=== PATIENT | female | born 1950 | race Caucasian/White ===

== ENCOUNTER 2018-01-23 14:28 | Emergency (ER) | payer MEDICARE ==
[2018-01-23 14:34] VITALS: BP 143/87; PULSE 92; RESP 20; TEMP 98.9
[2018-01-23] MEDS ORDERED: ACYCLOVIR 800 MG TAB PO STA (14:55)
[2018-01-23] MEDS ORDERED: HYDROcodone/APAP 5-325MG 1 EACH TAB PO STA (14:55)
--- NOTE | 2018-01-23 14:56 | ED ---
Skin/Abscess/FB HPI - General Chief complaint: Skin/Abscess/Foreign Body Stated complaint: Rash Time Seen by Provider: 01/23/18 14:42 Source: patient Mode of arrival: ambulatory Limitations: no limitations - History of Present Illness Initial comments: Patient presents with a rash on the left side of her chest and back. It has gotten worse for couple days it is uncomfortable. She has taken no medication this. She has no fever or chills. It does not occur anywhere else. - Related Data Home Medications Medication Instructions Recorded Confirmed Aspirin EC [Ecotrin] 325 mg PO DAILY 01/23/18 01/23/18 Lisinopril [Zestril] 5 mg PO DAILY 01/23/18 01/23/18 Metoprolol Tartrate [Lopressor] 25 mg PO BID 01/23/18 01/23/18 diphenhydrAMINE HCL [Benadryl] 25 mg PO BID PRN 01/23/18 01/23/18 metFORMIN HCL 1,000 mg PO BID 01/23/18 01/23/18 Previous Rx's Medication Instructions Recorded Acyclovir [Zovirax] 800 mg PO TID #30 tab 01/23/18 Allergies Allergy/AdvReac Type Severity Reaction Status Date / Time tetracycline Allergy Rash/Hives Verified 01/23/18 14:48 Review of Systems ROS Statement: Those systems with pertinent positive or pertinent negative responses have been documented in the HPI. ROS Other: All systems not noted in ROS Statement are negative. Past Medical History Past Medical History: Coronary Artery Disease (CAD), Chest Pain / Angina History of Any Multi-Drug Resistant Organisms: None Reported Past Surgical History: Heart Catheterization, Heart Catheterization With Stent Past Psychological History: No Psychological Hx Reported Smoking Status: Former smoker Past Alcohol Use History: None Reported Past Drug Use History: None Reported General Exam Limitations: no limitations General appearance: alert, in no apparent distress Head exam: Present: atraumatic Eye exam: Present: normal appearance Neck exam: Present: normal inspection Respiratory exam: Absent: respiratory distress Extremities exam: Present: normal inspection, full ROM Neurological exam: Present: alert, oriented X3 Psychiatric exam: Present: normal affect Skin exam: Present: other (Shingles rash on the left chest and back) Course Vital Signs 01/23/18 14:32 Temperature 98.9 F Pulse Rate 92 Respiratory 20 Rate Blood Pressure 143/87 O2 Sat by Pulse 97 Oximetry Medical Decision Making - Medical Decision Making Patient presents with a rash. It appears to be shingles. She will be treated with pain medication and acyclovir. She is stable for discharge and outpatient follow-up. Disposition Clinical Impression: Shingles Disposition: HOME SELF-CARE Condition: Good Instructions: Shingles (ED) Prescriptions: Acyclovir [Zovirax] 800 mg PO TID #30 tab Is patient prescribed a controlled substance at d/c from ED?: No Referrals: None,Stated [Primary Care Provider] - 1-2 days Time of Disposition: 14:55
== END 2018-01-23 15:30 | disposition home or self-care (01) ==
LOC: EC 14:28
DX: B02.9 Zoster without complications (principal); I25.10 Atherosclerotic heart disease of native coronary artery without angina pectoris; Z95.5 Presence of coronary angioplasty implant and graft; Z87.891 Personal history of nicotine dependence; Z95.818 Presence of other cardiac implants and grafts; Z79.82 Long term (current) use of aspirin; Z79.84 Long term (current) use of oral hypoglycemic drugs; Z79.899 Other long term (current) drug therapy; Z88.1 Allergy status to other antibiotic agents
CPT/HCPCS: 99282

== ENCOUNTER 2018-09-27 17:39 | Inpatient (IN) | payer MEDICARE ==
--- NOTE | 2018-09-27 18:10 | ED ---
SOB HPI <Avni James - Last Filed: 09/27/18 20:09> - General Source: patient Mode of arrival: wheelchair Limitations: no limitations <Marie Denis - Last Filed: 09/27/18 20:46> - General Chief Complaint: Shortness of Breath Stated Complaint: HORTENSIA Time Seen by Provider: 09/27/18 17:56 - History of Present Illness Initial Comments: 68-year-old female patient presents to the emergency department today for complaints of progressive dyspnea worsening over the last week. Patient states that she becomes very short of breath with any activity. Patient states shot to rest for a period of time afterward in order to catch her breath. Patient states this also worsens when she lies flat. Patient states her heart starts racing and she feels anxious like she is not getting enough air. Patient denies any chest pain or discomfort with this. Denies any nausea, vomiting, sweats, or cough. Denies any fevers or chills. Patient does have history of myocardial infarction in 2005, she does have 3 coronary stents. Patient does admit to having vascular issues and has had surgery on her legs numerous times in the past. Patient denies any recent rash, abdominal pain, diarrhea, constipation, back pain, numbness, tingling, dizziness, weakness, hematuria, dysuria, urinary urgency, urinary frequency, headache, visual changes, or any other complaints. (Marie Denis) - Related Data Home Medications Medication Instructions Recorded Confirmed Aspirin EC [Ecotrin] 325 mg PO DAILY 01/23/18 09/27/18 Lisinopril [Zestril] 5 mg PO DAILY 01/23/18 09/27/18 Metoprolol Tartrate [Lopressor] 25 mg PO BID 01/23/18 09/27/18 metFORMIN HCL 1,000 mg PO BID 01/23/18 09/27/18 Glimepiride [Amaryl] 2 mg PO DAILY 09/27/18 09/27/18 Oxybutynin Chloride [Oxybutynin 10 mg PO DAILY 09/27/18 09/27/18 Chloride ER] Allergies Allergy/AdvReac Type Severity Reaction Status Date / Time tetracycline Allergy Rash/Hives Verified 09/27/18 19:00 Review of Systems ROS Other: All systems not noted in ROS Statement are negative. <Avni James - Last Filed: 09/27/18 20:09> ROS Other: All systems not noted in ROS Statement are negative. <Marie Denis - Last Filed: 09/27/18 20:46> ROS Statement: Those systems with pertinent positive or pertinent negative responses have been documented in the HPI. Past Medical History Past Medical History: Coronary Artery Disease (CAD), Chest Pain / Angina, Myocardial Infarction (HI) History of Any Multi-Drug Resistant Organisms: None Reported Past Surgical History: Section, Heart Catheterization, Heart Catheterization With Stent Additional Past Surgical History / Comment(s): vein work, leg stent Past Psychological History: No Psychological Hx Reported Smoking Status: Former smoker Past Alcohol Use History: None Reported Past Drug Use History: None Reported <Marie Denis - Last Filed: 09/27/18 20:46> General Exam Limitations: no limitations General appearance: alert, in no apparent distress, other (Physical well- developed, well-nourished adult female patient in no acute distress. Vital signs upon presentation are temperature 98.2 degrees rectal pulse 83, respirations 18, blood pressure 143/88, pulse ox 96% on room air.) Eye exam: Present: normal appearance, PERRL, EOMI. Absent: scleral icterus, conjunctival injection, periorbital swelling ENT exam: Present: normal exam, normal oropharynx, mucous membranes moist Respiratory exam: Present: other (Crackles at bilateral bases). Absent: normal lung sounds bilaterally, respiratory distress, wheezes, rales, rhonchi, stridor Cardiovascular Exam: Present: regular rate, normal rhythm, normal heart sounds. Absent: systolic murmur, diastolic murmur, rubs, gallop, clicks GI/Abdominal exam: Present: soft, normal bowel sounds. Absent: distended, tenderness, guarding, rebound, rigid Extremities exam: Present: full ROM, normal capillary refill, other (1+ pitting edema to the bilateral lower extremities). Absent: normal inspection, tenderness, pedal edema, joint swelling, calf tenderness Neurological exam: Present: alert, oriented X3, CN II-XII intact Psychiatric exam: Present: normal affect, normal mood Skin exam: Present: warm, dry, intact, normal color. Absent: rash <Marie Denis - Last Filed: 09/27/18 20:46> Vital Signs 09/27/18 09/27/18 09/27/18 17:46 18:30 19:00 Temperature 98.2 F Pulse Rate 83 79 74 Respiratory 18 22 18 Rate Blood Pressure 143/88 131/80 130/71 O2 Sat by Pulse 96 97 95 Oximetry 09/27/18 09/27/18 19:30 20:00 Temperature Pulse Rate 92 89 Respiratory Rate Blood Pressure 118/71 133/83 O2 Sat by Pulse 96 95 Oximetry Medical Decision Making - Lab Data Result diagrams: 09/27/18 18:07 09/27/18 18:07 <Anvi James - Last Filed: 09/27/18 20:09> - Lab Data Result diagrams: 09/27/18 18:07 09/27/18 18:07 - EKG Data -: EKG Interpreted by Me - Radiology Data Radiology results: report reviewed, image reviewed <AdeelMarie - Last Filed: 09/27/18 20:46> - Medical Decision Making Medical decision making; this is a 68-year-old female here with family. I examine the patient. The patient's been having progressive shortness of breath over several days to a week. Patient denies any chest pain but short of breath. This increases with walking, talking and laying flat. She's also noticed some lower leg edema. Past medical history significant for having had an HI 13 years ago with 3 stents placed. The patient states it does not feel like a heart attack. Her labs show a BNP of 3500 with a troponin of 0.606. The patient's going to be admitted to Dr. Barker. I discussed the case with on -call head of design Dr. Alarcon. He will follow-up in hospital. He recommends heparin be started. EKG showed normal sinus rhythm no acute ST elevation no ectopy. Dr. James (Avni James) 60-year-old female patient presented to the emergency department today for evaluation of progressive shortness of breath over the last week. Physical examination did reveal crackles at the bilateral lung bases. Chest x-ray showed bilateral pleural effusion with some pulmonary vascular congestion. Labs reviewed and did reveal elevated troponin at 0.606, elevated BNP at 3500. We will admit patient to Dr. Barker. My attending Dr. James did discuss to the on-call head of design Dr. Alarcon who recommends starting heparin. We will obtain echo in the morning. She'll be admitted for further evaluation (Marie Denis) - Lab Data Lab Results 09/27/18 09/27/18 09/27/18 Range/Units 18:07 18:07 18:07 WBC 7.6 (3.8-10.6) k/uL RBC 3.58 L (3.80-5.40) m/uL Hgb 10.2 L (11.4-16.0) gm/dL Hct 31.7 L (34.0-46.0) % MCV 88.3 (80.0-100.0) fL MCH 28.4 (25.0-35.0) pg MCHC 32.2 (31.0-37.0) g/dL RDW 14.8 (11.5-15.5) % Plt Count 311 (150-450) k/uL Neutrophils % 68 % Lymphocytes % 20 % Monocytes % 6 % Eosinophils % 2 % Basophils % 1 % Neutrophils # 5.2 (1.3-7.7) k/uL Lymphocytes # 1.5 (1.0-4.8) k/uL Monocytes # 0.4 (0-1.0) k/uL Eosinophils # 0.2 (0-0.7) k/uL Basophils # 0.1 (0-0.2) k/uL PT (9.0-12.0) sec INR (<1.2) APTT (22.0-30.0) sec Sodium 138 (137-145) mmol/L Potassium 5.0 (3.5-5.1) mmol/L Chloride 108 H (98-107) mmol/L Carbon Dioxide 21 L (22-30) mmol/L Anion Gap 9 mmol/L BUN 27 H (7-17) mg/dL Creatinine 1.32 H (0.52-1.04) mg/dL Est GFR (CKD-EPI)AfAm 48 (>60 ml/min/1.73 sqM) Est GFR (CKD-EPI)NonAf 42 (>60 ml/min/1.73 sqM) Glucose 156 H (74-99) mg/dL Calcium 9.4 (8.4-10.2) mg/dL Total Bilirubin 0.4 (0.2-1.3) mg/dL AST 17 (14-36) U/L ALT 18 (9-52) U/L Alkaline Phosphatase 89 (38-126) U/L Total Creatine Kinase 56 (30-135) U/L CK-MB (CK-2) 0.9 (0.0-2.4) ng/mL CK-MB (CK-2) Rel Index 1.6 Troponin I 0.606 H* (0.000-0.034) ng/mL NT-Pro-B Natriuret Pep pg/mL Total Protein 7.1 (6.3-8.2) g/dL Albumin 3.8 (3.5-5.0) g/dL 09/27/18 09/27/18 Range/Units 18:07 18:07 WBC (3.8-10.6) k/uL RBC (3.80-5.40) m/uL Hgb (11.4-16.0) gm/dL Hct (34.0-46.0) % MCV (80.0-100.0) fL MCH (25.0-35.0) pg MCHC (31.0-37.0) g/dL RDW (11.5-15.5) % Plt Count (150-450) k/uL Neutrophils % % Lymphocytes % % Monocytes % % Eosinophils % % Basophils % % Neutrophils # (1.3-7.7) k/uL Lymphocytes # (1.0-4.8) k/uL Monocytes # (0-1.0) k/uL Eosinophils # (0-0.7) k/uL Basophils # (0-0.2) k/uL PT 10.4 (9.0-12.0) sec INR 1.0 (<1.2) APTT 21.7 L (22.0-30.0) sec Sodium (137-145) mmol/L Potassium (3.5-5.1) mmol/L Chloride (98-107) mmol/L Carbon Dioxide (22-30) mmol/L Anion Gap mmol/L BUN (7-17) mg/dL Creatinine (0.52-1.04) mg/dL Est GFR (CKD-EPI)AfAm (>60 ml/min/1.73 sqM) Est GFR (CKD-EPI)NonAf (>60 ml/min/1.73 sqM) Glucose (74-99) mg/dL Calcium (8.4-10.2) mg/dL Total Bilirubin (0.2-1.3) mg/dL AST (14-36) U/L ALT (9-52) U/L Alkaline Phosphatase (38-126) U/L Total Creatine Kinase (30-135) U/L CK-MB (CK-2) (0.0-2.4) ng/mL CK-MB (CK-2) Rel Index Troponin I (0.000-0.034) ng/mL NT-Pro-B Natriuret Pep 3570 pg/mL Total Protein (6.3-8.2) g/dL Albumin (3.5-5.0) g/dL - EKG Data EKG Comments: EKG obtained at 1757 shows normal sinus rhythm with a ventricular rate of 86, TX interval 142, QRS duration 82, QT 364, QTC 435. No evidence of ST elevation or depression. (Marie Denis) - Radiology Data Two-view x-ray of the chest is obtained. Report was reviewed in its entirety. Impression by Dr. Perkins shows small to moderate bilateral pleural effusions. Minimal pulmonary vascular congestion (Marie Denis) Disposition <Avni James - Last Filed: 09/27/18 20:09> Decision to Admit Reason: Admit from EC Decision Date: 09/27/18 Decision Time: 20:45 <Marie Denis - Last Filed: 09/27/18 20:46> Clinical Impression: Congestive heart failure, ACS (acute coronary syndrome) Disposition: ADMITTED IP TO THIS [facility] Condition: Serious Referrals: Davey Barnard DO [Primary Care Provider] - 1-2 days
[2018-09-27 18:23] LABS: Basophils # (A) 0.1 k/uL (0-0.2); Basophils % (A) 1 %; Eosinophils # (A) 0.2 k/uL (0-0.7); Eosinophils % (A) 2 %; HCT 31.7 % (34.0-46.0); HGB 10.2 gm/dL (11.4-16.0); Lymphocytes # (A) 1.5 k/uL (1.0-4.8); Lymphocytes % (A) 20 %; MCH 28.4 pg (25.0-35.0); MCHC 32.2 g/dL (31.0-37.0); MCV 88.3 fL (80.0-100.0); Mean Platelet Volume 6.9; Monocytes # (A) 0.4 k/uL (0-1.0); Monocytes % (A) 6 %; Neutrophils # (A) 5.2 k/uL (1.3-7.7); Neutrophils % (A) 68 %; Platelet Count 311 k/uL (150-450); RBC 3.58 m/uL (3.80-5.40); RDW 14.8 % (11.5-15.5); WBC 7.6 k/uL (3.8-10.6)
--- NOTE | 2018-09-27 18:30 | XR ---
EXAMINATION TYPE: XR chest 2V DATE OF EXAM: 09/27/2018 COMPARISON: NONE HISTORY: Dyspnea with exertion TECHNIQUE: Frontal and lateral views of the chest are obtained. FINDINGS: Small to moderate-sized bilateral pleural effusions with associated bibasilar atelectasis. Increased interstitial markings are seen diffusely with cephalization of the pulmonary vessels. The heart is mildly enlarged. No pneumothorax. Osseous structures appear intact. IMPRESSION: 1. Small to moderate bilateral pleural effusions. 2. Minimal pulmonary vascular congestion.
[2018-09-27 18:33] LABS: Albumin 3.8 g/dL (3.5-5.0); Calcium 9.4 mg/dL (8.4-10.2); Total Bilirubin 0.4 mg/dL (0.2-1.3); Total Protein 7.1 g/dL (6.3-8.2)
[2018-09-27] MEDS ORDERED: FUROSEMIDE 10 MG/ML 4 ML VIAL IV STA (18:35)
[2018-09-27 18:39] LABS: Prothrombin Time 10.4 sec (9.0-12.0)
[2018-09-27 18:49] LABS: Creatine Kinase MB 0.9 ng/mL (0.0-2.4)
[2018-09-27 18:50] LABS: Partial Thromboplastin Time 21.7 sec (22.0-30.0)
[2018-09-27 18:51] LABS: Troponin I 0.606 ng/mL (0.000-0.034)
[2018-09-27] MEDS ORDERED: HEPARIN SODIUM,PORCINE 5,000 UNIT/ML 1 ML VIAL IV ONE ×2 (20:13→20:17)
[2018-09-27] MEDS ORDERED: HEPARIN SODIUM,PORCINE 5,000 UNIT/ML 1 ML VIAL IV PRN (20:17)
[2018-09-27] MEDS ORDERED: HEPARIN SOD,PORK IN 0.45% NACL 25,000 UNIT in 0.45% NACL 1 250ML.BAG IV SCH (20:30)
[2018-09-27] MEDS: FUROSEMIDE 10 MG/ML 4 ML VIAL IV SCH (20:54)
[2018-09-27] MEDS: METOPROLOL TARTRATE 25 MG TAB PO SCH (21:39)
[2018-09-27] MEDS: metFORMIN 500 MG TAB PO SCH (22:10)
[2018-09-28 06:11] LABS: Basophils # (A) 0.1 k/uL (0-0.2); Basophils % (A) 1 %; Eosinophils # (A) 0.2 k/uL (0-0.7); Eosinophils % (A) 4 %; HCT 28.1 % (34.0-46.0); Hypochromasia Slight; Lymphocytes # (A) 1.4 k/uL (1.0-4.8); Lymphocytes % (A) 27 %; MCH 28.5 pg (25.0-35.0); MCV 89.1 fL (80.0-100.0); Mean Platelet Volume 7.1; Monocytes # (A) 0.3 k/uL (0-1.0); Monocytes % (A) 6 %; Neutrophils # (A) 3.2 k/uL (1.3-7.7); Neutrophils % (A) 60 %; Platelet Count 259 k/uL (150-450); RBC 3.15 m/uL (3.80-5.40); RDW 14.7 % (11.5-15.5); WBC 5.3 k/uL (3.8-10.6)
[2018-09-28 06:16] LABS: Glucose,Whole Blood 121 mg/dL (75-99)
[2018-09-28] MEDS ORDERED: ATORVASTATIN 80 MG TAB PO STA (08:41)
[2018-09-28] MEDS ORDERED: ALPRAZolam 0.25 MG TAB PO PRN (08:41)
[2018-09-28] MEDS ORDERED: ALPRAZolam 0.5 MG TAB PO PRN (08:41)
[2018-09-28] MEDS ORDERED: NITROGLYCERIN SL TABS 0.4 MG TAB SUBLINGUAL PRN (08:41)
[2018-09-28] MEDS ORDERED: ASPIRIN 325 MG TAB PO STA (08:41)
[2018-09-28] MEDS ORDERED: SODIUM CHLORIDE 0.9% 1,000 ML in EMPTY BAG 1 BAG IV ONE (08:41)
[2018-09-28] MEDS: LISINOPRIL 5 MG TAB PO SCH (08:47)
[2018-09-28] MEDS: METOPROLOL TARTRATE 25 MG TAB PO SCH (08:47)
[2018-09-28] MEDS: FUROSEMIDE 10 MG/ML 4 ML VIAL IV SCH ×2 (08:47→20:40)
[2018-09-28] MEDS ORDERED: ASPIRIN 325 MG TAB PO SCH (09:00)
[2018-09-28] MEDS ORDERED: GLIMEPIRIDE 2 MG TAB PO SCH (09:00)
--- NOTE | 2018-09-28 09:20 | CONS ---
ABY Galan is a 68-year-old lady with history of coronary artery disease, status post prior myocardial infarction cath and angioplasty, hypertension and [id number] diabetes who presents to hospital complaining of exertional shortness of breath. She has been becoming progressively more short of breath over the last several days. EKG on admission showed sinus rhythm with nonspecific ST-T wave changes. She did not have any episodes of chest pain, but she ruled in for myocardial infarction. Her troponins were at 0.6, 0.4 and 0.4. Her BNP is also elevated. At the time of my evaluation this morning, she appears comfortable at rest. I treated her with IV heparin with some improvement in her symptoms. Her hemoglobin on admission was low at 10.2, this morning it is 9. There is no prior history of anemia. Patient does not have any active GI bleed and does not have melanotic stools. Her BUN and creatinine are slightly elevated at 27 and 1.3. Given the elevated troponin and known CAD, I advised the patient to undergo invasive angiography to rule out significant obstructive disease. If this is negative, then she will need workup for her anemia. She does not have any active GI bleed at the moment. PAST MEDICAL HISTORY: Significant for hypertension, diabetes. CURRENT MEDICATIONS: Include Lopressor 25 b.i.d., Amaryl 2 mg daily, metformin 1000 b.i.d., Zestril 5 q. daily and aspirin. ALLERGIC: To TETRACYCLINE. FAMILY HISTORY: Negative for premature coronary artery disease. SOCIAL HISTORY: Negative for current smoking, EtOH abuse or drug abuse. REVIEW OF SYSTEMS: HEENT is unremarkable. CARDIAC: As described above. RESPIRATORY: As described above. GI: Negative. GENITOURINARY: Negative. ALLERGY: Negative. SKIN: Negative. MUSCULOSKELETAL: Significant for arthritis. PSYCHOSOCIAL: Negative. ENDOCRINE: Negative. HEMATOLOGIC: Negative. DERM: Negative. CONSTITUTIONAL: Negative. ONCOLOGICAL: Negative. Rest of the system review is not relevant. PHYSICAL EXAM: Comfortable at rest. Afebrile. Vital signs are stable. There is no jugular venous distention. Carotid upstroke is normal. There is no bruit. Chest exam reveals good air entry bilaterally. Heart exam reveals first and second heart sounds. No gallop. No murmur. No rub. Abdomen is soft, nontender. Exam of extremities did not reveal edema. Peripheral pulses are felt. LABS: Showed that the hemoglobin is low at 9, platelet count is 259. Troponins are elevated. Potassium is 5, BUN is 27, creatinine is 1.3. BNP is elevated at 3570. ASSESSMENT: 1. Acute shortness of breath, probably related to acute non ST-segment elevation myocardial infarction. 2. Renal insufficiency. 3. Anemia. PLAN: I advised the patient to undergo cardiac catheterization today. I will obtain a 2D echo to evaluate her LV function and wall motion. I am going to review her outpatient records. Depending upon the angiographic data, we will decide on further course of action. I am also going to obtain a D-dimer on her. \ MMODL / IJN: [id number] /
[2018-09-28] MEDS ORDERED: MIDAZOLAM 2 MG/2 ML VIAL IVP ONE (10:01)
[2018-09-28] MEDS ORDERED: IV FLUID CONTINUATION 800 ML IV ONE (10:02)
[2018-09-28] MEDS ORDERED: fentaNYL (PF) 50 MCG/ML 2 ML AMP IVP ONE (10:02)
[2018-09-28 10:04] LABS: D-Dimer 1.13 mg/L FEU (<0.60); Partial Thromboplastin Time 42.4 sec (22.0-30.0)
[2018-09-28] MEDS ORDERED: LIDOCAINE 1% (PF) 10MG/ML VIAL SQ ONE (10:05)
[2018-09-28] MEDS ORDERED: IOPAMIDOL-370 125ML BTL INJ ONE (10:17)
--- NOTE | 2018-09-28 10:46 | CC ---
CARDIAC CATHETERIZATION REPORT INDICATION: 1. Acute non ST-segment elevation myocardial infarction. 2. Ischemic cardiomyopathy. PROCEDURE NOTE: After obtaining informed consent, left heart catheterization and coronary angiogram were performed via the right femoral artery using standard Lior catheters. The patient tolerated the procedure well without any obvious immediate complications. A femoral angiogram was performed and decision was made for manual hemostasis as she has extensive calcification of the peripheral vessels. The patient received moderate conscious sedation and total sedation time was 17 minutes. FINDINGS: 1. HEMODYNAMICS: Left ventricular end-diastolic pressure is 24 to 26 mm. There is no significant gradient across aortic valve. 2. LEFT VENTRICULOGRAM: Left ventriculogram is not performed. 3. ANGIOGRAPHIC DATA: Left Main Coronary Artery: Left main coronary artery appears calcified but is free of significant stenosis. Divides into left anterior descending coronary artery and circumflex coronary artery. LAD is subtotally occluded in its midportion with extensive disease in the proximal LAD also. It gives off a large caliber diagonal branch. The circumflex coronary artery is a nondominant vessel. The OM branch shows a 60 to 70% stenosis. Right coronary artery is a large dominant vessel and this was previously stented. Mid RCA shows a focal 80% to 90% stenosis. Distal RCA as it bifurcates into PDA and PLV also has a 70% stenosis. CONCLUSION: 1. Severe three-vessel coronary artery disease. 2. Ischemic cardiomyopathy with severe left ventricular dysfunction. PLAN: I am going to consult Dr. Zuñiga for bypass surgery. The patient will need revascularization of the distal LAD, diagonal, OM and the RCA. MMODL / IJN: [id number] /
[2018-09-28 11:14] LABS: Basophils % (A) 1 %; Eosinophils # (A) 0.2 k/uL (0-0.7); Eosinophils % (A) 4 %; HCT 32.2 % (34.0-46.0); HGB 10.4 gm/dL (11.4-16.0); Hypochromasia Slight; Lymphocytes # (A) 1.3 k/uL (1.0-4.8); Lymphocytes % (A) 25 %; MCHC 32.2 g/dL (31.0-37.0); MCV 90.1 fL (80.0-100.0); Mean Platelet Volume 6.9; Monocytes # (A) 0.4 k/uL (0-1.0); Monocytes % (A) 7 %; Neutrophils # (A) 3.2 k/uL (1.3-7.7); Neutrophils % (A) 61 %; Platelet Count 262 k/uL (150-450); RBC 3.57 m/uL (3.80-5.40); RDW 14.7 % (11.5-15.5); WBC 5.3 k/uL (3.8-10.6)
[2018-09-28] MEDS: metFORMIN 500 MG TAB PO SCH ×2 (11:20→20:34)
[2018-09-28] MEDS: OXYBUTYNIN 10 MG TAB.ER.24 PO SCH (11:20)
[2018-09-28 11:22] LABS: Albumin 3.6 g/dL (3.5-5.0); Calcium 9.3 mg/dL (8.4-10.2); Magnesium 1.7 mg/dL (1.6-2.3); Potassium 4.7 mmol/L (3.5-5.1); Total Bilirubin 0.5 mg/dL (0.2-1.3); Total Protein 6.7 g/dL (6.3-8.2)
[2018-09-28 11:39] LABS: Prothrombin Time 10.4 sec (9.0-12.0)
[2018-09-28 12:25] LABS: Glucose,Whole Blood 142 mg/dL (75-99)
--- NOTE | 2018-09-28 13:25 | P.GSCN ---
<Elsie Alas - Last Filed: 09/28/18 15:11> History of Present Illness Consult date: 09/28/18 Reason for Consult: Severe triple vessel coronary artery disease, surgical recommendations Requesting physician: Avi Alarcon History of present illness: This is a 68-year-old female patient who follows on an outpatient basis with Dr. Sadie Barnard. She has a previous medical history of myocardial infarction in 2005 with stent placement, hyperlipidemia, peripheral artery disease with stent placement to the left lower extremity in 2016, recent vein surgery to bilateral lower extremities, [id number] diabetes mellitus , shingles, obesity, previous tobacco dependence, and family history of early coronary artery disease with her mother dying before the age of 6060 years old during coronary artery bypass graft surgery. She presented to [facility] emergency room yesterday with complaints of increasing shortness of breath , especially with activity over the previous week. She is unable to lay flat, and is significantly short of breath just walking from her couch to the bathroom. Her shortness of breath is partially relieved with rest, in addition she endorses bilateral lower extremity edema, intermittent nausea, and occasional palpitations with a racing heart. She denies any chest pain or pressure, weakness, dizziness, syncope. In the emergency room she had EKG completed which demonstrated some nonspecific ST-T wave changes. Her troponins were elevated as high as 0.606 and she was ruled in for non-STEMI. In addition her BNP was 3570. Chest x-ray demonstrated bilateral pleural effusions with pulmonary vascular congestion. She was admitted for cardiology workup. Dr. Alarcon took her to the Equipment Manager this morning which demonstrated previous stent to the RCA with mid RCA stenosis 80-90% and distal RCA stenosis 70%, subtotal occlusion in the mid LAD with extensive disease in the proximal LAD, and an OM branch of the circumflex artery with 60-70% stenosis. Cardiothoracic surgery was consulted regarding surgical recommendations. Review of Systems Review of systems was completed and was negative except as noted. - Cardiovascular Reports as per HPI, Reports decreased exercise tolerance, Reports dyspnea on exertion, Reports leg edema, Reports rapid heart beat Past Medical History Past Medical History: Coronary Artery Disease (CAD), Chest Pain / Angina, Diabetes Mellitus, Hyperlipidemia, Myocardial Infarction (DC) Last Myocardial Infarction Date:: 03/20/2006 History of Any Multi-Drug Resistant Organisms: None Reported Past Surgical History: Section, Heart Catheterization, Heart Catheterization With Stent Additional Past Surgical History / Comment(s): vein work, leg stent Past Anesthesia/Blood Transfusion Reactions: No Reported Reaction Date of Last Stent Placement:: 03/20/2006 Past Psychological History: No Psychological Hx Reported Smoking Status: Former smoker Past Alcohol Use History: None Reported Past Drug Use History: None Reported - Past Family History Mother Family Medical History: Coronary Artery Disease (CAD) Medications and Allergies Home Medications Medication Instructions Recorded Confirmed Type Aspirin EC [Ecotrin] 325 mg PO DAILY 01/23/18 09/27/18 History Lisinopril [Zestril] 5 mg PO DAILY 01/23/18 09/27/18 History Metoprolol Tartrate [Lopressor] 25 mg PO BID 01/23/18 09/27/18 History metFORMIN HCL 1,000 mg PO BID 01/23/18 09/27/18 History Glimepiride [Amaryl] 2 mg PO DAILY 09/27/18 09/27/18 History Oxybutynin Chloride [Oxybutynin 10 mg PO DAILY 09/27/18 09/27/18 History Chloride ER] Allergies Allergy/AdvReac Type Severity Reaction Status Date / Time tetracycline Allergy Rash/Hives Verified 09/27/18 19:00 Surgical - Exam Vital Signs Temp Pulse Resp BP Pulse Ox 98.2 F 83 18 143/88 96 09/27/18 17:46 09/27/18 17:46 09/27/18 17:46 09/27/18 17:46 09/27/18 17:46 - General well developed, well nourished, no distress, no pain, obese - Eyes PERRL, normal ocular movement - ENT no hearing loss - Neck no masses, no bruits, trachea midline - Respiratory Lungs sounds diminished bilaterally. Respirations even, nonlabored. Currently on room air with oxygen saturation 93%. No chest wall deformities. - Cardiovascular S1, S2 present. Regular rate and rhythm, sinus rhythm on telemetry. Palpable peripheral pulses bilaterally. Trace bilateral lower extremity nonpitting edema present. No calf pain or tenderness noted. Positive varicosities to both lower extremities. - Abdomen Abdomen: soft, non tender, bowel sounds - Genitourinary Deferred - Rectum Deferred - Integumentary Skin is warm and dry with evidence of good perfusion. Right groin arterial access site soft, nontender. - Neurologic normal coordination, normal sensation - Musculoskeletal normal posture - Psychiatric oriented to time, oriented to person, oriented to place, speech is normal, memory intact Results - Labs 09/28/18 09:19 09/28/18 09:19 Abnormal Lab Results - Last 24 Hours (Table) 09/27/18 09/27/18 09/27/18 Range/Units 18:07 18:07 18:07 RBC 3.58 L (3.80-5.40) m/uL Hgb 10.2 L (11.4-16.0) gm/dL Hct 31.7 L (34.0-46.0) % APTT (22.0-30.0) sec D-Dimer (<0.60) mg/L FEU Chloride 108 H (98-107) mmol/L Carbon Dioxide 21 L (22-30) mmol/L BUN 27 H (7-17) mg/dL Creatinine 1.32 H (0.52-1.04) mg/dL Glucose 156 H (74-99) mg/dL POC Glucose (mg/dL) (75-99) mg/dL Troponin I 0.606 H* (0.000-0.034) ng/mL Cholesterol (<200) mg/dL LDL Cholesterol, Calc (0-99) mg/dL HDL Cholesterol (40-60) mg/dL 09/27/18 09/27/18 09/28/18 Range/Units 18:07 23:36 05:33 RBC 3.15 L (3.80-5.40) m/uL Hgb 9.0 L (11.4-16.0) gm/dL Hct 28.1 L (34.0-46.0) % APTT 21.7 L (22.0-30.0) sec D-Dimer (<0.60) mg/L FEU Chloride (98-107) mmol/L Carbon Dioxide (22-30) mmol/L BUN (7-17) mg/dL Creatinine (0.52-1.04) mg/dL Glucose (74-99) mg/dL POC Glucose (mg/dL) (75-99) mg/dL Troponin I 0.487 H* (0.000-0.034) ng/mL Cholesterol (<200) mg/dL LDL Cholesterol, Calc (0-99) mg/dL HDL Cholesterol (40-60) mg/dL 09/28/18 09/28/18 09/28/18 Range/Units 05:33 06:14 09:16 RBC (3.80-5.40) m/uL Hgb (11.4-16.0) gm/dL Hct (34.0-46.0) % APTT 42.4 H (22.0-30.0) sec D-Dimer 1.13 H (<0.60) mg/L FEU Chloride (98-107) mmol/L Carbon Dioxide (22-30) mmol/L BUN (7-17) mg/dL Creatinine (0.52-1.04) mg/dL Glucose (74-99) mg/dL POC Glucose (mg/dL) 121 H (75-99) mg/dL Troponin I 0.483 H* (0.000-0.034) ng/mL Cholesterol (<200) mg/dL LDL Cholesterol, Calc (0-99) mg/dL HDL Cholesterol (40-60) mg/dL 09/28/18 09/28/18 09/28/18 Range/Units 09:19 09:19 11:54 RBC 3.57 L (3.80-5.40) m/uL Hgb 10.4 L (11.4-16.0) gm/dL Hct 32.2 L (34.0-46.0) % APTT (22.0-30.0) sec D-Dimer (<0.60) mg/L FEU Chloride 109 H (98-107) mmol/L Carbon Dioxide (22-30) mmol/L BUN 27 H (7-17) mg/dL Creatinine 1.23 H (0.52-1.04) mg/dL Glucose 117 H (74-99) mg/dL POC Glucose (mg/dL) 142 H (75-99) mg/dL Troponin I (0.000-0.034) ng/mL Cholesterol 236 H (<200) mg/dL LDL Cholesterol, Calc 175 H (0-99) mg/dL HDL Cholesterol 35 L (40-60) mg/dL Diabetes panel 09/27/18 09/28/18 Range/Units 18:07 09:19 Sodium 138 139 (137-145) mmol/L Potassium 5.0 4.7 (3.5-5.1) mmol/L Chloride 108 H 109 H (98-107) mmol/L Carbon Dioxide 21 L 24 (22-30) mmol/L BUN 27 H 27 H (7-17) mg/dL Creatinine 1.32 H 1.23 H (0.52-1.04) mg/dL Glucose 156 H 117 H (74-99) mg/dL Calcium 9.4 9.3 (8.4-10.2) mg/dL AST 17 15 (14-36) U/L ALT 18 20 (9-52) U/L Alkaline Phosphatase 89 89 (38-126) U/L Total Protein 7.1 6.7 (6.3-8.2) g/dL Albumin 3.8 3.6 (3.5-5.0) g/dL Triglycerides 132 (<150) mg/dL HDL Cholesterol 35 L (40-60) mg/dL Thyroid panel 09/28/18 Range/Units 09:19 TSH 1.830 (0.465-4.680) mIU/L Calcium panel 09/27/18 09/28/18 Range/Units 18:07 09:19 Calcium 9.4 9.3 (8.4-10.2) mg/dL Albumin 3.8 3.6 (3.5-5.0) g/dL Pituitary panel 09/27/18 09/28/18 Range/Units 18:07 09:19 Sodium 138 139 (137-145) mmol/L Potassium 5.0 4.7 (3.5-5.1) mmol/L Chloride 108 H 109 H (98-107) mmol/L Carbon Dioxide 21 L 24 (22-30) mmol/L BUN 27 H 27 H (7-17) mg/dL Creatinine 1.32 H 1.23 H (0.52-1.04) mg/dL Glucose 156 H 117 H (74-99) mg/dL Calcium 9.4 9.3 (8.4-10.2) mg/dL TSH 1.830 (0.465-4.680) mIU/L Adrenal panel 09/27/18 09/28/18 Range/Units 18:07 09:19 Sodium 138 139 (137-145) mmol/L Potassium 5.0 4.7 (3.5-5.1) mmol/L Chloride 108 H 109 H (98-107) mmol/L Carbon Dioxide 21 L 24 (22-30) mmol/L BUN 27 H 27 H (7-17) mg/dL Creatinine 1.32 H 1.23 H (0.52-1.04) mg/dL Glucose 156 H 117 H (74-99) mg/dL Calcium 9.4 9.3 (8.4-10.2) mg/dL Total Bilirubin 0.4 0.5 (0.2-1.3) mg/dL AST 17 15 (14-36) U/L ALT 18 20 (9-52) U/L Alkaline Phosphatase 89 89 (38-126) U/L Total Protein 7.1 6.7 (6.3-8.2) g/dL Albumin 3.8 3.6 (3.5-5.0) g/dL - Imaging Chest x-ray: report reviewed, image reviewed EKG: image reviewed Additional studies: Heart catheterization results reviewed Assessment and Plan (1) History of myocardial infarction, greater than 8 weeks ago Current Visit: No Status: Resolved Code(s): I25.2 - OLD MYOCARDIAL INFARCTION SNOMED Code(s): 0767035 (2) Non-STEMI (non-ST elevated myocardial infarction) Current Visit: Yes Status: Acute Code(s): I21.4 - NON-ST ELEVATION (NSTEMI) MYOCARDIAL INFARCTION SNOMED Code(s): 91093112 (3) History of heart artery stent Current Visit: Yes Status: Chronic Code(s): Z95.5 - PRESENCE OF CORONARY ANGIOPLASTY IMPLANT AND GRAFT SNOMED Code(s): 392784616 (4) Peripheral artery disease Current Visit: Yes Status: Chronic Code(s): I73.9 - PERIPHERAL VASCULAR DISEASE, UNSPECIFIED SNOMED Code(s): 600116835 (5) Tobacco dependence in remission Current Visit: No Status: Resolved Code(s): F17.201 - NICOTINE DEPENDENCE, UNSPECIFIED, IN REMISSION SNOMED Code(s): 576548656 (6) Hyperlipidemia Current Visit: Yes Status: Chronic Code(s): E78.5 - HYPERLIPIDEMIA, UNSPECIFIED SNOMED Code(s): 20954415 (7) Diabetes mellitus Current Visit: Yes Status: Chronic Code(s): E11.9 - TYPE 2 DIABETES MELLITUS WITHOUT COMPLICATIONS SNOMED Code(s): 63788483 (8) Obesity (BMI 30.0-34.9) Current Visit: Yes Status: Chronic Code(s): E66.9 - OBESITY, UNSPECIFIED SNOMED Code(s): 081180234458948 Plan: The patient was seen and examined at the bedside. Her chart/diagnostics were reviewed. Heart catheterization films were reviewed. The case will be discussed with Dr. Paez in detail. The usual open-heart surgery perioperative course was discussed with the patient and her family, risks and benefits were discussed, all questions were answered. Preoperative testing was ordered. We recommend maximizing medical therapy with aspirin, statin, beta salome. Continue diuresis with Lasix. Continued medical management per primary care service. Cardiology management per Dr. Alarcon. More recommendations to follow once Dr. Paez has viewed heart catheterization films and preoperative testing has been completed. Thank you Dr. Alarcon for this consult. We look forward to working with you in the care of your patient. Time with Patient: Greater than 30 <Navarro Paez - Last Filed: 09/28/18 18:07> Surgical - Exam Vital Signs Temp Pulse Resp BP Pulse Ox 98.2 F 83 18 143/88 96 09/27/18 17:46 09/27/18 17:46 09/27/18 17:46 09/27/18 17:46 09/27/18 17:46 Results - Labs 09/28/18 09:19 09/28/18 09:19 Abnormal Lab Results - Last 24 Hours (Table) 09/27/18 09/27/18 09/27/18 Range/Units 18:07 18:07 18:07 RBC 3.58 L (3.80-5.40) m/uL Hgb 10.2 L (11.4-16.0) gm/dL Hct 31.7 L (34.0-46.0) % APTT (22.0-30.0) sec D-Dimer (<0.60) mg/L FEU Chloride 108 H (98-107) mmol/L Carbon Dioxide 21 L (22-30) mmol/L BUN 27 H (7-17) mg/dL Creatinine 1.32 H (0.52-1.04) mg/dL Glucose 156 H (74-99) mg/dL POC Glucose (mg/dL) (75-99) mg/dL Troponin I 0.606 H* (0.000-0.034) ng/mL Cholesterol (<200) mg/dL LDL Cholesterol, Calc (0-99) mg/dL HDL Cholesterol (40-60) mg/dL Urine Protein (Negative) Urine Mucus (None) /hpf 09/27/18 09/27/18 09/28/18 Range/Units 18:07 23:36 05:33 RBC 3.15 L (3.80-5.40) m/uL Hgb 9.0 L (11.4-16.0) gm/dL Hct 28.1 L (34.0-46.0) % APTT 21.7 L (22.0-30.0) sec D-Dimer (<0.60) mg/L FEU Chloride (98-107) mmol/L Carbon Dioxide (22-30) mmol/L BUN (7-17) mg/dL Creatinine (0.52-1.04) mg/dL Glucose (74-99) mg/dL POC Glucose (mg/dL) (75-99) mg/dL Troponin I 0.487 H* (0.000-0.034) ng/mL Cholesterol (<200) mg/dL LDL Cholesterol, Calc (0-99) mg/dL HDL Cholesterol (40-60) mg/dL Urine Protein (Negative) Urine Mucus (None) /hpf 09/28/18 09/28/18 09/28/18 Range/Units 05:33 06:14 09:16 RBC (3.80-5.40) m/uL Hgb (11.4-16.0) gm/dL Hct (34.0-46.0) % APTT 42.4 H (22.0-30.0) sec D-Dimer 1.13 H (<0.60) mg/L FEU Chloride (98-107) mmol/L Carbon Dioxide (22-30) mmol/L BUN (7-17) mg/dL Creatinine (0.52-1.04) mg/dL Glucose (74-99) mg/dL POC Glucose (mg/dL) 121 H (75-99) mg/dL Troponin I 0.483 H* (0.000-0.034) ng/mL Cholesterol (<200) mg/dL LDL Cholesterol, Calc (0-99) mg/dL HDL Cholesterol (40-60) mg/dL Urine Protein (Negative) Urine Mucus (None) /hpf 09/28/18 09/28/18 09/28/18 Range/Units 09:19 09:19 11:54 RBC 3.57 L (3.80-5.40) m/uL Hgb 10.4 L (11.4-16.0) gm/dL Hct 32.2 L (34.0-46.0) % APTT (22.0-30.0) sec D-Dimer (<0.60) mg/L FEU Chloride 109 H (98-107) mmol/L Carbon Dioxide (22-30) mmol/L BUN 27 H (7-17) mg/dL Creatinine 1.23 H (0.52-1.04) mg/dL Glucose 117 H (74-99) mg/dL POC Glucose (mg/dL) 142 H (75-99) mg/dL Troponin I (0.000-0.034) ng/mL Cholesterol 236 H (<200) mg/dL LDL Cholesterol, Calc 175 H (0-99) mg/dL HDL Cholesterol 35 L (40-60) mg/dL Urine Protein (Negative) Urine Mucus (None) /hpf 09/28/18 09/28/18 Range/Units 12:40 17:13 RBC (3.80-5.40) m/uL Hgb (11.4-16.0) gm/dL Hct (34.0-46.0) % APTT (22.0-30.0) sec D-Dimer (<0.60) mg/L FEU Chloride (98-107) mmol/L Carbon Dioxide (22-30) mmol/L BUN (7-17) mg/dL Creatinine (0.52-1.04) mg/dL Glucose (74-99) mg/dL POC Glucose (mg/dL) 122 H (75-99) mg/dL Troponin I (0.000-0.034) ng/mL Cholesterol (<200) mg/dL LDL Cholesterol, Calc (0-99) mg/dL HDL Cholesterol (40-60) mg/dL Urine Protein 1+ H (Negative) Urine Mucus Rare H (None) /hpf Diabetes panel 09/27/18 09/28/18 Range/Units 18:07 09:19 Sodium 138 139 (137-145) mmol/L Potassium 5.0 4.7 (3.5-5.1) mmol/L Chloride 108 H 109 H (98-107) mmol/L Carbon Dioxide 21 L 24 (22-30) mmol/L BUN 27 H 27 H (7-17) mg/dL Creatinine 1.32 H 1.23 H (0.52-1.04) mg/dL Glucose 156 H 117 H (74-99) mg/dL Calcium 9.4 9.3 (8.4-10.2) mg/dL AST 17 15 (14-36) U/L ALT 18 20 (9-52) U/L Alkaline Phosphatase 89 89 (38-126) U/L Total Protein 7.1 6.7 (6.3-8.2) g/dL Albumin 3.8 3.6 (3.5-5.0) g/dL Triglycerides 132 (<150) mg/dL HDL Cholesterol 35 L (40-60) mg/dL Thyroid panel 09/28/18 Range/Units 09: TSH 1.830 (0.465-4.680) mIU/L Calcium panel 09/27/18 09/28/18 Range/Units 18: 09: Calcium 9.4 9.3 (8.4-10.2) mg/dL Albumin 3.8 3.6 (3.5-5.0) g/dL Pituitary panel 09/27/18 09/28/18 Range/Units 18: 09: Sodium 138 139 (137-145) mmol/L Potassium 5.0 4.7 (3.5-5.1) mmol/L Chloride 108 H 109 H (98-107) mmol/L Carbon Dioxide 21 L 24 (22-30) mmol/L BUN 27 H 27 H (7-17) mg/dL Creatinine 1.32 H 1.23 H (0.52-1.04) mg/dL Glucose 156 H 117 H (74-99) mg/dL Calcium 9.4 9.3 (8.4-10.2) mg/dL TSH 1.830 (0.465-4.680) mIU/L Adrenal panel 09/27/18 09/28/18 Range/Units 18: 09: Sodium 138 139 (137-145) mmol/L Potassium 5.0 4.7 (3.5-5.1) mmol/L Chloride 108 H 109 H (98-107) mmol/L Carbon Dioxide 21 L 24 (22-30) mmol/L BUN 27 H 27 H (7-17) mg/dL Creatinine 1.32 H 1.23 H (0.52-1.04) mg/dL Glucose 156 H 117 H (74-99) mg/dL Calcium 9.4 9.3 (8.4-10.2) mg/dL Total Bilirubin 0.4 0.5 (0.2-1.3) mg/dL AST 17 15 (14-36) U/L ALT 18 20 (9-52) U/L Alkaline Phosphatase 89 89 (38-126) U/L Total Protein 7.1 6.7 (6.3-8.2) g/dL Albumin 3.8 3.6 (3.5-5.0) g/dL Assessment and Plan Plan: The patient was seen and examined. History and physical findings were verified. I agree with the above assessment and plan. The patient is a 68-year -old female with history of multiple medical problems including previous coronary stents placed in 2005. She states that for the last several months, she has been experiencing shortness of breath with activity. She denies chest pain. Upon presentation to the hospital she was ruled in for non-ST elevation myocardial infarction. Cardiac catheterization revealed multivessel coronary artery disease. Unfortunately, her targets are suboptimal. Specifically, her left anterior descending artery is nearly occluded with a poor distal target visualized. Her ejection fraction is also quite depressed on the order of 20%. Finally, she has had recent vein stripping in both her lower legs secondary to advanced varicosities. We will obtain the remainder of her workup and speak with her silk screen painter to determine whether additional PCI is an option.
[2018-09-28 13:29] LABS: Appearance,Urine Clear (Clear); Bilirubin,Urine Negative (Negative); Blood,Urine Negative (Negative); Color,Urine Colorless; Glucose,Urine (UA) Negative (Negative); Ketones,Urine Negative (Negative); Leukocyte Esterase,Urine Negative (Negative); Mucus,Urine Rare /hpf; Nitrite,Urine Negative (Negative); Protein,Urine 1+ (Negative); Squamous Epithelial Cell,Urine 1 /hpf (0-4); Urobilinogen,Urine <2.0 mg/dL (<2.0); WBC,Urine <1 /hpf (0-5)
--- NOTE | 2018-09-28 15:43 | US ---
EXAMINATION TYPE: US carotid duplex BILAT DATE OF EXAM: 09/28/2018 COMPARISON: NONE CLINICAL HISTORY: PreOp Cardiac Surgery. no h/o stroke EXAM MEASUREMENTS: RIGHT: Peak Systolic Velocity (PSV) cm/sec ----- Right CCA: 90.4 ----- Right ICA: 93.8 ----- Right ECA: 105.1 ICA/CCA ratio: 1.0 RIGHT: End Diastole cm/sec ----- Right CCA: 23.9 ----- Right ICA: 39.9 ----- Right ECA: 21.6 LEFT: Peak Systolic Velocity (PSV) cm/sec ----- Left CCA: 77.9 ----- Left ICA: 96.0 ----- Left ECA: 110.6 ICA/CCA ratio: 1.2 LEFT: End Diastole cm/sec ----- Left CCA: 18.6 ----- Left ICA: 31.1 ----- Left ECA: 10.6 VERTEBRALS (direction of flow): Right Vertebral: Antegrade Left Vertebral: Antegrade Rhythm: Arrhythmia Heterogeneous plaque seen at bilateral bulbs with no significant stenosis seen. IMPRESSION: 1. Although there is no sonographic evidence of hemodynamically significant stenosis there is moderat e heterogenous plaque within the bilateral carotid bulbs that could be further assessed with CTA neck . 2. Incidentally noted cardiac arrhythmia. Correlate with EKG. Criteria for Assigning % of Stenosis / Diameter reduction (Estimation based on the indirect measurements of the internal carotid artery velocities (ICA PSV). 1. Normal (no stenosis)=ICA PSV < 125 cm/s: ratio < 2.0: ICA EDV<40 cm/s. 2. Less than 50% stenosis=ICA PSV < 125 cm/s: ratio < 2.0: ICA EDV<40 cm/s. 3. 50 to 69% stenosis=ICA PSV of 125 to 230 cm/s: ration 2.0 ? 4.0: ICA EDV 40-100 cm/s. 4. Greater than 70% stenosis to near occlusion= ICA PSV > 230 cm/s: ratio > 4.0: ICA EDV > 100 cm/s. 5. Near occlusion= ICA PSV velocities may be low or undetectable: variable ratio and ICA EDV. 6. Total occlusion=unable to detect flow.
[2018-09-28] MEDS ORDERED: METOPROLOL TARTRATE 5 MG/5 ML VIAL IVP STA (15:52)
[2018-09-28 16:08] VITALS: BMI 32.9
[2018-09-28 17:16] LABS: Glucose,Whole Blood 122 mg/dL (75-99)
--- NOTE | 2018-09-28 19:24 | ECHOF ---
Referral Reason:Heart Failure MEASUREMENTS -------- HEIGHT: 167.6 cm WEIGHT: 92.1 kg BP: 116/68 RVIDd: 2.1 cm (< 3.3) IVSd: 1.3 cm (0.6 - 1.1) LVIDd: 5.0 cm (3.9 - 5.3) LVPWd: 1.3 cm (0.6 - 1.1) IVSs: 1.8 cm LVIDs: 4.5 cm LVPWs: 1.3 cm LAESV Index (A-L): 41.67 ml/m Ao Diam: 3.4 cm (2.0 - 3.7) AV Cusp: 1.5 cm (1.5 - 2.6) LA Diam: 4.1 cm (2.7 - 3.8) MV EXCURSION: 14.924 mm (> 18.000) MV EF SLOPE: 93 mm/s (70 - 150) EPSS: 1.5 cm MV E Talib: 1.15 m/s MV DecT: 159 ms MV A Talib: 1.09 m/s MV E/A Ratio: 1.06 RAP: 5.00 mmHg RVSP: 8.72 mmHg FINDINGS -------- Sinus rhythm. This was a technically difficult study with suboptimal views. The left ventricular size is normal. There is mild concentric left ventricular hypertrophy. There is severe global hypokinesis of LV . Overall left ventricular systolic function is severely impair ed with, an EF between 20 - 25 %. Basal inferior LV wall motion is hypokinetic. Basal inferosept al LV wall motion is hypokinetic. Apical anterior LV wall motion is hypokinetic. Apical lateral LV wall motion is hypokinetic. Apical inferior LV wall motion is hypokinetic. Apical septum LV wall motion is hypokinetic. The right ventricle is normal in size and function. LA is severely dilated >40 ml/m2 The right atrium is normal in size. Lumason used Aortic valve is trileaflet and is mildly thickened. Mild mitral regurgitation is present. Trace tricuspid regurgitation present. The right ventricular systolic pressure, as measured by Dopp ler, is 8.72mmHg. Pulmonic valve appears structurally normal. The aortic root size is normal. The pericardium is normal. CONCLUSIONS -------- 1. Sinus rhythm. 2. This was a technically difficult study with suboptimal views. 3. The left ventricular size is normal. 4. There is mild concentric left ventricular hypertrophy. 5. There is severe global hypokinesis of LV . 6. Overall left ventricular systolic function is severely impaired with, an EF between 20 - 25 %. 7. Basal inferior LV wall motion is hypokinetic. 8. Basal inferoseptal LV wall motion is hypokinetic. 9. Apical anterior LV wall motion is hypokinetic. 10. Apical lateral LV wall motion is hypokinetic. 11. Apical inferior LV wall motion is hypokinetic. 12. Apical septum LV wall motion is hypokinetic. 13. The right ventricle is normal in size and function. 14. LA is severely dilated >40 ml/m2 15. The right atrium is normal in size. 16. Lumason used 17. Aortic valve is trileaflet and is mildly thickened. 18. Mild mitral regurgitation is present. 19. Trace tricuspid regurgitation present. 20. The right ventricular systolic pressure, as measured by Doppler, is 8.72mmHg. 21. Pulmonic valve appears structurally normal. 22. The aortic root size is normal. 23. The pericardium is normal. DRAPERY SEAMSTRESS: Elsie Golden RDCS
[2018-09-28] MEDS ORDERED: MAGNESIUM HYDROXIDE 2,400 MG/10 ML CUP PO PRN (19:31)
[2018-09-28] MEDS ORDERED: NALOXONE 0.4 MG/ML 1 ML VIAL IV PRN (19:31)
[2018-09-28] MEDS ORDERED: LACTULOSE 20 GM/30 ML CUP PO PRN (19:31)
[2018-09-28] MEDS ORDERED: ONDANSETRON 4 MG/2 ML VIAL IVP PRN (19:31)
[2018-09-28] MEDS ORDERED: ACETAMINOPHEN TAB 325 MG TAB PO PRN (19:31)
[2018-09-28] MEDS ORDERED: CALCIUM CARBONATE 500 MG CHEWABLE PO PRN (19:31)
[2018-09-28] MEDS ORDERED: MELATONIN 3 MG TABLET PO PRN (19:31)
[2018-09-28 20:21] LABS: Hepatitis A Antibody IgM Non-Reactive (Non-Reactive); Hepatitis B Core IgM Non-Reactive (Non-Reactive)
[2018-09-28] MEDS: METOPROLOL TARTRATE 50 MG TAB PO SCH (20:40)
[2018-09-28 20:44] LABS: Glucose,Whole Blood 160 mg/dL (75-99)
[2018-09-28] MEDS: INSULIN ASPART 100 UNIT/ML 1 ML 10 ML VIAL SQ SCH (20:47)
[2018-09-28 20:59] LABS: Hemoglobin A1C 7.1 % (4.0-6.0)
--- NOTE | 2018-09-28 21:29 | HP ---
HISTORY AND PHYSICAL DATE OF ADMISSION: October 15, 2018. DATE OF SERVICE: September 28, 2018. PRESENTING COMPLAINT: Short of breath. HISTORY OF PRESENTING COMPLAINT: This is a pleasant 68 -year-old patient of Dr. Barnard'juliette whose chronic stable medical conditions include coronary artery disease with stent in 2005, diabetes, urine incontinence, and peripheral artery disease. The patient for 10 days has been progressively getting more and more short of breath, more so in the last 4 days, worsening edema. Slight cough. No sputum. No fever. No chills. Some orthopnea. No chest pressure. Patient presented to the ER. The patient's troponins were 0.6, 0.4. The patient was seen by Dr. Alarcon. He felt the patient may have had a non-ST elevation myocardial infarction. Took the patient down to cardiac cath. The patient was found to have triple-vessel disease and cardiothoracic surgery was consulted. Family is present at the bedside. REVIEW OF SYSTEMS: CONSTITUTIONAL: None. HEENT None. RESPIRATORY as above. Cardiovascular as above. GASTROINTESTINAL: None. GENITOURINARY: Urinary incontinence. MUSCULOSKELETAL: None. DERMATOLOGICAL, HEMATOLOGIC, LYMPHATIC: none. PSYCHIATRY: None. NEUROLOGICAL: None. PAST MEDICAL HISTORY: Coronary artery disease with stent, diabetes, hyperlipidemia, peripheral artery disease. PAST SURGICAL HISTORY: Cardiac cath with stent and also stent to the leg. SOCIAL HISTORY: He is . Smoked a pack a day for 40 years stopped in 2005. Alcohol occasionally. FAMILY HISTORY: Coronary artery disease. HOME MEDICATIONS: 1. Oxybutynin 10 mg a day. 2. Lopressor 25 mg b.i.d. 3. Amaryl 2 mg p.o. daily. 4. Metformin 1000 mg b.i.d. 5. Zestril 5 mg p.o. daily. 6. Aspirin 325 p.o. daily. ALLERGIES: TETRACYCLINE. PHYSICAL EXAMINATION: VITAL SIGNS: Temperature 98, pulse 92, respiratory 18, blood pressure 149/88, pulse ox 96% on 2 L. GENERAL APPEARANCE: Well built. BMI 32.9. Lying in bed, awake. Eyes: Pupils equal. Conjunctivae normal. HEENT: External appearance of nose and ears normal. Oral cavity normal. NECK: JVD raised. Mass not palpable. RESPIRATORY: Effort increased. LUNGS: Decreased breath sounds. CARDIOVASCULAR: 1st and 2nd sounds normal. Some edema. ABDOMEN: Soft, nontender. Liver and spleen not palpable. LYMPHATICS: No lymph nodes palpable in the neck and axilla. PSYCHIATRY: Alert and oriented x3. Mood and affect normal. NEUROLOGICAL: Pupils equal. Cranial nerves grossly intact. Power and sensation grossly intact. INVESTIGATIONS: White count 7.6, hemoglobin 10.2, potassium 5.0. BUN 27, creatinine 1.32. Troponin 0.6, 0.4, 0.4. ProBNP 3570, chest x-ray film personally reviewed by me shows cardiomegaly, pleural effusion, and venous prominence. EKG tracing personally reviewed by me shows some Q-waves in the inferior leads and some nonspecific ST-segment changes. A 2D echocardiogram EF of 20-25 percent, multiple wall motion abnormalities. ASSESSMENT: 1. Acute congestive heart failure exacerbation from systolic dysfunction, ejection fraction 20-25 percent from underlying coronary artery disease. 2. Acute non-Q-wave myocardial infarction. The patient has been progressively getting short of breath for the last 14 days. 3. Severe triple-vessel disease per cardiac catheterization. Patient will require coronary bypass. 4. Peripheral artery disease, prior intervention about 3 years ago. 5. Chronic urinary incontinence. 6. Diabetes mellitus type 2 on oral hypoglycemic. 7. Chronic kidney disease stage III probably from diabetic nephropathy and nephrosclerosis. 8. Metabolic acidosis, possibly from renal failure. PLAN: The patient is currently on aspirin, Lipitor, IV Lasix, Amaryl, Zestril, Glucophage, Lopressor, Nitrostat, Ditropan XL. The patient is seen by Dr. Alarcon from Cardiology and Cardiothoracic surgery was also consulted. We will also get an opinion from Nephrology given the renal dysfunction. We will send off a UA and do a renal ultrasound. Care was discussed with the patient. Questions were answered. Copy to Dr. Barnard. MMODL / IJN: [id number] /
[2018-09-29 05:42] LABS: Glucose,Whole Blood 120 mg/dL (75-99)
[2018-09-29] MEDS: INSULIN ASPART 100 UNIT/ML 1 ML 10 ML VIAL SQ SCH ×4 (05:46→21:42)
[2018-09-29 06:50] LABS: Basophils % (A) 1 %; Eosinophils # (A) 0.2 k/uL (0-0.7); Eosinophils % (A) 3 %; HCT 30.8 % (34.0-46.0); HGB 9.7 gm/dL (11.4-16.0); Hypochromasia Slight; Lymphocytes # (A) 1.5 k/uL (1.0-4.8); Lymphocytes % (A) 25 %; MCH 28.1 pg (25.0-35.0); MCHC 31.5 g/dL (31.0-37.0); MCV 89.1 fL (80.0-100.0); Mean Platelet Volume 6.5; Monocytes # (A) 0.4 k/uL (0-1.0); Monocytes % (A) 6 %; Neutrophils # (A) 3.6 k/uL (1.3-7.7); Neutrophils % (A) 61 %; Platelet Count 311 k/uL (150-450); RBC 3.45 m/uL (3.80-5.40); RDW 14.6 % (11.5-15.5); WBC 5.9 k/uL (3.8-10.6)
[2018-09-29] MEDS: METOPROLOL TARTRATE 50 MG TAB PO SCH ×2 (08:54→20:28)
[2018-09-29] MEDS: ATORVASTATIN 40 MG TAB PO SCH (08:54)
[2018-09-29] MEDS: LISINOPRIL 5 MG TAB PO SCH (08:54)
[2018-09-29] MEDS: OXYBUTYNIN 10 MG TAB.ER.24 PO SCH (08:55)
[2018-09-29] MEDS: ASPIRIN 325 MG TAB PO SCH (08:55)
[2018-09-29] MEDS: FUROSEMIDE 10 MG/ML 4 ML VIAL IV SCH (08:55)
[2018-09-29] MEDS: SPIRONOLACTONE 25 MG TAB PO SCH (08:58)
[2018-09-29] MEDS: metFORMIN 500 MG TAB PO SCH ×2 (09:20→20:15)
--- NOTE | 2018-09-29 09:37 | P.PN ---
<Elsie Alas - Last Filed: 09/29/18 09:32> Subjective Progress Note Date: 09/29/18 Principal diagnosis: Severe triple vessel coronary artery disease. Previous medical history of myocardial infarction in 2006 with stent placement, hyperlipidemia, peripheral artery disease with stent placement to the left lower extremity in 2016, recent vein surgery to bilateral lower extremities, uncontrolled [id number] diabetes mellitus with hemoglobin A1c 7.1%, shingles, obesity, previous tobacco dependence, family history of early coronary artery disease. The patient is currently sitting up in bed in no acute distress. Denies any chest pain or shortness of breath. No new questions at this time. Preoperative testing ongoing. Objective - Vital Signs Vital signs: Vital Signs Temp 97.7 F 09/29/18 09:11 Pulse 92 09/29/18 09:11 Resp 18 09/29/18 09:11 BP 133/80 09/29/18 09:11 Pulse Ox 95 09/29/18 09:11 Intake & Output 09/28/18 09/29/18 09/29/18 18:59 06:59 18:59 Intake Total 560.808 330 Output Total 600 Balance -39.192 330 Weight 92.5 kg 89.7 kg Intake: IV 10 Intake, IV Titration 70.808 Amount Heparin Sod,Pork in 0.45% 70.808 NaCl 25,000 unit In 0.45 % NaCl 1 250ml.bag @ 11. 024 UNITS/KG/HR 10 mls/hr IV .Q24H [facility] Rx#: [id number] Oral 480 330 Output: Urine 600 Other: Voiding Method Toilet # Voids 2 1 - Constitutional General appearance: Present: cooperative, no acute distress, obese - Respiratory Details: Lungs sounds diminished bilaterally. Respirations even, nonlabored. Currently on room air with oxygen saturation 93%. Strong cough. - Cardiovascular Details: S1, S2 present. Regular rate and rhythm, sinus rhythm on telemetry. Palpable peripheral pulses bilaterally. Trace bilateral lower extremity nonpitting edema present. No calf pain or tenderness noted. Right femoral artery heart catheterization site soft, nontender. - Gastrointestinal Gastrointestinal Comment(s): Abdomen soft, nontender, nondistended, obese. Active bowel sounds present 4 quadrants. Tolerating diet. - Genitourinary Genitourinary Comment(s): Continues to void clear, yellow urine. - Integumentary Integumentary Comment(s): Skin is warm and dry with evidence of good perfusion. - Neurologic Neurologic: Present: CNII-XII intact - Musculoskeletal Musculoskeletal: Present: gait normal, strength equal bilaterally - Psychiatric Psychiatric: Present: A&O x's 3, appropriate affect, intact judgment & insight - Allied health notes Allied health notes reviewed: nursing - Labs CBC & Chem 7: 09/29/18 05:45 09/28/18 09:19 Labs: Abnormal Lab Results - Last 24 Hours (Table) 09/28/18 09/28/18 09/28/18 Range/Units 09:16 09:19 09:19 RBC 3.57 L (3.80-5.40) m/uL Hgb 10.4 L (11.4-16.0) gm/dL Hct 32.2 L (34.0-46.0) % APTT 42.4 H (22.0-30.0) sec D-Dimer 1.13 H (<0.60) mg/L FEU Chloride 109 H (98-107) mmol/L BUN 27 H (7-17) mg/dL Creatinine 1.23 H (0.52-1.04) mg/dL Glucose 117 H (74-99) mg/dL POC Glucose (mg/dL) (75-99) mg/dL Hemoglobin A1c (4.0-6.0) % Cholesterol 236 H (<200) mg/dL LDL Cholesterol, Calc 175 H (0-99) mg/dL HDL Cholesterol 35 L (40-60) mg/dL Urine Protein (Negative) Urine Mucus (None) /hpf 09/28/18 09/28/18 09/28/18 Range/Units 09:19 11:54 12:40 RBC (3.80-5.40) m/uL Hgb (11.4-16.0) gm/dL Hct (34.0-46.0) % APTT (22.0-30.0) sec D-Dimer (<0.60) mg/L FEU Chloride (98-107) mmol/L BUN (7-17) mg/dL Creatinine (0.52-1.04) mg/dL Glucose (74-99) mg/dL POC Glucose (mg/dL) 142 H (75-99) mg/dL Hemoglobin A1c 7.1 H (4.0-6.0) % Cholesterol (<200) mg/dL LDL Cholesterol, Calc (0-99) mg/dL HDL Cholesterol (40-60) mg/dL Urine Protein 1+ H (Negative) Urine Mucus Rare H (None) /hpf 09/28/18 09/28/18 09/29/18 Range/Units 17:13 20:43 05:41 RBC (3.80-5.40) m/uL Hgb (11.4-16.0) gm/dL Hct (34.0-46.0) % APTT (22.0-30.0) sec D-Dimer (<0.60) mg/L FEU Chloride (98-107) mmol/L BUN (7-17) mg/dL Creatinine (0.52-1.04) mg/dL Glucose (74-99) mg/dL POC Glucose (mg/dL) 122 H 160 H 120 H (75-99) mg/dL Hemoglobin A1c (4.0-6.0) % Cholesterol (<200) mg/dL LDL Cholesterol, Calc (0-99) mg/dL HDL Cholesterol (40-60) mg/dL Urine Protein (Negative) Urine Mucus (None) /hpf 09/29/18 Range/Units 05:45 RBC 3.45 L (3.80-5.40) m/uL Hgb 9.7 L (11.4-16.0) gm/dL Hct 30.8 L (34.0-46.0) % APTT (22.0-30.0) sec D-Dimer (<0.60) mg/L FEU Chloride (98-107) mmol/L BUN (7-17) mg/dL Creatinine (0.52-1.04) mg/dL Glucose (74-99) mg/dL POC Glucose (mg/dL) (75-99) mg/dL Hemoglobin A1c (4.0-6.0) % Cholesterol (<200) mg/dL LDL Cholesterol, Calc (0-99) mg/dL HDL Cholesterol (40-60) mg/dL Urine Protein (Negative) Urine Mucus (None) /hpf Microbiology - Last 24 Hours (Table) 09/28/18 12:40 Urine Culture - Preliminary Urine,Voided 09/28/18 13:45 Nasal Screen MRSA/MSSA - Preliminary Nasal Swab - Imaging and Cardiology Carotid Dopplers, echocardiogram results reviewed Assessment and Plan (1) History of myocardial infarction, greater than 8 weeks ago Current Visit: No Status: Resolved Code(s): I25.2 - OLD MYOCARDIAL INFARCTION SNOMED Code(s): 1177255 (2) Non-STEMI (non-ST elevated myocardial infarction) Current Visit: Yes Status: Acute Code(s): I21.4 - NON-ST ELEVATION (NSTEMI) MYOCARDIAL INFARCTION SNOMED Code(s): 49928181 (3) History of heart artery stent Current Visit: Yes Status: Chronic Code(s): Z95.5 - PRESENCE OF CORONARY ANGIOPLASTY IMPLANT AND GRAFT SNOMED Code(s): 363779376 (4) Peripheral artery disease Current Visit: Yes Status: Chronic Code(s): I73.9 - PERIPHERAL VASCULAR DISEASE, UNSPECIFIED SNOMED Code(s): 066513958 (5) Tobacco dependence in remission Current Visit: No Status: Resolved Code(s): F17.201 - NICOTINE DEPENDENCE, UNSPECIFIED, IN REMISSION SNOMED Code(s): 170594187 (6) Hyperlipidemia Current Visit: Yes Status: Chronic Code(s): E78.5 - HYPERLIPIDEMIA, UNSPECIFIED SNOMED Code(s): 43442401 (7) Diabetes mellitus Current Visit: Yes Status: Chronic Code(s): E11.9 - TYPE 2 DIABETES MELLITUS WITHOUT COMPLICATIONS SNOMED Code(s): 95003569 (8) Obesity (BMI 30.0-34.9) Current Visit: Yes Status: Chronic Code(s): E66.9 - OBESITY, UNSPECIFIED SNOMED Code(s): 590411030261438 Plan: 1. Continue aspirin, statin, beta salome, CAMILA inhibitor, Lasix, Aldactone. 2. Encourage incentive spirometry 10 times every hour while awake. 3. Increase activity, ambulate in hallway. 4. STS risk score calculated, patient is at increased risk for mortality. 5. Patient's distal targets are suboptimal, saphenous veins are usable for conduit, awaiting radial artery studies to determine availability of arterial conduit for bypasses, echocardiogram demonstrates significant LV dysfunction with ejection fraction 20% and global hypokinesis of the left ventricle. This patient would be high risk and may benefit more from PCI if able. Will discuss with Dr. Alarcon. 6. Continue medical management per Dr. Metzger, cardiology management per Dr. Alarcon. 7. Nephrology ordered per primary care, appreciate recommendations 8. More recommendations to follow. Time with Patient: Greater than 30 <Navarro Paez - Last Filed: 09/29/18 10:59> Objective - Vital Signs Vital signs: Vital Signs Temp 97.7 F 09/29/18 09:11 Pulse 92 09/29/18 09:11 Resp 18 09/29/18 09:11 BP 133/80 09/29/18 09:11 Pulse Ox 95 09/29/18 09:11 Intake & Output 09/28/18 09/29/18 09/29/18 18:59 06:59 18:59 Intake Total 560.808 330 240 Output Total 600 250 Balance -39.192 330 -10 Weight 92.5 kg 89.7 kg Intake: IV 10 Intake, IV Titration 70.808 Amount Heparin Sod,Pork in 0.45% 70.808 NaCl 25,000 unit In 0.45 % NaCl 1 250ml.bag @ 11. 024 UNITS/KG/HR 10 mls/hr IV .Q24H [facility] Rx#: [id number] Oral 480 330 240 Output: Urine 600 250 Other: Voiding Method Toilet # Voids 2 1 1 - Labs CBC & Chem 7: 09/29/18 05:45 09/28/18 09:19 Labs: Abnormal Lab Results - Last 24 Hours (Table) 09/28/18 09/28/18 09/28/18 Range/Units 09:19 09:19 09:19 RBC 3.57 L (3.80-5.40) m/uL Hgb 10.4 L (11.4-16.0) gm/dL Hct 32.2 L (34.0-46.0) % Chloride 109 H (98-107) mmol/L BUN 27 H (7-17) mg/dL Creatinine 1.23 H (0.52-1.04) mg/dL Glucose 117 H (74-99) mg/dL POC Glucose (mg/dL) (75-99) mg/dL Hemoglobin A1c 7.1 H (4.0-6.0) % Cholesterol 236 H (<200) mg/dL LDL Cholesterol, Calc 175 H (0-99) mg/dL HDL Cholesterol 35 L (40-60) mg/dL Urine Protein (Negative) Urine Mucus (None) /hpf 09/28/18 09/28/18 09/28/18 Range/Units 11:54 12:40 17:13 RBC (3.80-5.40) m/uL Hgb (11.4-16.0) gm/dL Hct (34.0-46.0) % Chloride (98-107) mmol/L BUN (7-17) mg/dL Creatinine (0.52-1.04) mg/dL Glucose (74-99) mg/dL POC Glucose (mg/dL) 142 H 122 H (75-99) mg/dL Hemoglobin A1c (4.0-6.0) % Cholesterol (<200) mg/dL LDL Cholesterol, Calc (0-99) mg/dL HDL Cholesterol (40-60) mg/dL Urine Protein 1+ H (Negative) Urine Mucus Rare H (None) /hpf 09/28/18 09/29/18 09/29/18 Range/Units 20:43 05:41 05:45 RBC 3.45 L (3.80-5.40) m/uL Hgb 9.7 L (11.4-16.0) gm/dL Hct 30.8 L (34.0-46.0) % Chloride (98-107) mmol/L BUN (7-17) mg/dL Creatinine (0.52-1.04) mg/dL Glucose (74-99) mg/dL POC Glucose (mg/dL) 160 H 120 H (75-99) mg/dL Hemoglobin A1c (4.0-6.0) % Cholesterol (<200) mg/dL LDL Cholesterol, Calc (0-99) mg/dL HDL Cholesterol (40-60) mg/dL Urine Protein (Negative) Urine Mucus (None) /hpf 09/29/18 Range/Units 10:00 RBC (3.80-5.40) m/uL Hgb (11.4-16.0) gm/dL Hct (34.0-46.0) % Chloride (98-107) mmol/L BUN (7-17) mg/dL Creatinine (0.52-1.04) mg/dL Glucose (74-99) mg/dL POC Glucose (mg/dL) (75-99) mg/dL Hemoglobin A1c (4.0-6.0) % Cholesterol (<200) mg/dL LDL Cholesterol, Calc (0-99) mg/dL HDL Cholesterol (40-60) mg/dL Urine Protein 1+ H (Negative) Urine Mucus (None) /hpf Microbiology - Last 24 Hours (Table) 09/28/18 12:40 Urine Culture - Preliminary Urine,Voided 09/28/18 13:45 Nasal Screen MRSA/MSSA - Preliminary Nasal Swab Assessment and Plan Plan: The patient's echocardiogram confirms an ejection fraction of about 20% with global hypokinesis. Her cardiac catheterization was again reviewed and reveals multivessel coronary artery disease including a subtotal LAD occlusion with a suboptimal distal target. I feel that the patient would be better served with PCI if possible. I will again speak with Dr. Alarcon regarding my recommendations. I did speak with the patient and her family members at length again today. All of their questions were answered.
--- NOTE | 2018-09-29 09:49 | US ---
EXAMINATION TYPE: US renals and bladder DATE OF EXAM: 09/29/2018 COMPARISON: NONE CLINICAL HISTORY: assess for CKD; diabetic EXAM MEASUREMENTS: Right Kidney: 10.1 x 5.7 x 5.7 cm Left Kidney: 11.0 x 5.0 x 5.4 cm Post Void Residual Volume: not assessed on inpatient Right Kidney: No hydronephrosis or masses seen Left Kidney: simple cyst is seen in upper lateral cortex = 1.3 x 1.6 x 1.1cm Bladder: wnl Bilateral Jets seen: yes There is no evidence for hydronephrosis at this point in time. No nephrolithiasis is seen. Cystic fo cus within the upper pole left kidney shows increased through transmission, is anechoic and has imper ceptible wall. Cortical medullary differentiation is maintained. The urinary bladder is anechoic. Bi lateral ureteral jets are seen. Incidental findings of shadowing stones is noted in gallbladder. IMPRESSION: Cholelithiasis. Simple cyst left kidney.
[2018-09-29 10:28] LABS: Appearance,Urine Clear (Clear); Bilirubin,Urine Negative (Negative); Blood,Urine Negative (Negative); Color,Urine Light Yellow; Glucose,Urine (UA) Negative (Negative); Hyaline Casts,Urine 1 /lpf (0-2); Ketones,Urine Negative (Negative); Leukocyte Esterase,Urine Negative (Negative); Nitrite,Urine Negative (Negative); Protein,Urine 1+ (Negative); RBC,Urine <1 /hpf (0-5); Specific Gravity,Urine 1.007 (1.001-1.035); Squamous Epithelial Cell,Urine 1 /hpf (0-4); Urobilinogen,Urine <2.0 mg/dL (<2.0); WBC,Urine 1 /hpf (0-5)
[2018-09-29 12:12] LABS: Glucose,Whole Blood 193 mg/dL (75-99)
--- NOTE | 2018-09-29 12:54 | P.NPCON ---
History of Present Illness - Reason for Consult acute renal failure - History of Present Illness Reason for consultation: Acute kidney injury History of present illness: Patient is a 68-year-old female seen in renal consultation for acute kidney injury. Unclear as to what her baseline renal function is. Patient denies any prior history of kidney disease. Creatinine was 1.32 admission and is 1.23 as of yesterday. Patient states she was diagnosed with diabetes in 2005. She is not on insulin at this time. Denies vomiting or diarrhea. Denies regular use of NSAIDs. Admits to good urine output. No hematuria or dysuria. Patient presented to the hospital with dyspnea. She denies any chest pain. She does admit to swelling in her feet. Ejection fraction is noted to be 20-25%. She did undergo cardiac catheterization on 09/28/2018 which revealed triple-vessel disease. She is now being followed by cardiothoracic surgery for potential CABG this admission. She is maintained on Lasix 40 mg IV twice daily. Swelling is improving. Hemodynamically stable. Denies family history of renal disease. Vital signs are stable. General: The patient appeared well nourished and normally developed. HEENT: Head exam is unremarkable. Neck is without jugular venous distension. LUNGS: Lungs are clear to auscultation and percussion. Breath sounds decreased. HEART: Rate and Rhythm are regular. First and second heart sounds normal. No murmurs, rubs or gallops. ABDOMEN: Abdominal exam reveals normal bowel sounds. Non-tender and non- distended. No evidence of peritonitis. EXTREMITITES: Trace edema. Past Medical History Past Medical History: Coronary Artery Disease (CAD), Chest Pain / Angina, Diabetes Mellitus, Hyperlipidemia, Myocardial Infarction (SC) Last Myocardial Infarction Date:: 03/20/2006 History of Any Multi-Drug Resistant Organisms: None Reported Past Surgical History: Section, Heart Catheterization, Heart Catheterization With Stent Additional Past Surgical History / Comment(s): vein work, leg stent Past Anesthesia/Blood Transfusion Reactions: No Reported Reaction Date of Last Stent Placement:: 03/20/2006 Past Psychological History: No Psychological Hx Reported Smoking Status: Former smoker Past Alcohol Use History: None Reported Past Drug Use History: None Reported - Past Family History Mother Family Medical History: Coronary Artery Disease (CAD) Medications and Allergies Home Medications Medication Instructions Recorded Confirmed Type Aspirin EC [Ecotrin] 325 mg PO DAILY 01/23/18 09/27/18 History Lisinopril [Zestril] 5 mg PO DAILY 01/23/18 09/27/18 History Metoprolol Tartrate [Lopressor] 25 mg PO BID 01/23/18 09/27/18 History metFORMIN HCL 1,000 mg PO BID 01/23/18 09/27/18 History Glimepiride [Amaryl] 2 mg PO DAILY 09/27/18 09/27/18 History Oxybutynin Chloride [Oxybutynin 10 mg PO DAILY 09/27/18 09/27/18 History Chloride ER] Allergies Allergy/AdvReac Type Severity Reaction Status Date / Time tetracycline Allergy Rash/Hives Verified 09/27/18 19:00 Physical Exam Vitals: Vital Signs Temp Pulse Pulse Resp BP Pulse Ox 09/29/18 12:14 95 09/29/18 11:56 97.3 F L 76 18 112/57 96 09/29/18 09:11 97.7 F 92 18 133/80 95 09/29/18 04:00 98 F 86 18 111/60 96 09/29/18 00:00 98.2 F 83 16 119/73 93 L 09/28/18 20:00 98.5 F 91 20 108/67 93 L 09/28/18 17:00 72 17 124/75 96 09/28/18 16:00 98 F 130 H 17 136/80 96 Intake and Output 09/28/18 09/29/18 09/29/18 22:59 06:59 14:59 Intake Total 320 250 240 Output Total 250 Balance 320 250 -10 Intake: Oral 320 250 240 Output: Urine 250 Other: Voiding Method Toilet Toilet # Voids 1 1 1 Weight 92.5 kg 89.7 kg Results - Lab Results Most recent lab results Calcium 9.3 mg/dL (8.4-10.2) 09/28/18 09:19 Magnesium 1.7 mg/dL (1.6-2.3) 09/28/18 09:19 09/29/18 05:45 09/28/18 09:19 Assessment and Plan Plan: Assessment: 1. Acute kidney injury mostly prerenal secondary to cardiorenal syndrome. Creatinine 1.23 as of yesterday. Unclear as to what her baseline renal function is. 2. Proteinuria. This is likely secondary to underlying diabetic kidney disease. 3. Systolic CHF with ejection fraction of 20-25%. 4. Volume overload. Improving. 5. Anemia. Rule out iron deficiency. 6. Diabetes mellitus. 7. Coronary artery disease. Status post cardiac catheterization on September 28 which revealed triple-vessel disease. Plan: Maintain Lasix 40 mg IV twice daily. Can likely transition to oral tomorrow. Check iron studies. Avoid nephrotoxins. Avoid metformin if GFR less than 30. Continue to monitor renal function and urine output closely. She is at risk for developing contrast-induced nephropathy which typically peaks at 48-72 hours post dye exposure. Repeat electrolytes in the morning. Thank you for the consultation. I will continue to follow the patient with you during her hospital stay. Time with Patient: Greater than 30
[2018-09-29 14:44] LABS: Calcium 9.4 mg/dL (8.4-10.2); Potassium 4.5 mmol/L (3.5-5.1)
--- NOTE | 2018-09-29 16:06 | CONS ---
ABY Galan is a 68-year-old lady who was admitted to hospital with ejg-DR-tiwftss-elevation [place] and underwent cardiac catheterization that revealed severe triple-vessel coronary artery disease. She has ischemic cardiomyopathy with severe LV dysfunction. Patient had been evaluated by a cardiothoracic surgeon who felt that she is not an optimal candidate for bypass surgery. Dr. Cornejo, the on-call sales representative printing supplies, reviewed her angiographic data, felt that the patient would probably benefit more from bypass surgery than catheter-based revascularization. I am going to have a second cardiothoracic surgeon give us an opinion. Dr. Zuñiga is here tomorrow and will review the angiographic data and give an opinion. This morning patient is doing well. Denies chest pain or difficulty in breathing. Groin is free of bleeding, bruit, hematoma. Current medications include Lasix 40 mg q.12, Zestril 5 mg daily, Glucophage, Lopressor, Aldactone, aspirin and Lipitor. On exam, comfortable at rest. Vital signs are stable. There is no jugular venous distention. Chest exam reveals good air entry bilaterally. Heart exam reveals first and second heart sounds. No gallop. No murmur. Abdomen is soft, nontender. Examination of extremities did not reveal any edema. Peripheral pulses are felt. Labs show that the hemoglobin is 9.7. ASSESSMENT: 1. Acute myocardial infarction. 2. Severe three-vessel coronary artery disease. 3. Ischemic cardiomyopathy with severe left ventricular dysfunction. PLAN: Patient is on optimal medical therapy. I am going to switch her to p.o. Lasix. We will get another opinion from Cardiothoracic Surgery tomorrow and decide on which way to proceed. MMODL / IJN: [id number] /
[2018-09-29 16:22] LABS: Glucose,Whole Blood 203 mg/dL (75-99)
[2018-09-29] MEDS: FUROSEMIDE 40 MG TAB PO SCH (16:23)
--- NOTE | 2018-09-29 18:00 | PN ---
PROGRESS NOTE DATE OF SERVICE: 09/29/2018 PRESENTING COMPLAINT: Short of breath. INTERVAL HISTORY: This patient known coronary artery disease, presents with acute congestive heart failure exacerbation, acute IA. Cardiac cath showed severe triple-vessel disease. Cardiology and cardiothoracic surgery trying to decide what will be the best route, coronary bypass versus stenting. Breathing is better. Did tolerate some diet. Sitting up. Family at the bedside. REVIEW OF SYSTEMS: Done for constitutional, cardiovascular, GI, pulmonary and relevant findings as above. CURRENT MEDICATIONS: Reviewed that include aspirin, Lipitor, p.o. Lasix and Zestril, Glucophage, Lopressor and Aldactone. PHYSICAL EXAMINATION: VITAL SIGNS: Temperature 98, pulse 85, respiratory 18, blood pressure 147/77, pulse ox 96% on room air. GENERAL APPEARANCE: Sitting at the edge of bed, looking better. EYES: Pupils equal. Conjunctivae normal. NECK: JVD not raised. Mass not palpable. RESPIRATORY: Effort normal. LUNGS: Fair entry. CARDIOVASCULAR: 1st and 2nd sounds normal. Decreased edema. ABDOMEN: Soft, nontender. Liver and spleen not palpable. PSYCHIATRY: Alert and oriented x3. Mood and affect normal. INVESTIGATIONS: BUN 31, creatinine 1.37. ASSESSMENT: 1. Acute congestive heart failure exacerbation from systolic dysfunction, ejection fraction 20-25% underlying coronary artery disease, now stabilized. 2. Acute non-Q-wave myocardial infarction. 3. Severe triple-vessel disease per cardiac catheterization. 4. Peripheral artery disease. 5. Chronic urine incontinence. 6. Diabetes mellitus type 2 on oral hypoglycemics. 7. Chronic kidney disease stage 3 probably from combination of diabetic nephropathy and nephrosclerosis. 8. Metabolic acidosis from renal failure. PLAN: Care was discussed with the patient. Cardiology and cardiothoracic are going to determine and see what is a better option, stent versus coronary bypass. We will let them make a final determination, will go from there. Otherwise, from the CHF standpoint, patient is clinically doing better. MMODL / IJN: [id number] /
[2018-09-29 19:06] LABS: Iron Saturation 10.09 (12.00-45.00)
[2018-09-29 21:18] LABS: Glucose,Whole Blood 218 mg/dL (75-99)
[2018-09-30 05:45] LABS: Glucose,Whole Blood 146 mg/dL (75-99)
[2018-09-30] MEDS: INSULIN ASPART 100 UNIT/ML 1 ML 10 ML VIAL SQ SCH ×4 (05:59→22:05)
[2018-09-30 07:09] LABS: Basophils # (A) 0.1 k/uL (0-0.2); Basophils % (A) 1 %; Eosinophils # (A) 0.2 k/uL (0-0.7); Eosinophils % (A) 3 %; HCT 29.5 % (34.0-46.0); HGB 9.3 gm/dL (11.4-16.0); Hypochromasia Slight; Lymphocytes # (A) 1.4 k/uL (1.0-4.8); Lymphocytes % (A) 23 %; MCH 28.1 pg (25.0-35.0); MCHC 31.7 g/dL (31.0-37.0); MCV 88.7 fL (80.0-100.0); Mean Platelet Volume 6.5; Monocytes # (A) 0.3 k/uL (0-1.0); Monocytes % (A) 6 %; Neutrophils # (A) 3.8 k/uL (1.3-7.7); Neutrophils % (A) 64 %; Platelet Count 285 k/uL (150-450); RBC 3.33 m/uL (3.80-5.40); RDW 14.9 % (11.5-15.5)
[2018-09-30 07:27] LABS: Calcium 9.2 mg/dL (8.4-10.2); Potassium 4.5 mmol/L (3.5-5.1)
--- NOTE | 2018-09-30 08:10 | P.PN ---
Subjective Progress Note Date: 09/30/18 Principal diagnosis: Severe triple vessel coronary artery disease, ischemic cardiomyopathy with EF 20 -25% and global hypokinesia of the left ventricle. Previous medical history of myocardial infarction in 2006 with stent placement, hyperlipidemia, peripheral artery disease with stent placement to the left lower extremity in 2016, recent vein surgery to bilateral lower extremities, uncontrolled qad-rjbhrmb-vopizijgj diabetes mellitus with hemoglobin A1c 7.1%, shingles, obesity, previous tobacco dependence, moderate COPD with preoperative FEV1 51% of predicted, family history of early coronary artery disease. The patient is currently sitting up in bed in no acute distress. Denies any chest pain or shortness of breath. Has ambulated around the hallway without any difficulty. No new questions at this time. Objective - Vital Signs Vital signs: Vital Signs Temp 98.1 F 09/30/18 04:00 Pulse 91 09/30/18 04:00 Resp 18 09/30/18 04:00 BP 125/57 09/30/18 04:00 Pulse Ox 94 L 09/30/18 04:00 Intake & Output 09/29/18 09/30/18 09/30/18 18:59 06:59 18:59 Intake Total 720 650 Output Total 600 1700 Balance 120 -1050 Weight 88.5 kg Intake: Oral 720 Blood Product 650 Output: Urine 600 1700 Other: Voiding Method Toilet Toilet # Voids 1 3 - Constitutional General appearance: Present: cooperative, no acute distress, obese - Respiratory Details: Lungs sounds diminished bilaterally. Respirations even, nonlabored. Currently on room air with oxygen saturation 94%. Strong cough. Able to achieve 1000 mL on her incentive spirometry. - Cardiovascular Details: S1, S2 present. Regular rate and rhythm, sinus rhythm on telemetry. Palpable peripheral pulses bilaterally. Trace bilateral lower extremity nonpitting edema present. No calf pain or tenderness noted. Right femoral artery heart catheterization site soft, nontender. - Gastrointestinal Gastrointestinal Comment(s): Abdomen soft, nontender, nondistended, obese. Active bowel sounds present 4 quadrants. Tolerating diet. - Genitourinary Genitourinary Comment(s): Continues to void clear, yellow urine. - Integumentary Integumentary Comment(s): Skin is warm and dry with evidence of good perfusion. - Neurologic Neurologic: Present: CNII-XII intact - Musculoskeletal Musculoskeletal: Present: gait normal, strength equal bilaterally - Psychiatric Psychiatric: Present: A&O x's 3, appropriate affect, intact judgment & insight - Allied health notes Allied health notes reviewed: nursing - Labs CBC & Chem 7: 09/30/18 06:00 09/30/18 06:00 Labs: Abnormal Lab Results - Last 24 Hours (Table) 09/29/18 09/29/18 09/29/18 Range/Units 10:00 11:44 13:13 RBC (3.80-5.40) m/uL Hgb (11.4-16.0) gm/dL Hct (34.0-46.0) % BUN 31 H (7-17) mg/dL Creatinine 1.37 H (0.52-1.04) mg/dL Glucose 177 H (74-99) mg/dL POC Glucose (mg/dL) 193 H (75-99) mg/dL Iron (50-170) ug/dL Iron Saturation (12.00-45.00) Urine Protein 1+ H (Negative) 09/29/18 09/29/18 09/29/18 Range/Units 13:13 16:17 21:17 RBC (3.80-5.40) m/uL Hgb (11.4-16.0) gm/dL Hct (34.0-46.0) % BUN (7-17) mg/dL Creatinine (0.52-1.04) mg/dL Glucose (74-99) mg/dL POC Glucose (mg/dL) 203 H 218 H (75-99) mg/dL Iron 34 L (50-170) ug/dL Iron Saturation 10.09 L (12.00-45.00) Urine Protein (Negative) 09/30/18 09/30/18 09/30/18 Range/Units 05:43 06:00 06:00 RBC 3.33 L (3.80-5.40) m/uL Hgb 9.3 L (11.4-16.0) gm/dL Hct 29.5 L (34.0-46.0) % BUN 34 H (7-17) mg/dL Creatinine 1.54 H (0.52-1.04) mg/dL Glucose 136 H (74-99) mg/dL POC Glucose (mg/dL) 146 H (75-99) mg/dL Iron (50-170) ug/dL Iron Saturation (12.00-45.00) Urine Protein (Negative) Microbiology - Last 24 Hours (Table) 09/28/18 13:45 Nasal Screen MRSA/MSSA - Final Nasal Swab Staphylococcus aureus,Not MRSA 09/28/18 12:40 Urine Culture - Final Urine,Voided Assessment and Plan (1) History of myocardial infarction, greater than 8 weeks ago Current Visit: No Status: Resolved Code(s): I25.2 - OLD MYOCARDIAL INFARCTION SNOMED Code(s): 3442652 (2) Non-STEMI (non-ST elevated myocardial infarction) Current Visit: Yes Status: Acute Code(s): I21.4 - NON-ST ELEVATION (NSTEMI) MYOCARDIAL INFARCTION SNOMED Code(s): 55096767 (3) History of heart artery stent Current Visit: Yes Status: Chronic Code(s): Z95.5 - PRESENCE OF CORONARY ANGIOPLASTY IMPLANT AND GRAFT SNOMED Code(s): 350634800 (4) Peripheral artery disease Current Visit: Yes Status: Chronic Code(s): I73.9 - PERIPHERAL VASCULAR DISEASE, UNSPECIFIED SNOMED Code(s): 608278423 (5) Tobacco dependence in remission Current Visit: No Status: Resolved Code(s): F17.201 - NICOTINE DEPENDENCE, UNSPECIFIED, IN REMISSION SNOMED Code(s): 992268859 (6) Hyperlipidemia Current Visit: Yes Status: Chronic Code(s): E78.5 - HYPERLIPIDEMIA, UNSPECIFIED SNOMED Code(s): 87292257 (7) Diabetes mellitus Current Visit: Yes Status: Chronic Code(s): E11.9 - TYPE 2 DIABETES MELLITUS WITHOUT COMPLICATIONS SNOMED Code(s): 33711882 (8) Obesity (BMI 30.0-34.9) Current Visit: Yes Status: Chronic Code(s): E66.9 - OBESITY, UNSPECIFIED SNOMED Code(s): 742064212714032 (9) Iron deficiency anemia Current Visit: Yes Status: Chronic Code(s): D50.9 - IRON DEFICIENCY ANEMIA, UNSPECIFIED SNOMED Code(s): 37472704 (10) COPD (chronic obstructive pulmonary disease) Current Visit: Yes Status: Chronic Code(s): J44.9 - CHRONIC OBSTRUCTIVE PULMONARY DISEASE, UNSPECIFIED SNOMED Code(s): 85930041 (11) Systolic heart failure Current Visit: Yes Status: Acute Code(s): I50.20 - UNSPECIFIED SYSTOLIC ( CONGESTIVE) HEART FAILURE SNOMED Code(s): 260949211 Plan: 1. Continue aspirin, statin, beta salome, CAMILA inhibitor, Lasix, Aldactone. 2. Encourage incentive spirometry 10 times every hour while awake. 3. Increase activity, ambulate in hallway. 4. STS risk score calculated and discussed with the patient. 5. Patient's distal targets are suboptimal, saphenous veins are usable for conduit, radial artery studies completed with possibility of good conduit, echocardiogram demonstrates significant LV dysfunction with ejection fraction 20 % and global hypokinesis of the left ventricle. This patient would be high risk. Dr. Cornejo reviewed her heart catheterization and feels she would benefit more from bypass then PCI. Will have Dr. Zuñiga review her case today. 6. Continue medical management per Dr. Barker, cardiology management per Dr. Alarcon. 7. Nephrology ordered per primary care, appreciate recommendations. Avoid nephrotoxins. 8. More recommendations to follow. Time with Patient: Greater than 30
[2018-09-30] MEDS: LISINOPRIL 5 MG TAB PO SCH (08:46)
[2018-09-30] MEDS: ATORVASTATIN 40 MG TAB PO SCH (08:46)
[2018-09-30] MEDS: metFORMIN 500 MG TAB PO SCH ×2 (08:46→20:04)
[2018-09-30] MEDS: SPIRONOLACTONE 25 MG TAB PO SCH (08:46)
[2018-09-30] MEDS: ASPIRIN 325 MG TAB PO SCH (08:46)
[2018-09-30] MEDS: FUROSEMIDE 40 MG TAB PO SCH (08:47)
[2018-09-30] MEDS: METOPROLOL TARTRATE 50 MG TAB PO SCH ×2 (08:47→20:03)
[2018-09-30] MEDS: OXYBUTYNIN 10 MG TAB.ER.24 PO SCH (08:55)
--- NOTE | 2018-09-30 09:22 | P.VSCSTY ---
Greater Saphenous Vein Mapping This is bilateral lower extremity greater saphenous vein mapping. Date of service 09/27/2018 Vein quality and ultrasound appearance note that both lesser saphenous veins are too small to characterize or use. There is thrombosis throughout the left greater saphenous and patchy thrombus throughout the right greater saphenous area Vein size groin right [ ] groin left [ ] High thigh right [ ] high thigh left [ ] Mid thigh right 3 x 4 mid thigh left [ ] Above-knee right 2.9 x 4.1 above- knee left [ ] Below knee right 3.3 x 4.4 below-knee left [] Mid calf right [] mid calf left [] Ankle right [] ankle left [] Impression there does not appear to be lesser or greater saphenous vein usable in all other side. The area just above and below the knee on the right is patent but probably postphlebitic.
--- NOTE | 2018-09-30 09:25 | P.ARTDOP ---
Arterial Doppler Bilateral radial artery studies: Date of study: 09/29/2018. Reason for study: Preop CABG. On Doppler assessment we find no significant right to left or segmental pressure gradients. On digital plethysmography with radial artery compression, there is a 44 mmHg change on the right, but no significant change in pressure on the left. Imaging shows the right radial to vary between 2 x 1.9 mm and 3.5 x 3.3 mm in diameter. The left ranges in size between 2.6 x 2 0.5 mmHg distally and 5.9 x 4.9 mm proximally. There is some intimal thickening seen in the right radial distally and the left radial proximally. Impression: The left radial artery appears to be usable. The right radial is not based on inadequate collateralization.
--- NOTE | 2018-09-30 10:25 | P.PN ---
Subjective Progress Note Date: 09/30/18 This is a 68-year-old female who was admitted to the hospital with a non-ST elevation myocardial infarction, she underwent a cardiac catheterization which revealed severe triple-vessel coronary artery disease. Patient has ischemic myopathy with severe LV dysfunction, she had been evaluated by cardiothoracic surgery and felt not to be an ideal candidate for bypass surgery. Dr. Cornejo the on-call candy catcher also reviewed angiographic data felt that the patient would benefit more from bypass surgery then catheter- based revascularization. Dr. Zuñiga is scheduled to be at the hospital today, he will review the data and give his input and opinion. Overall the patient feels well, she is ambulated in the harmon today, no shortness of breath, no chest discomfort. Blood pressure 124/56 this morning, heart rate in the 80s to 90s, 94% on room air. White blood cell count 6.0, hemoglobin 9.3, platelet count 285. Sodium 142, potassium 4.5, BUN 34, and creatinine 1.5. Objective - Vital Signs Vital signs: Vital Signs Temp 98.1 F 09/30/18 04:00 Pulse 91 09/30/18 04:00 Resp 18 09/30/18 04:00 BP 125/57 09/30/18 04:00 Pulse Ox 94 L 09/30/18 04:00 Intake & Output 09/29/18 09/30/18 09/30/18 18:59 06:59 18:59 Intake Total 720 650 240 Output Total 600 1700 Balance 120 -1050 240 Weight 88.5 kg Intake: Oral 720 240 Blood Product 650 Output: Urine 600 1700 Other: Voiding Method Toilet Toilet # Voids 1 3 200 - Exam PHYSICAL EXAMINATION: GENERAL: 68-year-old female in no acute distress at the time of my examination HEENT: Head is atraumatic, normocephalic. Pupils equal, round. Sclera anicteric. Conjunctiva are clear. Mucous membranes of the mouth are moist. Neck is supple. There is no elevated jugular venous pressure. No carotid bruit is heard. HEART EXAMINATION: Heart S1, S2 normal. No murmur or gallop heard. CHEST EXAMINATION: Lungs are clear to auscultation and precussion. No chest wall tenderness is noted on palpation or with deep breathing. ABDOMEN: Soft, nontender. Bowel sounds are heard. No organomegaly noted. EXTREMITIES: 2+ peripheral pulses with no evidence of peripheral edema and no calf tenderness noted. NEUROLOGIC patient is awake, alert and oriented 3. . - Labs CBC & Chem 7: 09/30/18 06:00 09/30/18 06:00 Labs: Abnormal Lab Results - Last 24 Hours (Table) 09/29/18 09/29/18 09/29/18 Range/Units 10:00 11:44 13:13 RBC (3.80-5.40) m/uL Hgb (11.4-16.0) gm/dL Hct (34.0-46.0) % BUN 31 H (7-17) mg/dL Creatinine 1.37 H (0.52-1.04) mg/dL Glucose 177 H (74-99) mg/dL POC Glucose (mg/dL) 193 H (75-99) mg/dL Iron (50-170) ug/dL Iron Saturation (12.00-45.00) Urine Protein 1+ H (Negative) 09/29/18 09/29/18 09/29/18 Range/Units 13:13 16:17 21:17 RBC (3.80-5.40) m/uL Hgb (11.4-16.0) gm/dL Hct (34.0-46.0) % BUN (7-17) mg/dL Creatinine (0.52-1.04) mg/dL Glucose (74-99) mg/dL POC Glucose (mg/dL) 203 H 218 H (75-99) mg/dL Iron 34 L (50-170) ug/dL Iron Saturation 10.09 L (12.00-45.00) Urine Protein (Negative) 09/30/18 09/30/18 09/30/18 Range/Units 05:43 06:00 06:00 RBC 3.33 L (3.80-5.40) m/uL Hgb 9.3 L (11.4-16.0) gm/dL Hct 29.5 L (34.0-46.0) % BUN 34 H (7-17) mg/dL Creatinine 1.54 H (0.52-1.04) mg/dL Glucose 136 H (74-99) mg/dL POC Glucose (mg/dL) 146 H (75-99) mg/dL Iron (50-170) ug/dL Iron Saturation (12.00-45.00) Urine Protein (Negative) Microbiology - Last 24 Hours (Table) 09/28/18 13:45 Nasal Screen MRSA/MSSA - Final Nasal Swab Staphylococcus aureus,Not MRSA 09/28/18 12:40 Urine Culture - Final Urine,Voided Assessment and Plan Plan: Assessment and plan #1 non-ST elevation myocardial infarction, status post cardiac catheterization which revealed severe triple-vessel coronary artery disease #2 ischemic cardiomyopathy with severe left ventricular dysfunction #3 hyperlipidemia #4 diabetes Plan Patient had been evaluated by cardiothoracic surgeon who felt her not to be a candidate for bypass surgery, Dr. Cornejo the on-call candy catcher review the angiographic data and felt that the patient would probably benefit more from bypass surgery then catheter-based revascularization. Dr. Zuñiga is rounding today, he will review the angiographic data give this recommendation and opinion. Further recommendations then will be made. DNP note has been reviewed, I agree with a documented findings and plan of care. Patient was seen and examined.
[2018-09-30 11:38] LABS: Glucose,Whole Blood 205 mg/dL (75-99)
--- NOTE | 2018-09-30 11:55 | P.PN ---
Subjective Patient is seen in follow-up for acute kidney injury. Creatinine was 1.3 on admission and is 1.54 today. Currently resting in bed. Edema has improved. IV Lasix has been discontinued. Admits to good urine output. No active chest pain or shortness of breath. Vital signs are stable. General: The patient appeared well nourished and normally developed. HEENT: Head exam is unremarkable. Neck is without jugular venous distension. LUNGS: Lungs are clear to auscultation and percussion. Breath sounds decreased. HEART: Rate and Rhythm are regular. First and second heart sounds normal. No murmurs, rubs or gallops. ABDOMEN: Abdominal exam reveals normal bowel sounds. Non-tender and non- distended. No evidence of peritonitis. EXTREMITITES: No clubbing, cyanosis, or edema. Objective - Vital Signs Vital signs: Vital Signs Temp 98.5 F 09/30/18 08:00 Pulse 98 09/30/18 08:00 Resp 18 09/30/18 04:00 BP 134/65 09/30/18 08:00 Pulse Ox 91 L 09/30/18 08:00 Intake & Output 09/29/18 09/30/18 09/30/18 18:59 06:59 18:59 Intake Total 720 650 240 Output Total 600 1700 Balance 120 -1050 240 Weight 88.5 kg Intake: Oral 720 240 Blood Product 650 Output: Urine 600 1700 Other: Voiding Method Toilet Toilet # Voids 1 3 200 - Labs CBC & Chem 7: 09/30/18 06:00 09/30/18 06:00 Labs: Abnormal Lab Results - Last 24 Hours (Table) 09/29/18 09/29/18 09/29/18 Range/Units 11:44 13:13 13:13 RBC (3.80-5.40) m/uL Hgb (11.4-16.0) gm/dL Hct (34.0-46.0) % BUN 31 H (7-17) mg/dL Creatinine 1.37 H (0.52-1.04) mg/dL Glucose 177 H (74-99) mg/dL POC Glucose (mg/dL) 193 H (75-99) mg/dL Iron 34 L (50-170) ug/dL Iron Saturation 10.09 L (12.00-45.00) 09/29/18 09/29/18 09/30/18 Range/Units 16:17 21:17 05:43 RBC (3.80-5.40) m/uL Hgb (11.4-16.0) gm/dL Hct (34.0-46.0) % BUN (7-17) mg/dL Creatinine (0.52-1.04) mg/dL Glucose (74-99) mg/dL POC Glucose (mg/dL) 203 H 218 H 146 H (75-99) mg/dL Iron (50-170) ug/dL Iron Saturation (12.00-45.00) 09/30/18 09/30/18 09/30/18 Range/Units 06:00 06:00 11:30 RBC 3.33 L (3.80-5.40) m/uL Hgb 9.3 L (11.4-16.0) gm/dL Hct 29.5 L (34.0-46.0) % BUN 34 H (7-17) mg/dL Creatinine 1.54 H (0.52-1.04) mg/dL Glucose 136 H (74-99) mg/dL POC Glucose (mg/dL) 205 H (75-99) mg/dL Iron (50-170) ug/dL Iron Saturation (12.00-45.00) Microbiology - Last 24 Hours (Table) 09/28/18 13:45 Nasal Screen MRSA/MSSA - Final Nasal Swab Staphylococcus aureus,Not MRSA 09/28/18 12:40 Urine Culture - Final Urine,Voided Assessment and Plan Plan: Assessment: 1. Acute kidney injury mostly prerenal secondary to cardiorenal syndrome. Creatinine was 1.3 on admission and is 1.54 today which is due to diuresis and contrast-induced nephropathy. Unclear as to what her baseline renal function is. 2. Proteinuria. This is likely secondary to underlying diabetic kidney disease. 3. Systolic CHF with ejection fraction of 20-25%. 4. Volume overload. Improved. 5. Anemia. Iron deficiency noted. 6. Diabetes mellitus. 7. Coronary artery disease. Status post cardiac catheterization on September 28 which revealed triple-vessel disease. She is being evaluated by cardiothoracic surgery. Plan: Hold Lasix for now. Ferrlecit 125 mg IV daily for 3 days. First dose today. Avoid nephrotoxins. Avoid metformin if GFR less than 30. Continue to monitor renal function and urine output closely. Repeat electrolytes in the morning.
[2018-09-30 17:05] LABS: Glucose,Whole Blood 174 mg/dL (75-99)
[2018-09-30] MEDS: SODIUM FERRIC GLUCONAT-SUCROSE 125 MG in SODIUM CHLORIDE 0.9% 100 ML IVPB SCH (18:41)
[2018-09-30 21:06] LABS: Glucose,Whole Blood 208 mg/dL (75-99)
--- NOTE | 2018-10-01 01:15 | PN ---
PROGRESS NOTE DATE OF SERVICE: 09/30/2018. PRESENTING COMPLAINT: Tired. INTERVAL HISTORY: This patient with known coronary artery presented with acute congestive heart failure exacerbation and acute DC. Cardiac cath revealing severe triple-vessel disease. Breathing is much improved. at the bedside. I saw the patient this morning. At this point, Cardiology and Cardiothoracic have not made a final determination whether to proceed with a stent or with coronary bypass. Breathing is better. Tolerating a diet. REVIEW OF SYSTEMS: Done for constitutional, cardiovascular, GI, pulmonary; relevant findings as above. CURRENT MEDICATIONS: Reviewed. PHYSICAL EXAMINATION: Temperature 98.5, pulse 98, respirations 16, blood pressure 130/65, pulse 91 percent on room air. GENERAL APPEARANCE: Sitting up at the edge of bed, breathing better. EYES: Pupils equal. Conjunctivae normal. NECK: JVD not raised. Mass not palpable. Respiratory effort normal. LUNGS: Improved air entry. CARDIOVASCULAR: 1st and 2nd sounds. Minimal edema. ABDOMEN: Soft, nontender. Liver and spleen not palpable. PSYCHIATRY: Alert and oriented x3. Mood and affect normal. INVESTIGATIONS: White count 16, hemoglobin 9.3, potassium 4.5, BUN 34, creatinine 1.54. ASSESSMENT: 1. Acute congestive heart failure exacerbation from systolic dysfunction, ejection fraction of 20% to 25% with underlying coronary artery disease. 2. Pending decision about coronary bypass versus stenting. 3. Acute non-Q-wave myocardial infarction. 4. Severe triple-vessel disease per cardiac catheterization. 5. Peripheral artery disease. 6. Chronic urine incontinence. 7. Diabetes mellitus type 2 on oral hypoglycemic. 8. Chronic kidney disease stage III, probably from combination of diabetic nephropathy and nephrosclerosis. 9. Metabolic acidosis from renal failure. 10.Acute renal failure, could be contrast induced nephropathy with creatinine creeping up. PLAN: Continue current medication and treatment plan. The patient is being followed by Nephrology. Keep a very close eye on the renal function. Care was discussed with the patient and . MMODL / IJN: [id number] /
[2018-10-01 05:16] VITALS: RESP 16
[2018-10-01 05:37] LABS: Glucose,Whole Blood 122 mg/dL (75-99)
[2018-10-01] MEDS: INSULIN ASPART 100 UNIT/ML 1 ML 10 ML VIAL SQ SCH ×2 (05:40→11:47)
[2018-10-01 06:56] LABS: Basophils # (A) 0.1 k/uL (0-0.2); Basophils % (A) 1 %; Eosinophils # (A) 0.2 k/uL (0-0.7); Eosinophils % (A) 4 %; HCT 29.3 % (34.0-46.0); HGB 9.2 gm/dL (11.4-16.0); Hypochromasia Slight; Lymphocytes # (A) 1.6 k/uL (1.0-4.8); Lymphocytes % (A) 29 %; MCH 28.4 pg (25.0-35.0); MCHC 31.4 g/dL (31.0-37.0); MCV 90.4 fL (80.0-100.0); Mean Platelet Volume 6.5; Monocytes # (A) 0.3 k/uL (0-1.0); Monocytes % (A) 5 %; Neutrophils # (A) 3.1 k/uL (1.3-7.7); Neutrophils % (A) 57 %; Platelet Count 276 k/uL (150-450); RBC 3.24 m/uL (3.80-5.40); WBC 5.5 k/uL (3.8-10.6)
[2018-10-01 07:04] LABS: Magnesium 1.9 mg/dL (1.6-2.3); Potassium 4.4 mmol/L (3.5-5.1)
[2018-10-01] MEDS ORDERED: GLIMEPIRIDE 2 MG TAB PO SCH (07:30)
[2018-10-01] MEDS: ATORVASTATIN 40 MG TAB PO SCH (08:49)
[2018-10-01] MEDS: METOPROLOL TARTRATE 50 MG TAB PO SCH (08:49)
[2018-10-01] MEDS: metFORMIN 500 MG TAB PO SCH (08:49)
[2018-10-01] MEDS: SPIRONOLACTONE 25 MG TAB PO SCH (08:49)
[2018-10-01] MEDS: ASPIRIN 325 MG TAB PO SCH (08:50)
[2018-10-01] MEDS: LISINOPRIL 5 MG TAB PO SCH (08:50)
--- NOTE | 2018-10-01 08:51 | P.PN ---
Subjective Progress Note Date: 10/01/18 Principal diagnosis: Severe triple vessel coronary artery disease, ischemic cardiomyopathy with EF 20 -25% and global hypokinesia of the left ventricle. Previous medical history of myocardial infarction in 2006 with stent placement, hyperlipidemia, peripheral artery disease with stent placement to the left lower extremity in 2016, recent vein surgery to bilateral lower extremities, uncontrolled uos-pctyopl-vafmsisdv diabetes mellitus with hemoglobin A1c 7.1%, shingles, obesity, previous tobacco dependence, moderate COPD with preoperative FEV1 51% of predicted, family history of early coronary artery disease. Iron deficiency anemia. Preoperative nasal swab positive for MSSA. Acute kidney injury. The patient is currently sitting up in bed in no acute distress. Denies any chest pain or shortness of breath. Has ambulated around the hallway without any difficulty. Heart rate is elevated in the 130s this morning, still sinus. Patient is very anxious about her upcoming surgery. Time spent at the bedside answering multiple questions from the patient and her . Objective - Vital Signs Vital signs: Vital Signs Temp 97.6 F 09/30/18 19:56 Pulse 94 10/01/18 05:15 Resp 16 10/01/18 05:15 BP 112/55 10/01/18 05:15 Pulse Ox 92 L 10/01/18 05:15 Intake & Output 09/30/18 10/01/18 10/01/18 18:59 06:59 18:59 Intake Total 720 Output Total 200 700 Balance 520 -700 Weight 89.8 kg Intake: Oral 720 Output: Urine 200 700 Other: Voiding Method Toilet # Voids 2 1 - Constitutional General appearance: Present: cooperative, no acute distress, obese - Respiratory Details: Lungs sounds diminished bilaterally. Respirations even, nonlabored. Currently on room air with oxygen saturation 92%. Strong cough. Able to achieve 1250 mL on her incentive spirometry. - Cardiovascular Details: S1, S2 present. Tachycardic but regular rate and rhythm, sinus tach on telemetry with heart rate in the 130s to 140s. Palpable peripheral pulses bilaterally. Trace bilateral lower extremity nonpitting edema present. No calf pain or tenderness noted. - Gastrointestinal Gastrointestinal Comment(s): Abdomen soft, nontender, nondistended, obese. Active bowel sounds present 4 quadrants. Tolerating diet. - Genitourinary Genitourinary Comment(s): Continues to void clear, yellow urine. - Integumentary Integumentary Comment(s): Skin is warm and dry with evidence of good perfusion. - Neurologic Neurologic: Present: CNII-XII intact - Musculoskeletal Musculoskeletal: Present: gait normal, strength equal bilaterally - Psychiatric Psychiatric: Present: A&O x's 3, appropriate affect, intact judgment & insight - Allied health notes Allied health notes reviewed: nursing - Labs CBC & Chem 7: 10/01/18 06:03 10/01/18 06:03 Labs: Abnormal Lab Results - Last 24 Hours (Table) 09/30/18 09/30/18 09/30/18 Range/Units 11:30 16:57 21:05 RBC (3.80-5.40) m/uL Hgb (11.4-16.0) gm/dL Hct (34.0-46.0) % BUN (7-17) mg/dL Creatinine (0.52-1.04) mg/dL Glucose (74-99) mg/dL POC Glucose (mg/dL) 205 H 174 H 208 H (75-99) mg/dL 10/01/18 10/01/18 10/01/18 Range/Units 05:35 06:03 06:03 RBC 3.24 L (3.80-5.40) m/uL Hgb 9.2 L (11.4-16.0) gm/dL Hct 29.3 L (34.0-46.0) % BUN 37 H (7-17) mg/dL Creatinine 1.53 H (0.52-1.04) mg/dL Glucose 107 H (74-99) mg/dL POC Glucose (mg/dL) 122 H (75-99) mg/dL Assessment and Plan (1) History of myocardial infarction, greater than 8 weeks ago Current Visit: No Status: Resolved Code(s): I25.2 - OLD MYOCARDIAL INFARCTION SNOMED Code(s): 7693169 (2) Non-STEMI (non-ST elevated myocardial infarction) Current Visit: Yes Status: Acute Code(s): I21.4 - NON-ST ELEVATION (NSTEMI) MYOCARDIAL INFARCTION SNOMED Code(s): 52667291 (3) History of heart artery stent Current Visit: Yes Status: Chronic Code(s): Z95.5 - PRESENCE OF CORONARY ANGIOPLASTY IMPLANT AND GRAFT SNOMED Code(s): 090122315 (4) Peripheral artery disease Current Visit: Yes Status: Chronic Code(s): I73.9 - PERIPHERAL VASCULAR DISEASE, UNSPECIFIED SNOMED Code(s): 798060276 (5) Tobacco dependence in remission Current Visit: No Status: Resolved Code(s): F17.201 - NICOTINE DEPENDENCE, UNSPECIFIED, IN REMISSION SNOMED Code(s): 238609284 (6) Hyperlipidemia Current Visit: Yes Status: Chronic Code(s): E78.5 - HYPERLIPIDEMIA, UNSPECIFIED SNOMED Code(s): 09170284 (7) Diabetes mellitus Current Visit: Yes Status: Chronic Code(s): E11.9 - TYPE 2 DIABETES MELLITUS WITHOUT COMPLICATIONS SNOMED Code(s): 90803393 (8) Obesity (BMI 30.0-34.9) Current Visit: Yes Status: Chronic Code(s): E66.9 - OBESITY, UNSPECIFIED SNOMED Code(s): 023872384991088 (9) Iron deficiency anemia Current Visit: Yes Status: Chronic Code(s): D50.9 - IRON DEFICIENCY ANEMIA, UNSPECIFIED SNOMED Code(s): 27966827 (10) COPD (chronic obstructive pulmonary disease) Current Visit: Yes Status: Chronic Code(s): J44.9 - CHRONIC OBSTRUCTIVE PULMONARY DISEASE, UNSPECIFIED SNOMED Code(s): 13380252 (11) Systolic heart failure Current Visit: Yes Status: Acute Code(s): I50.20 - UNSPECIFIED SYSTOLIC ( CONGESTIVE) HEART FAILURE SNOMED Code(s): 897048311 Plan: 1. Continue aspirin, statin, beta salome, CAMILA inhibitor, Aldactone. 2. Encourage incentive spirometry 10 times every hour while awake. 3. Increase activity, ambulate in hallway. 4. STS risk score calculated and discussed with the patient. 5. Plan is for off-pump coronary artery bypass surgery on , 2018. This was discussed with the patient and her , and they're agreeable. 6. Continue preoperative teaching. 7. Nasal swab positive for MSSA, will initiate mupirocin. 8. Patient/ with multiple questions regarding diet. Dietitian consult placed. 9. Continue medical management per Dr. Barker, cardiology management per Dr. Alarcon. 10. Nephrology ordered per primary care, appreciate recommendations. Avoid nephrotoxins. IV iron added for 3 days. 11. Patient may be discharged home from our standpoint when okay with other consultants to return next for surgery. Time with Patient: Greater than 30
[2018-10-01] MEDS: OXYBUTYNIN 10 MG TAB.ER.24 PO SCH (08:56)
[2018-10-01] MEDS: SODIUM FERRIC GLUCONAT-SUCROSE 125 MG in SODIUM CHLORIDE 0.9% 100 ML IVPB SCH (08:56)
[2018-10-01] MEDS ORDERED: MUPIROCIN 2% OINT 22 GM TUBE TOPICAL SCH (09:00)
--- NOTE | 2018-10-01 10:28 | P.PN ---
Subjective Patient is seen in follow-up for acute kidney injury. Creatinine was 1.3 on admission and is stable at 1.53 today. Currently resting in bed. Edema has improved. IV Lasix has been discontinued. Admits to good urine output. No active chest pain or shortness of breath. Scheduled for CABG on . Vital signs are stable. General: The patient appeared well nourished and normally developed. HEENT: Head exam is unremarkable. Neck is without jugular venous distension. LUNGS: Lungs are clear to auscultation and percussion. Breath sounds decreased. HEART: Rate and Rhythm are regular. First and second heart sounds normal. No murmurs, rubs or gallops. ABDOMEN: Abdominal exam reveals normal bowel sounds. Non-tender and non- distended. No evidence of peritonitis. EXTREMITITES: No clubbing, cyanosis, or edema. Objective - Vital Signs Vital signs: Vital Signs Temp 97.6 F 09/30/18 19:56 Pulse 94 10/01/18 05:15 Resp 16 10/01/18 05:15 BP 112/55 10/01/18 05:15 Pulse Ox 92 L 10/01/18 05:15 Intake & Output 09/30/18 10/01/18 10/01/18 18:59 06:59 18:59 Intake Total 720 240 Output Total 200 700 Balance 520 -700 240 Weight 89.8 kg Intake: Oral 720 240 Output: Urine 200 700 Other: Voiding Method Toilet # Voids 2 1 - Labs CBC & Chem 7: 10/01/18 06:03 10/01/18 06:03 Labs: Abnormal Lab Results - Last 24 Hours (Table) 09/30/18 09/30/18 09/30/18 Range/Units 11:30 16:57 21:05 RBC (3.80-5.40) m/uL Hgb (11.4-16.0) gm/dL Hct (34.0-46.0) % BUN (7-17) mg/dL Creatinine (0.52-1.04) mg/dL Glucose (74-99) mg/dL POC Glucose (mg/dL) 205 H 174 H 208 H (75-99) mg/dL 10/01/18 10/01/18 10/01/18 Range/Units 05:35 06:03 06:03 RBC 3.24 L (3.80-5.40) m/uL Hgb 9.2 L (11.4-16.0) gm/dL Hct 29.3 L (34.0-46.0) % BUN 37 H (7-17) mg/dL Creatinine 1.53 H (0.52-1.04) mg/dL Glucose 107 H (74-99) mg/dL POC Glucose (mg/dL) 122 H (75-99) mg/dL Assessment and Plan Plan: Assessment: 1. Acute kidney injury secondary to ATN secondary to contrast-induced nephropathy and diuresis. Renal function stable. Unclear as to what her baseline renal function is. 2. Proteinuria. This is likely secondary to underlying diabetic kidney disease. 3. Systolic CHF with ejection fraction of 20-25%. 4. Volume overload. Improved. 5. Anemia. Iron deficiency noted. 6. Diabetes mellitus. 7. Coronary artery disease. Status post cardiac catheterization on September 28 which revealed triple-vessel disease. Scheduled for CABG on . Plan: Hold Lasix for now. Ferrlecit 125 mg IV daily for 3 days. Second dose today. Avoid nephrotoxins. Avoid metformin if GFR less than 30. Repeat electrolytes in the morning.
[2018-10-01 11:02] VITALS: TEMP 96.9
[2018-10-01 11:42] LABS: Glucose,Whole Blood 82 mg/dL (75-99)
--- NOTE | 2018-10-01 14:56 | P.PN ---
Subjective Progress Note Date: 10/01/18 This is a 68-year-old female who was admitted to the hospital with a non-ST elevation myocardial infarction, she underwent a cardiac catheterization which revealed severe triple-vessel coronary artery disease. Patient has ischemic myopathy with severe LV dysfunction, she had been evaluated by cardiothoracic surgery and felt not to be an ideal candidate for bypass surgery. Dr. Cornejo the on-call marbleizing machine tender also reviewed angiographic data felt that the patient would benefit more from bypass surgery then catheter- based revascularization. Dr. Zuñiga is scheduled to be at the hospital today, he will review the data and give his input and opinion. Overall the patient feels well, she is ambulated in the harmon today, no shortness of breath, no chest discomfort. Blood pressure 124/56 this morning, heart rate in the 80s to 90s, 94% on room air. White blood cell count 6.0, hemoglobin 9.3, platelet count 285. Sodium 142, potassium 4.5, BUN 34, and creatinine 1.5. 10/01/2018 Patient was seen and examined this morning, feels well, up ambulating in the hallway without any difficulty. Earlier today it was noted that the patient's heart rate was up in the 120 range, sinus tachycardia. Dosing adjustments were made to her beta salome, this afternoon her heart rate is in the 70s. Patient stated was reviewed by Dr. Zuñiga, his recommendation is for the patient to come back next for coronary artery bypass grafting surgery. Blood pressure today 128/90 with a heart rate of 80. BUN today is 37 creatinine 1.5, hemoglobin 9.2. Objective - Vital Signs Vital signs: Vital Signs Temp 96.9 F L 10/01/18 08:00 Pulse 138 H 10/01/18 08:00 Resp 16 10/01/18 05:15 BP 128/90 10/01/18 08:00 Pulse Ox 96 10/01/18 08:00 Intake & Output 09/30/18 10/01/18 10/01/18 18:59 06:59 18:59 Intake Total 720 240 Output Total 200 700 Balance 520 -700 240 Weight 89.8 kg Intake: Oral 720 240 Output: Urine 200 700 Other: Voiding Method Toilet # Voids 2 1 2 - Exam PHYSICAL EXAMINATION: GENERAL: 68-year-old female in no acute distress at the time of my examination HEENT: Head is atraumatic, normocephalic. Pupils equal, round. Sclera anicteric. Conjunctiva are clear. Mucous membranes of the mouth are moist. Neck is supple. There is no elevated jugular venous pressure. No carotid bruit is heard. HEART EXAMINATION: Heart S1, S2 normal. No murmur or gallop heard. CHEST EXAMINATION: Lungs are clear to auscultation and precussion. No chest wall tenderness is noted on palpation or with deep breathing. ABDOMEN: Soft, nontender. Bowel sounds are heard. No organomegaly noted. EXTREMITIES: 2+ peripheral pulses with no evidence of peripheral edema and no calf tenderness noted. NEUROLOGIC patient is awake, alert and oriented 3. . - Labs CBC & Chem 7: 10/01/18 06:03 10/01/18 06:03 Labs: Abnormal Lab Results - Last 24 Hours (Table) 09/30/18 09/30/18 10/01/18 Range/Units 16:57 21:05 05:35 RBC (3.80-5.40) m/uL Hgb (11.4-16.0) gm/dL Hct (34.0-46.0) % BUN (7-17) mg/dL Creatinine (0.52-1.04) mg/dL Glucose (74-99) mg/dL POC Glucose (mg/dL) 174 H 208 H 122 H (75-99) mg/dL Crossmatch 10/01/18 10/01/18 10/01/18 Range/Units 06:03 06:03 08:25 RBC 3.24 L (3.80-5.40) m/uL Hgb 9.2 L (11.4-16.0) gm/dL Hct 29.3 L (34.0-46.0) % BUN 37 H (7-17) mg/dL Creatinine 1.53 H (0.52-1.04) mg/dL Glucose 107 H (74-99) mg/dL POC Glucose (mg/dL) (75-99) mg/dL Crossmatch See Detail Assessment and Plan Plan: Assessment and plan #1 non-ST elevation myocardial infarction, status post cardiac catheterization which revealed severe triple-vessel coronary artery disease #2 ischemic cardiomyopathy with severe left ventricular dysfunction #3 hyperlipidemia #4 diabetes Plan Patient may be able to be discharged home today from cardiology standpoint. She will return next for coronary artery bypass grafting surgery with Dr. Zuñiga. Her dose of beta salome today was increased from 50 mg twice a day to 50 mg 3 times a day. We will continue the rest of her medications including an aspirin, Lipitor 40, lisinopril 5 mg daily, and Aldactone 12-1/2 mg daily along with sublingual nitroglycerin. DNP note has been reviewed, I agree with a documented findings and plan of care. Patient was seen and examined. DNP note has been reviewed, I agree with a documented findings and plan of care. Patient was seen and examined.
[2018-10-01] MEDS ORDERED: METOPROLOL TARTRATE 50 MG TAB PO SCH (16:00)
[2018-10-01 16:25] LABS: Glucose,Whole Blood 189 mg/dL (75-99)
[2018-10-01 17:20] VITALS: BP 117/55; PULSE 81
--- NOTE | 2018-10-05 01:47 | DS ---
DISCHARGE SUMMARY DATE OF ADMISSION: 09/27/2018 DATE OF DISCHARGE: 10/01/2018. FINAL DIAGNOSES: 1. Acute congestive heart failure exacerbation from systolic dysfunction, EF 20 to 25% from underlying coronary artery disease. 2. Acute non-Q-wave myocardial infarction, POA. 3. Severe triple-vessel coronary artery disease per cardiac catheterization. 4. Peripheral artery disease. 5. Chronic urine incontinence. 6. Diabetes mellitus Type 2 on oral hypoglycemic. 7. Chronic kidney stage 3 probably from combination diabetic nephropathy and nephrosclerosis. 8. Metabolic acidosis from renal failure. 9. Acute renal failure could be contrast induced nephropathy. HOSPITAL COURSE: This patient with acute CHF exacerbation and acute non-Q-wave NM. Cardiac catheterization did reveal triple-vessel disease. Finally, it was determined by Dr. Zuñiga and the family that the patient will be going for a coronary bypass next week. The patient did have a renal ultrasound that showed asymptomatic cholelithiasis. 2D echocardiogram showed EF of 20-25 percent with multiple wall motion abnormalities. The patient doing better by the time of discharge. PHYSICAL EXAMINATION: Temperature 96.9, pulse 81, respirations 16, blood pressure 117/55, pulse ox 93 percent on room air. Lungs fair entry. CARDIOVASCULAR: First and second sounds normal. LABS: Hemoglobin 9.2, creatinine is 1.53. CONSULTATIONS: Dr. Porfirio Alarcon from Cardiology, Dr. Paez/Dr. Zuñiga from Cardiothoracic surgery, Dr. Brown from Nephrology. DISCHARGE MEDICATIONS: 1. Aspirin 325 mg a day. 2. Lisinopril 5 mg a day. 3. Metformin 1000 mg b.i.d. 4. Amaryl 2 mg p.o. daily. 5. Oxybutynin 10 mg p.o. daily. 6. Lipitor 40 mg p.o. daily. 7. Lopressor 50 mg p.o. b.i.d. 8. Nitrostat 0.4 sublingual q.5 p.r.n. 9. Aldactone 12.5 p.o. daily. FOLLOWUP: Follow up with Dr. Cornejo in 1 week, Dr. Barnard in 1 week, Dr. Brown in 1 week, Dr. Dariusz Alarcon in one week. The patient is scheduled for surgery next . MMODL / IJN: [id number] /
== END 2018-10-01 17:00 | disposition home or self-care (01) | DRG 280 ==
LOC: EC 17:39 → 3SCARD 21:15
PROVIDERS: ADMIT Hospitalist; ATTEND Hospitalist
PROC: 4A023N7 Measurement of Cardiac Sampling and Pressure, Left Heart, Percutaneous Approach (ICD-10-PCS; principal; 2018-09-27)
PROC: B2111ZZ Fluoroscopy of Multiple Coronary Arteries using Low Osmolar Contrast (ICD-10-PCS; 2018-09-27)
DX: I21.4 Non-ST elevation (NSTEMI) myocardial infarction (principal); I50.23 Acute on chronic systolic (congestive) heart failure; I13.0 Hypertensive heart and chronic kidney disease with heart failure and stage 1 through stage 4 chronic kidney disease, or unspecified chronic kidney disease; E87.2 Acidosis; I82.813 Embolism and thrombosis of superficial veins of lower extremities, bilateral; E11.51 Type 2 diabetes mellitus with diabetic peripheral angiopathy without gangrene; I25.10 Atherosclerotic heart disease of native coronary artery without angina pectoris; E11.22 Type 2 diabetes mellitus with diabetic chronic kidney disease; I25.5 Ischemic cardiomyopathy; R32 Unspecified urinary incontinence; E66.9 Obesity, unspecified; Z68.32 Body mass index [BMI] 32.0-32.9, adult; N18.3 Chronic kidney disease, stage 3 (moderate); Z82.49 Family history of ischemic heart disease and other diseases of the circulatory system; F17.201 Nicotine dependence, unspecified, in remission; K80.20 Calculus of gallbladder without cholecystitis without obstruction; N14.1 Nephropathy induced by other drugs, medicaments and biological substances; T50.8X5A Adverse effect of diagnostic agents, initial encounter; Y92.234 Operating room of hospital as the place of occurrence of the external cause; Z79.84 Long term (current) use of oral hypoglycemic drugs; Z79.82 Long term (current) use of aspirin; Z79.899 Other long term (current) drug therapy; Z95.5 Presence of coronary angioplasty implant and graft; Z88.1 Allergy status to other antibiotic agents
CPT/HCPCS: 36415; 71046; 76770; 80048; 80053; 80061; 80074; 81001; 82550; 82553; 82728; 83036; 83540; 83550; 83735; 83880; 84443; 84484; 85025; 85379; 85610; 85730; 86850; 86900; 86901; 86920; 87070; 87086; 93005; 93306; 93458; 93880; 93923; 93930; 93970; 94150; 94760; 96365; 96375; 99285

== ENCOUNTER 2018-10-08 05:48 | Inpatient (IN) | payer MEDICARE ==
[~2018-10-08 05:48] MED LIST: ALBUMIN HUMAN 25% 50 ML IV ONE; ASPIRIN 325 MG TAB PO ONE; ATORVASTATIN 10 MG TAB PO ONE; CALCIUM CHLORIDE 100 MG/ML 10 ML SYRINGE IV ONE; CARDIOPLEGIC SOLN (K+ 16 MEQ/L 1,000 ML with SODIUM BICARB (1 MEQ/ML) 20 ML, LIDOCAINE ... PERFUSION ONE; CHLORHEXIDINE GLUCONATE 15 ML CUP MUCOUS MEM ONE; CLEVIDIPINE BUTYRATE 25 MG in EMPTY BAG 1 BAG IV ONE; DILTIAZEM 50 MG in SODIUM CHLORIDE 0.9% 40 ML IV ONE; HEPARIN SODIUM 1,000 UN/ML (10ML VL) IV ONE; HEPARIN SODIUM,PORCINE 5,000 UNIT in SODIUM CHLORIDE 0.9% 500 ML 500 ML IV ONE; INSULIN REGULAR 100 UNIT in SODIUM CHLORIDE 0.9% 100 ML IV ONE; LACTATED RINGERS 1,000 ML IV ONE; MAGNESIUM SULFATE MG 500 MG/ML IV ONE; MANNITOL 25% 12.5 GM/50 ML VIAL IV ONE; METOPROLOL TARTRATE 12.5 MG TAB PO ONE; NITROGLYCERIN-D5W PMX 25 MG/250 ML BTL IV ONE; NITROGLYCERIN-D5W PMX 50 MG in DEXTROSE/WATER 1 250ML.BAG IV ONE; NOREPINEPHRINE 4 MG in SODIUM CHLORIDE 0.9% 250 ML IV ONE; PAPAVERINE 360 MG in SODIUM CHLORIDE 0.9% 90 ML IV ONE; PHENYLEPHRINE 40 MG in SODIUM CHLORIDE 0.9% 250 ML IV ONE; PHENYLEPHRINE-0.9% NACL SYG 1 MG/10 ML SYRINGE IV ONE; PROPOFOL 1,000 MG/100 ML VIAL IV ONE; PROTAMINE SULFATE 10 MG/ML 25 ML VIAL IV ONE; PROTAMINE SULFATE 250 MG in EMPTY BAG 1 BAG IV ONE; SODIUM BICARB 8.4% 50 ML SYR (1 MEQ/ML) IV ONE; SODIUM CHLORIDE 0.9% 1,000 ML IV ONE; TRANEXAMIC ACID 2,000 MG in SODIUM CHLORIDE 0.9% 180 ML IV ONE; ceFAZolin 1,000 MG in SODIUM CHLORIDE 0.9% IRRIGATIO 1,000 ML IRRIGATION ONE; ceFAZolin 2,000 MG in SODIUM CHLORIDE 0.9% 30 ML IVPB ONE
[2018-10-08 06:42] LABS: Glucose,Whole Blood 141 mg/dL (75-99)
[2018-10-08] MEDS ORDERED: MIDAZOLAM 2 MG/2 ML VIAL ONE (07:08)
[2018-10-08] MEDS ORDERED: ePHEDrine SULFATE/0.9% NACL/PF 50 MG/5 ML SYRINGE IV ONE (07:08)
[2018-10-08] MEDS ORDERED: MILRINONE-D5W PMX 20 MG/100 ML BAG IV ONE (07:08)
[2018-10-08] MEDS ORDERED: MAGNESIUM SULFATE 4 MEQ/ML 10ML VIAL ONE (07:08)
[2018-10-08] MEDS ORDERED: fentaNYL (PF) 50 MCG/ML 50 ML VIAL ONE (07:08)
[2018-10-08] MEDS ORDERED: ALBUMIN HUMAN 5% 500 ML VIAL IVPB ONE (07:08)
[2018-10-08] MEDS ORDERED: ETOMIDATE 2 MG/ML 10 ML VIAL ONE (07:08)
[2018-10-08] MEDS ORDERED: PHENYLEPHRINE-0.9% NACL SYG 1 MG/10 ML SYRINGE ONE (07:08)
[2018-10-08] MEDS ORDERED: HEPARIN SODIUM,PORCINE 10,000 UNIT/ML 1 ML VIAL ONE (07:08)
[2018-10-08] MEDS ORDERED: PROTAMINE SULFATE 10 MG/ML 5 ML VIAL IV ONE (07:08)
[2018-10-08] MEDS ORDERED: VECURONIUM 10 MG VIAL IV ONE (07:08)
[2018-10-08] MEDS ORDERED: ELECTROLYTE-R (PH 7.4) 1,000 ML IV.SOLN IV ONE (07:08)
[2018-10-08] MEDS ORDERED: CALCIUM CHLORIDE 100 MG/ML 10 ML SYRINGE ONE (07:08)
[2018-10-08] MEDS ORDERED: fentaNYL (PF) 50 MCG/ML 2 ML AMP ONE (07:08)
[2018-10-08] MEDS ORDERED: SODIUM CHLORIDE 0.9% IRRIG 1,000 ML BTL IRRIGATION ONE (07:08)
[2018-10-08] MEDS ORDERED: WATER FOR INJECTION, STERILE 10 ML VIAL IV ONE (07:08)
[2018-10-08] MEDS ORDERED: FUROSEMIDE 10 MG/ML 2 ML VIAL ONE (07:08)
[2018-10-08] MEDS ORDERED: PAPAVERINE 360 MG in SODIUM CHLORIDE 0.9% 90 ML IV ONE (09:39)
[2018-10-08] MEDS ORDERED: SODIUM CHLORIDE 0.9% 500 ML 500 ML with HEPARIN SODIUM,PORCINE 5,000 UNIT IV ONE ×2 (09:39)
[2018-10-08 12:14] LABS: ABG HCO3 22 mmol/L (21-25); ABG Oxygen Saturation 99.7 % (94-97); ABG PCO2 37 mmHg (35-45); ABG PH 7.38 (7.35-7.45); ABG PO2 160 mmHg (83-108); ABG Potassium Whole Blood 4.1 mmol/L (3.4-4.5); ABG Sodium Whole Blood 140 mmol/L (135-146); ABG TCO2 23 mmol/L (19-24)
[2018-10-08 12:15] LABS: ABG Base Excess -1.4 mmol/L; ABG HCO3 23 mmol/L (21-25); ABG PCO2 34 mmHg (35-45); ABG PH 7.43 (7.35-7.45); ABG Sodium Whole Blood 140 mmol/L (135-146); ABG TCO2 24 mmol/L (19-24)
[2018-10-08 12:43] LABS: ABG Base Excess -1.4 mmol/L; ABG HCO3 24 mmol/L (21-25); ABG Oxygen Saturation 99.6 % (94-97); ABG PCO2 40 mmHg (35-45); ABG PH 7.38 (7.35-7.45); ABG PO2 173 mmHg (83-108); ABG Sodium Whole Blood 141 mmol/L (135-146); ABG TCO2 25 mmol/L (19-24)
[2018-10-08 13:01] LABS: ABG PO2 >420 mmHg (83-108)
[2018-10-08 13:09] LABS: ABG Base Excess -2.1 mmol/L; ABG HCO3 23 mmol/L (21-25); ABG PCO2 39 mmHg (35-45); ABG PH 7.38 (7.35-7.45); ABG PO2 226 mmHg (83-108); ABG Potassium Whole Blood 3.6 mmol/L (3.4-4.5); ABG Sodium Whole Blood 142 mmol/L (135-146); ABG TCO2 24 mmol/L (19-24)
[2018-10-08 13:45] LABS: ABG Base Excess -2.3 mmol/L; ABG HCO3 24 mmol/L (21-25); ABG Oxygen Saturation 92.3 % (94-97); ABG PCO2 45 mmHg (35-45); ABG PH 7.33 (7.35-7.45); ABG PO2 66 mmHg (83-108); ABG Potassium Whole Blood 3.9 mmol/L (3.4-4.5); ABG Sodium Whole Blood 142 mmol/L (135-146); ABG TCO2 25 mmol/L (19-24)
[2018-10-08 14:14] LABS: ABG Base Excess -1.8 mmol/L; ABG HCO3 23 mmol/L (21-25); ABG PCO2 41 mmHg (35-45); ABG PH 7.37 (7.35-7.45); ABG PO2 231 mmHg (83-108); ABG Potassium Whole Blood 3.7 mmol/L (3.4-4.5); ABG Sodium Whole Blood 142 mmol/L (135-146); ABG TCO2 25 mmol/L (19-24)
[2018-10-08] MEDS ORDERED: ceFAZolin 1,000 MG in SODIUM CHLORIDE 0.9% 1,000 ML IRRIGATION ONE (14:41)
[2018-10-08] MEDS ORDERED: IPRATROPIUM-ALBUTEROL 3 ML NEB INHALATION PRN (14:43)
[2018-10-08] MEDS ORDERED: PROPOFOL 1,000 MG in EMPTY BAG 1 BAG IV SCH (14:43)
[2018-10-08] MEDS ORDERED: CLEVIDIPINE BUTYRATE 25 MG in EMPTY BAG 1 BAG IV SCH (14:43)
[2018-10-08] MEDS ORDERED: CALCIUM CHLORIDE 1,000 MG in SODIUM CHLORIDE 0.9% 100 ML IV PRN (14:43)
[2018-10-08] MEDS ORDERED: METOCLOPRAMIDE 5 MG/ML 2 ML VIAL IVP PRN (14:43)
[2018-10-08] MEDS ORDERED: BENZOCAINE/MENTHOL LOZENG 1 EACH LOZENGE MUCOUS MEM PRN (14:43)
[2018-10-08] MEDS ORDERED: DOPamine DRIP 800 MG in DEXTROSE/WATER 1 500ML.BAG IV SCH (14:43)
[2018-10-08] MEDS ORDERED: NOREPINEPHRINE 4 MG in SODIUM CHLORIDE 0.9% 250 ML IV SCH (14:43)
[2018-10-08] MEDS ORDERED: Phosphorus Replacement Protoco 1 EACH MISC MISCELLANE PRN (14:43)
[2018-10-08] MEDS ORDERED: NITROGLYCERIN-D5W PMX 50 MG in DEXTROSE/WATER 1 250ML.BAG IV SCH (14:43)
[2018-10-08] MEDS ORDERED: Magnesium Replacement Protocol 1 EACH MISC MISCELLANE PRN (14:43)
[2018-10-08] MEDS ORDERED: Potassium Replacement Protocol 1 EACH MISC MISCELLANE PRN (14:43)
[2018-10-08] MEDS ORDERED: ALBUMIN HUMAN 5% 250 ML in EMPTY BAG 1 BAG IVPB PRN (14:43)
[2018-10-08] MEDS: LACTATED RINGERS 1,000 ML IV SCH (15:30)
[2018-10-08] MEDS: DILTIAZEM 125 MG in SODIUM CHLORIDE 0.9% 100 ML IV SCH (15:48)
--- NOTE | 2018-10-08 15:56 | XR ---
EXAMINATION TYPE: XR chest 1V portable DATE OF EXAM: 10/08/2018 COMPARISON: 09/27/2018 HISTORY: Post cardiac surgery TECHNIQUE: Single frontal view of the chest is obtained. FINDINGS: ET tube 5 cm above mateusz. NG tube seen overlying the left upper quadrant likely within th e stomach. [place]-Tom catheter seen with the tip overlying proximal pulmonary outflow tract. Bilateral chest tubes and mediastinal drain noted. No sizable pneumothorax. Subcutaneous emphysema noted. Ther e is bilateral infiltrate and interstitial pattern. Small bilateral effusions noted. Heart size stabl e. Postsurgical changes noted. IMPRESSION: 1. Postoperative change with bilateral infiltrate, small effusion. Subcutaneous emphysema noted. Amilcar elate for mild central venous congestion.
[2018-10-08 16:01] LABS: Glucose,Whole Blood 156 mg/dL (75-99)
[2018-10-08 16:03] LABS: ABG Base Excess -5.6 mmol/L; ABG HCO3 21 mmol/L (21-25); ABG PCO2 40 mmHg (35-45); ABG PH 7.32 (7.35-7.45); ABG PO2 300 mmHg (83-108); ABG TCO2 22 mmol/L (19-24)
[2018-10-08] MEDS ORDERED: BENZOCAINE SPRAY 1 CAN MUCOUS MEM PRN (16:11)
[2018-10-08] MEDS: INSULIN REGULAR 100 UNIT in SODIUM CHLORIDE 0.9% 100 ML IV SCH (16:13)
--- NOTE | 2018-10-08 16:17 | P.OP ---
Date of Procedure: 10/08/18 Preoperative Diagnosis: Coronary artery disease, chronic systolic and diastolic heart failure Postoperative Diagnosis: Same Procedure(s) Performed: Off-pump CABG 3 with left internal mammary artery graft to LAD, right radial artery graft to obtuse marginal and left radial artery graft to posterior descending, bilateral endovascular radial artery harvest Anesthesia: PRECIOUS Surgeon: Rogelio Zuñiga Marine Firer #1: Juan José Araujo Marine Firer #2: Tao Cody Estimated Blood Loss (ml): 900 IV fluids (ml): 1,500 Urine output (ml): 200 Pathology: none sent Condition: stable Disposition: ICU Indications for Procedure: 68-year-old female presented with flash pulmonary edema. She was found to have decreased left ventricular ejection fraction. She had LVH and evidence of diastolic dysfunction. Cardiac catheterization demonstrated severe three- vessel coronary artery disease. She was treated for heart failure and discharged home with instructions to follow up the following week for bypass surgery. She had history of bilateral vein stripping recently. Radial artery mapping was performed and both radial arteries were appropriate conduits. Operative Findings: The pericardium was markedly thickened and inflamed. The epicardium was also thickened and inflamed. The heart was densely encased in fat and there were no visible vessels on the epicardial surface of the heart. There was a 500 mL right pleural effusion present. The heart was markedly enlarged. Radial arteries were good caliber conduits but had moderate diffuse calcification present. Left internal mammary artery was an excellent conduit. Coronary targets were diffusely diseased and calcific. Dissecting them out was quite difficult due to all of them being buried deep in the epicardial fat. Ultimately, good grafts were obtained. Description of Procedure: The patient was brought to the operating room, placed supine on the operating table, anesthetized and intubated. [place]-Tom catheter is placed through the right internal jugular approach. The anterior torso lower extremities and bilateral upper extremities were sterilely prepped and draped. A right femoral arterial line was placed. The right radial artery was harvested first using endovascular vein harvest technique. Was a good conduit. Upon excising the artery the wrist was closed and the arm tucked at the side. We then proceeded with left radial artery harvest and simultaneous sternotomy. Left hemisternum was retracted upwards and the left internal mammary artery harvested on a vascularized pedicle left intact on its origin from the subclavian and divided distally. It was an excellent conduit. The left pleural space was drained with 32-[place] chest tube. This point the endovascular harvest of the left radial artery it also been completed. At arm was sterilely dressed and tucked at the side. Standard sternal retractor was placed. The right pleural space was opened. 500 mL of clear serous fluid was drained from the right pleural space. It are to 2-[place] chest tube was placed in the right oral space. Pericardiotomy was performed. The pericardium was markedly thickened. The heart was quite ugly being densely encased in a large amount of fat with quite a bit of epicardial scarring and thickening present as well. Heart was exposed with pericardial sutures. The patient was systemically heparinized and ACTs were maintained greater than 250 during grafting. Suction stabilization was used for exploration and grafting of the coronary arteries. The LAD was first dissected out. Once it was identified it was dissected out over about a three- inch distance. It was a heavily diseased and diffusely diseased calcific vessel. Eventually we opened it at a soft spot and were able to pass a 1.5 mm probe distally toward the apex. Blood flow was controlled 1.5 mm flow through. The CONNELLY to the LAD anastomosis was performed with running 8-0 Prolene suture. On completion anastomosis flow through was removed effectively probing the proximal distal portion of the anastomosis. Suture was tied with good result and hemostasis. The MIRACLE pedicle was tacked surrounding epicardium with 6 -0 silk. Next the inferior wall was exposed. The first vessel that we could find was the posterior lateral branch. This was identified cousin was palpable due to presence of the stent within it. We dissected out beyond the stent but it was not graftable here due to heavy calcification. We eventually found the PDA. There was more anterior on the wall of the ventricle. It was a better vessel with much better quality wall. It was opened and blood flow control the 14.5 mm flow through. Radial artery was anastomosed in end-to-side fashion with running 7-0 Prolene suture. The left radial artery was used for the PDA. Completion the anastomosis the flow through was removed effectively probing the proximal distal portion anastomosis. Suture was tied with good result and hemostasis. Good backbleeding was noted in the radial artery controlled with a bulldog clamp. Entire length of the radial artery was necessary in order to reach the ascending aorta. A partial occlusion clamp was placed in the ascending aorta after appropriate control of blood pressure by anesthesia. 24 mm punch holes were created in the ascending aorta. The more inferior one we placed the left radial artery leading to the PDA. Anastomosis was constructed with running 6-0 Prolene suture. The more superior one we grafted on the right radial artery. It was anastomosed also with 6-0 Prolene suture. Completion anastomosis there were de-aired by backbleeding from the PDA and the partial occlusion clamp was removed. right radial artery. The right renal artery was performed beneath the CONNELLY graft and the lateral wall of the heart was exposed.was very difficult to identify the obtuse marginal branch but we eventually did. Was buried deep in the fat and was diss and it was very disease. It was dissected out more distally until it disappeared into the myocardium. Here it became soft. It was opened and blood flow control with a 1.5 mm flow through. Radial artery was anastomosed in end-to-side fashion with running 7-0 Prolene suture. On completion anastomosis flow through was removed 50 probe the proximal distal portion anastomosis. Suture was tied with good result and hemostasis. Inflow was open. Heart was lowered in anatomic position. Heparin was reversed with protamine. Good hemostasis was obtained throughout. Chest was irrigated with antibiotic solution. The mediastinum was drained with 236-[place] chest tubes and the sternum closed with 8 sternal wires. Fascia was closed with 0 Ethibond subcutaneous and subcuticular layers layers of Vicryl suture. Dressed with dressings were applied the patient was transferred to ICU in stable condition.ected out
[2018-10-08] MEDS: ACETAMINOPHEN IV (For NPO) 1,000 MG in EMPTY BAG 1 BAG IVPB SCH (16:23)
[2018-10-08] MEDS: ceFAZolin IN SWFI 2 GM/20 ML SYRINGE IVP SCH (16:24)
[2018-10-08 16:35] LABS: Glucose,Whole Blood 166 mg/dL (75-99)
[2018-10-08] MEDS: fentaNYL (PF) 50 MCG/ML 2 ML AMP IVP PRN ×2 (16:45→20:50)
[2018-10-08] MEDS: IPRATROPIUM-ALBUTEROL 3 ML NEB INHALATION SCH ×3 (16:58→20:14)
[2018-10-08 17:06] LABS: Basophils % (A) 0 %; Eosinophils # (A) 0.1 k/uL (0-0.7); Eosinophils % (A) 1 %; HCT 23.5 % (34.0-46.0); Hypochromasia Slight; Lymphocytes # (A) 2.6 k/uL (1.0-4.8); Lymphocytes % (A) 20 %; MCH 29.3 pg (25.0-35.0); MCHC 32.7 g/dL (31.0-37.0); MCV 89.6 fL (80.0-100.0); Mean Platelet Volume 6.8; Monocytes # (A) 0.7 k/uL (0-1.0); Monocytes % (A) 6 %; Neutrophils # (A) 8.9 k/uL (1.3-7.7); Neutrophils % (A) 70 %; Platelet Count 242 k/uL (150-450); RBC 2.63 m/uL (3.80-5.40); RDW 14.9 % (11.5-15.5); WBC 12.6 k/uL (3.8-10.6)
[2018-10-08 17:08] LABS: HGB 7.7 gm/dL (11.4-16.0)
--- NOTE | 2018-10-08 17:17 | P.CNPUL ---
History of Present Illness Consult date: 10/08/18 Requesting physician: Rogelio Zuñiga Reason for consult: other Chief complaint: Coronary artery disease, status post bypass grafting History of present illness: This is a 68-year-old white female patient of Dr. Barnard, with past medical history of myocardial infarction in 2006 with stent placement, hyperlipidemia, peripheral artery disease with stent placement to the left lower extremity in 2016, recent vein surgery to bilateral lower extremities, diabetes mellitus type 2, obesity, previous tobacco dependence, and family history of early coronary artery disease. Patient came into the emergency department on 2018 with complaints of increasing shortness of breath, exacerbated with exertion, palpitations, lower extremity edema, nausea. Patient did not have any chest pain or pressure. EKG showed nonspecific ST/T-wave changes, her troponins were elevated and peaked at 0.606, ruled out then for acute non- ST elevated [place]. ProBNP was elevated at 3570. Chest x-ray showed pulmonary vascular congestion and bilateral pleural effusion. Patient had a heart catheterization by Dr. Perez which showed stent to the RCA stenosis of 80-90%, distal RCA stenosis 70%, subtotal occlusion of the mid LAD with extensive disease in the proximal LAD and an OM branch of the circumflex artery with 60-70 % stenosis. Echocardiogram showed mild concentric left ventricular hypertrophy , severe global hypokinesis of the left ventricle, severely impaired left ventricle systolic function with an EF between 20-25%. Basal inferior LV wall and inferoseptal LV wall hypokinesis. Apical anterior, inferior, septal and lateral apical LV wall hypokinesis. Aortic valve was trileaflet and mildly thickened, mild MR, and trace TR. Patient was also found to have acute kidney injury and underwent evaluation by nephrology who felt that her kidney injury was related to cardiorenal syndrome. She was evaluated by cardiothoracic surgery and today on 10/08/2018 she underwent off-pump three-vessel coronary artery bypass grafting with CONNELLY to LAD, right radial artery graft to up to his marginal, and left radial artery graft to posterior descending. Patient is seen in the postoperative period in the intensive care unit, she is intubated, on mechanical ventilator. Current vent settings are assist-control mode with a with a rate of 12, tidal vital 600, FiO2 100%, and PEEP of 10. Postop blood gases were reviewed by Dr. Snow, and showed pO2 of 300, pCO2 40, and pH of 7.32, this was done on FiO2 100%, and FiO2 was dropped down to 50%. Postop chest x-ray was reviewed by Dr. Snow and showed postoperative changes with bilateral infiltrates, small effusion, cutaneous emphysema and mild central venous congestion. She is in sinus rhythm, with a rate of 67 BPM, maintenance IV fluids his lactated Ringer's at a rate of 50 ML per hour, dopamine for bradycardia at 3 mics per kilo per minute, diltiazem at 5 mg per hour, nitro drip at 5 units per kilo per minute, insulin drip is at 2 units per hour, Levaquin fed at 2 mics per minutes. Mediastianal incision is clean dry and intact, covered with a surgical dressing, 2 mediastinal chest tubes and a right left pleural chest tubes with small amount of sanguinous output in the Pleur- evac, to wall suction. No epicardial wires. 1 FRIDA drains in the right and left wrists with small amount of sanguinous drainage, both wrists are Cole wrapped, SCDs on lower extremities. Ziegler catheter is in place, patient is nonoliguric, 1 unit of blood was transfused, postop blood work is pending. Review of Systems All systems: negative Constitutional: Denies chills, Denies fever Eyes: denies blurred vision, denies pain Ears, nose, mouth and throat: Denies headache, Denies sore throat Cardiovascular: Reports decreased exercise tolerance, Reports dyspnea on exertion, Reports edema, Reports leg edema, Reports orthopnea, Reports palpitations, Denies chest pain, Denies shortness of breath Respiratory: Denies cough Gastrointestinal: Denies abdominal pain, Denies diarrhea, Denies nausea, Denies vomiting Genitourinary: Denies dysuria, Denies hematuria Musculoskeletal: Denies myalgias Integumentary: Denies pruritus, Denies rash Neurological: Denies numbness, Denies weakness Psychiatric: Denies anxiety, Denies depression Endocrine: Denies fatigue, Denies weight change Past Medical History Past Medical History: Coronary Artery Disease (CAD), Chest Pain / Angina, Diabetes Mellitus, Hyperlipidemia, Myocardial Infarction (FL) Additional Past Medical History / Comment(s): varicose veins,[place] x2 Last Myocardial Infarction Date:: 03/20/2006,2019 History of Any Multi-Drug Resistant Organisms: None Reported Past Surgical History: Section, Heart Catheterization, Heart Catheterization With Stent Additional Past Surgical History / Comment(s): vein work-last procedure Aug 2018 , stent above knee left leg,heart stents x3 Past Anesthesia/Blood Transfusion Reactions: No Reported Reaction Additional Past Anesthesia/Blood Transfusion Reaction / Comment(s): no hx blood transfusion Date of Last Stent Placement:: 03/20/2006 Past Psychological History: No Psychological Hx Reported Smoking Status: Former smoker Past Alcohol Use History: None Reported Additional Past Alcohol Use History / Comment(s): quit smoking 2005,smoked approx 40 yrs 1ppd Past Drug Use History: None Reported - Past Family History Mother Family Medical History: Coronary Artery Disease (CAD) Additional Family Medical History / Comment(s): mother during CABG Father Family Medical History: Cancer Additional Family Medical History / Comment(s): colon CA Brother(s) Family Medical History: Cancer Additional Family Medical History / Comment(s): colon CA Sister(s) Family Medical History: Cancer Additional Family Medical History / Comment(s): breast CA Medications and Allergies Home Medications Medication Instructions Recorded Confirmed Type Aspirin EC [Ecotrin] 325 mg PO DAILY 01/23/18 10/08/18 History Lisinopril [Zestril] 5 mg PO DAILY 01/23/18 10/08/18 History metFORMIN HCL 1,000 mg PO BID 01/23/18 10/08/18 History Glimepiride [Amaryl] 2 mg PO DAILY 09/27/18 10/08/18 History Oxybutynin Chloride [Oxybutynin 10 mg PO DAILY 09/27/18 10/08/18 History Chloride ER] Atorvastatin [Lipitor] 40 mg PO DAILY #30 tab 10/01/18 10/08/18 Rx Metoprolol Tartrate [Lopressor] 50 mg PO BID #60 tab 10/01/18 10/08/18 Rx Nitroglycerin Sl Tabs [Nitrostat] 0.4 mg SUBLINGUAL Q5M PRN #25 tab 10/01/18 Rx Spironolactone [Aldactone] 12.5 mg PO DAILY #30 tab 10/01/18 10/08/18 Rx Allergies Allergy/AdvReac Type Severity Reaction Status Date / Time tetracycline Allergy Rash/Hives Verified 10/08/18 14:02 Physical Exam Vitals: Vital Signs Temp Pulse Pulse Resp BP BP Pulse Ox 10/08/18 06:30 98.5 F 88 94 16 130/80 131/70 94 L 10/08/18 06:23 98.5 F 94 16 131/70 94 L Intake and Output 10/08/18 10/08/18 10/08/18 06:59 14:59 22:59 Intake Total 313 Output Total 950 Balance -637 Intake: IV 3 Blood Product 310 Rc Cpda-1 Unit 310 [id number] Output: Urine 150 Estimated Blood Loss 800 Other: Weight 90.9 kg GENERAL EXAM: Sedated, intubated on mechanical ventilator, 68-year-old obese white female, comfortable in no apparent distress. HEAD: Normocephalic/atraumatic. EYES: Normal reaction of pupils, equal size. Conjunctiva pink, sclera white. NOSE: Clear with pink turbinates. THROAT: No erythema or exudates. NECK: No masses, no JVD, no thyroid enlargement, no adenopathy. CHEST: No chest wall deformity. Symmetrical expansion. Midsternal incision is clean dry and intact, covered with a surgical dressing, 2 mediastinal chest tubes and right the left pleural chest tubes to wall suction, with small amount of sanguinous output in the Pleur-evacs, no air leak. LUNGS: Equal air entry with no crackles, wheeze, rhonchi or dullness. CVS: Regular rate and rhythm, normal S1 and S2, no gallops, no murmurs, no rubs ABDOMEN: Soft, nontender. No hepatosplenomegaly, normal bowel sounds, no guarding or rigidity. EXTREMITIES: No clubbing, no edema, no cyanosis, 2+ pulses and upper and lower extremities. One FRIDA drain in the right wrist, and one FRIDA drain in the left wrist, bilateral radial artery graft harvest sites are covered with Cole wraps MUSCULOSKELETAL: Muscle strength and tone normal. SPINE: No scoliosis or deformity SKIN: No rashes CENTRAL NERVOUS SYSTEM: Sedated No focal deficits, tone is normal in all 4 extremities. Results - Laboratory Findings ABG ABG pH 7.32 (7.35-7.45) L 10/08/18 15:56 ABG pCO2 40 mmHg (35-45) 10/08/18 15:56 ABG pO2 300 mmHg (83-108) H 10/08/18 15:56 ABG O2 Saturation 100.0 % (94-97) H 10/08/18 15:56 Abnormal lab findings: Abnormal Labs 10/01/18 10/08/18 10/08/18 08:25 06:36 08:57 ABG pH ABG pCO2 34 L ABG pO2 >420 H ABG Total CO2 ABG O2 Saturation 100.0 H ABG Hematocrit 24 L ABG Ionized Calcium ABG Glucose 145 H Hemoglobin 7.7 L POC Glucose (mg/dL) 141 H Arterial Blood Glucose 145 H Crossmatch See Detail 10/08/18 10/08/18 10/08/18 08:57 12:42 13:09 ABG pH ABG pCO2 ABG pO2 160 H 173 H 226 H ABG Total CO2 25 H ABG O2 Saturation 99.7 H 99.6 H 100.0 H ABG Hematocrit 23 L 23 L 21 L ABG Ionized Calcium 4.4 L 4.3 L ABG Glucose 143 H 166 H 141 H Hemoglobin 7.5 L 7.4 L 6.7 L* POC Glucose (mg/dL) Arterial Blood Glucose 143 H 166 H 141 H Crossmatch 10/08/18 10/08/18 10/08/18 13:45 14:13 15:30 ABG pH 7.33 L ABG pCO2 ABG pO2 66 L 231 H ABG Total CO2 25 H 25 H ABG O2 Saturation 92.3 L 100.0 H ABG Hematocrit 25 L 24 L ABG Ionized Calcium 4.3 L 4.2 L ABG Glucose 153 H 157 H Hemoglobin 8.0 L 7.7 L POC Glucose (mg/dL) 156 H Arterial Blood Glucose 153 H 157 H Crossmatch 10/08/18 10/08/18 15:56 16:08 ABG pH 7.32 L ABG pCO2 ABG pO2 300 H ABG Total CO2 ABG O2 Saturation 100.0 H ABG Hematocrit ABG Ionized Calcium ABG Glucose Hemoglobin POC Glucose (mg/dL) 166 H Arterial Blood Glucose Crossmatch - Diagnostic Findings Chest x-ray: report reviewed, image reviewed Assessment and Plan Plan: Assessment: #1. Coronary artery disease, status post off-pump three-vessel coronary artery bypass grafting, with CONNELLY to LAD, right radial artery graft to the obtuse marginal, and left radial artery graft to posterior descending, postop day 0 #2. Routine postoperative ventilator management #3. Recent acute non-ST elevated myocardial infarction #4. Diabetes mellitus type 2 #5. Ischemic cardiomyopathy, with an EF of 20-25% #6. Hypertention #7. Previous history of nicotine dependence, in remission #8. Morbid obesity Plan: We will proceed with spontaneous breathing trials and extubation once the patient has awake and alert and following commands. Chest x-ray has been reviewed with Dr. Snow, blood gas has been reviewed with Dr. Snow, necessary ventilator adjustments have been made. Incentive spirometry to the bedside, deep breathing and coughing after extubation, daily chest x-rays and labs, GI prophylaxis per surgery. Hemoynamically patient is stable. I performed a history & physical examination of the patient and discussed their management with my nurse practitioner, Romy Reyes. I reviewed the nurse practitioner's note and agree with the documented findings and plan of care. Lung sounds are positive for clear breath sounds, diminished at the bases. The findings and the impression was discussed with the patient. I attest to the documentation by the nurse practitioner. Time with Patient: Greater than 30
[2018-10-08 17:19] LABS: INR 1.2 (<1.2); Partial Thromboplastin Time 24.5 sec (22.0-30.0); Prothrombin Time 12.1 sec (9.0-12.0)
[2018-10-08 17:32] LABS: Albumin 2.3 g/dL (3.5-5.0); Calcium 7.5 mg/dL (8.4-10.2); Magnesium 1.9 mg/dL (1.6-2.3); Potassium 3.9 mmol/L (3.5-5.1); Total Bilirubin 0.9 mg/dL (0.2-1.3); Total Protein 4.7 g/dL (6.3-8.2)
[2018-10-08 17:53] LABS: Ionized Calcium 4.4 mg/dL (4.5-5.3)
[2018-10-08] MEDS: POTASSIUM CHLORIDE 10 MEQ in WATER FOR INJECTION 1 100ML.BAG IVPB SCH ×2 (18:12→21:45)
[2018-10-08 18:20] LABS: Glucose,Whole Blood 179 mg/dL (75-99)
[2018-10-08] MEDS: MAGNESIUM SULFATE-D5W PMX 1 GM in DEXTROSE/WATER 1 100ML.BAG IVPB SCH ×2 (18:29→21:44)
[2018-10-08 18:36] LABS: Glucose,Whole Blood 179 mg/dL (75-99)
[2018-10-08 19:02] LABS: ABG Base Excess -6.2 mmol/L; ABG HCO3 20 mmol/L (21-25); ABG Oxygen Saturation 94.4 % (94-97); ABG PCO2 39 mmHg (35-45); ABG PH 7.32 (7.35-7.45); ABG PO2 71 mmHg (83-108); ABG TCO2 21 mmol/L (19-24)
[2018-10-08 19:08] LABS: Basophils % (A) 0 %; Eosinophils % (A) 0 %; HCT 25.1 % (34.0-46.0); HGB 8.2 gm/dL (11.4-16.0); Hypochromasia Slight; Lymphocytes # (A) 0.9 k/uL (1.0-4.8); Lymphocytes % (A) 8 %; MCH 29.1 pg (25.0-35.0); MCHC 32.9 g/dL (31.0-37.0); MCV 88.5 fL (80.0-100.0); Mean Platelet Volume 7.3; Monocytes # (A) 0.7 k/uL (0-1.0); Monocytes % (A) 6 %; Neutrophils # (A) 9.8 k/uL (1.3-7.7); Neutrophils % (A) 83 %; Platelet Count 259 k/uL (150-450); RBC 2.83 m/uL (3.80-5.40); RDW 15.4 % (11.5-15.5); WBC 11.7 k/uL (3.8-10.6)
[2018-10-08 19:12] LABS: Glucose,Whole Blood 162 mg/dL (75-99)
[2018-10-08 21:10] LABS: Glucose,Whole Blood 147 mg/dL (75-99)
[2018-10-08 21:14] LABS: Basophils % (A) 0 %; Eosinophils % (A) 0 %; HCT 25.4 % (34.0-46.0); HGB 8.1 gm/dL (11.4-16.0); Hypochromasia Slight; Lymphocytes # (A) 0.6 k/uL (1.0-4.8); Lymphocytes % (A) 5 %; MCH 28.2 pg (25.0-35.0); MCV 88.2 fL (80.0-100.0); Mean Platelet Volume 7.5; Monocytes # (A) 0.8 k/uL (0-1.0); Monocytes % (A) 7 %; Neutrophils # (A) 9.4 k/uL (1.3-7.7); Neutrophils % (A) 85 %; Platelet Count 231 k/uL (150-450); RBC 2.88 m/uL (3.80-5.40); RDW 15.1 % (11.5-15.5); WBC 11.1 k/uL (3.8-10.6)
[2018-10-08] MEDS ORDERED: MUPIROCIN 2% OINT 22 GM TUBE NASAL ONE (21:15)
[2018-10-08 21:23] LABS: INR 1.1 (<1.2); Partial Thromboplastin Time 22.9 sec (22.0-30.0); Prothrombin Time 11.3 sec (9.0-12.0)
[2018-10-08 21:24] LABS: Albumin 2.7 g/dL (3.5-5.0); Magnesium 2.2 mg/dL (1.6-2.3); Phosphorus 4.1 mg/dL (2.5-4.5); Potassium 4.1 mmol/L (3.5-5.1); Total Bilirubin 0.4 mg/dL (0.2-1.3); Total Protein 5.2 g/dL (6.3-8.2)
[2018-10-08 21:38] LABS: Ionized Calcium 4.7 mg/dL (4.5-5.3)
[2018-10-08 22:17] LABS: Glucose,Whole Blood 123 mg/dL (75-99)
[2018-10-08] MEDS: MUPIROCIN 2% OINT 22 GM TUBE NASAL SCH (22:54)
[2018-10-09] MEDS: ceFAZolin IN SWFI 2 GM/20 ML SYRINGE IVP SCH ×2 (00:03→08:11)
[2018-10-09] MEDS: ACETAMINOPHEN IV (For NPO) 1,000 MG in EMPTY BAG 1 BAG IVPB SCH ×4 (00:04→17:47)
[2018-10-09] MEDS: HEPARIN SODIUM,PORCINE 5,000 UNIT/ML 1 ML VIAL SQ SCH ×3 (00:04→16:19)
[2018-10-09 00:13] LABS: Glucose,Whole Blood 75 mg/dL (75-99)
[2018-10-09] MEDS: DILTIAZEM 125 MG in SODIUM CHLORIDE 0.9% 100 ML IV SCH (00:25)
[2018-10-09 01:32] LABS: Glucose,Whole Blood 115 mg/dL (75-99)
[2018-10-09 02:18] LABS: Glucose,Whole Blood 116 mg/dL (75-99)
[2018-10-09 03:14] LABS: Glucose,Whole Blood 89 mg/dL (75-99)
[2018-10-09 05:27] LABS: Glucose,Whole Blood 148 mg/dL (75-99)
[2018-10-09 06:15] LABS: Basophils % (A) 0 %; Eosinophils % (A) 0 %; HCT 25.2 % (34.0-46.0); Hypochromasia Slight; Lymphocytes # (A) 0.6 k/uL (1.0-4.8); Lymphocytes % (A) 7 %; MCH 28.5 pg (25.0-35.0); MCHC 31.9 g/dL (31.0-37.0); MCV 89.4 fL (80.0-100.0); Mean Platelet Volume 6.8; Monocytes # (A) 0.6 k/uL (0-1.0); Monocytes % (A) 7 %; Neutrophils # (A) 7.5 k/uL (1.3-7.7); Neutrophils % (A) 84 %; Platelet Count 210 k/uL (150-450); RBC 2.82 m/uL (3.80-5.40); RDW 14.9 % (11.5-15.5); WBC 8.9 k/uL (3.8-10.6)
[2018-10-09] MEDS: ONDANSETRON 4 MG/2 ML VIAL IVP PRN ×2 (06:15→13:38)
[2018-10-09 06:24] LABS: INR 1.1 (<1.2); Partial Thromboplastin Time 24.5 sec (22.0-30.0); Prothrombin Time 11.1 sec (9.0-12.0)
[2018-10-09 06:31] LABS: Albumin 2.5 g/dL (3.5-5.0); Calcium 7.9 mg/dL (8.4-10.2); Magnesium 2.1 mg/dL (1.6-2.3); Potassium 5.1 mmol/L (3.5-5.1); Total Bilirubin 0.4 mg/dL (0.2-1.3); Total Protein 5.1 g/dL (6.3-8.2)
[2018-10-09 07:04] LABS: Ionized Calcium 4.6 mg/dL (4.5-5.3)
[2018-10-09] MEDS: IPRATROPIUM-ALBUTEROL 3 ML NEB INHALATION SCH ×4 (07:11→20:19)
[2018-10-09 07:17] LABS: Glucose,Whole Blood 151 mg/dL (75-99)
--- NOTE | 2018-10-09 07:29 | P.CRDCN ---
History of Present Illness Consult date: 10/09/18 Chief complaint: Status post open heart surgery with bypass History of present illness: This is a pleasant 68-year-old female patient with past medical history the patient does have coronary artery disease with prior coronary artery stenting, diabetes type 2, hypertension, and dyslipidemia.who we consulted to see for cardiac follow-up after coronary artery bypass grafting. Earlier this month, September 2018, the patient presented to the hospital with shortness of breath. She was ruled in for acute non-ST deviation myocardial infarction with abnormal EKG as well as abnormal cardiac enzymes. At that point she underwent heart catheterization by Dr. Perez and that revealed severe triple-vessel coronary artery disease. Because of that the patient was referred to undergo coronary artery bypass grafting. The patient underwent yesterday coronary artery bypass grafting 3 where she received CONNELLY to LAD, JT to OM, and radial artery to right coronary artery. This is postoperative patient day #1. The patient was extubated last night. She is doing overall good giving her previous status of severe underlying coronary artery disease as well as cardiomyopathy. She has been maintaining normal sinus mechanism. Hemodynamically she is still requiring small doses of vasopressors. Beside that she is on nitroglycerin drip as well as Cardizem drip for the radial bypasses. The Cardizem drip is going to come off later on today as well as a nitro drip. The patient will be started on calcium channel salome by mouth either with Norvasc or with Cardizem by mouth. Beside that she continues to be on dual antiplatelet therapy with aspirin and Plavix as well as she is on statin and also she is on metoprolol by mouth. The last echocardiogram from September 2018 revealed impaired LV function with EF between 20-25% with basal inferior hypokinesia and inferoseptal hypokinesia. Past Medical History Past Medical History: Coronary Artery Disease (CAD), Chest Pain / Angina, Diabetes Mellitus, Hyperlipidemia, Myocardial Infarction (VT) Additional Past Medical History / Comment(s): varicose veins,VT x2 Last Myocardial Infarction Date:: 03/20/2006,2019 History of Any Multi-Drug Resistant Organisms: None Reported Past Surgical History: Section, Heart Catheterization, Heart Catheterization With Stent Additional Past Surgical History / Comment(s): vein work-last procedure Aug 2018 , stent above knee left leg,heart stents x3 Past Anesthesia/Blood Transfusion Reactions: No Reported Reaction Additional Past Anesthesia/Blood Transfusion Reaction / Comment(s): no hx blood transfusion Date of Last Stent Placement:: 03/20/2006 Past Psychological History: No Psychological Hx Reported Smoking Status: Former smoker Past Alcohol Use History: None Reported Additional Past Alcohol Use History / Comment(s): quit smoking 2005,smoked approx 40 yrs 1ppd Past Drug Use History: None Reported - Past Family History Mother Family Medical History: Coronary Artery Disease (CAD) Additional Family Medical History / Comment(s): mother during CABG Father Family Medical History: Cancer Additional Family Medical History / Comment(s): colon CA Brother(s) Family Medical History: Cancer Additional Family Medical History / Comment(s): colon CA Sister(s) Family Medical History: Cancer Additional Family Medical History / Comment(s): breast CA Medications and Allergies Home Medications Medication Instructions Recorded Confirmed Type Aspirin EC [Ecotrin] 325 mg PO DAILY 01/23/18 10/08/18 History Lisinopril [Zestril] 5 mg PO DAILY 01/23/18 10/08/18 History metFORMIN HCL 1,000 mg PO BID 01/23/18 10/08/18 History Glimepiride [Amaryl] 2 mg PO DAILY 09/27/18 10/08/18 History Oxybutynin Chloride [Oxybutynin 10 mg PO DAILY 09/27/18 10/08/18 History Chloride ER] Atorvastatin [Lipitor] 40 mg PO DAILY #30 tab 10/01/18 10/08/18 Rx Metoprolol Tartrate [Lopressor] 50 mg PO BID #60 tab 10/01/18 10/08/18 Rx Nitroglycerin Sl Tabs [Nitrostat] 0.4 mg SUBLINGUAL Q5M PRN #25 tab 10/01/18 Rx Spironolactone [Aldactone] 12.5 mg PO DAILY #30 tab 10/01/18 10/08/18 Rx Allergies Allergy/AdvReac Type Severity Reaction Status Date / Time tetracycline Allergy Rash/Hives Verified 10/08/18 14:02 Physical Exam Vitals: Vital Signs Temp Pulse Resp BP Pulse Ox 10/09/18 07:13 84 94 L 10/09/18 07:00 80 14 96 10/09/18 06:30 96.8 F L 83 21 95 10/09/18 06:00 81 20 93 L 10/09/18 05:30 82 15 96/45 93 L 10/09/18 05:00 97.0 F L 81 24 92 L 10/09/18 04:30 80 25 H 92 L 10/09/18 04:00 84 24 93 L 10/09/18 03:30 81 19 93 L 10/09/18 03:00 97.0 F L 80 14 93 L 10/09/18 02:30 80 16 91 L 10/09/18 02:00 96.8 F L 80 16 91 L 10/09/18 01:30 78 15 91 L 10/09/18 01:00 81 18 91 L 10/09/18 00:30 81 16 88/42 91 L 10/09/18 00:00 97.0 F L 80 26 H 94 L 10/08/18 23:30 79 18 97 10/08/18 23:00 97.2 F L 82 18 95 10/08/18 22:30 97.3 F L 82 22 95 10/08/18 22:00 80 23 96 10/08/18 21:30 82 16 80/34 97 10/08/18 21:00 97.3 F L 81 26 H 96 10/08/18 20:30 82 34 H 95 10/08/18 20:28 78 10/08/18 20:14 88 10/08/18 20:00 81 22 97 10/08/18 19:30 83 26 H 95 10/08/18 19:22 92 L 10/08/18 19:00 85 30 H 91 L 10/08/18 18:30 72 12 87/43 95 10/08/18 18:00 79 13 96 10/08/18 17:30 68 12 96 10/08/18 17:13 74 10/08/18 17:00 73 14 96 10/08/18 16:58 76 10/08/18 16:50 69 12 95 10/08/18 16:40 70 14 96 10/08/18 16:30 67 14 97 10/08/18 16:20 64 14 97 10/08/18 16:10 68 17 98 10/08/18 16:00 67 12 99 10/08/18 15:50 68 16 100 10/08/18 15:40 63 19 100 10/08/18 15:33 96 10/08/18 15:30 70 23 100 10/08/18 15:20 68 21 99 Intake and Output 10/08/18 10/09/18 10/09/18 22:59 06:59 14:59 Intake Total 900.933 706.461 28.852 Output Total 809 723 Balance 91.933 -16.539 28.852 Intake: IV 373.8 627.2 .9NS Pressure Bag 54 21 0.9NS Cardiac Output 120 40 ACETAMINOPHEN IV (For NPO 100 ) 1,000 mg In Empty Bag 1 bag @ 400 mls/hr IVPB Q6HR [facility] Rx#:[id number] DOPamine DRIP 800 mg In 30.3 70.7 Dextrose/Water 1 500ml. bag @ 3 MCG/KG/MIN 10.22 mls/hr IV .Q24H [facility] Rx#: [id number] Diltiazem 125 mg In 15 5 Sodium Chloride 0.9% 100 ml @ 5 MG/HR 5 mls/hr IV .Q24H [facility] Rx#:[id number] Diltiazem 50 mg In Sodium 30 Chloride 0.9% 40 ml @ Per Protocol IV ONCE ONE Rx#:[id number] Lactated Ringers 1,000 ml 150 350 @ 50 mls/hr IV .Q20H [facility] Rx#:[id number] Nitroglycerin-D5w Pmx 50 4.5 10.5 mg In Dextrose/Water 1 250ml.bag @ Per Protocol IV ONCE ONE Rx#:[id number] Intake, IV Titration 527.133 49.261 28.852 Amount DOPamine DRIP 800 mg In 40.4 Dextrose/Water 1 500ml. bag @ 3 MCG/KG/MIN 10.22 mls/hr IV .Q24H [facility] Rx#: [id number] Diltiazem 125 mg In 20 43.083 Sodium Chloride 0.9% 100 ml @ 5 MG/HR 5 mls/hr IV .Q24H [facility] Rx#:[id number] Insulin Regular 100 unit 25.934 6.178 5.252 In Sodium Chloride 0.9% 100 ml @ Per Protocol IV .Q0M [facility] Rx#:[id number] Lactated Ringers 1,000 ml 200 @ 50 mls/hr IV .Q20H [facility] Rx#:[id number] Magnesium Sulfate-D5w Pmx 100 1 gm In Dextrose/Water 1 100ml.bag @ 100 mls/hr IVPB Q1H [facility] Rx#: [id number] Nitroglycerin-D5w Pmx 50 6.0 23.6 mg In Dextrose/Water 1 250ml.bag @ 5 MCG/MIN 1.5 mls/hr IV .Q24H [facility] Rx#: [id number] Norepinephrine 4 mg In 34.799 Sodium Chloride 0.9% 250 ml @ Titrate IV .Q0M [facility] Rx#:[id number] Potassium Chloride 10 meq 100 In Water For Injection 1 100ml.bag @ 100 mls/hr IVPB Q1H [facility] Rx#: [id number] Oral 30 Output: Chest Tube Drainage 549 386 Left Pleural Chest Tube 280 180 Mediastinal Chext Tube X 195 100 2 Right Pleural Chest Tube 74 106 Drainage 0 Left Arm 0 Right Arm 0 Urine 260 337 Other: Voiding Method Indwelling Catheter Indwelling Catheter Weight 97 kg ABP, PAP, CO, CI - Last 8 Hours Arterial Blood Pressure 120/54 Arterial Blood Pressure 131/62 Arterial Blood Pressure 125/57 Arterial Blood Pressure 126/57 Arterial Blood Pressure 124/56 Arterial Blood Pressure 122/56 Arterial Blood Pressure 121/57 Arterial Blood Pressure 119/54 Arterial Blood Pressure 118/55 Arterial Blood Pressure 116/52 Arterial Blood Pressure 115/52 Arterial Blood Pressure 110/53 Arterial Blood Pressure 109/52 Arterial Blood Pressure 114/53 Arterial Blood Pressure 112/58 Arterial Blood Pressure 107/50 Pulmonary Artery Pressure 45/21 Pulmonary Artery Pressure 54/29 Pulmonary Artery Pressure 49/24 Pulmonary Artery Pressure 54/25 Pulmonary Artery Pressure 51/22 Pulmonary Artery Pressure 51/23 Pulmonary Artery Pressure 51/25 Pulmonary Artery Pressure 51/23 Pulmonary Artery Pressure 51/25 Pulmonary Artery Pressure 50/23 Pulmonary Artery Pressure 52/25 Pulmonary Artery Pressure 48/22 Pulmonary Artery Pressure 49/23 Pulmonary Artery Pressure 51/25 Pulmonary Artery Pressure 48/26 Pulmonary Artery Pressure 49/22 Cardiac Output 10.1 Cardiac Output 10.1 Cardiac Output 10.1 Cardiac Output 10.1 Cardiac Output 7.3 Cardiac Output 7.3 Cardiac Output 7.3 Cardiac Output 7.3 Cardiac Output 7.3 Cardiac Output 7.3 Cardiac Output 7.3 Cardiac Output 7.3 Cardiac Output 7.3 Cardiac Output 7.3 Cardiac Output 8.2 Cardiac Output 8.2 Cardiac Index 3.7 - Constitutional General appearance: no acute distress - Respiratory Respiratory: bilateral: diminished - Cardiovascular Rhythm: regular Heart sounds: normal: S1, S2 Results 10/09/18 05:15 10/09/18 05:15 Cardiac Enzymes 10/08/18 10/08/18 10/09/18 Range/Units 15:30 20:58 05:15 AST 13 L 14 17 (14-36) U/L Coagulation 10/08/18 10/08/18 10/09/18 Range/Units 15:30 20:58 05:15 PT 12.1 H 11.3 11.1 (9.0-12.0) sec APTT 24.5 22.9 24.5 (22.0-30.0) sec CBC 10/08/18 10/08/18 10/08/18 Range/Units 15:30 17:29 20:58 WBC 12.6 H 11.7 H 11.1 H (3.8-10.6) k/uL RBC 2.63 L 2.83 L 2.88 L (3.80-5.40) m/uL Hgb 7.7 L D 8.2 L 8.1 L (11.4-16.0) gm/dL Hct 23.5 L 25.1 L 25.4 L (34.0-46.0) % Plt Count 242 259 231 (150-450) k/uL 10/09/18 Range/Units 05:15 WBC 8.9 (3.8-10.6) k/uL RBC 2.82 L (3.80-5.40) m/uL Hgb 8.0 L (11.4-16.0) gm/dL Hct 25.2 L (34.0-46.0) % Plt Count 210 (150-450) k/uL Comprehensive Metabolic Panel 10/08/18 10/08/18 10/09/18 Range/Units 15:30 20:58 05:15 Sodium 142 140 139 (137-145) mmol/L Potassium 3.9 4.1 5.1 (3.5-5.1) mmol/L Chloride 115 H 112 H 111 H (98-107) mmol/L Carbon Dioxide 21 L 23 20 L (22-30) mmol/L BUN 28 H 30 H 31 H (7-17) mg/dL Creatinine 1.25 H 1.33 H 1.25 H (0.52-1.04) mg/dL Glucose 150 H 144 H 156 H (74-99) mg/dL Calcium 7.5 L 8.0 L 7.9 L (8.4-10.2) mg/dL AST 13 L 14 17 (14-36) U/L ALT 27 21 20 (9-52) U/L Alkaline Phosphatase 63 69 73 (38-126) U/L Total Protein 4.7 L 5.2 L 5.1 L (6.3-8.2) g/dL Albumin 2.3 L 2.7 L 2.5 L (3.5-5.0) g/dL Current Medications Generic Name Dose Route Start Last Admin Trade Name Freq PRN Reason Stop Dose Admin Hydrocodone Bitart/Acetaminophen 2 each 10/09/18 14:37 [place] 5-325 PO Q4HR PRN Severe Pain Hydrocodone Bitart/Acetaminophen 1 each 10/09/18 14:37 [place] 5-325 PO Q4HR PRN Moderate Pain Albuterol/Ipratropium 3 ml 10/08/18 14:43 [place]one[place] 0.5 Mg-3 Mg/3 Ml Soln INHALATION RT-Q2H PRN Shortness Of Breath Or Wheezing Albuterol/Ipratropium 3 ml 10/08/18 20:00 10/09/18 07:11 Duoneb 0.5 Mg-3 Mg/3 Ml Soln INHALATION 3 ml RT-QID [facility] Administration Aspirin 325 mg 10/09/18 09:00 Aspirin PO DAILY [facility] Atorvastatin Calcium 40 mg 10/09/18 09:00 Lipitor PO DAILY [facility] Benzocaine 1 spray 10/08/18 16:11 Hurricaine [place] MUCOUS MEM QID PRN Mouth Irritation Benzocaine/Menthol 1 each 10/08/18 14:43 Cepacol Lozenge MUCOUS MEM Q2H PRN Sore Throat Bisacodyl 10 mg 10/09/18 14:37 Dulcolax RECTAL DAILY PRN Constipation Cefazolin Sodium 2 gm 10/08/18 16:00 10/09/18 00:03 Kefzol IVP 10/09/18 08:01 2 gm Q8HR [facility] Administration Clopidogrel Bisulfate 75 mg 10/09/18 09:00 Plavix PO DAILY [facility] Fentanyl Citrate 25 mcg 10/08/18 16:10 10/08/18 20:50 Sublimaze IVP 25 mcg Q2HR PRN Administration Pain Heparin Sodium (Porcine) 5,000 unit 10/09/18 00:00 10/09/18 00:04 Heparin SQ 5,000 unit Q8HR [facility] Administration Acetaminophen 1,000 mg/ IV 100 mls @ 400 mls/hr 10/08/18 18:00 10/09/18 05:39 Solution IVPB 10/09/18 18:01 400 mls/hr Q6HR [facility] Administration Albumin Human 250 ml/ IV 250 mls @ 250 mls/hr 10/08/18 14:43 Solution IVPB 10/10/18 14:44 Q1HR PRN For Volume Calcium Chloride 1,000 mg/ 110 mls @ 100 mls/hr 10/08/18 14:43 Sodium Chloride IV 11/07/18 14:44 ONCE PRN Ionized Calcium less than 4.4 Diltiazem HCl 125 mg/ Sodium 125 mls @ 5 mls/hr 10/08/18 14:43 10/09/18 00:25 Chloride IV 5 mg/hr .Q24H [facility] 5 mls/hr Administration 5 MG/HR Clevidipine 25 mg/ IV Solution 50 mls @ 2 mls/hr 10/08/18 14:43 10/08/18 15: 48 IV Not Given .Q24H [facility] Protocol 1 MG/HR Dopamine HCl/Dextrose 800 mg/ 500 mls @ 10.22 mls/hr 10/08/18 14:43 10/08/18 15:30 IV Solution IV 3 mcg/kg/min .Q24H [facility] 10.22 mls/hr Administration 3 MCG/KG/MIN Insulin Human Regular 100 unit 101 mls @ 0 mls/hr 10/08/18 14:43 10/09/18 07: 07 / Sodium Chloride IV 4 units/hr .Q0M [facility] 4.04 mls/hr Titration Protocol Per Protocol Lactated Ringer's 1,000 mls @ 50 mls/hr 10/08/18 14:43 10/08/18 15:30 Lactated Ringers IV 50 mls/hr .Q20H [facility] Administration Nitroglycerin/Dextrose 50 mg/ 250 mls @ 1.5 mls/hr 10/08/18 14:43 10/09/18 07 :14 IV Solution IV 0 mcg/min .Q24H [facility] 0 mls/hr Infusion 5 MCG/MIN Norepinephrine Bitartrate 4 mg 254 mls @ 0 mls/hr 10/08/18 14:43 10/08/18 22: 18 / Sodium Chloride IV 0 mcg/min .Q0M [facility] 0 mls/hr Titration Protocol Titrate Propofol 1,000 mg/ IV Solution 100 mls @ 0 mls/hr 10/08/18 14:43 IV .Q0M [facility] Protocol Titrate Magnesium Hydroxide 2,400 mg 10/09/18 14:37 Milk Of Magnesia PO BID PRN Constipation Metoclopramide HCl 10 mg 10/08/18 14:43 Reglan IVP Q4H PRN Nausea And Vomiting Metoprolol Tartrate 12.5 mg 10/09/18 09:00 Lopressor PO BID [facility] Miscellaneous Information 1 each 10/08/18 14:43 Magnesium Per Protocol MISCELLANE DAILY PRN Per Protocol Protocol Miscellaneous Information 1 each 10/08/18 14:43 Phosphorus Per Protocol MISCELLANE DAILY PRN Per Protocol Protocol Miscellaneous Information 1 each 10/08/18 14:43 Potassium Per Protocol MISCELLANE DAILY PRN Per Protocol Protocol Mupirocin 1 applic 10/08/18 21:00 10/08/18 22:54 Bactroban Oint NASAL 10/11/18 21:01 1 applic BID [facility] Administration Ondansetron HCl 4 mg 10/08/18 14:43 10/09/18 06:15 Zofran IVP 4 mg Q6HR PRN Administration Nausea And Vomiting Oxycodone HCl 10 mg 10/08/18 14:43 10/09/18 05:39 Oxyir PO 10/09/18 14:44 10 mg Q4H PRN Administration Severe Pain Oxycodone HCl 5 mg 10/08/18 14:43 10/08/18 17:41 Oxyir PO 10/09/18 14:44 5 mg Q4H PRN Administration Moderate Pain Pantoprazole Sodium 40 mg 10/09/18 09:00 Protonix IVP DAILY [facility] Senna/Docusate Sodium 2 each 10/09/18 21:00 Senokot-S PO HS [facility] Sodium Chloride 10 ml 10/08/18 21:00 10/08/18 21:53 Saline Flush IV 10 ml BID [facility] Administration Intake and Output 10/08/18 10/09/18 10/09/18 22:59 06:59 14:59 Intake Total 900.933 706.461 28.852 Output Total 809 723 Balance 91.933 -16.539 28.852 Intake: IV 373.8 627.2 .9NS Pressure Bag 54 21 0.9NS Cardiac Output 120 40 ACETAMINOPHEN IV (For NPO 100 ) 1,000 mg In Empty Bag 1 bag @ 400 mls/hr IVPB Q6HR [facility] Rx#:[id number] DOPamine DRIP 800 mg In 30.3 70.7 Dextrose/Water 1 500ml. bag @ 3 MCG/KG/MIN 10.22 mls/hr IV .Q24H [facility] Rx#: [id number] Diltiazem 125 mg In 15 5 Sodium Chloride 0.9% 100 ml @ 5 MG/HR 5 mls/hr IV .Q24H [facility] Rx#:[id number] Diltiazem 50 mg In Sodium 30 Chloride 0.9% 40 ml @ Per Protocol IV ONCE ONE Rx#:[id number] Lactated Ringers 1,000 ml 150 350 @ 50 mls/hr IV .Q20H [facility] Rx#:[id number] Nitroglycerin-D5w Pmx 50 4.5 10.5 mg In Dextrose/Water 1 250ml.bag @ Per Protocol IV ONCE ONE Rx#:[id number] Intake, IV Titration 527.133 49.261 28.852 Amount DOPamine DRIP 800 mg In 40.4 Dextrose/Water 1 500ml. bag @ 3 MCG/KG/MIN 10.22 mls/hr IV .Q24H [facility] Rx#: [id number] Diltiazem 125 mg In 20 43.083 Sodium Chloride 0.9% 100 ml @ 5 MG/HR 5 mls/hr IV .Q24H [facility] Rx#:[id number] Insulin Regular 100 unit 25.934 6.178 5.252 In Sodium Chloride 0.9% 100 ml @ Per Protocol IV .Q0M [facility] Rx#:[id number] Lactated Ringers 1,000 ml 200 @ 50 mls/hr IV .Q20H [facility] Rx#:[id number] Magnesium Sulfate-D5w Pmx 100 1 gm In Dextrose/Water 1 100ml.bag @ 100 mls/hr IVPB Q1H [facility] Rx#: [id number] Nitroglycerin-D5w Pmx 50 6.0 23.6 mg In Dextrose/Water 1 250ml.bag @ 5 MCG/MIN 1.5 mls/hr IV .Q24H [facility] Rx#: [id number] Norepinephrine 4 mg In 34.799 Sodium Chloride 0.9% 250 ml @ Titrate IV .Q0M [facility] Rx#:[id number] Potassium Chloride 10 meq 100 In Water For Injection 1 100ml.bag @ 100 mls/hr IVPB Q1H [facility] Rx#: [id number] Oral 30 Output: Chest Tube Drainage 549 386 Left Pleural Chest Tube 280 180 Mediastinal Chext Tube X 195 100 2 Right Pleural Chest Tube 74 106 Drainage 0 Left Arm 0 Right Arm 0 Urine 260 337 Other: Voiding Method Indwelling Catheter Indwelling Catheter Weight 97 kg Patient Weight 10/10/18 06:59 Weight 97 kg 10/09/18 05:15 10/09/18 05:15 Assessment and Plan Assessment: Assessment #1 severe underlying coronary artery disease as described above #2 status post coronary artery bypass grafting 3 as described above #3 diabetes type 2 #4 hypertension #5 dyslipidemia Plan #1 continue the current medical regimen including dual antiplatelet therapy along with statin and metoprolol #2 try to get the patient off the nitro drip as well as of the Cardizem drip #3 later on to be started on calcium channel salome by mouth #4 continue monitor the hemoglobin as well as kidney function #5 continue monitor the chest x-ray and follow-up on the chest x-ray from today #6 follow-up with the patient. Thank you for allowing us participate in her care and we will continue following up with the patient
--- NOTE | 2018-10-09 08:03 | XR ---
EXAMINATION TYPE: XR chest 1V portable DATE OF EXAM: 10/09/2018 COMPARISON: Prior chest x-ray 10/08/2018 HISTORY: Postop cardiac surgery TECHNIQUE: Single frontal view of the chest is obtained. FINDINGS: Patient is post median sternotomy and rotated. Bilateral chest tubes, median sternal drain , right jugular central venous sheath and coaxial [place] catheter are in place and are stable. End otracheal tube and NG tube have been removed. Heart size is stable. Patchy bibasilar density is prese nt, central vascularity and interstitium are increased. No evident pneumothorax. IMPRESSION: Correlate for pulmonary edema, volume overload. Interval extubation. Postop changes.
[2018-10-09] MEDS: CLOPIDOGREL 75 MG TAB PO SCH (08:11)
[2018-10-09] MEDS: ATORVASTATIN 40 MG TAB PO SCH (08:11)
[2018-10-09] MEDS: METOPROLOL TARTRATE 12.5 MG TAB PO SCH ×2 (08:11→21:44)
[2018-10-09] MEDS: ASPIRIN 325 MG TAB PO SCH (08:11)
[2018-10-09] MEDS: MUPIROCIN 2% OINT 22 GM TUBE NASAL SCH ×2 (08:12→21:50)
[2018-10-09] MEDS: DILTIAZEM ORAL 30 MG TAB PO SCH ×3 (08:15→17:47)
[2018-10-09 08:34] LABS: Glucose,Whole Blood 152 mg/dL (75-99)
[2018-10-09] MEDS ORDERED: PANTOPRAZOLE 40 MG/10 ML VIAL IVP SCH (09:00)
--- NOTE | 2018-10-09 09:31 | P.PN ---
Subjective Progress Note Date: 10/09/18 Principal diagnosis: Coronary artery disease, chronic systolic and diastolic heart failure with preoperative ejection fraction 20-25%. Previous medical history of non-STEMI earlier this month as well as in 2006 with stent placement at that time, hyperlipidemia, peripheral artery disease with stent placement to the left lower extremity in 2016, chronic kidney disease with baseline creatinine 1.3-1.5 , recent vein surgery to bilateral lower extremity is, [id number] diabetes mellitus with preoperative hemoglobin A1c 7.1%, shingles, obesity, moderate COPD with preoperative FEV1 51% of predicted, previous tobacco dependence, and family history of early coronary artery disease with mother dying before the age of 6060 years old during coronary artery bypass graft surgery. Preoperative nasal swab positive for MSSA. Preoperative normocytic, normochromic anemia. POD #1 off-pump coronary artery bypass graft surgery 3 with the left internal mammary artery artery graft to the left anterior descending artery, right radial artery graft to the obtuse marginal and the left radial arterial graft to the posterior descending artery, bilateral endovascular radial artery harvest. Intraoperative transesophageal echocardiogram by anesthesia. Postoperative acute blood loss anemia, expected outcome. Patient's currently sitting up in bed in no acute distress. States pain is controlled on current medication regimen. Was successfully extubated last night at 19:22. Was maintained on IV Cardizem, IV nitro, IV dopamine overnight , levo turned off around midnight. Remains hemodynamically stable. No new complaints. Objective - Vital Signs Vital signs: Vital Signs Temp 97.4 F L 10/09/18 08:00 Pulse 81 10/09/18 08:00 Resp 12 10/09/18 08:00 BP 96/45 10/09/18 05:30 Pulse Ox 97 10/09/18 08:00 Intake & Output 10/08/18 10/09/18 10/09/18 18:59 06:59 18:59 Intake Total 117.817 9420.651 98.452 Output Total 1340 1292 250 Balance -488.657 -53.349 -151.548 Weight 97 kg Intake: IV 119 1054.6 69.6 .9NS Pressure Bag 36 42 3 0.9NS Cardiac Output 80 80 ACETAMINOPHEN IV (For NPO 200 ) 1,000 mg In Empty Bag 1 bag @ 400 mls/hr IVPB Q6HR [facility] Rx#:[id number] DOPamine DRIP 800 mg In 111.1 10.1 Dextrose/Water 1 500ml. bag @ 3 MCG/KG/MIN 10.22 mls/hr IV .Q24H [facility] Rx#: [id number] Diltiazem 125 mg In 20 Sodium Chloride 0.9% 100 ml @ 5 MG/HR 5 mls/hr IV .Q24H [facility] Rx#:[id number] Diltiazem 50 mg In Sodium 35 5 Chloride 0.9% 40 ml @ Per Protocol IV ONCE ONE Rx#:[id number] Lactated Ringers 1,000 ml 550 50 @ 20 mls/hr IV .Q24H [facility] Rx#:[id number] Nitroglycerin-D5w Pmx 50 16.5 1.5 mg In Dextrose/Water 1 250ml.bag @ Per Protocol IV ONCE ONE Rx#:[id number] Intake, IV Titration 422.343 154.051 28.852 Amount DOPamine DRIP 800 mg In 30.3 10.1 Dextrose/Water 1 500ml. bag @ 3 MCG/KG/MIN 10.22 mls/hr IV .Q24H [facility] Rx#: [id number] Diltiazem 125 mg In 15 48.083 Sodium Chloride 0.9% 100 ml @ 5 MG/HR 5 mls/hr IV .Q24H [facility] Rx#:[id number] Insulin Regular 100 unit 6.604 25.508 5.252 In Sodium Chloride 0.9% 100 ml @ Per Protocol IV .Q0M [facility] Rx#:[id number] Lactated Ringers 1,000 ml 150 50 @ 20 mls/hr IV .Q24H [facility] Rx#:[id number] Magnesium Sulfate-D5w Pmx 100 1 gm In Dextrose/Water 1 100ml.bag @ 100 mls/hr IVPB Q1H [facility] Rx#: [id number] Nitroglycerin-D5w Pmx 50 4.5 1.5 23.6 mg In Dextrose/Water 1 250ml.bag @ 5 MCG/MIN 1.5 mls/hr IV .Q24H [facility] Rx#: [id number] Norepinephrine 4 mg In 15.939 18.86 Sodium Chloride 0.9% 250 ml @ Titrate IV .Q0M [facility] Rx#:[id number] Potassium Chloride 10 meq 100 In Water For Injection 1 100ml.bag @ 100 mls/hr IVPB Q1H [facility] Rx#: [id number] Oral 30 Blood Product 310 Rc Cpda-1 Unit 310 [id number] Output: Chest Tube Drainage 285 710 200 Left Pleural Chest Tube 150 330 90 Mediastinal Chext Tube X 105 190 50 2 Right Pleural Chest Tube 30 190 60 Drainage 40 Left Arm 20 Right Arm 20 Urine 255 542 50 Estimated Blood Loss 800 Other: Voiding Method Indwelling Catheter Indwelling Catheter ABP, PAP, CO, CI - Last Documented Arterial Blood Pressure 107/50 Pulmonary Artery Pressure 39/20 Cardiac Output 6.0 Cardiac Index 2.9 - Constitutional General appearance: Present: cooperative, no acute distress, obese - Respiratory Details: Lungs sounds diminished bilaterally. Respirations even, nonlabored. Currently on 7 L high flow nasal cannula with oxygen saturation 95%. Able to achieve 500 mL on her incentive spirometry. Weak cough. Mediastinal chest tube to continuous wall suction, 100 mL serosanguineous drainage overnight, 450 mL since surgery. Right pleural chest tube to continuous wall suction, 160 mL serosanguineous drainage overnight, 300 mL since surgery. Left pleural chest tube to continuous wall suction, 180 mL serosanguineous drainage overnight, 550 mL since surgery. No air leaks present. - Cardiovascular Details: S1, S2 present, positive rub. Regular rate and rhythm, sinus rhythm on telemetry. Sternum stable. Palpable peripheral pulses bilaterally. Trace bilateral lower extremity edema present. No calf pain or tenderness noted. Right internal jugular [place], right femoral arterial line present. Last CO/CI 10.1/5.0 on 3 mics of dopamine and 5 mg of Cardizem. Heart hugger, antiembolism stockings, SCDs present. - Gastrointestinal Gastrointestinal Comment(s): Abdomen soft, nontender, nondistended. Hypoactive bowel sounds present 4 quadrants. Tolerating sips of clear liquid although positive nausea. Positive flatus. - Genitourinary Genitourinary Comment(s): Ziegler present draining clear, yellow urine. Output overnight 30-90 mL per hour , 337 mL in the last 8 hours. - Integumentary Integumentary Comment(s): Skin is warm and dry with evidence of good perfusion. Anterior chest incision well approximated and covered with dry intact dressing. Bilateral radial artery harvest sites well approximate, FRIDA drains present with minimal drainage. Patient has feeling in all of her fingers and is able to move her hands without difficulty. - Neurologic Neurologic: Present: CNII-XII intact - Musculoskeletal Musculoskeletal: Present: strength equal bilaterally - Psychiatric Psychiatric: Present: A&O x's 3, appropriate affect, intact judgment & insight - Allied health notes Allied health notes reviewed: nursing - Labs CBC & Chem 7: 10/09/18 05:15 10/09/18 05:15 Labs: Abnormal Lab Results - Last 24 Hours (Table) 10/01/18 10/08/18 10/08/18 Range/Units 08:25 08:57 08:57 WBC (3.8-10.6) k/uL RBC (3.80-5.40) m/uL Hgb (11.4-16.0) gm/dL Hct (34.0-46.0) % Neutrophils # (1.3-7.7) k/uL Lymphocytes # (1.0-4.8) k/uL PT (9.0-12.0) sec INR (<1.2) ABG pH (7.35-7.45) ABG pCO2 34 L (35-45) mmHg ABG pO2 >420 H 160 H (83-108) mmHg ABG HCO3 (21-25) mmol/L ABG Total CO2 (19-24) mmol/L ABG O2 Saturation 100.0 H 99.7 H (94-97) % ABG Hematocrit 24 L 23 L (34.0-46.0) % ABG Ionized Calcium (4.5-5.3) mg/dL ABG Glucose 145 H 143 H (75-99) mg/dL Hemoglobin 7.7 L 7.5 L (11.4-16.0) gm/dL Chloride (98-107) mmol/L Carbon Dioxide (22-30) mmol/L BUN (7-17) mg/dL Creatinine (0.52-1.04) mg/dL Glucose (74-99) mg/dL POC Glucose (mg/dL) (75-99) mg/dL Calcium (8.4-10.2) mg/dL Ionized Calcium Allan (4.5-5.3) mg/dL AST (14-36) U/L Total Protein (6.3-8.2) g/dL Albumin (3.5-5.0) g/dL Arterial Blood Glucose 145 H 143 H (75-99) mg/dL Crossmatch See Detail 10/08/18 10/08/18 10/08/18 Range/Units 12:42 13:09 13:45 WBC (3.8-10.6) k/uL RBC (3.80-5.40) m/uL Hgb (11.4-16.0) gm/dL Hct (34.0-46.0) % Neutrophils # (1.3-7.7) k/uL Lymphocytes # (1.0-4.8) k/uL PT (9.0-12.0) sec INR (<1.2) ABG pH 7.33 L (7.35-7.45) ABG pCO2 (35-45) mmHg ABG pO2 173 H 226 H 66 L (83-108) mmHg ABG HCO3 (21-25) mmol/L ABG Total CO2 25 H 25 H (19-24) mmol/L ABG O2 Saturation 99.6 H 100.0 H 92.3 L (94-97) % ABG Hematocrit 23 L 21 L 25 L (34.0-46.0) % ABG Ionized Calcium 4.4 L 4.3 L 4.3 L (4.5-5.3) mg/dL ABG Glucose 166 H 141 H 153 H (75-99) mg/dL Hemoglobin 7.4 L 6.7 L* 8.0 L (11.4-16.0) gm/dL Chloride (98-107) mmol/L Carbon Dioxide (22-30) mmol/L BUN (7-17) mg/dL Creatinine (0.52-1.04) mg/dL Glucose (74-99) mg/dL POC Glucose (mg/dL) (75-99) mg/dL Calcium (8.4-10.2) mg/dL Ionized Calcium Allan (4.5-5.3) mg/dL AST (14-36) U/L Total Protein (6.3-8.2) g/dL Albumin (3.5-5.0) g/dL Arterial Blood Glucose 166 H 141 H 153 H (75-99) mg/dL Crossmatch 10/08/18 10/08/18 10/08/18 Range/Units 14:13 15:30 15:30 WBC 12.6 H (3.8-10.6) k/uL RBC 2.63 L (3.80-5.40) m/uL Hgb 7.7 L D (11.4-16.0) gm/dL Hct 23.5 L (34.0-46.0) % Neutrophils # 8.9 H (1.3-7.7) k/uL Lymphocytes # (1.0-4.8) k/uL PT (9.0-12.0) sec INR (<1.2) ABG pH (7.35-7.45) ABG pCO2 (35-45) mmHg ABG pO2 231 H (83-108) mmHg ABG HCO3 (21-25) mmol/L ABG Total CO2 25 H (19-24) mmol/L ABG O2 Saturation 100.0 H (94-97) % ABG Hematocrit 24 L (34.0-46.0) % ABG Ionized Calcium 4.2 L (4.5-5.3) mg/dL ABG Glucose 157 H (75-99) mg/dL Hemoglobin 7.7 L (11.4-16.0) gm/dL Chloride (98-107) mmol/L Carbon Dioxide (22-30) mmol/L BUN (7-17) mg/dL Creatinine (0.52-1.04) mg/dL Glucose (74-99) mg/dL POC Glucose (mg/dL) 156 H (75-99) mg/dL Calcium (8.4-10.2) mg/dL Ionized Calcium Allan (4.5-5.3) mg/dL AST (14-36) U/L Total Protein (6.3-8.2) g/dL Albumin (3.5-5.0) g/dL Arterial Blood Glucose 157 H (75-99) mg/dL Crossmatch 10/08/18 10/08/18 10/08/18 Range/Units 15:30 15:30 15:56 WBC (3.8-10.6) k/uL RBC (3.80-5.40) m/uL Hgb (11.4-16.0) gm/dL Hct (34.0-46.0) % Neutrophils # (1.3-7.7) k/uL Lymphocytes # (1.0-4.8) k/uL PT 12.1 H (9.0-12.0) sec INR 1.2 H (<1.2) ABG pH 7.32 L (7.35-7.45) ABG pCO2 (35-45) mmHg ABG pO2 300 H (83-108) mmHg ABG HCO3 (21-25) mmol/L ABG Total CO2 (19-24) mmol/L ABG O2 Saturation 100.0 H (94-97) % ABG Hematocrit (34.0-46.0) % ABG Ionized Calcium (4.5-5.3) mg/dL ABG Glucose (75-99) mg/dL Hemoglobin (11.4-16.0) gm/dL Chloride 115 H (98-107) mmol/L Carbon Dioxide 21 L (22-30) mmol/L BUN 28 H (7-17) mg/dL Creatinine 1.25 H (0.52-1.04) mg/dL Glucose 150 H (74-99) mg/dL POC Glucose (mg/dL) (75-99) mg/dL Calcium 7.5 L (8.4-10.2) mg/dL Ionized Calcium Allan 4.4 L (4.5-5.3) mg/dL AST 13 L (14-36) U/L Total Protein 4.7 L (6.3-8.2) g/dL Albumin 2.3 L (3.5-5.0) g/dL Arterial Blood Glucose (75-99) mg/dL Crossmatch 10/08/18 10/08/18 10/08/18 Range/Units 16:08 17:29 17:35 WBC 11.7 H (3.8-10.6) k/uL RBC 2.83 L (3.80-5.40) m/uL Hgb 8.2 L (11.4-16.0) gm/dL Hct 25.1 L (34.0-46.0) % Neutrophils # 9.8 H (1.3-7.7) k/uL Lymphocytes # 0.9 L (1.0-4.8) k/uL PT (9.0-12.0) sec INR (<1.2) ABG pH (7.35-7.45) ABG pCO2 (35-45) mmHg ABG pO2 (83-108) mmHg ABG HCO3 (21-25) mmol/L ABG Total CO2 (19-24) mmol/L ABG O2 Saturation (94-97) % ABG Hematocrit (34.0-46.0) % ABG Ionized Calcium (4.5-5.3) mg/dL ABG Glucose (75-99) mg/dL Hemoglobin (11.4-16.0) gm/dL Chloride (98-107) mmol/L Carbon Dioxide (22-30) mmol/L BUN (7-17) mg/dL Creatinine (0.52-1.04) mg/dL Glucose (74-99) mg/dL POC Glucose (mg/dL) 166 H 179 H (75-99) mg/dL Calcium (8.4-10.2) mg/dL Ionized Calcium Allan (4.5-5.3) mg/dL AST (14-36) U/L Total Protein (6.3-8.2) g/dL Albumin (3.5-5.0) g/dL Arterial Blood Glucose (75-99) mg/dL Crossmatch 10/08/18 10/08/18 10/08/18 Range/Units 18:24 18:52 18:57 WBC (3.8-10.6) k/uL RBC (3.80-5.40) m/uL Hgb (11.4-16.0) gm/dL Hct (34.0-46.0) % Neutrophils # (1.3-7.7) k/uL Lymphocytes # (1.0-4.8) k/uL PT (9.0-12.0) sec INR (<1.2) ABG pH 7.32 L (7.35-7.45) ABG pCO2 (35-45) mmHg ABG pO2 71 L (83-108) mmHg ABG HCO3 20 L (21-25) mmol/L ABG Total CO2 (19-24) mmol/L ABG O2 Saturation (94-97) % ABG Hematocrit (34.0-46.0) % ABG Ionized Calcium (4.5-5.3) mg/dL ABG Glucose (75-99) mg/dL Hemoglobin (11.4-16.0) gm/dL Chloride (98-107) mmol/L Carbon Dioxide (22-30) mmol/L BUN (7-17) mg/dL Creatinine (0.52-1.04) mg/dL Glucose (74-99) mg/dL POC Glucose (mg/dL) 179 H 162 H (75-99) mg/dL Calcium (8.4-10.2) mg/dL Ionized Calcium Allan (4.5-5.3) mg/dL AST (14-36) U/L Total Protein (6.3-8.2) g/dL Albumin (3.5-5.0) g/dL Arterial Blood Glucose (75-99) mg/dL Crossmatch 10/08/18 10/08/18 10/08/18 Range/Units 20:56 20:58 20:58 WBC 11.1 H (3.8-10.6) k/uL RBC 2.88 L (3.80-5.40) m/uL Hgb 8.1 L (11.4-16.0) gm/dL Hct 25.4 L (34.0-46.0) % Neutrophils # 9.4 H (1.3-7.7) k/uL Lymphocytes # 0.6 L (1.0-4.8) k/uL PT (9.0-12.0) sec INR (<1.2) ABG pH (7.35-7.45) ABG pCO2 (35-45) mmHg ABG pO2 (83-108) mmHg ABG HCO3 (21-25) mmol/L ABG Total CO2 (19-24) mmol/L ABG O2 Saturation (94-97) % ABG Hematocrit (34.0-46.0) % ABG Ionized Calcium (4.5-5.3) mg/dL ABG Glucose (75-99) mg/dL Hemoglobin (11.4-16.0) gm/dL Chloride 112 H (98-107) mmol/L Carbon Dioxide (22-30) mmol/L BUN 30 H (7-17) mg/dL Creatinine 1.33 H (0.52-1.04) mg/dL Glucose 144 H (74-99) mg/dL POC Glucose (mg/dL) 147 H (75-99) mg/dL Calcium 8.0 L (8.4-10.2) mg/dL Ionized Calcium Allan (4.5-5.3) mg/dL AST (14-36) U/L Total Protein 5.2 L (6.3-8.2) g/dL Albumin 2.7 L (3.5-5.0) g/dL Arterial Blood Glucose (75-99) mg/dL Crossmatch 10/08/18 10/09/18 10/09/18 Range/Units 22:06 01:20 02:06 WBC (3.8-10.6) k/uL RBC (3.80-5.40) m/uL Hgb (11.4-16.0) gm/dL Hct (34.0-46.0) % Neutrophils # (1.3-7.7) k/uL Lymphocytes # (1.0-4.8) k/uL PT (9.0-12.0) sec INR (<1.2) ABG pH (7.35-7.45) ABG pCO2 (35-45) mmHg ABG pO2 (83-108) mmHg ABG HCO3 (21-25) mmol/L ABG Total CO2 (19-24) mmol/L ABG O2 Saturation (94-97) % ABG Hematocrit (34.0-46.0) % ABG Ionized Calcium (4.5-5.3) mg/dL ABG Glucose (75-99) mg/dL Hemoglobin (11.4-16.0) gm/dL Chloride (98-107) mmol/L Carbon Dioxide (22-30) mmol/L BUN (7-17) mg/dL Creatinine (0.52-1.04) mg/dL Glucose (74-99) mg/dL POC Glucose (mg/dL) 123 H 115 H 116 H (75-99) mg/dL Calcium (8.4-10.2) mg/dL Ionized Calcium Allan (4.5-5.3) mg/dL AST (14-36) U/L Total Protein (6.3-8.2) g/dL Albumin (3.5-5.0) g/dL Arterial Blood Glucose (75-99) mg/dL Crossmatch 10/09/18 10/09/18 10/09/18 Range/Units 05:15 05:15 05:15 WBC (3.8-10.6) k/uL RBC 2.82 L (3.80-5.40) m/uL Hgb 8.0 L (11.4-16.0) gm/dL Hct 25.2 L (34.0-46.0) % Neutrophils # (1.3-7.7) k/uL Lymphocytes # 0.6 L (1.0-4.8) k/uL PT (9.0-12.0) sec INR (<1.2) ABG pH (7.35-7.45) ABG pCO2 (35-45) mmHg ABG pO2 (83-108) mmHg ABG HCO3 (21-25) mmol/L ABG Total CO2 (19-24) mmol/L ABG O2 Saturation (94-97) % ABG Hematocrit (34.0-46.0) % ABG Ionized Calcium (4.5-5.3) mg/dL ABG Glucose (75-99) mg/dL Hemoglobin (11.4-16.0) gm/dL Chloride 111 H (98-107) mmol/L Carbon Dioxide 20 L (22-30) mmol/L BUN 31 H (7-17) mg/dL Creatinine 1.25 H (0.52-1.04) mg/dL Glucose 156 H (74-99) mg/dL POC Glucose (mg/dL) 148 H (75-99) mg/dL Calcium 7.9 L (8.4-10.2) mg/dL Ionized Calcium Allan (4.5-5.3) mg/dL AST (14-36) U/L Total Protein 5.1 L (6.3-8.2) g/dL Albumin 2.5 L (3.5-5.0) g/dL Arterial Blood Glucose (75-99) mg/dL Crossmatch 10/09/18 10/09/18 Range/Units 07:06 08:23 WBC (3.8-10.6) k/uL RBC (3.80-5.40) m/uL Hgb (11.4-16.0) gm/dL Hct (34.0-46.0) % Neutrophils # (1.3-7.7) k/uL Lymphocytes # (1.0-4.8) k/uL PT (9.0-12.0) sec INR (<1.2) ABG pH (7.35-7.45) ABG pCO2 (35-45) mmHg ABG pO2 (83-108) mmHg ABG HCO3 (21-25) mmol/L ABG Total CO2 (19-24) mmol/L ABG O2 Saturation (94-97) % ABG Hematocrit (34.0-46.0) % ABG Ionized Calcium (4.5-5.3) mg/dL ABG Glucose (75-99) mg/dL Hemoglobin (11.4-16.0) gm/dL Chloride (98-107) mmol/L Carbon Dioxide (22-30) mmol/L BUN (7-17) mg/dL Creatinine (0.52-1.04) mg/dL Glucose (74-99) mg/dL POC Glucose (mg/dL) 151 H 152 H (75-99) mg/dL Calcium (8.4-10.2) mg/dL Ionized Calcium Allan (4.5-5.3) mg/dL AST (14-36) U/L Total Protein (6.3-8.2) g/dL Albumin (3.5-5.0) g/dL Arterial Blood Glucose (75-99) mg/dL Crossmatch - Imaging and Cardiology Chest x-ray: report reviewed, image reviewed Assessment and Plan (1) Coronary artery disease Current Visit: Yes Status: Chronic Code(s): I25.10 - ATHSCL HEART DISEASE OF [place] CORONARY ARTERY W/O ANG PCTRS SNOMED Code(s): 28527167 (2) Ischemic cardiomyopathy Current Visit: Yes Status: Chronic Code(s): I25.5 - ISCHEMIC CARDIOMYOPATHY SNOMED Code(s): 737643829 (3) Status post three vessel coronary artery bypass Current Visit: Yes Status: Acute Code(s): Z95.1 - PRESENCE OF AORTOCORONARY BYPASS GRAFT SNOMED Code(s): 702173689 (4) Systolic heart failure Current Visit: Yes Status: Chronic Code(s): I50.20 - UNSPECIFIED SYSTOLIC ( CONGESTIVE) HEART FAILURE SNOMED Code(s): 147223541 (5) COPD (chronic obstructive pulmonary disease) Current Visit: Yes Status: Chronic Code(s): J44.9 - CHRONIC OBSTRUCTIVE PULMONARY DISEASE, UNSPECIFIED SNOMED Code(s): 79320672 (6) Diabetes mellitus Current Visit: Yes Status: Chronic Code(s): E11.9 - TYPE 2 DIABETES MELLITUS WITHOUT COMPLICATIONS SNOMED Code(s): 99035145 (7) History of heart artery stent Current Visit: Yes Status: Chronic Code(s): Z95.5 - PRESENCE OF CORONARY ANGIOPLASTY IMPLANT AND GRAFT SNOMED Code(s): 785027612 (8) Hyperlipidemia Current Visit: Yes Status: Chronic Code(s): E78.5 - HYPERLIPIDEMIA, UNSPECIFIED SNOMED Code(s): 88666517 (9) Iron deficiency anemia Current Visit: Yes Status: Chronic Code(s): D50.9 - IRON DEFICIENCY ANEMIA, UNSPECIFIED SNOMED Code(s): 66042729 (10) Obesity (BMI 30.0-34.9) Current Visit: Yes Status: Chronic Code(s): E66.9 - OBESITY, UNSPECIFIED SNOMED Code(s): 573812034363700 (11) Peripheral artery disease Current Visit: Yes Status: Chronic Code(s): I73.9 - PERIPHERAL VASCULAR DISEASE, UNSPECIFIED SNOMED Code(s): 395395277 (12) History of myocardial infarction, greater than 8 weeks ago Current Visit: No Status: Resolved Code(s): I25.2 - OLD MYOCARDIAL INFARCTION SNOMED Code(s): 3633618 (13) Tobacco dependence in remission Current Visit: No Status: Resolved Code(s): F17.201 - NICOTINE DEPENDENCE, UNSPECIFIED, IN REMISSION SNOMED Code(s): 157483678 Plan: 1. Continue aspirin, statin, Plavix, beta salome therapy. Will increase beta salome therapy as tolerated. 2. Discontinue dopamine, IV nitro. 3. Start oral Cardizem for radial artery spasm. Will discontinue IV Cardizem after second dose oral administered. 4. Wean O2 as tolerated. Encourage incentive spirometry is 10 times every hour while awake. 5. Discontinue [place]. Connected cord is to continue CVP monitoring. Discontinue femoral arterial line. 6. Once femoral arterial line discontinued, increase activity as tolerated. PT /OT/cardiac rehab following. 7. Discontinue mediastinal chest tube. Continue right and left pleural chest tubes to continuous wall suction for another 24 hours. 8. No diuresis today. Likely will restart Aldactone tomorrow. 9. Pain control with current medication regimen. No Toradol secondary to chronic renal insufficiency. 10. Bronchodilators per pulmonology. 11. Insulin management per primary care service. 12. GI prophylaxis with Protonix, DVT prophylaxis with subcu heparin, SCDs. 13. Will monitor daily labs and x-rays. Electro it replacement per protocol. 14. Dietitian to see patient for education regarding weight loss, reduced fat, reduced sugar diet. 15. More recommendations to follow. Time with Patient: Greater than 30
[2018-10-09] MEDS ORDERED: FUROSEMIDE 10 MG/ML 2 ML VIAL IV ONE (10:24)
[2018-10-09 10:36] LABS: Glucose,Whole Blood 143 mg/dL (75-99)
[2018-10-09] MEDS ORDERED: DILTIAZEM 50 MG in SODIUM CHLORIDE 0.9% 40 ML IV SCH (11:30)
[2018-10-09 11:35] LABS: Glucose,Whole Blood 130 mg/dL (75-99)
[2018-10-09] MEDS: LACTATED RINGERS 1,000 ML IV SCH (12:33)
[2018-10-09 12:46] LABS: Glucose,Whole Blood 122 mg/dL (75-99)
--- NOTE | 2018-10-09 13:06 | P.PN ---
Subjective Progress Note Date: 10/09/18 Principal diagnosis: Status post CABG, postoperative day #1 Patient was seen today on 10/09/2018, she is postoperative day #1, off pump coronary artery bypass graft surgery 3, CONNELLY to LAD, right radial artery graft to the obtuse marginal and left radial arterial graft to the posterior descending artery, bilateral endovascular radial artery harvesting. Patient was extubated uneventfully yesterday shortly after she was seen in the intensive care unit. She tolerated the extubation well, and she is now on few liters nasal cannula. Patient is relatively asymptomatic, she was maintained on Cardizem IV nitro IV dopamine overnight, she is hemodynamically stable, and denies any specific complaints today. Chest x-ray is suggestive of mild postoperative interstitial edema. And bibasilar atelectasis, expected postoperatively all labs were reviewed, hemoglobin is 8.0 today. Renal profile is about baseline, creatinine is 1.25. It was 1.33 yesterday. Objective - Vital Signs Vital signs: Vital Signs Temp 97.4 F L 10/09/18 08:00 Pulse 74 10/09/18 10:54 Resp 12 10/09/18 08:00 BP 96/45 10/09/18 05:30 Pulse Ox 97 10/09/18 08:00 Intake & Output 10/08/18 10/09/18 10/09/18 18:59 06:59 18:59 Intake Total 736.761 3138.651 177.960 Output Total 1340 1292 335 Balance -488.657 -53.349 -157.040 Weight 97 kg Intake: IV 119 1054.6 127.6 .9NS Pressure Bag 36 42 6 0.9NS Cardiac Output 80 80 ACETAMINOPHEN IV (For NPO 200 ) 1,000 mg In Empty Bag 1 bag @ 400 mls/hr IVPB Q6HR [facility] Rx#:[id number] DOPamine DRIP 800 mg In 111.1 10.1 Dextrose/Water 1 500ml. bag @ 3 MCG/KG/MIN 10.22 mls/hr IV .Q24H [facility] Rx#: [id number] Diltiazem 125 mg In 20 Sodium Chloride 0.9% 100 ml @ 5 MG/HR 5 mls/hr IV .Q24H [facility] Rx#:[id number] Diltiazem 50 mg In Sodium 35 10 Chloride 0.9% 40 ml @ Per Protocol IV ONCE ONE Rx#:[id number] Lactated Ringers 1,000 ml 550 100 @ 20 mls/hr IV .Q24H [facility] Rx#:[id number] Nitroglycerin-D5w Pmx 50 16.5 1.5 mg In Dextrose/Water 1 250ml.bag @ Per Protocol IV ONCE ONE Rx#:[id number] Intake, IV Titration 422.343 154.051 50.360 Amount DOPamine DRIP 800 mg In 30.3 10.1 Dextrose/Water 1 500ml. bag @ 3 MCG/KG/MIN 10.22 mls/hr IV .Q24H [facility] Rx#: [id number] Diltiazem 125 mg In 15 48.083 Sodium Chloride 0.9% 100 ml @ 5 MG/HR 5 mls/hr IV .Q24H [facility] Rx#:[id number] Insulin Regular 100 unit 6.604 25.508 26.760 In Sodium Chloride 0.9% 100 ml @ Per Protocol IV .Q0M [facility] Rx#:[id number] Lactated Ringers 1,000 ml 150 50 @ 20 mls/hr IV .Q24H [facility] Rx#:[id number] Magnesium Sulfate-D5w Pmx 100 1 gm In Dextrose/Water 1 100ml.bag @ 100 mls/hr IVPB Q1H [facility] Rx#: [id number] Nitroglycerin-D5w Pmx 50 4.5 1.5 23.6 mg In Dextrose/Water 1 250ml.bag @ 5 MCG/MIN 1.5 mls/hr IV .Q24H [facility] Rx#: [id number] Norepinephrine 4 mg In 15.939 18.86 Sodium Chloride 0.9% 250 ml @ Titrate IV .Q0M [facility] Rx#:[id number] Potassium Chloride 10 meq 100 In Water For Injection 1 100ml.bag @ 100 mls/hr IVPB Q1H [facility] Rx#: [id number] Oral 30 Blood Product 310 Rc Cpda-1 Unit 310 [id number] Output: Chest Tube Drainage 285 710 260 Left Pleural Chest Tube 150 330 120 Mediastinal Chext Tube X 105 190 60 2 Right Pleural Chest Tube 30 190 80 Drainage 40 Left Arm 20 Right Arm 20 Urine 255 542 75 Estimated Blood Loss 800 Other: Voiding Method Indwelling Catheter Indwelling Catheter Indwelling Catheter ABP, PAP, CO, CI - Last Documented Arterial Blood Pressure 107/50 Pulmonary Artery Pressure 39/20 Cardiac Output 6.0 Cardiac Index 2.9 - Exam Physical Exam: Revealed a 68-year-old female, pleasant, in no distress. On 7 L high flow nasal cannula with O2 saturation of 95%. Head: Atraumatic normocephalic. Lymphatics: No lymphadenopathy. HEENT:[Neck is supple.] [No neck masses.] [No thyromegaly.] [No JVD.] Chest: [Minimal fine crackles at the bases. Patient is achieving 500 mL via incentive spirometry. Mediastinal chest tubes and right-sided pleural chest tubes were noted. Not much of the significant drainage. Cardiac Exam: [Normal S1 and S2, no S3 gallop, no murmur.] Abdomen: [Soft, nontender, no megaly, no rebound, no guarding, normal bowel sounds.] Extremities: [No clubbing, trace of bipedal edema, no cyanosis.] Neurological Exam: [No focal neurologic deficit. Normal mood, affect and mental status examination.] - Labs CBC & Chem 7: 10/09/18 05:15 10/09/18 05:15 Labs: Abnormal Lab Results - Last 24 Hours (Table) 10/01/18 10/08/18 10/08/18 Range/Units 08:25 08:57 08:57 WBC (3.8-10.6) k/uL RBC (3.80-5.40) m/uL Hgb (11.4-16.0) gm/dL Hct (34.0-46.0) % Neutrophils # (1.3-7.7) k/uL Lymphocytes # (1.0-4.8) k/uL PT (9.0-12.0) sec INR (<1.2) ABG pH (7.35-7.45) ABG pCO2 34 L (35-45) mmHg ABG pO2 >420 H 160 H (83-108) mmHg ABG HCO3 (21-25) mmol/L ABG Total CO2 (19-24) mmol/L ABG O2 Saturation 100.0 H 99.7 H (94-97) % ABG Hematocrit 24 L 23 L (34.0-46.0) % ABG Ionized Calcium (4.5-5.3) mg/dL ABG Glucose 145 H 143 H (75-99) mg/dL Hemoglobin 7.7 L 7.5 L (11.4-16.0) gm/dL Chloride (98-107) mmol/L Carbon Dioxide (22-30) mmol/L BUN (7-17) mg/dL Creatinine (0.52-1.04) mg/dL Glucose (74-99) mg/dL POC Glucose (mg/dL) (75-99) mg/dL Calcium (8.4-10.2) mg/dL Ionized Calcium Allan (4.5-5.3) mg/dL AST (14-36) U/L Total Protein (6.3-8.2) g/dL Albumin (3.5-5.0) g/dL Arterial Blood Glucose 145 H 143 H (75-99) mg/dL Crossmatch See Detail 10/08/18 10/08/18 10/08/18 Range/Units 12:42 13:09 13:45 WBC (3.8-10.6) k/uL RBC (3.80-5.40) m/uL Hgb (11.4-16.0) gm/dL Hct (34.0-46.0) % Neutrophils # (1.3-7.7) k/uL Lymphocytes # (1.0-4.8) k/uL PT (9.0-12.0) sec INR (<1.2) ABG pH 7.33 L (7.35-7.45) ABG pCO2 (35-45) mmHg ABG pO2 173 H 226 H 66 L (83-108) mmHg ABG HCO3 (21-25) mmol/L ABG Total CO2 25 H 25 H (19-24) mmol/L ABG O2 Saturation 99.6 H 100.0 H 92.3 L (94-97) % ABG Hematocrit 23 L 21 L 25 L (34.0-46.0) % ABG Ionized Calcium 4.4 L 4.3 L 4.3 L (4.5-5.3) mg/dL ABG Glucose 166 H 141 H 153 H (75-99) mg/dL Hemoglobin 7.4 L 6.7 L* 8.0 L (11.4-16.0) gm/dL Chloride (98-107) mmol/L Carbon Dioxide (22-30) mmol/L BUN (7-17) mg/dL Creatinine (0.52-1.04) mg/dL Glucose (74-99) mg/dL POC Glucose (mg/dL) (75-99) mg/dL Calcium (8.4-10.2) mg/dL Ionized Calcium Allan (4.5-5.3) mg/dL AST (14-36) U/L Total Protein (6.3-8.2) g/dL Albumin (3.5-5.0) g/dL Arterial Blood Glucose 166 H 141 H 153 H (75-99) mg/dL Crossmatch 10/08/18 10/08/18 10/08/18 Range/Units 14:13 15:30 15:30 WBC 12.6 H (3.8-10.6) k/uL RBC 2.63 L (3.80-5.40) m/uL Hgb 7.7 L D (11.4-16.0) gm/dL Hct 23.5 L (34.0-46.0) % Neutrophils # 8.9 H (1.3-7.7) k/uL Lymphocytes # (1.0-4.8) k/uL PT (9.0-12.0) sec INR (<1.2) ABG pH (7.35-7.45) ABG pCO2 (35-45) mmHg ABG pO2 231 H (83-108) mmHg ABG HCO3 (21-25) mmol/L ABG Total CO2 25 H (19-24) mmol/L ABG O2 Saturation 100.0 H (94-97) % ABG Hematocrit 24 L (34.0-46.0) % ABG Ionized Calcium 4.2 L (4.5-5.3) mg/dL ABG Glucose 157 H (75-99) mg/dL Hemoglobin 7.7 L (11.4-16.0) gm/dL Chloride (98-107) mmol/L Carbon Dioxide (22-30) mmol/L BUN (7-17) mg/dL Creatinine (0.52-1.04) mg/dL Glucose (74-99) mg/dL POC Glucose (mg/dL) 156 H (75-99) mg/dL Calcium (8.4-10.2) mg/dL Ionized Calcium Allan (4.5-5.3) mg/dL AST (14-36) U/L Total Protein (6.3-8.2) g/dL Albumin (3.5-5.0) g/dL Arterial Blood Glucose 157 H (75-99) mg/dL Crossmatch 10/08/18 10/08/18 10/08/18 Range/Units 15:30 15:30 15:56 WBC (3.8-10.6) k/uL RBC (3.80-5.40) m/uL Hgb (11.4-16.0) gm/dL Hct (34.0-46.0) % Neutrophils # (1.3-7.7) k/uL Lymphocytes # (1.0-4.8) k/uL PT 12.1 H (9.0-12.0) sec INR 1.2 H (<1.2) ABG pH 7.32 L (7.35-7.45) ABG pCO2 (35-45) mmHg ABG pO2 300 H (83-108) mmHg ABG HCO3 (21-25) mmol/L ABG Total CO2 (19-24) mmol/L ABG O2 Saturation 100.0 H (94-97) % ABG Hematocrit (34.0-46.0) % ABG Ionized Calcium (4.5-5.3) mg/dL ABG Glucose (75-99) mg/dL Hemoglobin (11.4-16.0) gm/dL Chloride 115 H (98-107) mmol/L Carbon Dioxide 21 L (22-30) mmol/L BUN 28 H (7-17) mg/dL Creatinine 1.25 H (0.52-1.04) mg/dL Glucose 150 H (74-99) mg/dL POC Glucose (mg/dL) (75-99) mg/dL Calcium 7.5 L (8.4-10.2) mg/dL Ionized Calcium Allan 4.4 L (4.5-5.3) mg/dL AST 13 L (14-36) U/L Total Protein 4.7 L (6.3-8.2) g/dL Albumin 2.3 L (3.5-5.0) g/dL Arterial Blood Glucose (75-99) mg/dL Crossmatch 10/08/18 10/08/18 10/08/18 Range/Units 16:08 17:29 17:35 WBC 11.7 H (3.8-10.6) k/uL RBC 2.83 L (3.80-5.40) m/uL Hgb 8.2 L (11.4-16.0) gm/dL Hct 25.1 L (34.0-46.0) % Neutrophils # 9.8 H (1.3-7.7) k/uL Lymphocytes # 0.9 L (1.0-4.8) k/uL PT (9.0-12.0) sec INR (<1.2) ABG pH (7.35-7.45) ABG pCO2 (35-45) mmHg ABG pO2 (83-108) mmHg ABG HCO3 (21-25) mmol/L ABG Total CO2 (19-24) mmol/L ABG O2 Saturation (94-97) % ABG Hematocrit (34.0-46.0) % ABG Ionized Calcium (4.5-5.3) mg/dL ABG Glucose (75-99) mg/dL Hemoglobin (11.4-16.0) gm/dL Chloride (98-107) mmol/L Carbon Dioxide (22-30) mmol/L BUN (7-17) mg/dL Creatinine (0.52-1.04) mg/dL Glucose (74-99) mg/dL POC Glucose (mg/dL) 166 H 179 H (75-99) mg/dL Calcium (8.4-10.2) mg/dL Ionized Calcium Allan (4.5-5.3) mg/dL AST (14-36) U/L Total Protein (6.3-8.2) g/dL Albumin (3.5-5.0) g/dL Arterial Blood Glucose (75-99) mg/dL Crossmatch 10/08/18 10/08/18 10/08/18 Range/Units 18:24 18:52 18:57 WBC (3.8-10.6) k/uL RBC (3.80-5.40) m/uL Hgb (11.4-16.0) gm/dL Hct (34.0-46.0) % Neutrophils # (1.3-7.7) k/uL Lymphocytes # (1.0-4.8) k/uL PT (9.0-12.0) sec INR (<1.2) ABG pH 7.32 L (7.35-7.45) ABG pCO2 (35-45) mmHg ABG pO2 71 L (83-108) mmHg ABG HCO3 20 L (21-25) mmol/L ABG Total CO2 (19-24) mmol/L ABG O2 Saturation (94-97) % ABG Hematocrit (34.0-46.0) % ABG Ionized Calcium (4.5-5.3) mg/dL ABG Glucose (75-99) mg/dL Hemoglobin (11.4-16.0) gm/dL Chloride (98-107) mmol/L Carbon Dioxide (22-30) mmol/L BUN (7-17) mg/dL Creatinine (0.52-1.04) mg/dL Glucose (74-99) mg/dL POC Glucose (mg/dL) 179 H 162 H (75-99) mg/dL Calcium (8.4-10.2) mg/dL Ionized Calcium Allan (4.5-5.3) mg/dL AST (14-36) U/L Total Protein (6.3-8.2) g/dL Albumin (3.5-5.0) g/dL Arterial Blood Glucose (75-99) mg/dL Crossmatch 10/08/18 10/08/18 10/08/18 Range/Units 20:56 20:58 20:58 WBC 11.1 H (3.8-10.6) k/uL RBC 2.88 L (3.80-5.40) m/uL Hgb 8.1 L (11.4-16.0) gm/dL Hct 25.4 L (34.0-46.0) % Neutrophils # 9.4 H (1.3-7.7) k/uL Lymphocytes # 0.6 L (1.0-4.8) k/uL PT (9.0-12.0) sec INR (<1.2) ABG pH (7.35-7.45) ABG pCO2 (35-45) mmHg ABG pO2 (83-108) mmHg ABG HCO3 (21-25) mmol/L ABG Total CO2 (19-24) mmol/L ABG O2 Saturation (94-97) % ABG Hematocrit (34.0-46.0) % ABG Ionized Calcium (4.5-5.3) mg/dL ABG Glucose (75-99) mg/dL Hemoglobin (11.4-16.0) gm/dL Chloride 112 H (98-107) mmol/L Carbon Dioxide (22-30) mmol/L BUN 30 H (7-17) mg/dL Creatinine 1.33 H (0.52-1.04) mg/dL Glucose 144 H (74-99) mg/dL POC Glucose (mg/dL) 147 H (75-99) mg/dL Calcium 8.0 L (8.4-10.2) mg/dL Ionized Calcium Allan (4.5-5.3) mg/dL AST (14-36) U/L Total Protein 5.2 L (6.3-8.2) g/dL Albumin 2.7 L (3.5-5.0) g/dL Arterial Blood Glucose (75-99) mg/dL Crossmatch 10/08/18 10/09/18 10/09/18 Range/Units 22:06 01:20 02:06 WBC (3.8-10.6) k/uL RBC (3.80-5.40) m/uL Hgb (11.4-16.0) gm/dL Hct (34.0-46.0) % Neutrophils # (1.3-7.7) k/uL Lymphocytes # (1.0-4.8) k/uL PT (9.0-12.0) sec INR (<1.2) ABG pH (7.35-7.45) ABG pCO2 (35-45) mmHg ABG pO2 (83-108) mmHg ABG HCO3 (21-25) mmol/L ABG Total CO2 (19-24) mmol/L ABG O2 Saturation (94-97) % ABG Hematocrit (34.0-46.0) % ABG Ionized Calcium (4.5-5.3) mg/dL ABG Glucose (75-99) mg/dL Hemoglobin (11.4-16.0) gm/dL Chloride (98-107) mmol/L Carbon Dioxide (22-30) mmol/L BUN (7-17) mg/dL Creatinine (0.52-1.04) mg/dL Glucose (74-99) mg/dL POC Glucose (mg/dL) 123 H 115 H 116 H (75-99) mg/dL Calcium (8.4-10.2) mg/dL Ionized Calcium Allan (4.5-5.3) mg/dL AST (14-36) U/L Total Protein (6.3-8.2) g/dL Albumin (3.5-5.0) g/dL Arterial Blood Glucose (75-99) mg/dL Crossmatch 10/09/18 10/09/18 10/09/18 Range/Units 05:15 05:15 05:15 WBC (3.8-10.6) k/uL RBC 2.82 L (3.80-5.40) m/uL Hgb 8.0 L (11.4-16.0) gm/dL Hct 25.2 L (34.0-46.0) % Neutrophils # (1.3-7.7) k/uL Lymphocytes # 0.6 L (1.0-4.8) k/uL PT (9.0-12.0) sec INR (<1.2) ABG pH (7.35-7.45) ABG pCO2 (35-45) mmHg ABG pO2 (83-108) mmHg ABG HCO3 (21-25) mmol/L ABG Total CO2 (19-24) mmol/L ABG O2 Saturation (94-97) % ABG Hematocrit (34.0-46.0) % ABG Ionized Calcium (4.5-5.3) mg/dL ABG Glucose (75-99) mg/dL Hemoglobin (11.4-16.0) gm/dL Chloride 111 H (98-107) mmol/L Carbon Dioxide 20 L (22-30) mmol/L BUN 31 H (7-17) mg/dL Creatinine 1.25 H (0.52-1.04) mg/dL Glucose 156 H (74-99) mg/dL POC Glucose (mg/dL) 148 H (75-99) mg/dL Calcium 7.9 L (8.4-10.2) mg/dL Ionized Calcium Allan (4.5-5.3) mg/dL AST (14-36) U/L Total Protein 5.1 L (6.3-8.2) g/dL Albumin 2.5 L (3.5-5.0) g/dL Arterial Blood Glucose (75-99) mg/dL Crossmatch 10/09/18 10/09/18 10/09/18 Range/Units 07:06 08:23 10:24 WBC (3.8-10.6) k/uL RBC (3.80-5.40) m/uL Hgb (11.4-16.0) gm/dL Hct (34.0-46.0) % Neutrophils # (1.3-7.7) k/uL Lymphocytes # (1.0-4.8) k/uL PT (9.0-12.0) sec INR (<1.2) ABG pH (7.35-7.45) ABG pCO2 (35-45) mmHg ABG pO2 (83-108) mmHg ABG HCO3 (21-25) mmol/L ABG Total CO2 (19-24) mmol/L ABG O2 Saturation (94-97) % ABG Hematocrit (34.0-46.0) % ABG Ionized Calcium (4.5-5.3) mg/dL ABG Glucose (75-99) mg/dL Hemoglobin (11.4-16.0) gm/dL Chloride (98-107) mmol/L Carbon Dioxide (22-30) mmol/L BUN (7-17) mg/dL Creatinine (0.52-1.04) mg/dL Glucose (74-99) mg/dL POC Glucose (mg/dL) 151 H 152 H 143 H (75-99) mg/dL Calcium (8.4-10.2) mg/dL Ionized Calcium Allan (4.5-5.3) mg/dL AST (14-36) U/L Total Protein (6.3-8.2) g/dL Albumin (3.5-5.0) g/dL Arterial Blood Glucose (75-99) mg/dL Crossmatch 10/09/18 10/09/18 Range/Units 11:24 12:34 WBC (3.8-10.6) k/uL RBC (3.80-5.40) m/uL Hgb (11.4-16.0) gm/dL Hct (34.0-46.0) % Neutrophils # (1.3-7.7) k/uL Lymphocytes # (1.0-4.8) k/uL PT (9.0-12.0) sec INR (<1.2) ABG pH (7.35-7.45) ABG pCO2 (35-45) mmHg ABG pO2 (83-108) mmHg ABG HCO3 (21-25) mmol/L ABG Total CO2 (19-24) mmol/L ABG O2 Saturation (94-97) % ABG Hematocrit (34.0-46.0) % ABG Ionized Calcium (4.5-5.3) mg/dL ABG Glucose (75-99) mg/dL Hemoglobin (11.4-16.0) gm/dL Chloride (98-107) mmol/L Carbon Dioxide (22-30) mmol/L BUN (7-17) mg/dL Creatinine (0.52-1.04) mg/dL Glucose (74-99) mg/dL POC Glucose (mg/dL) 130 H 122 H (75-99) mg/dL Calcium (8.4-10.2) mg/dL Ionized Calcium Allan (4.5-5.3) mg/dL AST (14-36) U/L Total Protein (6.3-8.2) g/dL Albumin (3.5-5.0) g/dL Arterial Blood Glucose (75-99) mg/dL Crossmatch Assessment and Plan Assessment: Impression: 1 coronary artery disease, status post CABG, postoperative day #1. 2 status post three-vessel coronary artery bypass surgery. 3 ischemic cardiomyopathy and LV dysfunction 4 history of chronic systolic heart failure. 5 history of COPD 6 multiple comorbidities: history of diabetes, hyperlipidemia, iron deficiency anemia, peripheral vessel occlusive disease involving lower extremities, history of previous PA, and history of tobacco dependence presently in remission. Recommendation: Continue all cardiac meds including beta blockers Plavix statin and aspirin. Patient was placed on oral Cardizem and IV Cardizem was discontinued. Continue to titrate O2 as tolerated. [place] will be discontinued, continue to encourage incentive spirometry, mediastinal chest tube will be discontinued today, continue bronchodilators, early ambulation, continue glucose management with insulin as per protocol, monitor x-rays on a daily basis , will continue to follow. Patient will likely remain in the ICU today, and will follow closely. Still requiring relatively high FiO2, but it will be titrated down as tolerated. Time with Patient: Less than 30
[2018-10-09 13:48] LABS: Glucose,Whole Blood 118 mg/dL (75-99)
[2018-10-09] MEDS ORDERED: BISACODYL 10 MG SUPP RECTAL PRN (14:37)
[2018-10-09 16:01] VITALS: BMI 34.4
[2018-10-09 16:20] LABS: Glucose,Whole Blood 134 mg/dL (75-99)
[2018-10-09 17:38] LABS: Glucose,Whole Blood 141 mg/dL (75-99)
[2018-10-09 19:16] LABS: Glucose,Whole Blood 154 mg/dL (75-99)
[2018-10-09 20:10] LABS: Glucose,Whole Blood 167 mg/dL (75-99)
--- NOTE | 2018-10-09 20:28 | CONS ---
CONSULTATION DATE OF CONSULTATION: 10/09/2018 REASON FOR CONSULTATION: Medical management requested by Dr. Zuñiga. CONSULTATION: This is a pleasant 68-year-old patient of Dr. Barnard who has undergone a triple-vessel bypass. Patient was successfully extubated. Earlier today patient was on IV Cardizem and IV dopamine. Both the Cardizem and dopamine have been discontinued. Patient is also on IV insulin, nasal cannula at 3 L. Chest tubes in place. Sitting up. Patient was discharged from the hospital on 10/04/2018; at that time had presented with congestive heart failure exacerbation with an EF of 20% to 25%, and also had a non-Q- wave [place]. Patient's chronic stable medical conditions include peripheral artery disease, urinary incontinence, diabetes mellitus, type 2, chronic kidney disease, stage III. REVIEW OF SYSTEMS: CONSTITUTIONAL: Tired. HEENT None. RESPIRATORY: As above. CARDIOVASCULAR: As above. GASTROINTESTINAL: None. GENITOURINARY: Urinary incontinence. MUSCULOSKELETAL: None. DERMATOLOGICAL: None. HEMATOLOGIC: None. LYMPHATICS: None. PSYCHIATRY: None. NEUROLOGICAL: None. PAST MEDICAL HISTORY: 1. Coronary artery disease with stent. 2. Diabetes. 3. Hyperlipidemia. 4. Peripheral artery disease. 5. Congestive heart failure, EF 20% to 25%. 6. Peripheral artery disease. PAST SURGICAL HISTORY: 1. Cardiac cath with stent. 2. Stent to the lower extremity. SOCIAL HISTORY: . Smoked a pack a day for 40 years; stopped in 2005. Alcohol occasionally. FAMILY HISTORY: Coronary artery disease. HOME MEDICATIONS: 1. Metformin 1000 mg b.i.d. 2. Aldactone 12.5 p.o. daily. 3. Oxybutynin ER 10 mg p.o. daily. 4. Nitrostat 0.4 sublingually q.5 p.r.n. 5. Lopressor 50 mg b.i.d. 6. Zestril 5 mg p.o. daily. 7. Amaryl 2 mg p.o. daily. 8. Lipitor 40 mg p.o. daily. 9. Aspirin 325 p.o. daily. ALLERGIES: TETRACYCLINE. PHYSICAL EXAMINATION: VITAL SIGNS: Temperature 97.5, pulse 72, respiration 20, blood pressure 88/54, pulse ox 98% on 5 L. GENERAL APPEARANCE: Well built; BMI 34.5. Sitting up, tired-appearing. EYES: Pupils equal. Conjunctivae pale. HEENT: External appearance of nose and ears normal. Oral cavity normal. Nasal cannula in place. NECK: JVD unable to assess. Mass not palpable. RESPIRATORY: Effort increased. LUNGS: Diminished breath sounds. CARDIOVASCULAR: First and second sounds normal. No edema. ABDOMEN: Soft, non-tender. Liver and spleen not palpable. LYMPHATIC: No lymph node palpable in neck or axillae. PSYCHIATRY: Alert and oriented x3. Mood and affect tired-appearing. NEUROLOGICAL: Pupils equal. No facial asymmetry. Moving all 4 limbs. INVESTIGATIONS: White count 8.9, hemoglobin 8.0. Preoperatively it was 9.2. Potassium 5.1 BUN 31, creatinine 1.25. Preoperatively it was 1.53. Accu-Cheks are noted. Albumin 2.5. Chest x-ray shows some pulmonary edema. ASSESSMENT: 1. Status post triple-vessel coronary artery bypass. 2. Chronic congestive heart failure from systolic dysfunction; ejection fraction 20% to 25%; from underlying coronary artery disease. 3. Acute non-Q-wave myocardial infarction about 10 days ago. 4. Peripheral arterial disease. 5. Chronic urinary incontinence. 6. Diabetes mellitus, type 2, on oral hypoglycemic, currently on insulin drip. 7. Chronic kidney disease, stage III, from diabetic nephropathy and nephrosclerosis. 8. Acute postoperative blood loss anemia, expected from surgery. 9. Metabolic acidosis from renal failure. 10.Hypoalbuminemia as an acute phase reactant. PLAN: Patient did get IV albumin and is also on DuoNeb, Lipitor, Plavix, p.o. Cardizem, IV insulin drip, Protonix. Care was discussed with the patient. Will follow along. Keep a close eye on patient's renal function. Thank you, Dr. Zuñiga. MMODL / IJN: [id number] /
[2018-10-09 21:15] LABS: Glucose,Whole Blood 149 mg/dL (75-99)
[2018-10-09] MEDS: SENNOSIDES-DOCUSATE SODIUM 1 EACH TAB PO SCH (21:49)
[2018-10-09 22:06] LABS: Glucose,Whole Blood 145 mg/dL (75-99)
[2018-10-09 23:16] LABS: Glucose,Whole Blood 133 mg/dL (75-99)
[2018-10-10 00:14] LABS: Glucose,Whole Blood 119 mg/dL (75-99)
[2018-10-10] MEDS: DILTIAZEM ORAL 30 MG TAB PO SCH ×3 (00:27→11:56)
[2018-10-10] MEDS: HEPARIN SODIUM,PORCINE 5,000 UNIT/ML 1 ML VIAL SQ SCH ×2 (00:27→08:21)
[2018-10-10] MEDS: INSULIN REGULAR 100 UNIT in SODIUM CHLORIDE 0.9% 100 ML IV SCH (00:45)
[2018-10-10 01:25] LABS: Glucose,Whole Blood 113 mg/dL (75-99)
[2018-10-10 02:07] LABS: Glucose,Whole Blood 110 mg/dL (75-99)
[2018-10-10 03:08] LABS: Glucose,Whole Blood 109 mg/dL (75-99)
[2018-10-10 04:08] LABS: Glucose,Whole Blood 123 mg/dL (75-99)
[2018-10-10] MEDS: HYDROcodone/APAP 5-325MG 1 EACH TAB PO PRN ×3 (04:56→22:05)
[2018-10-10 04:59] LABS: Glucose,Whole Blood 125 mg/dL (75-99)
[2018-10-10 05:05] LABS: Basophils % (A) 0 %; Eosinophils # (A) 0.1 k/uL (0-0.7); Eosinophils % (A) 1 %; HGB 7.6 gm/dL (11.4-16.0); Hypochromasia Moderate; Lymphocytes # (A) 0.8 k/uL (1.0-4.8); Lymphocytes % (A) 7 %; MCH 28.8 pg (25.0-35.0); MCHC 31.7 g/dL (31.0-37.0); MCV 90.9 fL (80.0-100.0); Mean Platelet Volume 7.1; Monocytes # (A) 0.7 k/uL (0-1.0); Monocytes % (A) 7 %; Neutrophils # (A) 9.3 k/uL (1.3-7.7); Neutrophils % (A) 83 %; Platelet Count 215 k/uL (150-450); RBC 2.64 m/uL (3.80-5.40); RDW 15.1 % (11.5-15.5); WBC 11.2 k/uL (3.8-10.6)
[2018-10-10 06:09] LABS: Ionized Calcium 4.8 mg/dL (4.5-5.3)
[2018-10-10 06:21] LABS: Glucose,Whole Blood 116 mg/dL (75-99)
[2018-10-10] MEDS: ONDANSETRON 4 MG/2 ML VIAL IVP PRN (06:32)
--- NOTE | 2018-10-10 06:33 | XR ---
EXAMINATION TYPE: XR chest 1V portable DATE OF EXAM: 10/10/2018 HISTORY: Post Operative Cardiac Surgery. REFERENCE: Previous study dated 10/09/2018. FINDINGS: There has been a midline sternotomy. The patient [place] catheter is been removed. A righ t internal jugular sheath remains in place. Bilateral pleural drains are in place. The heart is enlarged. There is mild vascular congestion. There is left basilar airspace disease and to a lesser extent right basilar airspace disease. There are small, bilateral effusions, greater on t he left than the right. IMPRESSION: CONTINUING POSTOPERATIVE CHANGE.
[2018-10-10 06:39] LABS: Albumin 2.4 g/dL (3.5-5.0); Calcium 8.1 mg/dL (8.4-10.2); Magnesium 2.3 mg/dL (1.6-2.3); Phosphorus 4.8 mg/dL (2.5-4.5); Potassium 4.4 mmol/L (3.5-5.1); Total Bilirubin 0.5 mg/dL (0.2-1.3)
[2018-10-10 07:04] LABS: Glucose,Whole Blood 106 mg/dL (75-99)
--- NOTE | 2018-10-10 07:18 | P.PN ---
Subjective Progress Note Date: 10/10/18 This is a pleasant 68-year-old female patient with past medical history the patient does have coronary artery disease with prior coronary artery stenting, diabetes type 2, hypertension, and dyslipidemia.who we consulted to see for cardiac follow-up after coronary artery bypass grafting. Earlier this month, September 2018, the patient presented to the hospital with shortness of breath. She was ruled in for acute non-ST deviation myocardial infarction with abnormal EKG as well as abnormal cardiac enzymes. At that point she underwent heart catheterization by Dr. Perez and that revealed severe triple-vessel coronary artery disease. Because of that the patient was referred to undergo coronary artery bypass grafting. The patient underwent yesterday coronary artery bypass grafting 3 where she received CONNELLY to LAD, JT to OM, and radial artery to right coronary artery. This is postoperative patient day #1. The patient was extubated last night. She is doing overall good giving her previous status of severe underlying coronary artery disease as well as cardiomyopathy. She has been maintaining normal sinus mechanism. Hemodynamically she is still requiring small doses of vasopressors. Beside that she is on nitroglycerin drip as well as Cardizem drip for the radial bypasses. The Cardizem drip is going to come off later on today as well as a nitro drip. The patient will be started on calcium channel salome by mouth either with Norvasc or with Cardizem by mouth. Beside that she continues to be on dual antiplatelet therapy with aspirin and Plavix as well as she is on statin and also she is on metoprolol by mouth. The last echocardiogram from September 2018 revealed impaired LV function with EF between 20-25% with basal inferior hypokinesia and inferoseptal hypokinesia. On follow-up with the patient today, she is doing better. She is not on any vasopressors at this point. She continues to be on dual antiplatelet therapy along with a statin as well as Cardizem by mouth. The hemoglobin this morning is 7.6 and the creatinine is 1.38. Overall the patient is doing better, she was sitting in her bed and doesn't look in any pain or any distress. Objective - Vital Signs Vital signs: Vital Signs Temp 97.4 F L 10/10/18 04:00 Pulse 93 10/10/18 05:00 Resp 21 10/10/18 05:00 BP 112/63 10/10/18 05:00 Pulse Ox 94 L 10/10/18 05:00 Intake & Output 10/09/18 10/10/18 10/10/18 18:59 06:59 18:59 Intake Total 1648.817 328.042 2.525 Output Total 1030 545 Balance 618.817 -216.958 2.525 Weight 97 kg Intake: IV 587.6 286 .9NS Pressure Bag 36 36 0.9NS Cardiac Output 30 ACETAMINOPHEN IV (For NPO 100 ) 1,000 mg In Empty Bag 1 bag @ 400 mls/hr IVPB Q6HR [facility] Rx#:[id number] DOPamine DRIP 800 mg In 10.1 Dextrose/Water 1 500ml. bag @ 3 MCG/KG/MIN 10.22 mls/hr IV .Q24H [facility] Rx#: [id number] Diltiazem 50 mg In Sodium 30 Chloride 0.9% 40 ml @ Per Protocol IV ONCE ONE Rx#:[id number] Lactated Ringers 1,000 ml 380 250 @ 20 mls/hr IV .Q24H [facility] Rx#:[id number] Nitroglycerin-D5w Pmx 50 1.5 mg In Dextrose/Water 1 250ml.bag @ Per Protocol IV ONCE ONE Rx#:[id number] Intake, IV Titration 61.217 42.042 2.525 Amount Insulin Regular 100 unit 37.617 42.042 2.525 In Sodium Chloride 0.9% 100 ml @ Per Protocol IV .Q0M [facility] Rx#:[id number] Nitroglycerin-D5w Pmx 50 23.6 mg In Dextrose/Water 1 250ml.bag @ 5 MCG/MIN 1.5 mls/hr IV .Q24H [facility] Rx#: [id number] Oral 1000 Output: Chest Tube Drainage 600 10 Left Pleural Chest Tube 280 10 Mediastinal Chext Tube X 60 2 Right Pleural Chest Tube 260 0 Urine 430 535 Other: Voiding Method Indwelling Catheter Indwelling Catheter ABP, PAP, CO, CI - Last Documented Arterial Blood Pressure 102/52 Pulmonary Artery Pressure 39/22 Cardiac Output 5.9 Cardiac Index 2.9 - Constitutional General appearance: Present: no acute distress - Respiratory Respiratory: bilateral: CTA - Cardiovascular Rhythm: regular Heart sounds: normal: S1, S2 - Labs CBC & Chem 7: 10/10/18 04:49 01/26/19 04:49 Labs: Abnormal Lab Results - Last 24 Hours (Table) 10/09/18 10/09/18 10/09/18 Range/Units 07:06 08:23 10:24 WBC (3.8-10.6) k/uL RBC (3.80-5.40) m/uL Hgb (11.4-16.0) gm/dL Hct (34.0-46.0) % Neutrophils # (1.3-7.7) k/uL Lymphocytes # (1.0-4.8) k/uL Chloride (98-107) mmol/L Carbon Dioxide (22-30) mmol/L BUN (7-17) mg/dL Creatinine (0.52-1.04) mg/dL Glucose (74-99) mg/dL POC Glucose (mg/dL) 151 H 152 H 143 H (75-99) mg/dL Calcium (8.4-10.2) mg/dL Phosphorus (2.5-4.5) mg/dL Total Protein (6.3-8.2) g/dL Albumin (3.5-5.0) g/dL 10/09/18 10/09/18 10/09/18 Range/Units 11:24 12:34 13:37 WBC (3.8-10.6) k/uL RBC (3.80-5.40) m/uL Hgb (11.4-16.0) gm/dL Hct (34.0-46.0) % Neutrophils # (1.3-7.7) k/uL Lymphocytes # (1.0-4.8) k/uL Chloride (98-107) mmol/L Carbon Dioxide (22-30) mmol/L BUN (7-17) mg/dL Creatinine (0.52-1.04) mg/dL Glucose (74-99) mg/dL POC Glucose (mg/dL) 130 H 122 H 118 H (75-99) mg/dL Calcium (8.4-10.2) mg/dL Phosphorus (2.5-4.5) mg/dL Total Protein (6.3-8.2) g/dL Albumin (3.5-5.0) g/dL 10/09/18 10/09/18 10/09/18 Range/Units 16:09 17:27 19:04 WBC (3.8-10.6) k/uL RBC (3.80-5.40) m/uL Hgb (11.4-16.0) gm/dL Hct (34.0-46.0) % Neutrophils # (1.3-7.7) k/uL Lymphocytes # (1.0-4.8) k/uL Chloride (98-107) mmol/L Carbon Dioxide (22-30) mmol/L BUN (7-17) mg/dL Creatinine (0.52-1.04) mg/dL Glucose (74-99) mg/dL POC Glucose (mg/dL) 134 H 141 H 154 H (75-99) mg/dL Calcium (8.4-10.2) mg/dL Phosphorus (2.5-4.5) mg/dL Total Protein (6.3-8.2) g/dL Albumin (3.5-5.0) g/dL 10/09/18 10/09/18 10/09/18 Range/Units 19:58 21:04 21:55 WBC (3.8-10.6) k/uL RBC (3.80-5.40) m/uL Hgb (11.4-16.0) gm/dL Hct (34.0-46.0) % Neutrophils # (1.3-7.7) k/uL Lymphocytes # (1.0-4.8) k/uL Chloride (98-107) mmol/L Carbon Dioxide (22-30) mmol/L BUN (7-17) mg/dL Creatinine (0.52-1.04) mg/dL Glucose (74-99) mg/dL POC Glucose (mg/dL) 167 H 149 H 145 H (75-99) mg/dL Calcium (8.4-10.2) mg/dL Phosphorus (2.5-4.5) mg/dL Total Protein (6.3-8.2) g/dL Albumin (3.5-5.0) g/dL 10/09/18 10/10/18 10/10/18 Range/Units 23:04 00:02 01:13 WBC (3.8-10.6) k/uL RBC (3.80-5.40) m/uL Hgb (11.4-16.0) gm/dL Hct (34.0-46.0) % Neutrophils # (1.3-7.7) k/uL Lymphocytes # (1.0-4.8) k/uL Chloride (98-107) mmol/L Carbon Dioxide (22-30) mmol/L BUN (7-17) mg/dL Creatinine (0.52-1.04) mg/dL Glucose (74-99) mg/dL POC Glucose (mg/dL) 133 H 119 H 113 H (75-99) mg/dL Calcium (8.4-10.2) mg/dL Phosphorus (2.5-4.5) mg/dL Total Protein (6.3-8.2) g/dL Albumin (3.5-5.0) g/dL 10/10/18 10/10/18 10/10/18 Range/Units 01:56 02:56 03:56 WBC (3.8-10.6) k/uL RBC (3.80-5.40) m/uL Hgb (11.4-16.0) gm/dL Hct (34.0-46.0) % Neutrophils # (1.3-7.7) k/uL Lymphocytes # (1.0-4.8) k/uL Chloride (98-107) mmol/L Carbon Dioxide (22-30) mmol/L BUN (7-17) mg/dL Creatinine (0.52-1.04) mg/dL Glucose (74-99) mg/dL POC Glucose (mg/dL) 110 H 109 H 123 H (75-99) mg/dL Calcium (8.4-10.2) mg/dL Phosphorus (2.5-4.5) mg/dL Total Protein (6.3-8.2) g/dL Albumin (3.5-5.0) g/dL 10/10/18 10/10/18 10/10/18 Range/Units 04:47 04:49 04:49 WBC 11.2 H (3.8-10.6) k/uL RBC 2.64 L (3.80-5.40) m/uL Hgb 7.6 L (11.4-16.0) gm/dL Hct 24.0 L (34.0-46.0) % Neutrophils # 9.3 H (1.3-7.7) k/uL Lymphocytes # 0.8 L (1.0-4.8) k/uL Chloride 110 H (98-107) mmol/L Carbon Dioxide 20 L (22-30) mmol/L BUN 34 H (7-17) mg/dL Creatinine 1.38 H (0.52-1.04) mg/dL Glucose 122 H (74-99) mg/dL POC Glucose (mg/dL) 125 H (75-99) mg/dL Calcium 8.1 L (8.4-10.2) mg/dL Phosphorus 4.8 H (2.5-4.5) mg/dL Total Protein 5.0 L (6.3-8.2) g/dL Albumin 2.4 L (3.5-5.0) g/dL 10/10/18 10/10/18 Range/Units 06:10 06:53 WBC (3.8-10.6) k/uL RBC (3.80-5.40) m/uL Hgb (11.4-16.0) gm/dL Hct (34.0-46.0) % Neutrophils # (1.3-7.7) k/uL Lymphocytes # (1.0-4.8) k/uL Chloride (98-107) mmol/L Carbon Dioxide (22-30) mmol/L BUN (7-17) mg/dL Creatinine (0.52-1.04) mg/dL Glucose (74-99) mg/dL POC Glucose (mg/dL) 116 H 106 H (75-99) mg/dL Calcium (8.4-10.2) mg/dL Phosphorus (2.5-4.5) mg/dL Total Protein (6.3-8.2) g/dL Albumin (3.5-5.0) g/dL Assessment and Plan Assessment: Assessment #1 severe underlying coronary artery disease as described above #2 status post coronary artery bypass grafting 3 as described above #3 diabetes type 2 #4 hypertension #5 dyslipidemia Plan #1 continue the current medical regimen including dual antiplatelet therapy along with statin and metoprolol #2 continue monitor the hemoglobin as well as BUN and electrolytes #3 continue daily chest x-ray #4 follow-up with the patient. Thank you for allowing us participate in her care and we will continue following up with the patient
[2018-10-10] MEDS: ASPIRIN 325 MG TAB PO SCH (08:22)
[2018-10-10] MEDS: ATORVASTATIN 40 MG TAB PO SCH (08:22)
[2018-10-10] MEDS: PANTOPRAZOLE 40 MG TABLET PO SCH (08:22)
[2018-10-10] MEDS: MUPIROCIN 2% OINT 22 GM TUBE NASAL SCH ×2 (08:22→22:42)
[2018-10-10] MEDS: CLOPIDOGREL 75 MG TAB PO SCH (08:22)
[2018-10-10] MEDS: METOPROLOL TARTRATE 25 MG TAB PO SCH ×2 (08:24→22:06)
[2018-10-10 08:36] LABS: Glucose,Whole Blood 197 mg/dL (75-99)
[2018-10-10 10:54] LABS: Glucose,Whole Blood 167 mg/dL (75-99)
--- NOTE | 2018-10-10 11:54 | P.PN ---
Subjective Progress Note Date: 10/10/18 Principal diagnosis: Status post CABG, postoperative day #2 Patient was seen today on 10/09/2018, she is postoperative day #1, off pump coronary artery bypass graft surgery 3, CONNELLY to LAD, right radial artery graft to the obtuse marginal and left radial arterial graft to the posterior descending artery, bilateral endovascular radial artery harvesting. Patient was extubated uneventfully yesterday shortly after she was seen in the intensive care unit. She tolerated the extubation well, and she is now on few liters nasal cannula. Patient is relatively asymptomatic, she was maintained on Cardizem IV nitro IV dopamine overnight, she is hemodynamically stable, and denies any specific complaints today. Chest x-ray is suggestive of mild postoperative interstitial edema. And bibasilar atelectasis, expected postoperatively all labs were reviewed, hemoglobin is 8.0 today. Renal profile is about baseline, creatinine is 1.25. It was 1.33 yesterday. Patient was reevaluated today on 10/10/2018, postoperative day #2. Patient is doing relatively well, she denies any shortness of breath cough or wheezing. Remains on few liters nasal cannula. She is hemodynamically stable. Not requiring any pressors. Hemoglobin is 7.6 today, and her creatinine is about her baseline 1.38. Patient is doing fairly well with incentive spirometry, roughly about 700 mL. Objective - Vital Signs Vital signs: Vital Signs Temp 98.0 F 10/10/18 08:00 Pulse 84 10/10/18 08:00 Resp 15 10/10/18 08:00 BP 99/64 10/10/18 08:00 Pulse Ox 96 10/10/18 09:09 Intake & Output 10/09/18 10/10/18 10/10/18 18:59 06:59 18:59 Intake Total 1648.817 328.042 583.458 Output Total 1030 545 755 Balance 618.817 -216.958 -171.542 Weight 97 kg Intake: IV 587.6 286 69 .9NS Pressure Bag 36 36 9 0.9NS Cardiac Output 30 ACETAMINOPHEN IV (For NPO 100 ) 1,000 mg In Empty Bag 1 bag @ 400 mls/hr IVPB Q6HR [facility] Rx#:[id number] DOPamine DRIP 800 mg In 10.1 Dextrose/Water 1 500ml. bag @ 3 MCG/KG/MIN 10.22 mls/hr IV .Q24H [facility] Rx#: [id number] Diltiazem 50 mg In Sodium 30 Chloride 0.9% 40 ml @ Per Protocol IV ONCE ONE Rx#:[id number] Lactated Ringers 1,000 ml 380 250 60 @ 20 mls/hr IV .Q24H [facility] Rx#:[id number] Nitroglycerin-D5w Pmx 50 1.5 mg In Dextrose/Water 1 250ml.bag @ Per Protocol IV ONCE ONE Rx#:[id number] Intake, IV Titration 61.217 42.042 14.458 Amount Insulin Regular 100 unit 37.617 42.042 14.458 In Sodium Chloride 0.9% 100 ml @ Per Protocol IV .Q0M [facility] Rx#:[id number] Nitroglycerin-D5w Pmx 50 23.6 mg In Dextrose/Water 1 250ml.bag @ 5 MCG/MIN 1.5 mls/hr IV .Q24H [facility] Rx#: [id number] Oral 1000 500 Output: Chest Tube Drainage 600 10 680 Left Pleural Chest Tube 280 10 300 Mediastinal Chext Tube X 60 2 Right Pleural Chest Tube 260 0 380 Urine 430 535 75 Other: Voiding Method Indwelling Catheter Indwelling Catheter Indwelling Catheter ABP, PAP, CO, CI - Last Documented Arterial Blood Pressure 102/52 Pulmonary Artery Pressure 39/22 Cardiac Output 5.9 Cardiac Index 2.9 - Exam Physical Exam: Revealed a 68-year-old female, pleasant, in no distress. On 3 L nasal cannula. Head: Atraumatic normocephalic. Lymphatics: No lymphadenopathy. HEENT:[Neck is supple.] [No neck masses.] [No thyromegaly.] [No JVD.] Chest: [Minimal fine crackles at the bases. No rhonchi no wheezes, chest tubes were noted. Cardiac Exam: [Normal S1 and S2, no S3 gallop, no murmur.] Abdomen: [Soft, nontender, no megaly, no rebound, no guarding, normal bowel sounds.] Extremities: [No clubbing, trace of bipedal edema, no cyanosis.] Neurological Exam: [No focal neurologic deficit. Normal mood, affect and mental status examination.] - Labs CBC & Chem 7: 10/10/18 04:49 10/10/18 04:49 Labs: Abnormal Lab Results - Last 24 Hours (Table) 10/09/18 10/09/18 10/09/18 Range/Units 10:24 11:24 12:34 WBC (3.8-10.6) k/uL RBC (3.80-5.40) m/uL Hgb (11.4-16.0) gm/dL Hct (34.0-46.0) % Neutrophils # (1.3-7.7) k/uL Lymphocytes # (1.0-4.8) k/uL Chloride (98-107) mmol/L Carbon Dioxide (22-30) mmol/L BUN (7-17) mg/dL Creatinine (0.52-1.04) mg/dL Glucose (74-99) mg/dL POC Glucose (mg/dL) 143 H 130 H 122 H (75-99) mg/dL Calcium (8.4-10.2) mg/dL Phosphorus (2.5-4.5) mg/dL Total Protein (6.3-8.2) g/dL Albumin (3.5-5.0) g/dL 10/09/18 10/09/18 10/09/18 Range/Units 13:37 16:09 17:27 WBC (3.8-10.6) k/uL RBC (3.80-5.40) m/uL Hgb (11.4-16.0) gm/dL Hct (34.0-46.0) % Neutrophils # (1.3-7.7) k/uL Lymphocytes # (1.0-4.8) k/uL Chloride (98-107) mmol/L Carbon Dioxide (22-30) mmol/L BUN (7-17) mg/dL Creatinine (0.52-1.04) mg/dL Glucose (74-99) mg/dL POC Glucose (mg/dL) 118 H 134 H 141 H (75-99) mg/dL Calcium (8.4-10.2) mg/dL Phosphorus (2.5-4.5) mg/dL Total Protein (6.3-8.2) g/dL Albumin (3.5-5.0) g/dL 10/09/18 10/09/18 10/09/18 Range/Units 19:04 19:58 21:04 WBC (3.8-10.6) k/uL RBC (3.80-5.40) m/uL Hgb (11.4-16.0) gm/dL Hct (34.0-46.0) % Neutrophils # (1.3-7.7) k/uL Lymphocytes # (1.0-4.8) k/uL Chloride (98-107) mmol/L Carbon Dioxide (22-30) mmol/L BUN (7-17) mg/dL Creatinine (0.52-1.04) mg/dL Glucose (74-99) mg/dL POC Glucose (mg/dL) 154 H 167 H 149 H (75-99) mg/dL Calcium (8.4-10.2) mg/dL Phosphorus (2.5-4.5) mg/dL Total Protein (6.3-8.2) g/dL Albumin (3.5-5.0) g/dL 10/09/18 10/09/18 10/10/18 Range/Units 21:55 23:04 00:02 WBC (3.8-10.6) k/uL RBC (3.80-5.40) m/uL Hgb (11.4-16.0) gm/dL Hct (34.0-46.0) % Neutrophils # (1.3-7.7) k/uL Lymphocytes # (1.0-4.8) k/uL Chloride (98-107) mmol/L Carbon Dioxide (22-30) mmol/L BUN (7-17) mg/dL Creatinine (0.52-1.04) mg/dL Glucose (74-99) mg/dL POC Glucose (mg/dL) 145 H 133 H 119 H (75-99) mg/dL Calcium (8.4-10.2) mg/dL Phosphorus (2.5-4.5) mg/dL Total Protein (6.3-8.2) g/dL Albumin (3.5-5.0) g/dL 10/10/18 10/10/18 10/10/18 Range/Units 01:13 01:56 02:56 WBC (3.8-10.6) k/uL RBC (3.80-5.40) m/uL Hgb (11.4-16.0) gm/dL Hct (34.0-46.0) % Neutrophils # (1.3-7.7) k/uL Lymphocytes # (1.0-4.8) k/uL Chloride (98-107) mmol/L Carbon Dioxide (22-30) mmol/L BUN (7-17) mg/dL Creatinine (0.52-1.04) mg/dL Glucose (74-99) mg/dL POC Glucose (mg/dL) 113 H 110 H 109 H (75-99) mg/dL Calcium (8.4-10.2) mg/dL Phosphorus (2.5-4.5) mg/dL Total Protein (6.3-8.2) g/dL Albumin (3.5-5.0) g/dL 10/10/18 10/10/18 10/10/18 Range/Units 03:56 04:47 04:49 WBC (3.8-10.6) k/uL RBC (3.80-5.40) m/uL Hgb (11.4-16.0) gm/dL Hct (34.0-46.0) % Neutrophils # (1.3-7.7) k/uL Lymphocytes # (1.0-4.8) k/uL Chloride 110 H (98-107) mmol/L Carbon Dioxide 20 L (22-30) mmol/L BUN 34 H (7-17) mg/dL Creatinine 1.38 H (0.52-1.04) mg/dL Glucose 122 H (74-99) mg/dL POC Glucose (mg/dL) 123 H 125 H (75-99) mg/dL Calcium 8.1 L (8.4-10.2) mg/dL Phosphorus 4.8 H (2.5-4.5) mg/dL Total Protein 5.0 L (6.3-8.2) g/dL Albumin 2.4 L (3.5-5.0) g/dL 10/10/18 10/10/18 10/10/18 Range/Units 04:49 06:10 06:53 WBC 11.2 H (3.8-10.6) k/uL RBC 2.64 L (3.80-5.40) m/uL Hgb 7.6 L (11.4-16.0) gm/dL Hct 24.0 L (34.0-46.0) % Neutrophils # 9.3 H (1.3-7.7) k/uL Lymphocytes # 0.8 L (1.0-4.8) k/uL Chloride (98-107) mmol/L Carbon Dioxide (22-30) mmol/L BUN (7-17) mg/dL Creatinine (0.52-1.04) mg/dL Glucose (74-99) mg/dL POC Glucose (mg/dL) 116 H 106 H (75-99) mg/dL Calcium (8.4-10.2) mg/dL Phosphorus (2.5-4.5) mg/dL Total Protein (6.3-8.2) g/dL Albumin (3.5-5.0) g/dL 10/10/18 Range/Units 08:20 WBC (3.8-10.6) k/uL RBC (3.80-5.40) m/uL Hgb (11.4-16.0) gm/dL Hct (34.0-46.0) % Neutrophils # (1.3-7.7) k/uL Lymphocytes # (1.0-4.8) k/uL Chloride (98-107) mmol/L Carbon Dioxide (22-30) mmol/L BUN (7-17) mg/dL Creatinine (0.52-1.04) mg/dL Glucose (74-99) mg/dL POC Glucose (mg/dL) 197 H (75-99) mg/dL Calcium (8.4-10.2) mg/dL Phosphorus (2.5-4.5) mg/dL Total Protein (6.3-8.2) g/dL Albumin (3.5-5.0) g/dL Assessment and Plan Assessment: Impression: 1 coronary artery disease, status post CABG, postoperative day #2 2 status post three-vessel coronary artery bypass surgery. 3 ischemic cardiomyopathy and LV dysfunction 4 history of chronic systolic heart failure. 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 Recommendation: Continue all cardiac meds including beta blockers Plavix statin and aspirin. Continue Cardizem orally Continue to titrate O2 as tolerated. continue to encourage incentive spirometry, mediastinal chest tube will be discontinued today, continue bronchodilators, ambulate today, continue glucose management with insulin as per protocol, monitor x-rays on a daily basis, patient will remain in the ICU today, some of the chest tubes will come out today, and we'll continue to follow. Time with Patient: Less than 30
--- NOTE | 2018-10-10 11:54 | P.PN ---
Subjective Progress Note Date: 10/10/18 Principal diagnosis: Coronary artery disease, chronic systolic and diastolic heart failure with preoperative ejection fraction 20-25%. Previous medical history of non-STEMI earlier this month as well as in 2006 with stent placement at that time, hyperlipidemia, peripheral artery disease with stent placement to the left lower extremity in 2016, chronic kidney disease with baseline creatinine 1.3-1.5 , recent vein surgery to bilateral lower extremity is, [id number] diabetes mellitus with preoperative hemoglobin A1c 7.1%, shingles, obesity, moderate COPD with preoperative FEV1 51% of predicted, previous tobacco dependence, and family history of early coronary artery disease with mother dying before the age of 6060 years old during coronary artery bypass graft surgery. Preoperative nasal swab positive for MSSA. Preoperative normocytic, normochromic anemia. POD #2 off-pump coronary artery bypass graft surgery 3 with the left internal mammary artery artery graft to the left anterior descending artery, right radial artery graft to the obtuse marginal and the left radial arterial graft to the posterior descending artery, bilateral endovascular radial artery harvest. Intraoperative transesophageal echocardiogram by anesthesia. Postoperative acute blood loss anemia, an expected outcome. Patient is currently sitting up to the bedside chair in the intensive care unit. She is in no acute distress. Currently denies any complaints of pain or shortness of breath at this time. She remains on 2 L nasal cannula with oxygen saturations 97%. Cardizem 30 mg every 6 hours by mouth was started yesterday for her bilateral radial artery harvest. She remains hemodynamically stable. She reports she ambulated in her room yesterday but did not ambulate in the intensive care yesterday. Objective - Vital Signs Vital signs: Vital Signs Temp 98.0 F 10/10/18 08:00 Pulse 84 10/10/18 08:00 Resp 15 10/10/18 08:00 BP 99/64 10/10/18 08:00 Pulse Ox 96 10/10/18 09:09 Intake & Output 10/09/18 10/10/18 10/10/18 18:59 06:59 18:59 Intake Total 1648.817 328.042 583.458 Output Total 1030 545 755 Balance 618.817 -216.958 -171.542 Weight 97 kg Intake: IV 587.6 286 69 .9NS Pressure Bag 36 36 9 0.9NS Cardiac Output 30 ACETAMINOPHEN IV (For NPO 100 ) 1,000 mg In Empty Bag 1 bag @ 400 mls/hr IVPB Q6HR [facility] Rx#:[id number] DOPamine DRIP 800 mg In 10.1 Dextrose/Water 1 500ml. bag @ 3 MCG/KG/MIN 10.22 mls/hr IV .Q24H [facility] Rx#: [id number] Diltiazem 50 mg In Sodium 30 Chloride 0.9% 40 ml @ Per Protocol IV ONCE ONE Rx#:[id number] Lactated Ringers 1,000 ml 380 250 60 @ 20 mls/hr IV .Q24H [facility] Rx#:[id number] Nitroglycerin-D5w Pmx 50 1.5 mg In Dextrose/Water 1 250ml.bag @ Per Protocol IV ONCE ONE Rx#:[id number] Intake, IV Titration 61.217 42.042 14.458 Amount Insulin Regular 100 unit 37.617 42.042 14.458 In Sodium Chloride 0.9% 100 ml @ Per Protocol IV .Q0M [facility] Rx#:[id number] Nitroglycerin-D5w Pmx 50 23.6 mg In Dextrose/Water 1 250ml.bag @ 5 MCG/MIN 1.5 mls/hr IV .Q24H [facility] Rx#: [id number] Oral 1000 500 Output: Chest Tube Drainage 600 10 680 Left Pleural Chest Tube 280 10 300 Mediastinal Chext Tube X 60 2 Right Pleural Chest Tube 260 0 380 Urine 430 535 75 Other: Voiding Method Indwelling Catheter Indwelling Catheter Indwelling Catheter ABP, PAP, CO, CI - Last Documented Arterial Blood Pressure 102/52 Pulmonary Artery Pressure 39/22 Cardiac Output 5.9 Cardiac Index 2.9 - Constitutional General appearance: Present: cooperative, no acute distress, obese - Respiratory Details: Few scattered crackles throughout, diminished bilateral bases. Respirations are symmetrical and nonlabored. Oxygen saturation are 97% on 2 L nasal cannula. She is achieving 750 mL on her incentive spirometry. Left and right pleural chest tubes remained to low continuous wall suction -20 cm H2O. No air leak is present. Draining thin serosanguineous drainage. Right pleural chest tube drained 400 mL output in the last 24 hours, 190 mL output in the last 8 hours. Left pleural chest tube drained 340 mL output last 24 hours, 150 mL output in the last 8 hours. - Cardiovascular Details: Regular rhythm and rate. S1 and S2 present, negative for S3, gallop or murmur. Sternum is stable. Bedside telemetry showing normal sinus rhythm heart rate 90. +1 edema present to her bilateral lower extremities. Right IJ Cordis in place with continuous CVP monitoring, current CVP pressure 7 mmHg. Heart hugger is in place and she is demonstrating appropriate use. Knee-high BINDU hose and sequential compression devices in place to her bilateral lower extremities. - Gastrointestinal Gastrointestinal Comment(s): Abdomen is soft, nontender and nondistended. Active bowel sounds to all 4 abdominal quadrants. Tolerating oral intake. Passing flatus. - Genitourinary Genitourinary Comment(s): Ziegler catheter for accurate I&O. Draining clear yellow urine. 305 mL output in the last 8 hours. - Integumentary Integumentary Comment(s): Skin is warm and dry. No clubbing or cyanosis is present. Midline sternal incision is clean, dry and approximated. No drainage or redness present. Bilateral radial artery harvest sites clean, dry and approximated. No drainage or redness present. Bilateral hands are warm to touch. - Neurologic Neurologic: Present: CNII-XII intact - Musculoskeletal Musculoskeletal: Present: gait normal, generalized weakness, strength equal bilaterally - Psychiatric Psychiatric: Present: A&O x's 3, appropriate affect, intact judgment & insight - Allied health notes Allied health notes reviewed: nursing - Labs CBC & Chem 7: 10/10/18 04:49 10/10/18 04:49 Labs: Abnormal Lab Results - Last 24 Hours (Table) 10/09/18 10/09/18 10/09/18 Range/Units 10:24 11:24 12:34 WBC (3.8-10.6) k/uL RBC (3.80-5.40) m/uL Hgb (11.4-16.0) gm/dL Hct (34.0-46.0) % Neutrophils # (1.3-7.7) k/uL Lymphocytes # (1.0-4.8) k/uL Chloride (98-107) mmol/L Carbon Dioxide (22-30) mmol/L BUN (7-17) mg/dL Creatinine (0.52-1.04) mg/dL Glucose (74-99) mg/dL POC Glucose (mg/dL) 143 H 130 H 122 H (75-99) mg/dL Calcium (8.4-10.2) mg/dL Phosphorus (2.5-4.5) mg/dL Total Protein (6.3-8.2) g/dL Albumin (3.5-5.0) g/dL 10/09/18 10/09/18 10/09/18 Range/Units 13:37 16:09 17:27 WBC (3.8-10.6) k/uL RBC (3.80-5.40) m/uL Hgb (11.4-16.0) gm/dL Hct (34.0-46.0) % Neutrophils # (1.3-7.7) k/uL Lymphocytes # (1.0-4.8) k/uL Chloride (98-107) mmol/L Carbon Dioxide (22-30) mmol/L BUN (7-17) mg/dL Creatinine (0.52-1.04) mg/dL Glucose (74-99) mg/dL POC Glucose (mg/dL) 118 H 134 H 141 H (75-99) mg/dL Calcium (8.4-10.2) mg/dL Phosphorus (2.5-4.5) mg/dL Total Protein (6.3-8.2) g/dL Albumin (3.5-5.0) g/dL 10/09/18 10/09/18 10/09/18 Range/Units 19:04 19:58 21:04 WBC (3.8-10.6) k/uL RBC (3.80-5.40) m/uL Hgb (11.4-16.0) gm/dL Hct (34.0-46.0) % Neutrophils # (1.3-7.7) k/uL Lymphocytes # (1.0-4.8) k/uL Chloride (98-107) mmol/L Carbon Dioxide (22-30) mmol/L BUN (7-17) mg/dL Creatinine (0.52-1.04) mg/dL Glucose (74-99) mg/dL POC Glucose (mg/dL) 154 H 167 H 149 H (75-99) mg/dL Calcium (8.4-10.2) mg/dL Phosphorus (2.5-4.5) mg/dL Total Protein (6.3-8.2) g/dL Albumin (3.5-5.0) g/dL 10/09/18 10/09/18 10/10/18 Range/Units 21:55 23:04 00:02 WBC (3.8-10.6) k/uL RBC (3.80-5.40) m/uL Hgb (11.4-16.0) gm/dL Hct (34.0-46.0) % Neutrophils # (1.3-7.7) k/uL Lymphocytes # (1.0-4.8) k/uL Chloride (98-107) mmol/L Carbon Dioxide (22-30) mmol/L BUN (7-17) mg/dL Creatinine (0.52-1.04) mg/dL Glucose (74-99) mg/dL POC Glucose (mg/dL) 145 H 133 H 119 H (75-99) mg/dL Calcium (8.4-10.2) mg/dL Phosphorus (2.5-4.5) mg/dL Total Protein (6.3-8.2) g/dL Albumin (3.5-5.0) g/dL 10/10/18 10/10/18 10/10/18 Range/Units 01:13 01:56 02:56 WBC (3.8-10.6) k/uL RBC (3.80-5.40) m/uL Hgb (11.4-16.0) gm/dL Hct (34.0-46.0) % Neutrophils # (1.3-7.7) k/uL Lymphocytes # (1.0-4.8) k/uL Chloride (98-107) mmol/L Carbon Dioxide (22-30) mmol/L BUN (7-17) mg/dL Creatinine (0.52-1.04) mg/dL Glucose (74-99) mg/dL POC Glucose (mg/dL) 113 H 110 H 109 H (75-99) mg/dL Calcium (8.4-10.2) mg/dL Phosphorus (2.5-4.5) mg/dL Total Protein (6.3-8.2) g/dL Albumin (3.5-5.0) g/dL 10/10/18 10/10/18 10/10/18 Range/Units 03:56 04:47 04:49 WBC (3.8-10.6) k/uL RBC (3.80-5.40) m/uL Hgb (11.4-16.0) gm/dL Hct (34.0-46.0) % Neutrophils # (1.3-7.7) k/uL Lymphocytes # (1.0-4.8) k/uL Chloride 110 H (98-107) mmol/L Carbon Dioxide 20 L (22-30) mmol/L BUN 34 H (7-17) mg/dL Creatinine 1.38 H (0.52-1.04) mg/dL Glucose 122 H (74-99) mg/dL POC Glucose (mg/dL) 123 H 125 H (75-99) mg/dL Calcium 8.1 L (8.4-10.2) mg/dL Phosphorus 4.8 H (2.5-4.5) mg/dL Total Protein 5.0 L (6.3-8.2) g/dL Albumin 2.4 L (3.5-5.0) g/dL 10/10/18 10/10/18 10/10/18 Range/Units 04:49 06:10 06:53 WBC 11.2 H (3.8-10.6) k/uL RBC 2.64 L (3.80-5.40) m/uL Hgb 7.6 L (11.4-16.0) gm/dL Hct 24.0 L (34.0-46.0) % Neutrophils # 9.3 H (1.3-7.7) k/uL Lymphocytes # 0.8 L (1.0-4.8) k/uL Chloride (98-107) mmol/L Carbon Dioxide (22-30) mmol/L BUN (7-17) mg/dL Creatinine (0.52-1.04) mg/dL Glucose (74-99) mg/dL POC Glucose (mg/dL) 116 H 106 H (75-99) mg/dL Calcium (8.4-10.2) mg/dL Phosphorus (2.5-4.5) mg/dL Total Protein (6.3-8.2) g/dL Albumin (3.5-5.0) g/dL 10/10/18 Range/Units 08:20 WBC (3.8-10.6) k/uL RBC (3.80-5.40) m/uL Hgb (11.4-16.0) gm/dL Hct (34.0-46.0) % Neutrophils # (1.3-7.7) k/uL Lymphocytes # (1.0-4.8) k/uL Chloride (98-107) mmol/L Carbon Dioxide (22-30) mmol/L BUN (7-17) mg/dL Creatinine (0.52-1.04) mg/dL Glucose (74-99) mg/dL POC Glucose (mg/dL) 197 H (75-99) mg/dL Calcium (8.4-10.2) mg/dL Phosphorus (2.5-4.5) mg/dL Total Protein (6.3-8.2) g/dL Albumin (3.5-5.0) g/dL - Imaging and Cardiology Chest x-ray: report reviewed, image reviewed Assessment and Plan Assessment: 1. Coronary artery disease 2. Ischemic cardiomyopathy 3. Status post three-vessel coronary artery bypass 4. Systolic heart failure 5. Chronic obstructive pulmonary disease 6. Diabetes mellitus 7. History of heart artery stents 8. Hyperlipidemia 9. Iron deficiency anemia 10. Obesity (BMI 30.034.9) 11. Peripheral arterial disease 12. History of myocardial infarction, greater than 8 weeks ago 13. Tobacco dependence in remission Plan: 1. Continue aspirin, statin, Plavix, beta salome therapy. Will increase metoprolol tartrate 25 mg by mouth twice a day. 2. We will keep her right and left pleural chest tubes in place today to low continuous wall suction -20 cm H2O. 3. Continue oral Cardizem for radial artery spasm. Do not discontinue. 4. Wean O2 as tolerated. Encourage incentive spirometry is 10 times every hour while awake. 5. Discontinue right IJ Cordis. 6. Increase activity as tolerated. PT/OT/cardiac rehab following. 7. No diuresis today. 8. Bronchodilator management per pulmonology. 9. Pain control with current medication regimen. No Toradol secondary to chronic renal insufficiency. 10. GI prophylaxis with Protonix, DVT prophylaxis with subcu heparin, SCDs. 11. Insulin management per primary care service. 12. Will monitor daily labs and x-rays. Electrolyte replacement per protocol. 13. Dietitian to see patient for education regarding weight loss, reduced fat, reduced sugar diet. 14. More recommendations to follow based on patient's clinical course. Time with Patient: Greater than 30
[2018-10-10] MEDS: LACTATED RINGERS 1,000 ML IV SCH (12:09)
[2018-10-10 12:25] LABS: Glucose,Whole Blood 130 mg/dL (75-99)
[2018-10-10 18:46] LABS: Glucose,Whole Blood 254 mg/dL (75-99)
--- NOTE | 2018-10-10 19:56 | PN ---
PROGRESS NOTE DATE OF SERVICE: October 10, 2018. PRESENTING COMPLAINT: CABG. INTERVAL HISTORY: Patient is status post coronary artery bypass, sitting up on a chair. is present. Nasal cannula. Breathing is a bit better. Did tolerate some food. Chest tubes in place. The patient is in sinus rhythm. No pain. Breathing is a bit shallow. REVIEW OF SYSTEMS: Done for constitutional, cardiovascular, GI, pulmonary; relevant findings as above. CURRENT MEDICATIONS: Reviewed. PHYSICAL EXAMINATION: VITAL SIGNS: Temperature 98, pulse 84, respirations 15, blood pressure 99/64, pulse ox 96% on 2 L. GENERAL APPEARANCE: Propped up in a chair. Awake. EYES: Pupils equal. Conjunctivae pale. NECK: JVD unable to assess. Mass not palpable. RESPIRATORY: Effort increased. Lungs, decreased breath sounds. CARDIOVASCULAR: 1st and 2nd sounds normal. No edema. ABDOMEN: Soft, nontender. Liver and spleen not palpable. PSYCHIATRY: Alert and oriented x3. Mood and affect slightly tired-appearing. INVESTIGATIONS: White count 11.2, hemoglobin 7.6, platelets 115, potassium 4.4, BUN 34, creatinine 1.38, albumin 2.4. ASSESSMENT: 1. Status post triple vessel coronary bypass. 2. Chronic congestive heart failure from systolic dysfunction, ejection fraction 20-35 percent from underlying coronary artery disease. 3. Acute non-Q-wave myocardial infarction recently. 4. Peripheral artery disease. 5. Chronic urinary incontinence. 6. Diabetes mellitus type 2 on oral hypoglycemics, currently on sliding scale. 7. Chronic kidney stage 3 from diabetic nephropathy and nephrosclerosis. 8. Acute postoperative blood loss anemia expected from surgery. 9. Metabolic acidosis from renal failure. 10.Hypoalbuminemia as an acute phase reactant. PLAN: Continue current medication and treatment plan. Care was discussed with the patient. Activity as tolerated. MMODL / IJN: [id number] /
[2018-10-10 21:21] LABS: Glucose,Whole Blood 255 mg/dL (75-99)
[2018-10-10] MEDS: IPRATROPIUM-ALBUTEROL 3 ML NEB INHALATION SCH ×2 (21:35→21:36)
[2018-10-10] MEDS: SENNOSIDES-DOCUSATE SODIUM 1 EACH TAB PO SCH (22:06)
[2018-10-10] MEDS: INSULIN ASPART 100 UNIT/ML 1 ML 10 ML VIAL SQ SCH (22:07)
[2018-10-11] MEDS: DILTIAZEM ORAL 30 MG TAB PO SCH ×5 (00:38→17:25)
[2018-10-11] MEDS: HEPARIN SODIUM,PORCINE 5,000 UNIT/ML 1 ML VIAL SQ SCH ×4 (00:39→16:57)
[2018-10-11] MEDS: HYDROcodone/APAP 5-325MG 1 EACH TAB PO PRN ×4 (04:33→22:30)
[2018-10-11 06:02] LABS: HCT 25.1 % (34.0-46.0); HGB 7.8 gm/dL (11.4-16.0); Hypochromasia Marked; MCH 28.6 pg (25.0-35.0); MCV 92.1 fL (80.0-100.0); Mean Platelet Volume 6.7; Platelet Count 290 k/uL (150-450); RBC 2.73 m/uL (3.80-5.40); RDW 15.1 % (11.5-15.5); WBC 12.7 k/uL (3.8-10.6)
--- NOTE | 2018-10-11 06:18 | XR ---
EXAMINATION TYPE: XR chest 1V DATE OF EXAM: 10/11/2018 HISTORY: chest tubes. REFERENCE: Previous study dated 10/10/2018. FINDINGS: There has been a midline sternotomy. The heart is enlarged. The patient's right internal ju gular sheath is been removed. No definite pneumothorax is seen. There continue be bilateral pleural d rains in place. There is bibasilar airspace disease, worse on the left than the right. There are bila teral effusions, worse on the left than the right. IMPRESSION: CONTINUING POSTOPERATIVE CHANGE.
[2018-10-11 06:23] LABS: Albumin 2.7 g/dL (3.5-5.0); Calcium 8.6 mg/dL (8.4-10.2); Magnesium 2.6 mg/dL (1.6-2.3); Phosphorus 5.4 mg/dL (2.5-4.5); Potassium 4.9 mmol/L (3.5-5.1); Total Bilirubin 0.6 mg/dL (0.2-1.3); Total Protein 5.5 g/dL (6.3-8.2)
[2018-10-11] MEDS: INSULIN ASPART 100 UNIT/ML 1 ML 10 ML VIAL SQ SCH ×4 (07:10→22:28)
[2018-10-11 07:13] LABS: Glucose,Whole Blood 194 mg/dL (75-99)
--- NOTE | 2018-10-11 07:29 | P.PN ---
Subjective Progress Note Date: 10/11/18 Principal diagnosis: Status post open heart with CABG This is a pleasant 68-year-old female patient with past medical history the patient does have coronary artery disease with prior coronary artery stenting, diabetes type 2, hypertension, and dyslipidemia.who we consulted to see for cardiac follow-up after coronary artery bypass grafting. Earlier this month, September 2018, the patient presented to the hospital with shortness of breath. She was ruled in for acute non-ST deviation myocardial infarction with abnormal EKG as well as abnormal cardiac enzymes. At that point she underwent heart catheterization by Dr. Perez and that revealed severe triple-vessel coronary artery disease. Because of that the patient was referred to undergo coronary artery bypass grafting. The patient underwent yesterday coronary artery bypass grafting 3 where she received CONNELLY to LAD, JT to OM, and radial artery to right coronary artery. This is postoperative patient day #1. The patient was extubated last night. She is doing overall good giving her previous status of severe underlying coronary artery disease as well as cardiomyopathy. She has been maintaining normal sinus mechanism. Hemodynamically she is still requiring small doses of vasopressors. Beside that she is on nitroglycerin drip as well as Cardizem drip for the radial bypasses. The Cardizem drip is going to come off later on today as well as a nitro drip. The patient will be started on calcium channel salome by mouth either with Norvasc or with Cardizem by mouth. Beside that she continues to be on dual antiplatelet therapy with aspirin and Plavix as well as she is on statin and also she is on metoprolol by mouth. The last echocardiogram from September 2018 revealed impaired LV function with EF between 20-25% with basal inferior hypokinesia and inferoseptal hypokinesia. On follow-up with the patient today, she is doing better. She is not on any vasopressors at this point. She continues to be on dual antiplatelet therapy along with a statin as well as Cardizem by mouth. The hemoglobin this morning is 7.8 and the creatinine is 1.97. Overall the patient is doing better, she was sitting in her bed and doesn't look in any pain or any distress. Objective - Vital Signs Vital signs: Vital Signs Temp 99.0 F 10/11/18 04:00 Pulse 89 10/11/18 06:00 Resp 10 L 10/11/18 06:00 BP 83/64 10/11/18 06:00 Pulse Ox 96 10/11/18 06:00 Intake & Output 10/10/18 10/11/18 10/11/18 18:59 06:59 18:59 Intake Total 652.458 240 Output Total 910 640 Balance -257.542 -400 Intake: IV 138 .9NS Pressure Bag 18 Lactated Ringers 1,000 ml 120 @ 20 mls/hr IV .Q24H [facility] Rx#:[id number] Intake, IV Titration 14.458 Amount Insulin Regular 100 unit 14.458 In Sodium Chloride 0.9% 100 ml @ Per Protocol IV .Q0M [facility] Rx#:[id number] Oral 500 240 Output: Chest Tube Drainage 770 240 Left Pleural Chest Tube 330 100 Right Pleural Chest Tube 440 140 Urine 140 400 Other: Voiding Method Indwelling Catheter Bedside Commode # Voids 1 ABP, PAP, CO, CI - Last Documented Arterial Blood Pressure 102/52 Pulmonary Artery Pressure 39/22 Cardiac Output 5.9 Cardiac Index 2.9 - Constitutional General appearance: Present: no acute distress - Respiratory Respiratory: bilateral: diminished - Cardiovascular Rhythm: regular - Labs CBC & Chem 7: 10/11/18 05:09 10/11/18 05:09 Labs: Abnormal Lab Results - Last 24 Hours (Table) 10/10/18 10/10/18 10/10/18 Range/Units 08:20 10:29 12:13 WBC (3.8-10.6) k/uL RBC (3.80-5.40) m/uL Hgb (11.4-16.0) gm/dL Hct (34.0-46.0) % Chloride (98-107) mmol/L Carbon Dioxide (22-30) mmol/L BUN (7-17) mg/dL Creatinine (0.52-1.04) mg/dL Glucose (74-99) mg/dL POC Glucose (mg/dL) 197 H 167 H 130 H (75-99) mg/dL Phosphorus (2.5-4.5) mg/dL Magnesium (1.6-2.3) mg/dL AST (14-36) U/L Total Protein (6.3-8.2) g/dL Albumin (3.5-5.0) g/dL 10/10/18 10/10/18 10/11/18 Range/Units 16:49 21:10 05:09 WBC (3.8-10.6) k/uL RBC (3.80-5.40) m/uL Hgb (11.4-16.0) gm/dL Hct (34.0-46.0) % Chloride 109 H (98-107) mmol/L Carbon Dioxide 19 L (22-30) mmol/L BUN 45 H (7-17) mg/dL Creatinine 1.97 H (0.52-1.04) mg/dL Glucose 190 H (74-99) mg/dL POC Glucose (mg/dL) 254 H 255 H (75-99) mg/dL Phosphorus 5.4 H (2.5-4.5) mg/dL Magnesium 2.6 H (1.6-2.3) mg/dL AST 13 L (14-36) U/L Total Protein 5.5 L (6.3-8.2) g/dL Albumin 2.7 L (3.5-5.0) g/dL 10/11/18 10/11/18 Range/Units 05:09 07:01 WBC 12.7 H (3.8-10.6) k/uL RBC 2.73 L (3.80-5.40) m/uL Hgb 7.8 L (11.4-16.0) gm/dL Hct 25.1 L (34.0-46.0) % Chloride (98-107) mmol/L Carbon Dioxide (22-30) mmol/L BUN (7-17) mg/dL Creatinine (0.52-1.04) mg/dL Glucose (74-99) mg/dL POC Glucose (mg/dL) 194 H (75-99) mg/dL Phosphorus (2.5-4.5) mg/dL Magnesium (1.6-2.3) mg/dL AST (14-36) U/L Total Protein (6.3-8.2) g/dL Albumin (3.5-5.0) g/dL Assessment and Plan Assessment: Assessment #1 severe underlying coronary artery disease as described above #2 status post coronary artery bypass grafting 3 as described above #3 diabetes type 2 #4 hypertension #5 dyslipidemia Plan #1 continue the current medical regimen including dual antiplatelet therapy along with statin and metoprolol #2 continue monitor the hemoglobin as well as BUN and electrolytes #3 continue daily chest x-ray #4 follow-up with the patient. Thank you for allowing us participate in her care and we will continue following up with the patient
[2018-10-11] MEDS: IPRATROPIUM-ALBUTEROL 3 ML NEB INHALATION SCH ×4 (08:17→19:14)
[2018-10-11] MEDS: PANTOPRAZOLE 40 MG TABLET PO SCH (08:53)
[2018-10-11] MEDS: ASPIRIN 325 MG TAB PO SCH (08:53)
[2018-10-11] MEDS: METOPROLOL TARTRATE 25 MG TAB PO SCH (08:53)
[2018-10-11] MEDS: CLOPIDOGREL 75 MG TAB PO SCH (08:53)
[2018-10-11] MEDS: MUPIROCIN 2% OINT 22 GM TUBE NASAL SCH ×2 (08:53→22:28)
[2018-10-11] MEDS: ATORVASTATIN 40 MG TAB PO SCH (08:53)
[2018-10-11] MEDS: MAGNESIUM HYDROXIDE 2,400 MG/10 ML CUP PO PRN (08:54)
[2018-10-11] MEDS ORDERED: ALBUMIN HUMAN 5% 500 ML in EMPTY BAG 1 BAG IVPB ONE (09:30)
--- NOTE | 2018-10-11 09:59 | P.PN ---
Subjective Progress Note Date: 10/11/18 Principal diagnosis: Status post CABG, postoperative day #3 Patient was seen today on 10/09/2018, she is postoperative day #1, off pump coronary artery bypass graft surgery 3, CONNELLY to LAD, right radial artery graft to the obtuse marginal and left radial arterial graft to the posterior descending artery, bilateral endovascular radial artery harvesting. Patient was extubated uneventfully yesterday shortly after she was seen in the intensive care unit. She tolerated the extubation well, and she is now on few liters nasal cannula. Patient is relatively asymptomatic, she was maintained on Cardizem IV nitro IV dopamine overnight, she is hemodynamically stable, and denies any specific complaints today. Chest x-ray is suggestive of mild postoperative interstitial edema. And bibasilar atelectasis, expected postoperatively all labs were reviewed, hemoglobin is 8.0 today. Renal profile is about baseline, creatinine is 1.25. It was 1.33 yesterday. Patient was reevaluated today on 10/10/2018, postoperative day #2. Patient is doing relatively well, she denies any shortness of breath cough or wheezing. Remains on few liters nasal cannula. She is hemodynamically stable. Not requiring any pressors. Hemoglobin is 7.6 today, and her creatinine is about her baseline 1.38. Patient is doing fairly well with incentive spirometry, roughly about 700 mL. Patient was reevaluated today on 10/11/2018, she is postoperative day #3. Patient is doing fairly well, relatively asymptomatic, she has some discomfort from the chest tubes in place. And these will likely be discontinued today. Patient is not requiring any pressors, she continues on the dual antiplatelet therapy with statin and Cardizem by mouth. Her labs were reviewed, creatinine is slightly higher today, her baseline is about 1.30, and today is 1.97. May likely benefit from more fluids. Chest x-ray showed mostly heart is enlarged, bibasilar atelectasis is noted mostly on the left. And small pleural effusions noted. Objective - Vital Signs Vital signs: Vital Signs Temp 97.2 F L 10/11/18 08:00 Pulse 90 10/11/18 09:00 Resp 45 H 10/11/18 09:00 BP 104/62 10/11/18 09:00 Pulse Ox 91 L 10/11/18 09:00 Intake & Output 10/10/18 10/11/18 10/11/18 18:59 06:59 18:59 Intake Total 652.458 240 750 Output Total 910 640 100 Balance -257.542 -400 650 Intake: IV 138 .9NS Pressure Bag 18 Lactated Ringers 1,000 ml 120 @ 20 mls/hr IV .Q24H [facility] Rx#:[id number] Intake, IV Titration 14.458 Amount Insulin Regular 100 unit 14.458 In Sodium Chloride 0.9% 100 ml @ Per Protocol IV .Q0M [facility] Rx#:[id number] Oral 500 240 750 Output: Chest Tube Drainage 770 240 100 Left Pleural Chest Tube 330 100 30 Right Pleural Chest Tube 440 140 70 Urine 140 400 0 Other: Voiding Method Indwelling Catheter Bedside Commode Bedside Commode # Voids 1 0 ABP, PAP, CO, CI - Last Documented Arterial Blood Pressure 102/52 Pulmonary Artery Pressure 39/22 Cardiac Output 5.9 Cardiac Index 2.9 - Exam Physical Exam: Revealed a 68-year-old female, pleasant, in no distress. On 3 L nasal cannula. Head: Atraumatic normocephalic. Lymphatics: No lymphadenopathy. HEENT:[Neck is supple.] [No neck masses.] [No thyromegaly.] [No JVD.] Chest: [Minimal fine crackles at the bases. No rhonchi no wheezes, chest tubes were noted. Cardiac Exam: [Normal S1 and S2, no S3 gallop, no murmur.] Abdomen: [Soft, nontender, no megaly, no rebound, no guarding, normal bowel sounds.] Extremities: [No clubbing, trace of bipedal edema, no cyanosis.] Neurological Exam: [No focal neurologic deficit. Normal mood, affect and mental status examination.] - Labs CBC & Chem 7: 10/11/18 05:09 10/11/18 05:09 Labs: Abnormal Lab Results - Last 24 Hours (Table) 10/10/18 10/10/18 10/10/18 Range/Units 10:29 12:13 16:49 WBC (3.8-10.6) k/uL RBC (3.80-5.40) m/uL Hgb (11.4-16.0) gm/dL Hct (34.0-46.0) % Chloride (98-107) mmol/L Carbon Dioxide (22-30) mmol/L BUN (7-17) mg/dL Creatinine (0.52-1.04) mg/dL Glucose (74-99) mg/dL POC Glucose (mg/dL) 167 H 130 H 254 H (75-99) mg/dL Phosphorus (2.5-4.5) mg/dL Magnesium (1.6-2.3) mg/dL AST (14-36) U/L Total Protein (6.3-8.2) g/dL Albumin (3.5-5.0) g/dL 10/10/18 10/11/18 10/11/18 Range/Units 21:10 05:09 05:09 WBC 12.7 H (3.8-10.6) k/uL RBC 2.73 L (3.80-5.40) m/uL Hgb 7.8 L (11.4-16.0) gm/dL Hct 25.1 L (34.0-46.0) % Chloride 109 H (98-107) mmol/L Carbon Dioxide 19 L (22-30) mmol/L BUN 45 H (7-17) mg/dL Creatinine 1.97 H (0.52-1.04) mg/dL Glucose 190 H (74-99) mg/dL POC Glucose (mg/dL) 255 H (75-99) mg/dL Phosphorus 5.4 H (2.5-4.5) mg/dL Magnesium 2.6 H (1.6-2.3) mg/dL AST 13 L (14-36) U/L Total Protein 5.5 L (6.3-8.2) g/dL Albumin 2.7 L (3.5-5.0) g/dL 10/11/18 Range/Units 07:01 WBC (3.8-10.6) k/uL RBC (3.80-5.40) m/uL Hgb (11.4-16.0) gm/dL Hct (34.0-46.0) % Chloride (98-107) mmol/L Carbon Dioxide (22-30) mmol/L BUN (7-17) mg/dL Creatinine (0.52-1.04) mg/dL Glucose (74-99) mg/dL POC Glucose (mg/dL) 194 H (75-99) mg/dL Phosphorus (2.5-4.5) mg/dL Magnesium (1.6-2.3) mg/dL AST (14-36) U/L Total Protein (6.3-8.2) g/dL Albumin (3.5-5.0) g/dL Assessment and Plan Assessment: Impression: 1 coronary artery disease, status post CABG, postoperative day #3 2 status post three-vessel coronary artery bypass surgery. 3 ischemic cardiomyopathy and LV dysfunction 4 history of chronic systolic heart failure. 5 history of COPD 6 postoperative atelectasis and small pleural effusions noted, expected findings after surgery. 6 multiple comorbidities: history of diabetes, hyperlipidemia, iron deficiency anemia, peripheral vessel occlusive disease involving lower extremities, history of previous AK, and history of tobacco dependence presently in remission. Recommendation: Continue all cardiac meds including beta blockers Plavix statin and aspirin. Continue Cardizem orally Continue to titrate O2 as tolerated. continue to encourage incentive spirometry, continue bronchodilators, ambulate today, continue glucose management with insulin as per protocol, monitor x-rays on a daily basis, patient will remain in the ICU today, continue to monitor renal profile, and if gets any worse, consider nephrology evaluation. Patient will still require further stay in the ICU, and we will continue to follow. Time with Patient: Less than 30
[2018-10-11 11:56] LABS: Glucose,Whole Blood 229 mg/dL (75-99)
[2018-10-11] MEDS: LACTATED RINGERS 1,000 ML IV SCH (12:15)
--- NOTE | 2018-10-11 12:24 | P.PN ---
Subjective Progress Note Date: 10/11/18 Principal diagnosis: Coronary artery disease, chronic systolic and diastolic heart failure with preoperative ejection fraction 20-25%, ischemic cardiomyopathy and LV dysfunction, history of non-STEMI earlier this month as well as in 2006 with stent placement at that time, hyperlipidemia, peripheral artery disease with stent placement to the left lower extremity in 2016, chronic kidney disease with baseline creatinine 1.3-1.5, recent vein surgery to bilateral lower extremity is, [id number] diabetes mellitus with preoperative hemoglobin A1c 7.1%, shingles, obesity, moderate COPD with preoperative FEV1 51 % of predicted, previous tobacco dependence, and family history of early coronary artery disease with mother dying before the age of 6060 years old during coronary artery bypass graft surgery. Preoperative nasal swab positive for MSSA. Preoperative normocytic, normochromic anemia. POD #3 off-pump coronary artery bypass graft surgery 3 with the left internal mammary artery artery graft to the left anterior descending artery, right radial artery graft to the obtuse marginal and the left radial arterial graft to the posterior descending artery, bilateral endovascular radial artery harvest. Intraoperative transesophageal echocardiogram by anesthesia. Postoperative acute blood loss anemia, an expected outcome. Patient is currently sitting up to the bedside chair in the intensive care unit. She is in no acute distress. She is complaining of pain to her chest tube insertion sites 3 out of 10 on the pain scale, she denies any complaints of shortness of breath.. She remains on 1 L nasal cannula with oxygen saturations 93%. She remains on Cardizem 30 mg every 6 hours by mouth for her bilateral radial artery harvest. She remains hemodynamically stable. She reports she ambulated in her room yesterday 2 but did not ambulate in the intensive care hallway. Objective - Vital Signs Vital signs: Vital Signs Temp 97.2 F L 10/11/18 08:00 Pulse 86 10/11/18 11:49 Resp 9 L 10/11/18 11:00 BP 119/65 10/11/18 11:00 Pulse Ox 94 L 10/11/18 11:00 Intake & Output 10/10/18 10/11/18 10/11/18 18:59 06:59 18:59 Intake Total 652.458 240 750 Output Total 910 640 300 Balance -257.542 -400 450 Intake: IV 138 .9NS Pressure Bag 18 Lactated Ringers 1,000 ml 120 @ 20 mls/hr IV .Q24H [facility] Rx#:[id number] Intake, IV Titration 14.458 Amount Insulin Regular 100 unit 14.458 In Sodium Chloride 0.9% 100 ml @ Per Protocol IV .Q0M [facility] Rx#:[id number] Oral 500 240 750 Output: Chest Tube Drainage 770 240 100 Left Pleural Chest Tube 330 100 30 Right Pleural Chest Tube 440 140 70 Urine 140 400 200 Other: Voiding Method Indwelling Catheter Bedside Commode Bedside Commode # Voids 1 0 ABP, PAP, CO, CI - Last Documented Arterial Blood Pressure 102/52 Pulmonary Artery Pressure 39/22 Cardiac Output 5.9 Cardiac Index 2.9 - Constitutional General appearance: Present: cooperative, no acute distress, obese - Respiratory Details: Few scattered crackles throughout, diminished bilateral bases. Respirations are symmetrical and nonlabored. Oxygen saturation are 93% on 1 L nasal cannula. She is achieving 500-750 mL on her incentive spirometry. Right and left pleural chest tubes remain in place to low continuous wall suction -20 cm H2O. Draining thin serosanguineous drainage. No air leak is present. Right pleural chest tube drained 280 mL output in the last 24 hours, left pleural chest tube drained 160 mL output in the last 24 hours. - Cardiovascular Details: Regular rhythm and rate. S1 and S2 present, negative for S3, gallop or murmur. Sternum is stable. Bedside telemetry showing normal sinus rhythm heart rate 89. Heart hugger is in place and she is demonstrating appropriate use. Knee- high BINDU hose and sequential compression devices in place to bilateral lower extremities. +1 edema to her bilateral lower extremities. - Gastrointestinal Gastrointestinal Comment(s): Abdomen soft, nontender and nondistended. Active bowel sounds to all 4 abdominal quadrants. Regarding rigidity. No organomegaly. Tolerating oral intake. - Genitourinary Genitourinary Comment(s): Voiding clear yellow urine. - Integumentary Integumentary Comment(s): Skin is warm and dry. No clubbing or cyanosis is present. Midline sternal incision is clean, dry and approximated. No drainage or redness present. Bilateral radial artery harvest sites clean, dry and approximated. No drainage or redness present. Soft, nontender ecchymotic areas to her bilateral forearms. - Neurologic Neurologic: Present: CNII-XII intact - Musculoskeletal Musculoskeletal: Present: gait normal, generalized weakness, strength equal bilaterally - Psychiatric Psychiatric: Present: A&O x's 3, appropriate affect, intact judgment & insight - Allied health notes Allied health notes reviewed: nursing - Labs CBC & Chem 7: 10/11/18 05:09 10/11/18 05:09 Labs: Abnormal Lab Results - Last 24 Hours (Table) 10/10/18 10/10/18 10/10/18 Range/Units 12:13 16:49 21:10 WBC (3.8-10.6) k/uL RBC (3.80-5.40) m/uL Hgb (11.4-16.0) gm/dL Hct (34.0-46.0) % Chloride (98-107) mmol/L Carbon Dioxide (22-30) mmol/L BUN (7-17) mg/dL Creatinine (0.52-1.04) mg/dL Glucose (74-99) mg/dL POC Glucose (mg/dL) 130 H 254 H 255 H (75-99) mg/dL Phosphorus (2.5-4.5) mg/dL Magnesium (1.6-2.3) mg/dL AST (14-36) U/L Total Protein (6.3-8.2) g/dL Albumin (3.5-5.0) g/dL 10/11/18 10/11/18 10/11/18 Range/Units 05:09 05:09 07:01 WBC 12.7 H (3.8-10.6) k/uL RBC 2.73 L (3.80-5.40) m/uL Hgb 7.8 L (11.4-16.0) gm/dL Hct 25.1 L (34.0-46.0) % Chloride 109 H (98-107) mmol/L Carbon Dioxide 19 L (22-30) mmol/L BUN 45 H (7-17) mg/dL Creatinine 1.97 H (0.52-1.04) mg/dL Glucose 190 H (74-99) mg/dL POC Glucose (mg/dL) 194 H (75-99) mg/dL Phosphorus 5.4 H (2.5-4.5) mg/dL Magnesium 2.6 H (1.6-2.3) mg/dL AST 13 L (14-36) U/L Total Protein 5.5 L (6.3-8.2) g/dL Albumin 2.7 L (3.5-5.0) g/dL 10/11/18 Range/Units 11:44 WBC (3.8-10.6) k/uL RBC (3.80-5.40) m/uL Hgb (11.4-16.0) gm/dL Hct (34.0-46.0) % Chloride (98-107) mmol/L Carbon Dioxide (22-30) mmol/L BUN (7-17) mg/dL Creatinine (0.52-1.04) mg/dL Glucose (74-99) mg/dL POC Glucose (mg/dL) 229 H (75-99) mg/dL Phosphorus (2.5-4.5) mg/dL Magnesium (1.6-2.3) mg/dL AST (14-36) U/L Total Protein (6.3-8.2) g/dL Albumin (3.5-5.0) g/dL - Imaging and Cardiology Chest x-ray: report reviewed, image reviewed Assessment and Plan (1) Status post three vessel coronary artery bypass Current Visit: Yes Status: Acute Code(s): Z95.1 - PRESENCE OF AORTOCORONARY BYPASS GRAFT SNOMED Code(s): 948796087 (2) COPD (chronic obstructive pulmonary disease) Current Visit: Yes Status: Chronic Code(s): J44.9 - CHRONIC OBSTRUCTIVE PULMONARY DISEASE, UNSPECIFIED SNOMED Code(s): 96921527 (3) Coronary artery disease Current Visit: Yes Status: Chronic Code(s): I25.10 - ATHSCL HEART DISEASE OF [place] CORONARY ARTERY W/O ANG PCTRS SNOMED Code(s): 04651216 (4) Diabetes mellitus Current Visit: Yes Status: Chronic Code(s): E11.9 - TYPE 2 DIABETES MELLITUS WITHOUT COMPLICATIONS SNOMED Code(s): 93428692 (5) History of heart artery stent Current Visit: Yes Status: Chronic Code(s): Z95.5 - PRESENCE OF CORONARY ANGIOPLASTY IMPLANT AND GRAFT SNOMED Code(s): 972282886 (6) Hyperlipidemia Current Visit: Yes Status: Chronic Code(s): E78.5 - HYPERLIPIDEMIA, UNSPECIFIED SNOMED Code(s): 43996863 (7) Iron deficiency anemia Current Visit: Yes Status: Chronic Code(s): D50.9 - IRON DEFICIENCY ANEMIA, UNSPECIFIED SNOMED Code(s): 26353926 (8) Ischemic cardiomyopathy Current Visit: Yes Status: Chronic Code(s): I25.5 - ISCHEMIC CARDIOMYOPATHY SNOMED Code(s): 659356790 (9) Obesity (BMI 30.0-34.9) Current Visit: Yes Status: Chronic Code(s): E66.9 - OBESITY, UNSPECIFIED SNOMED Code(s): 393286319138638 (10) Peripheral artery disease Current Visit: Yes Status: Chronic Code(s): I73.9 - PERIPHERAL VASCULAR DISEASE, UNSPECIFIED SNOMED Code(s): 927604157 (11) Systolic heart failure Current Visit: Yes Status: Chronic Code(s): I50.20 - UNSPECIFIED SYSTOLIC ( CONGESTIVE) HEART FAILURE SNOMED Code(s): 830433923 (12) Congestive heart failure Current Visit: No Status: Acute Code(s): I50.9 - HEART FAILURE, UNSPECIFIED SNOMED Code(s): 29955844 (13) History of myocardial infarction, greater than 8 weeks ago Current Visit: No Status: Resolved Code(s): I25.2 - OLD MYOCARDIAL INFARCTION SNOMED Code(s): 7276839 (14) Tobacco dependence in remission Current Visit: No Status: Resolved Code(s): F17.201 - NICOTINE DEPENDENCE, UNSPECIFIED, IN REMISSION SNOMED Code(s): 858230292 Plan: 1. Continue aspirin, statin, Plavix, beta salome therapy. Will decrease metoprolol tartrate 12.5 mg by mouth twice a day. 2. We will discontinue her right and left pleural chest tubes. Right and left pleural chest tubes were discontinued without incident. 3. Continue oral Cardizem for radial artery spasm. Do not discontinue. 4. Wean O2 as tolerated. Encourage incentive spirometry is 10 times every hour while awake. 5. Albumin 5% 500 mL 1 now. Start dopamine 3 mcg/kg/m renal dose. 6. Increase activity as tolerated. PT/OT/cardiac rehab following. 7. No diuresis today. 8. Bronchodilator management per pulmonology. 9. Pain control with current medication regimen. No Toradol secondary to chronic renal insufficiency. 10. GI prophylaxis with Protonix, DVT prophylaxis with subcu heparin, SCDs. 11. Insulin management per primary care service. 12. Will monitor daily labs and x-rays. Electrolyte replacement per protocol. 13. Dietitian to see patient for education regarding weight loss, reduced fat, reduced sugar diet. 14. More recommendations to follow based on patient's clinical course. Time with Patient: Greater than 30
[2018-10-11] MEDS: DEXTROSE/WATER 1 500ML.BAG with DOPamine DRIP 800 MG IV SCH (13:07)
[2018-10-11] MEDS: ONDANSETRON 4 MG/2 ML VIAL IVP PRN (13:50)
[2018-10-11] MEDS ORDERED: ACETAMINOPHEN TAB 325 MG TAB PO PRN (16:54)
[2018-10-11 17:14] LABS: Glucose,Whole Blood 207 mg/dL (75-99)
[2018-10-11 21:58] LABS: Glucose,Whole Blood 193 mg/dL (75-99)
[2018-10-11] MEDS: SENNOSIDES-DOCUSATE SODIUM 1 EACH TAB PO SCH (22:28)
[2018-10-11] MEDS: INSULIN DETEMIR 100 UNIT/ML 10 ML VIAL SQ SCH (22:28)
[2018-10-11] MEDS: METOPROLOL TARTRATE 12.5 MG TAB PO SCH (22:28)
[2018-10-12] MEDS: HEPARIN SODIUM,PORCINE 5,000 UNIT/ML 1 ML VIAL SQ SCH ×3 (00:13→16:57)
[2018-10-12] MEDS: DILTIAZEM ORAL 30 MG TAB PO SCH ×3 (00:13→16:57)
--- NOTE | 2018-10-12 00:22 | PN ---
PROGRESS NOTE DATE OF SERVICE: 10/11/2018 PRESENTING COMPLAINT: CABG. INTERVAL HISTORY: Patient is status post coronary artery bypass, sitting up in a chair, though a bit tired, wearing nasal cannula. Did tolerate little bit. Chest tubes were taken out today. Remains in sinus rhythm. REVIEW OF SYSTEMS: Done for constitutional, cardiovascular, GI, pulmonary; relevant findings as above. CURRENT MEDICATIONS: Reviewed. PHYSICAL EXAMINATION: VITAL SIGNS: Temperature 98.2, pulse 98, respiration 16, blood pressure 92/52, pulse ox 94 percent on 3 L. GENERAL APPEARANCE: Lying in bed, tired-appearing. EYES: Pupils equal. Conjunctivae normal. NECK: JVD unable to assess. Mass not palpable. RESPIRATORY: Effort increased. LUNGS: Decreased breath sounds. CARDIOVASCULAR: First and second sounds. Some edema. ABDOMEN: Soft, nontender. Liver and spleen not palpable. PSYCHIATRY: Answering questions though tired-appearing. INVESTIGATIONS: White count 12.7, hemoglobin 7.8, potassium 4.9, bicarb 19, BUN 45, creatinine 1.97. ASSESSMENT: 1. Status post triple vessel coronary artery bypass. 2. Chronic congestive heart failure from systolic dysfunction ejection fraction 20% to 25% from underlying coronary artery disease. 3. Acute non-Q-wave ND infarction last admission. 4. Peripheral artery disease. 5. Chronic urine incontinence. 6. Diabetes mellitus type 2 on oral hypoglycemics. Currently on sliding scale. 7. Chronic kidney stage 3 from diabetic nephropathy and nephrosclerosis. 8. Acute renal failure probably prerenal component. 9. Acute postoperative blood loss anemia expected from surgery. 10.Metabolic acidosis renal failure. 11.Hypoalbuminemia as an acute phase reactant. PLAN: Keep a close eye on patient's hemodynamics. Levemir is being added. Keep a close eye on renal function. If renal function deteriorates, may have to get Nephrology involved. MMODL / IJN: [id number] /
[2018-10-12 05:18] LABS: Basophils % (A) 0 %; Eosinophils # (A) 0.3 k/uL (0-0.7); Eosinophils % (A) 3 %; HCT 23.6 % (34.0-46.0); HGB 7.2 gm/dL (11.4-16.0); Hypochromasia Moderate; Lymphocytes # (A) 0.8 k/uL (1.0-4.8); Lymphocytes % (A) 8 %; MCH 27.7 pg (25.0-35.0); MCHC 30.5 g/dL (31.0-37.0); MCV 90.8 fL (80.0-100.0); Mean Platelet Volume 6.8; Monocytes # (A) 0.7 k/uL (0-1.0); Monocytes % (A) 7 %; Neutrophils # (A) 7.4 k/uL (1.3-7.7); Neutrophils % (A) 78 %; Platelet Count 281 k/uL (150-450); RDW 15.3 % (11.5-15.5); WBC 9.4 k/uL (3.8-10.6)
[2018-10-12 05:45] LABS: Albumin 2.7 g/dL (3.5-5.0); Calcium 8.5 mg/dL (8.4-10.2); Magnesium 3.2 mg/dL (1.6-2.3); Phosphorus 5.1 mg/dL (2.5-4.5); Total Bilirubin 0.5 mg/dL (0.2-1.3); Total Protein 5.4 g/dL (6.3-8.2)
[2018-10-12] MEDS: IPRATROPIUM-ALBUTEROL 3 ML NEB INHALATION SCH ×4 (06:50→19:57)
[2018-10-12 07:20] LABS: Glucose,Whole Blood 141 mg/dL (75-99)
--- NOTE | 2018-10-12 07:26 | P.PN ---
Subjective Progress Note Date: 10/12/18 Principal diagnosis: Status post open heart with CABG This is a pleasant 68-year-old female patient with past medical history the patient does have coronary artery disease with prior coronary artery stenting, diabetes type 2, hypertension, and dyslipidemia.who we consulted to see for cardiac follow-up after coronary artery bypass grafting. Earlier this month, September 2018, the patient presented to the hospital with shortness of breath. She was ruled in for acute non-ST deviation myocardial infarction with abnormal EKG as well as abnormal cardiac enzymes. At that point she underwent heart catheterization by Dr. Perez and that revealed severe triple-vessel coronary artery disease. Because of that the patient was referred to undergo coronary artery bypass grafting. The patient underwent yesterday coronary artery bypass grafting 3 where she received CONNELLY to LAD, JT to OM, and radial artery to right coronary artery. The last echocardiogram from September 2018 revealed impaired LV function with EF between 20-25% with basal inferior hypokinesia and inferoseptal hypokinesia. On follow-up with the patient today, October 122018, overall clinically she is doing well. She was started on low-dose dopamine yesterday for renal perfusion. The blood pressure has been marginally low. The creatinine is 2.0 which is slightly worse. I did suggest decreasing the dose of Cardizem to 3 times a day from 4 times a day because of the low blood pressure. Continue dual antiplatelet therapy along with a statin. The hemoglobin is 7.2. Objective - Vital Signs Vital signs: Vital Signs Temp 98.7 F 10/12/18 04:00 Pulse 89 10/12/18 07:00 Resp 15 10/12/18 07:00 BP 118/57 10/12/18 07:00 Pulse Ox 98 10/12/18 07:00 Intake & Output 10/11/18 10/12/18 10/12/18 18:59 06:59 18:59 Intake Total 2187.28 240.91 10 Output Total 925 700 Balance 1262.28 -459.09 10 Weight 95.8 kg Intake: IV 110 10 DOPamine DRIP 800 mg In 110 10 Dextrose/Water 1 500ml. bag @ 3 MCG/KG/MIN 10.22 mls/hr IV .Q24H [facility] Rx#: [id number] Intake, IV Titration 587.28 10.91 Amount Albumin Human 5% 500 ml 500 In Empty Bag 1 bag @ 250 mls/hr IVPB ONCE ONE Rx#: [id number] Dextrose/Water 1 500ml. 87.28 10.91 bag @ 3 MCG/KG/MIN 10.91 mls/hr IV .Q24H [facility] with DOPamine DRIP 800 mg Rx#: [id number] Oral 1600 120 Output: Chest Tube Drainage 100 Left Pleural Chest Tube 30 Right Pleural Chest Tube 70 Urine 825 700 Other: Voiding Method Bedside Commode Bedside Commode # Voids 0 1 ABP, PAP, CO, CI - Last Documented Arterial Blood Pressure 102/52 Pulmonary Artery Pressure 39/22 Cardiac Output 5.9 Cardiac Index 2.9 - Constitutional General appearance: Present: no acute distress - Respiratory Respiratory: bilateral: CTA - Cardiovascular Rhythm: regular Heart sounds: normal: S1, S2 - Labs CBC & Chem 7: 10/12/18 04:39 10/12/18 04:39 Labs: Abnormal Lab Results - Last 24 Hours (Table) 10/11/18 10/11/18 10/11/18 Range/Units 11:44 17:03 21:46 RBC (3.80-5.40) m/uL Hgb (11.4-16.0) gm/dL Hct (34.0-46.0) % MCHC (31.0-37.0) g/dL Lymphocytes # (1.0-4.8) k/uL Sodium (137-145) mmol/L BUN (7-17) mg/dL Creatinine (0.52-1.04) mg/dL Glucose (74-99) mg/dL POC Glucose (mg/dL) 229 H 207 H 193 H (75-99) mg/dL Phosphorus (2.5-4.5) mg/dL Magnesium (1.6-2.3) mg/dL Total Protein (6.3-8.2) g/dL Albumin (3.5-5.0) g/dL 10/12/18 10/12/18 10/12/18 Range/Units 04:39 04:39 07:08 RBC 2.60 L (3.80-5.40) m/uL Hgb 7.2 L (11.4-16.0) gm/dL Hct 23.6 L (34.0-46.0) % MCHC 30.5 L (31.0-37.0) g/dL Lymphocytes # 0.8 L (1.0-4.8) k/uL Sodium 133 L (137-145) mmol/L BUN 53 H (7-17) mg/dL Creatinine 2.00 H (0.52-1.04) mg/dL Glucose 133 H (74-99) mg/dL POC Glucose (mg/dL) 141 H (75-99) mg/dL Phosphorus 5.1 H (2.5-4.5) mg/dL Magnesium 3.2 H (1.6-2.3) mg/dL Total Protein 5.4 L (6.3-8.2) g/dL Albumin 2.7 L (3.5-5.0) g/dL Assessment and Plan Assessment: Assessment #1 severe underlying coronary artery disease as described above #2 status post coronary artery bypass grafting 3 as described above #3 diabetes type 2 #4 hypertension #5 dyslipidemia Plan #1 continue the current medical regimen including dual antiplatelet therapy along with statin and metoprolol. I would suggest decrease the dose of Cardizem to 3 times a day. #2 continue monitor the hemoglobin as well as BUN and electrolytes #3 continue daily chest x-ray #4 follow-up with the patient. Thank you for allowing us participate in her care and we will continue following up with the patient
[2018-10-12] MEDS: INSULIN ASPART 100 UNIT/ML 1 ML 10 ML VIAL SQ SCH ×4 (07:35→20:46)
[2018-10-12] MEDS: CLOPIDOGREL 75 MG TAB PO SCH (08:53)
[2018-10-12] MEDS: PANTOPRAZOLE 40 MG TABLET PO SCH (08:53)
[2018-10-12] MEDS: METOPROLOL TARTRATE 12.5 MG TAB PO SCH ×2 (08:53→20:46)
[2018-10-12] MEDS: ASPIRIN 325 MG TAB PO SCH (08:53)
[2018-10-12] MEDS: ATORVASTATIN 40 MG TAB PO SCH (08:54)
[2018-10-12] MEDS: DEXTROSE/WATER 1 500ML.BAG with DOPamine DRIP 800 MG IV SCH (08:55)
--- NOTE | 2018-10-12 09:20 | XR ---
EXAMINATION TYPE: XR chest 1V portable DATE OF EXAM: 10/12/2018 COMPARISON: 10/11/2018 HISTORY: Chest tube TECHNIQUE: Single frontal view of the chest is obtained. FINDINGS: Postsurgical change and cardiomegaly stable. Chest tube is been removed with no sizable pn eumothorax. Bilateral consolidation and pleural effusion are stable and there is a diffuse interstiti al pattern. Arthropathy of the shoulders. IMPRESSION: 1. Bilateral infiltrate and pleural effusion correlate for CHF versus pneumonia. 2. No sizable pneumothorax.
[2018-10-12] MEDS: LACTATED RINGERS 1,000 ML IV SCH (09:29)
--- NOTE | 2018-10-12 11:20 | PN ---
PROGRESS NOTE DATE OF SERVICE: October 12, 2018. This is a 68-year-old female who was admitted on the . She is status post 3-vessel bypass grafting. She is postop day #4. The patient also has a history of coronary artery disease, ischemic cardiomyopathy with LV dysfunction, systolic heart failure, COPD and some postoperative atelectasis. In addition, she suffers from diabetes mellitus, hyperlipidemia, iron deficiency anemia, peripheral vascular occlusive disease, previous myocardial infarction, and a previous history of tobacco dependence. She smoked 40 years at least a pack a day. Currently, she is doing reasonably well. She has an O2 at 2 L. She is getting IV dopamine at 3 mcg/kg per minute for renal perfusion. I did tell Cardiothoracic Surgery that probably it is of no benefit in my opinion. Anyway, the patient's urine output has not improved. The patient is relatively stable. She is alert, oriented. Not having any respiratory difficulty or distress. Apparently, FEV1 was 56% of predicted according to Akila from Cardiothoracic Surgery, making her have stage II chronic lung disease. Current vital signs are reviewed. Temperature 97, heart rate 89, respiratory rate 14, blood pressure 111/62, mean 78 and 2 L saturation 95%. Appears in no acute distress. HEENT examination is grossly unremarkable. Mucous membranes are moist. Nasal O2 in place. NECK: Supple. Full range of motion. No adenopathy or thyromegaly. Neck veins are flat. Cardiovascular examination reveals regular rhythm and rate. Heart sounds are distant. S1, S2 normal. No distinct murmur. Lungs reveal some mild bibasilar crackles. No wheezes or rhonchi. Abdomen is soft. Bowel sounds are heard. Extremities are intact. No cyanosis, clubbing, or edema. The patient was intubated on the and extubated on . Today is postop day #4. Microbiologic studies are negative. Chest x-ray from October 12 shows some mild fluid overload with small bilateral pleural effusions. LAB DATA: Lab data is reviewed. White count 9.4, hemoglobin 7.2, hematocrit 23.6, platelet count 281,000. Sodium 133, potassium 5, chloride 104, CO2 of 22, anion gap is 7. BUN and creatinine were 53 and 2.0. Labs and medications are reviewed. Vital signs are reviewed. ASSESSMENT: 1. Postoperative day #4, status post 3-vessel bypass grafting. 2. History of coronary artery disease. 3. History of ischemic cardiomyopathy and left ventricular dysfunction. 4. History of chronic systolic heart failure. 5. Chronic obstructive pulmonary disease from previous tobacco use with an FEV1 that is 56% of predicted. 6. Postoperative atelectasis and small pleural effusions. 7. Postoperative routine ventilator management. 8. History of diabetes mellitus. 9. History of hyperlipidemia. 10.Iron deficiency anemia. 11.Peripheral vascular occlusive disease. 12.History of myocardial infarction. 13.Forty years of previous tobacco use. PLAN: The patient will continue with deep breathing, coughing and clearing of secretions. We will continue with updrafts. The patient will continue using the incentive spirometer. Additional recommendations and suggestions are forthcoming. I have made the recommendation to Cardiothoracic to consider discontinuing the dopamine. Additional recommendations and suggestions are forthcoming. RODOLFO / ABIDA: [id number] /
--- NOTE | 2018-10-12 11:46 | P.PN ---
Subjective Progress Note Date: 10/12/18 Principal diagnosis: Coronary artery disease, chronic systolic and diastolic heart failure with preoperative ejection fraction 20-25%, ischemic cardiomyopathy and LV dysfunction. Previous medical history of non-STEMI earlier this month as well as in 2006 with stent placement at that time, hyperlipidemia, peripheral artery disease with stent placement to the left lower extremity in 2016, chronic kidney disease with baseline creatinine 1.3-1.5, recent vein surgery to bilateral lower extremity is, [id number] diabetes mellitus with preoperative hemoglobin A1c 7.1%, shingles, obesity, moderate COPD with preoperative FEV1 51% of predicted, previous tobacco dependence, and family history of early coronary artery disease with mother dying before the age of 6060 years old during coronary artery bypass graft surgery. Preoperative nasal swab positive for MSSA. Preoperative normocytic, normochromic anemia. POD #4 off-pump coronary artery bypass graft surgery 3 with the left internal mammary artery artery graft to the left anterior descending artery, right radial artery graft to the obtuse marginal and the left radial arterial graft to the posterior descending artery, bilateral endovascular radial artery harvest. Intraoperative transesophageal echocardiogram by anesthesia. Postoperative acute blood loss anemia, expected outcome. She is currently sitting up in the recliner in no acute distress. Denies any pain at this time, states pain is well controlled on current medication regimen. Denies shortness of breath. Has ambulated in the hallway in the intensive care unit, although not since yesterday morning as she had a lot of nausea related to her lunch yesterday. She was started on low-dose dopamine yesterday secondary to hypotension and reduced urine output, this morning her heart rate is starting to increase. Clinically she looks very good in states she is feeling better every day, no new complaints. Objective - Vital Signs Vital signs: Vital Signs Temp 97 F L 10/12/18 08:00 Pulse 92 10/12/18 09:00 Resp 14 10/12/18 09:00 BP 111/62 10/12/18 09:00 Pulse Ox 95 10/12/18 09:00 Intake & Output 10/11/18 10/12/18 10/12/18 18:59 06:59 18:59 Intake Total 2187.28 240.91 167.67 Output Total 925 700 400 Balance 1262.28 -459.09 -232.33 Weight 95.8 kg Intake: IV 110 47.67 DOPamine DRIP 800 mg In 110 10 Dextrose/Water 1 500ml. bag @ 3 MCG/KG/MIN 10.22 mls/hr IV .Q24H FR[facility]ISCO Rx#: [id number] Dextrose/Water 1 500ml. 27.67 bag @ 2 MCG/KG/MIN 7.27 mls/hr IV .Q24H [facility]CO with DOPamine DRIP 800 mg Rx#: [id number] Lactated Ringers 1,000 ml 10 @ 20 mls/hr IV .Q24H [facility] Rx#:[id number] Intake, IV Titration 587.28 10.91 Amount Albumin Human 5% 500 ml 500 In Empty Bag 1 bag @ 250 mls/hr IVPB ONCE ONE Rx#: [id number] Dextrose/Water 1 500ml. 87.28 10.91 bag @ 2 MCG/KG/MIN 7.27 mls/hr IV .Q24H [facility]ISCO with DOPamine DRIP 800 mg Rx#: [id number] Oral 1600 120 120 Output: Chest Tube Drainage 100 Left Pleural Chest Tube 30 Right Pleural Chest Tube 70 Urine 825 700 400 Other: Voiding Method Bedside Commode Bedside Commode # Voids 0 1 ABP, PAP, CO, CI - Last Documented Arterial Blood Pressure 102/52 Pulmonary Artery Pressure 39/22 Cardiac Output 5.9 Cardiac Index 2.9 - Constitutional General appearance: Present: cooperative, no acute distress, obese - Respiratory Details: coarse breath sounds in the bases. Respirations even, nonlabored. Currently on 3 L nasal cannula with oxygen saturation 92-94%. Able to achieve 750 mL on her incentive spirometry. Strong productive cough. - Cardiovascular Details: S1, S2 present. Regular rate and rhythm, sinus rhythm on telemetry. Sternum stable. Palpable peripheral pulses bilaterally. Trace generalized edema present. No calf pain or tenderness noted. Heart hugger in place with patient demonstrating appropriate use. Antiembolism stockings, SCDs present. - Gastrointestinal Gastrointestinal Comment(s): Abdomen soft, nontender, nondistended. Active bowel sounds present 4 quadrants. Tolerating diet. Positive flatus, negative bowel movement. - Genitourinary Genitourinary Comment(s): Continues to void clear, yellow urine. Output overnight was 600 mL. - Integumentary Integumentary Comment(s): Skin is warm and dry with evidence of good perfusion. Anterior chest incision well approximated and covered with dry intact dressing. Bilateral radial artery harvest sites well approximated, positive feeling without numbness or tingling in all fingers, able to move both hands without difficulty. - Neurologic Neurologic: Present: CNII-XII intact - Musculoskeletal Musculoskeletal: Present: gait normal, strength equal bilaterally - Psychiatric Psychiatric: Present: A&O x's 3, appropriate affect, intact judgment & insight - Allied health notes Allied health notes reviewed: nursing - Labs CBC & Chem 7: 10/12/18 04:39 10/12/18 04:39 Labs: Abnormal Lab Results - Last 24 Hours (Table) 10/11/18 10/11/18 10/11/18 Range/Units 11:44 17:03 21:46 RBC (3.80-5.40) m/uL Hgb (11.4-16.0) gm/dL Hct (34.0-46.0) % MCHC (31.0-37.0) g/dL Lymphocytes # (1.0-4.8) k/uL Sodium (137-145) mmol/L BUN (7-17) mg/dL Creatinine (0.52-1.04) mg/dL Glucose (74-99) mg/dL POC Glucose (mg/dL) 229 H 207 H 193 H (75-99) mg/dL Phosphorus (2.5-4.5) mg/dL Magnesium (1.6-2.3) mg/dL Total Protein (6.3-8.2) g/dL Albumin (3.5-5.0) g/dL 10/12/18 10/12/18 10/12/18 Range/Units 04:39 04:39 07:08 RBC 2.60 L (3.80-5.40) m/uL Hgb 7.2 L (11.4-16.0) gm/dL Hct 23.6 L (34.0-46.0) % MCHC 30.5 L (31.0-37.0) g/dL Lymphocytes # 0.8 L (1.0-4.8) k/uL Sodium 133 L (137-145) mmol/L BUN 53 H (7-17) mg/dL Creatinine 2.00 H (0.52-1.04) mg/dL Glucose 133 H (74-99) mg/dL POC Glucose (mg/dL) 141 H (75-99) mg/dL Phosphorus 5.1 H (2.5-4.5) mg/dL Magnesium 3.2 H (1.6-2.3) mg/dL Total Protein 5.4 L (6.3-8.2) g/dL Albumin 2.7 L (3.5-5.0) g/dL - Imaging and Cardiology Chest x-ray: report reviewed, image reviewed Assessment and Plan (1) Coronary artery disease Current Visit: Yes Status: Chronic Code(s): I25.10 - ATHSCL HEART DISEASE OF [place] CORONARY ARTERY W/O ANG PCTRS SNOMED Code(s): 95157750 (2) Ischemic cardiomyopathy Current Visit: Yes Status: Chronic Code(s): I25.5 - ISCHEMIC CARDIOMYOPATHY SNOMED Code(s): 885665886 (3) Status post three vessel coronary artery bypass Current Visit: Yes Status: Acute Code(s): Z95.1 - PRESENCE OF AORTOCORONARY BYPASS GRAFT SNOMED Code(s): 715347369 (4) Systolic heart failure Current Visit: Yes Status: Chronic Code(s): I50.20 - UNSPECIFIED SYSTOLIC ( CONGESTIVE) HEART FAILURE SNOMED Code(s): 128694847 (5) COPD (chronic obstructive pulmonary disease) Current Visit: Yes Status: Chronic Code(s): J44.9 - CHRONIC OBSTRUCTIVE PULMONARY DISEASE, UNSPECIFIED SNOMED Code(s): 62651122 (6) Diabetes mellitus Current Visit: Yes Status: Chronic Code(s): E11.9 - TYPE 2 DIABETES MELLITUS WITHOUT COMPLICATIONS SNOMED Code(s): 49468190 (7) History of heart artery stent Current Visit: Yes Status: Chronic Code(s): Z95.5 - PRESENCE OF CORONARY ANGIOPLASTY IMPLANT AND GRAFT SNOMED Code(s): 065439540 (8) Hyperlipidemia Current Visit: Yes Status: Chronic Code(s): E78.5 - HYPERLIPIDEMIA, UNSPECIFIED SNOMED Code(s): 44210795 (9) Iron deficiency anemia Current Visit: Yes Status: Chronic Code(s): D50.9 - IRON DEFICIENCY ANEMIA, UNSPECIFIED SNOMED Code(s): 92729263 (10) Obesity (BMI 30.0-34.9) Current Visit: Yes Status: Chronic Code(s): E66.9 - OBESITY, UNSPECIFIED SNOMED Code(s): 732257782769101 (11) Peripheral artery disease Current Visit: Yes Status: Chronic Code(s): I73.9 - PERIPHERAL VASCULAR DISEASE, UNSPECIFIED SNOMED Code(s): 802544790 (12) History of myocardial infarction, greater than 8 weeks ago Current Visit: No Status: Resolved Code(s): I25.2 - OLD MYOCARDIAL INFARCTION SNOMED Code(s): 1668001 (13) Tobacco dependence in remission Current Visit: No Status: Resolved Code(s): F17.201 - NICOTINE DEPENDENCE, UNSPECIFIED, IN REMISSION SNOMED Code(s): 282452038 Plan: 1. Continue aspirin, statin, Plavix, beta salome therapy. Will increase beta salome therapy as tolerated. 2. Will decrease dopamine to 2 mics. Nephrology consulted secondary to increasing BUN and creatinine, will defer to their recommendations for diuresis. No nephrotoxic agents. 3. Continue oral Cardizem for radial artery spasm. Decrease to 3 times daily today per cardiology recommendations. 4. Wean O2 as tolerated. Encourage incentive spirometry is 10 times every hour while awake. 5. Increase activity, ambulate as tolerated. PT/OT/cardiac rehab following. 6. Pain control with current medication regimen. No Toradol secondary to chronic renal insufficiency. 7. Bronchodilators per pulmonology. 8. Insulin management per primary care service. 9. GI prophylaxis with Protonix, DVT prophylaxis with subcu heparin, SCDs. 10. Will monitor daily labs and x-rays. Electrolyte replacement per protocol. 11. Dietitian to see patient for education regarding weight loss, reduced fat, reduced sugar diet. 12. More recommendations to follow. Time with Patient: Greater than 30
[2018-10-12 12:04] LABS: Glucose,Whole Blood 165 mg/dL (75-99)
[2018-10-12 17:08] LABS: Glucose,Whole Blood 173 mg/dL (75-99)
[2018-10-12] MEDS: SENNOSIDES-DOCUSATE SODIUM 1 EACH TAB PO SCH (20:46)
[2018-10-12] MEDS: HYDROcodone/APAP 5-325MG 1 EACH TAB PO PRN (20:47)
[2018-10-12] MEDS: MAGNESIUM HYDROXIDE 2,400 MG/10 ML CUP PO PRN (20:47)
[2018-10-12 20:48] LABS: Glucose,Whole Blood 211 mg/dL (75-99)
[2018-10-12] MEDS: INSULIN DETEMIR 100 UNIT/ML 10 ML VIAL SQ SCH (21:27)
[2018-10-13] MEDS: HEPARIN SODIUM,PORCINE 5,000 UNIT/ML 1 ML VIAL SQ SCH ×4 (00:55→23:57)
[2018-10-13] MEDS: DILTIAZEM ORAL 30 MG TAB PO SCH ×4 (00:55→23:57)
--- NOTE | 2018-10-13 03:32 | PN ---
PROGRESS NOTE DATE OF SERVICE: October 12, 2018. PRESENTING COMPLAINT: CABG. INTERVAL HISTORY: Patient is status post coronary artery bypass, up in a chair. Urine output has been a bit low. Creatinine has crept up a bit. Blood pressure is tending to run on the lower side. Did tolerate some diet. Sitting up. REVIEW OF SYSTEMS: Done for constitutional, cardiovascular, GI, pulmonary; relevant findings as above. MEDICATIONS: Current medications reviewed. PHYSICAL EXAMINATION: VITAL SIGNS: On examination, temperature 97, pulse 87, respirations 14, blood pressure 102/58, pulse ox 99 percent on 2 L. GENERAL APPEARANCE: Sitting up, more awake today. EYES: Pupils equal. Conjunctivae pale. NECK: JVD unable to assess. Mass not palpable. RESPIRATORY: Effort increased. LUNGS: Decreased breath sounds. CARDIOVASCULAR: 1st and 2nd sounds normal. Minimal edema. ABDOMEN: Soft, nontender. Liver and spleen not palpable. PSYCHIATRY: Awake, answering questions. INVESTIGATIONS: White count 9.4, hemoglobin 7.2, potassium 5.0, BUN 43, creatinine 2.0. ASSESSMENT: 1. Status post triple vessel coronary artery bypass. 2. Chronic congestive heart failure from systolic dysfunction, ejection fraction 20-30 percent underlying coronary artery disease. 3. Acute non-Q-wave myocardial infarction last admission. 4. Peripheral artery disease. 5. Chronic urine incontinence. 6. Diabetes mellitus type 2 on oral hypoglycemic. 7. Chronic kidney stage 3 from diabetic nephropathy and nephrosclerosis. 8. Acute renal failure probably prerenal with slight some worsening. 9. Acute postoperative blood loss anemia expected from surgery. 10.Metabolic acidosis from renal failure. 11.Hypoalbuminemia as an acute phase reactant. PLAN: Care was discussed with the patient. Nephrology consult is started. Accu-Cheks are closely followed. MMODL / IJN: [id number] /
[2018-10-13] MEDS: HYDROcodone/APAP 5-325MG 1 EACH TAB PO PRN (03:59)
[2018-10-13] MEDS: ONDANSETRON 4 MG/2 ML VIAL IVP PRN ×2 (04:12→16:09)
[2018-10-13 05:28] LABS: HCT 21.9 % (34.0-46.0); HGB 7.1 gm/dL (11.4-16.0); Hypochromasia Slight; MCH 29.1 pg (25.0-35.0); MCHC 32.7 g/dL (31.0-37.0); MCV 89.1 fL (80.0-100.0); Mean Platelet Volume 6.9; Platelet Count 290 k/uL (150-450); RBC 2.46 m/uL (3.80-5.40); RDW 15.3 % (11.5-15.5); WBC 7.8 k/uL (3.8-10.6)
[2018-10-13 05:54] LABS: Calcium 8.1 mg/dL (8.4-10.2); Magnesium 3.6 mg/dL (1.6-2.3); Potassium 4.9 mmol/L (3.5-5.1)
[2018-10-13 07:08] LABS: Glucose,Whole Blood 151 mg/dL (75-99)
[2018-10-13] MEDS: ASCORBIC ACID 500 MG TAB PO SCH ×2 (07:20→16:05)
[2018-10-13] MEDS: PANTOPRAZOLE 40 MG TABLET PO SCH (07:20)
[2018-10-13] MEDS: FERROUS SULFATE 325 MG TAB PO SCH ×2 (07:20→16:05)
[2018-10-13] MEDS: INSULIN ASPART 100 UNIT/ML 1 ML 10 ML VIAL SQ SCH ×4 (07:20→21:15)
--- NOTE | 2018-10-13 07:37 | P.PN ---
Subjective Progress Note Date: 10/13/18 Principal diagnosis: Status post open heart with CABG This is a pleasant 68-year-old female patient with past medical history the patient does have coronary artery disease with prior coronary artery stenting, diabetes type 2, hypertension, and dyslipidemia.who we consulted to see for cardiac follow-up after coronary artery bypass grafting. Earlier this month, September 2018, the patient presented to the hospital with shortness of breath. She was ruled in for acute non-ST deviation myocardial infarction with abnormal EKG as well as abnormal cardiac enzymes. At that point she underwent heart catheterization by Dr. Perez and that revealed severe triple-vessel coronary artery disease. Because of that the patient was referred to undergo coronary artery bypass grafting. The patient underwent yesterday coronary artery bypass grafting 3 where she received CONNELLY to LAD, JT to OM, and radial artery to right coronary artery. The last echocardiogram from September 2018 revealed impaired LV function with EF between 20-25% with basal inferior hypokinesia and inferoseptal hypokinesia. On follow-up with the patient today, October [id number], the patient continues to be doing well clinically. Her creatinine has improved. Nephrology consult was placed. The blood pressure is better as well after decreasing the dose of Cardizem. The patient continues to be on renal dose dopamine. Continue dual antiplatelet therapy along with a statin. The hemoglobin this morning 7.1. Objective - Vital Signs Vital signs: Vital Signs Temp 97.8 F 10/13/18 04:00 Pulse 86 10/13/18 07:00 Resp 13 10/13/18 07:00 BP 117/63 10/13/18 07:00 Pulse Ox 96 10/13/18 07:00 Intake & Output 10/12/18 10/13/18 10/13/18 18:59 06:59 18:59 Intake Total 296.87 219.1 Output Total 650 750 Balance -353.13 -530.9 Weight 97.1 kg Intake: IV 176.87 219.1 0.9 NS 30 DOPamine DRIP 800 mg In 10 Dextrose/Water 1 500ml. bag @ 3 MCG/KG/MIN 10.22 mls/hr IV .Q24H [facility] Rx#: [id number] Dextrose/Water 1 500ml. 76.87 89.1 bag @ 2 MCG/KG/MIN 7.27 mls/hr IV .Q24H [facility] with DOPamine DRIP 800 mg Rx#: [id number] Lactated Ringers 1,000 ml 90 100 @ 20 mls/hr IV .Q24H [facility] Rx#:[id number] Oral 120 Output: Urine 650 750 Other: Voiding Method Bedside Commode Bedside Commode # Voids 1 ABP, PAP, CO, CI - Last Documented Arterial Blood Pressure 102/52 Pulmonary Artery Pressure 39/22 Cardiac Output 5.9 Cardiac Index 2.9 - Constitutional General appearance: Present: no acute distress - Respiratory Respiratory: bilateral: CTA - Cardiovascular Rhythm: regular Heart sounds: normal: S1, S2 - Labs CBC & Chem 7: 10/13/18 04:49 10/13/18 04:49 Labs: Abnormal Lab Results - Last 24 Hours (Table) 10/12/18 10/12/18 10/12/18 Range/Units 11:48 16:56 20:37 RBC (3.80-5.40) m/uL Hgb (11.4-16.0) gm/dL Hct (34.0-46.0) % Sodium (137-145) mmol/L BUN (7-17) mg/dL Creatinine (0.52-1.04) mg/dL Glucose (74-99) mg/dL POC Glucose (mg/dL) 165 H 173 H 211 H (75-99) mg/dL Calcium (8.4-10.2) mg/dL Magnesium (1.6-2.3) mg/dL 10/13/18 10/13/18 10/13/18 Range/Units 04:49 04:49 06:57 RBC 2.46 L (3.80-5.40) m/uL Hgb 7.1 L (11.4-16.0) gm/dL Hct 21.9 L (34.0-46.0) % Sodium 132 L (137-145) mmol/L BUN 55 H (7-17) mg/dL Creatinine 1.57 H (0.52-1.04) mg/dL Glucose 154 H (74-99) mg/dL POC Glucose (mg/dL) 151 H (75-99) mg/dL Calcium 8.1 L (8.4-10.2) mg/dL Magnesium 3.6 H (1.6-2.3) mg/dL Assessment and Plan Assessment: Assessment #1 severe underlying coronary artery disease as described above #2 status post coronary artery bypass grafting 3 as described above #3 diabetes type 2 #4 hypertension #5 dyslipidemia Plan #1 continue the current medical regimen including dual antiplatelet therapy along with statin and metoprolol. #2 continue monitor the hemoglobin as well as BUN and electrolytes #3 continue daily chest x-ray #4 follow-up with the patient. Thank you for allowing us participate in her care and we will continue following up with the patient
[2018-10-13] MEDS: IPRATROPIUM-ALBUTEROL 3 ML NEB INHALATION SCH ×4 (07:41→19:10)
[2018-10-13] MEDS: CLOPIDOGREL 75 MG TAB PO SCH (08:05)
[2018-10-13] MEDS: METOPROLOL TARTRATE 12.5 MG TAB PO SCH (08:05)
[2018-10-13] MEDS: ASPIRIN 325 MG TAB PO SCH (08:05)
[2018-10-13] MEDS: ATORVASTATIN 40 MG TAB PO SCH (08:05)
[2018-10-13] MEDS: MAGNESIUM HYDROXIDE 2,400 MG/10 ML CUP PO PRN (08:12)
--- NOTE | 2018-10-13 08:13 | P.PN ---
Subjective Progress Note Date: 10/13/18 Principal diagnosis: Coronary artery disease, chronic systolic and diastolic heart failure with preoperative ejection fraction 20-25%, ischemic cardiomyopathy and LV dysfunction. Previous medical history of non-STEMI earlier this month as well as in 2006 with stent placement at that time, hyperlipidemia, peripheral artery disease with stent placement to the left lower extremity in 2016, chronic kidney disease with baseline creatinine 1.3-1.5, recent vein surgery to bilateral lower extremity is, [id number] diabetes mellitus with preoperative hemoglobin A1c 7.1%, shingles, obesity, moderate COPD with preoperative FEV1 51% of predicted, previous tobacco dependence, and family history of early coronary artery disease with mother dying before the age of 6060 years old during coronary artery bypass graft surgery. Preoperative nasal swab positive for MSSA. Preoperative normocytic, normochromic anemia. POD #5 off-pump coronary artery bypass graft surgery 3 with the left internal mammary artery artery graft to the left anterior descending artery, right radial artery graft to the obtuse marginal and the left radial arterial graft to the posterior descending artery, bilateral endovascular radial artery harvest. Intraoperative transesophageal echocardiogram by anesthesia. Postoperative acute blood loss anemia, expected outcome. Acute kidney injury, nonoliguric, potential outcome given patient's baseline chronic kidney disease. She is currently sitting up in the recliner in no acute distress. Denies any pain at this time, states pain is well controlled on current medication regimen. Denies shortness of breath. Has ambulated in her room. Dopamine decreased yesterday, remains hemodynamically stable. Clinically she looks very good in states she is feeling better every day, no new complaints. Objective - Vital Signs Vital signs: Vital Signs Temp 97.8 F 10/13/18 04:00 Pulse 88 10/13/18 07:54 Resp 13 10/13/18 07:00 BP 117/63 10/13/18 07:00 Pulse Ox 96 10/13/18 07:00 Intake & Output 10/12/18 10/13/18 10/13/18 18:59 06:59 18:59 Intake Total 296.87 219.1 Output Total 650 750 Balance -353.13 -530.9 Weight 97.1 kg Intake: IV 176.87 219.1 0.9 NS 30 DOPamine DRIP 800 mg In 10 Dextrose/Water 1 500ml. bag @ 3 MCG/KG/MIN 10.22 mls/hr IV .Q24H FRANSISCO Rx#: [id number] Dextrose/Water 1 500ml. 76.87 89.1 bag @ 2 MCG/KG/MIN 7.27 mls/hr IV .Q24H [facility]ISCO with DOPamine DRIP 800 mg Rx#: [id number] Lactated Ringers 1,000 ml 90 100 @ 20 mls/hr IV .Q24H FR[facility]ISCO Rx#:[id number] Oral 120 Output: Urine 650 750 Other: Voiding Method Bedside Commode Bedside Commode # Voids 1 ABP, PAP, CO, CI - Last Documented Arterial Blood Pressure 102/52 Pulmonary Artery Pressure 39/22 Cardiac Output 5.9 Cardiac Index 2.9 - Constitutional General appearance: Present: cooperative, no acute distress, obese - Respiratory Details: Coarse breath sounds in the bases. Respirations even, nonlabored. Currently on 2 L nasal cannula with oxygen saturation 95%. Able to achieve 750 mL on her incentive spirometry. Strong productive cough. - Cardiovascular Details: S1, S2 present. Regular rate and rhythm, sinus rhythm on telemetry. Sternum stable. Palpable peripheral pulses bilaterally. Trace generalized edema present. No calf pain or tenderness noted. Heart hugger in place with patient demonstrating appropriate use. Antiembolism stockings, SCDs present. - Gastrointestinal Gastrointestinal Comment(s): Abdomen soft, nontender, nondistended. Active bowel sounds present 4 quadrants. Tolerating diet. Positive flatus, negative bowel movement. - Genitourinary Genitourinary Comment(s): Continues to void clear, yellow urine. Output overnight was 550 mL. - Integumentary Integumentary Comment(s): Skin is warm and dry with evidence of good perfusion. Anterior chest incision well approximated and covered with dry intact dressing. Bilateral radial artery harvest sites well approximated, positive feeling without numbness or tingling in all fingers, able to move both hands without difficulty. - Neurologic Neurologic: Present: CNII-XII intact - Musculoskeletal Musculoskeletal: Present: gait normal, strength equal bilaterally - Psychiatric Psychiatric: Present: A&O x's 3, appropriate affect, intact judgment & insight - Allied health notes Allied health notes reviewed: nursing - Labs CBC & Chem 7: 10/13/18 04:49 10/13/18 04:49 Labs: Abnormal Lab Results - Last 24 Hours (Table) 10/12/18 10/12/18 10/12/18 Range/Units 11:48 16:56 20:37 RBC (3.80-5.40) m/uL Hgb (11.4-16.0) gm/dL Hct (34.0-46.0) % Sodium (137-145) mmol/L BUN (7-17) mg/dL Creatinine (0.52-1.04) mg/dL Glucose (74-99) mg/dL POC Glucose (mg/dL) 165 H 173 H 211 H (75-99) mg/dL Calcium (8.4-10.2) mg/dL Magnesium (1.6-2.3) mg/dL 10/13/18 10/13/18 10/13/18 Range/Units 04:49 04:49 06:57 RBC 2.46 L (3.80-5.40) m/uL Hgb 7.1 L (11.4-16.0) gm/dL Hct 21.9 L (34.0-46.0) % Sodium 132 L (137-145) mmol/L BUN 55 H (7-17) mg/dL Creatinine 1.57 H (0.52-1.04) mg/dL Glucose 154 H (74-99) mg/dL POC Glucose (mg/dL) 151 H (75-99) mg/dL Calcium 8.1 L (8.4-10.2) mg/dL Magnesium 3.6 H (1.6-2.3) mg/dL - Imaging and Cardiology Chest x-ray: image reviewed Assessment and Plan (1) Coronary artery disease Current Visit: Yes Status: Chronic Code(s): I25.10 - ATHSCL HEART DISEASE OF [place] CORONARY ARTERY W/O ANG PCTRS SNOMED Code(s): 17789907 (2) Ischemic cardiomyopathy Current Visit: Yes Status: Chronic Code(s): I25.5 - ISCHEMIC CARDIOMYOPATHY SNOMED Code(s): 443817777 (3) Status post three vessel coronary artery bypass Current Visit: Yes Status: Acute Code(s): Z95.1 - PRESENCE OF AORTOCORONARY BYPASS GRAFT SNOMED Code(s): 429836348 (4) Systolic heart failure Current Visit: Yes Status: Chronic Code(s): I50.20 - UNSPECIFIED SYSTOLIC ( CONGESTIVE) HEART FAILURE SNOMED Code(s): 687596187 (5) COPD (chronic obstructive pulmonary disease) Current Visit: Yes Status: Chronic Code(s): J44.9 - CHRONIC OBSTRUCTIVE PULMONARY DISEASE, UNSPECIFIED SNOMED Code(s): 78904692 (6) Diabetes mellitus Current Visit: Yes Status: Chronic Code(s): E11.9 - TYPE 2 DIABETES MELLITUS WITHOUT COMPLICATIONS SNOMED Code(s): 61355407 (7) History of heart artery stent Current Visit: Yes Status: Chronic Code(s): Z95.5 - PRESENCE OF CORONARY ANGIOPLASTY IMPLANT AND GRAFT SNOMED Code(s): 705726251 (8) Hyperlipidemia Current Visit: Yes Status: Chronic Code(s): E78.5 - HYPERLIPIDEMIA, UNSPECIFIED SNOMED Code(s): 31426816 (9) Iron deficiency anemia Current Visit: Yes Status: Chronic Code(s): D50.9 - IRON DEFICIENCY ANEMIA, UNSPECIFIED SNOMED Code(s): 47795018 (10) Obesity (BMI 30.0-34.9) Current Visit: Yes Status: Chronic Code(s): E66.9 - OBESITY, UNSPECIFIED SNOMED Code(s): 242858175603464 (11) Peripheral artery disease Current Visit: Yes Status: Chronic Code(s): I73.9 - PERIPHERAL VASCULAR DISEASE, UNSPECIFIED SNOMED Code(s): 840017476 (12) History of myocardial infarction, greater than 8 weeks ago Current Visit: No Status: Resolved Code(s): I25.2 - OLD MYOCARDIAL INFARCTION SNOMED Code(s): 0201462 (13) Tobacco dependence in remission Current Visit: No Status: Resolved Code(s): F17.201 - NICOTINE DEPENDENCE, UNSPECIFIED, IN REMISSION SNOMED Code(s): 205614018 Plan: 1. Continue aspirin, statin, Plavix, beta salome therapy. Will increase beta salome therapy as tolerated, will increase to 25 mg twice daily today. 2. Will decrease dopamine to 1 mics. Nephrology consulted, appreciate recommendations. No nephrotoxic agents. 3. Continue oral Cardizem for radial artery spasm. 4. Wean O2 as tolerated. Encourage incentive spirometry is 10 times every hour while awake. 5. Increase activity, ambulate as tolerated. PT/OT/cardiac rehab following. 6. Pain control with current medication regimen. No Toradol secondary to chronic renal insufficiency. 7. Bronchodilators per pulmonology. 8. Insulin management per primary care service. 9. GI prophylaxis with Protonix, DVT prophylaxis with subcu heparin, SCDs. 10. Will monitor daily labs and x-rays. Electrolyte replacement per protocol. 11. Dietitian to see patient for education regarding weight loss, reduced fat, reduced sugar diet. 12. More recommendations to follow. Time with Patient: Greater than 30
[2018-10-13] MEDS ORDERED: FUROSEMIDE 10 MG/ML 2 ML VIAL IV ONE (08:38)
[2018-10-13] MEDS ORDERED: METOPROLOL TARTRATE 12.5 MG TAB PO ONE (08:45)
[2018-10-13] MEDS ORDERED: METOPROLOL TARTRATE 25 MG TAB PO SCH ×2 (09:00→21:00)
--- NOTE | 2018-10-13 09:23 | XR ---
EXAMINATION TYPE: XR chest 1V portable DATE OF EXAM: 10/13/2018 COMPARISON: 10/12/2018 HISTORY: Post CABG TECHNIQUE: Single frontal view of the chest is obtained. FINDINGS: Postsurgical change and cardiomegaly stable. Chest tube is been removed with no sizable pn eumothorax. Bilateral consolidation and pleural effusion are stable and there is a diffuse interstiti al pattern. Arthropathy of the shoulders. Mediastinum is widened but stable correlate clinically. Hea rt is enlarged. IMPRESSION: 1. Bilateral consolidation and pleural effusion with diffuse interstitial pattern. Findings most typi xenia
--- NOTE | 2018-10-13 09:24 | PN ---
PROGRESS NOTE DATE OF SERVICE: 10/13/2018 This is a 68-year-old female who was admitted back on October 08. She is status post 3- vessel bypass grafting, postop day #5. The patient is doing reasonably well. She remains on O2 at 2 L. She is getting dopamine drip at 2 mcg/kg per minute. She is getting a saline IV at 10 mL an hour. Today's hemoglobin is 7.1. Her BUN and creatinine were 55 and 1.57. The patient suffers from diabetes mellitus, hyperlipidemia, iron deficiency anemia, peripheral vascular occlusive disease, previous myocardial infarction and a previous history of tobacco dependence. She did smoke 40 years at 1 pack a day as mentioned yesterday. Again, she is doing better. Clinically, she is doing well. I think she can move out to the floor. Her current vital signs are reviewed, temperature is 97.8, heart rate 84, respiratory rate 13, blood pressure 117/61 with a mean 79 and 2 L saturation at 95%. She appears in no acute distress. PHYSICAL EXAMINATION: HEENT: Grossly unremarkable. Mucous membranes are moist. No oral lesions. Neck is supple. Full range of motion. No adenopathy, thyromegaly or neck vein distention. Cardiovascular examination reveals regular rhythm and rate. Heart rate about 80. S1, S2 normal. No distinct murmur noted. Lungs are relatively clear. A few scattered mild rhonchi noted. No wheezes or crackles. Abdomen is soft. Bowel sounds are heard. There is no masses or tenderness. Extremities are intact. No cyanosis, clubbing, or edema. Skin without rash. Neurologic examination is brief but nonfocal. CHEST X-RAY: From this morning reveals some postoperative changes. There is some basilar atelectasis and small bilateral pleural effusions. The effusion on the left may be bigger than the 1 on the right. LABORATORY DATA: Reviewed. White count 7.8, hemoglobin 7.1, hematocrit 21.9, and platelet count 390,000. Sodium 132, potassium 4.9, chloride is 103, CO2 is 22, BUN and creatinine were 55, 1.57. Microbiologic studies are negative. Medications are reviewed. ASSESSMENT: 1. Postoperative day #5, status post 3-vessel bypass grafting. 2. Coronary artery disease. 3. Ischemic cardiomyopathy and left ventricular dysfunction. 4. Chronic systolic heart failure. 5. Chronic obstructive pulmonary disease with an FEV1 that is 56% of predicted, stage II disease. 6. Postoperative atelectasis and small pleural effusions. 7. Postoperative routine ventilator management, resolved. 8. History of diabetes mellitus. 9. History of hyperlipidemia. 10.Iron deficiency anemia. 11.Peripheral vascular occlusive disease. 12.History of myocardial infarction. 13.Previous history of 40 years of tobacco use. PLAN: The patient will continue doing her incentive spirometry q.1 hour while awake. We encourage her to do deep breathing coughing and clearing of secretions. The patient will continue on updrafts q.i.d. and p.r.n. The patient's dopamine will eventually be weaned off. She was started by Cardiothoracic Surgery. They are waiting for Nephrology input. Her urine output seems reasonable. Hemoglobin is above 7. BUN and creatinine are improved. Will follow as needed. The patient will follow up with us in the office for routine followup chest x-ray. Eventually, she will need additional pulmonary function testing. MMODL / IJN: [id number] /
[2018-10-13] MEDS: DEXTROSE/WATER 1 500ML.BAG with DOPamine DRIP 800 MG IV SCH (09:56)
--- NOTE | 2018-10-13 10:05 | P.NPCON ---
History of Present Illness - Reason for Consult acute renal failure - History of Present Illness Reason for consultation: Acute kidney injury History of present illness: Patient is a 68-year-old female seen in renal consultation for acute kidney injury. Unclear as to what her baseline renal function is. Patient was admitted to the hospital earlier this month and her creatinine was stable in the range of 1.2-1.3. She does have long-standing history of diabetes mellitus. At that time the patient presented with non-ST elevated myocardial infarction and underwent a cardiac catheterization which revealed triple-vessel disease. She underwent CABG on October 08. Currently in the ICU. She is awake and alert. Oral intake is fair. No vomiting or diarrhea. No active chest pain or shortness of breath. She is maintained on low-dose dopamine. Creatinine peaked at 2 and is down to 1.57 today. Ziegler catheter has been discontinued. She has been voiding. Vital signs are stable. General: The patient appeared well nourished and normally developed. HEENT: Head exam is unremarkable. Neck is without jugular venous distension. LUNGS: Lungs are clear to auscultation and percussion. Breath sounds decreased. HEART: Rate and Rhythm are regular. First and second heart sounds normal. No murmurs, rubs or gallops. ABDOMEN: Abdominal exam reveals normal bowel sounds. Non-tender and non- distended. No evidence of peritonitis. EXTREMITITES: No clubbing, cyanosis, or edema. Past Medical History Past Medical History: Coronary Artery Disease (CAD), Chest Pain / Angina, Diabetes Mellitus, Hyperlipidemia, Myocardial Infarction ([place]) Additional Past Medical History / Comment(s): varicose veins,[place] x2 Last Myocardial Infarction Date:: 03/20/2006,2018 History of Any Multi-Drug Resistant Organisms: None Reported Past Surgical History: Section, Heart Catheterization, Heart Catheterization With Stent Additional Past Surgical History / Comment(s): vein work-last procedure Aug 2018 , stent above knee left leg,heart stents x3 Past Anesthesia/Blood Transfusion Reactions: No Reported Reaction Additional Past Anesthesia/Blood Transfusion Reaction / Comment(s): no hx blood transfusion Date of Last Stent Placement:: 03/20/2006 Past Psychological History: No Psychological Hx Reported Smoking Status: Former smoker Past Alcohol Use History: None Reported Additional Past Alcohol Use History / Comment(s): quit smoking 2005,smoked approx 40 yrs 1ppd Past Drug Use History: None Reported - Past Family History Mother Family Medical History: Coronary Artery Disease (CAD) Additional Family Medical History / Comment(s): mother during CABG Father Family Medical History: Cancer Additional Family Medical History / Comment(s): colon CA Brother(s) Family Medical History: Cancer Additional Family Medical History / Comment(s): colon CA Sister(s) Family Medical History: Cancer Additional Family Medical History / Comment(s): breast CA Medications and Allergies Home Medications Medication Instructions Recorded Confirmed Type Aspirin EC [Ecotrin] 325 mg PO DAILY 01/23/18 10/08/18 History Lisinopril [Zestril] 5 mg PO DAILY 01/23/18 10/08/18 History metFORMIN HCL 1,000 mg PO BID 01/23/18 10/08/18 History Glimepiride [Amaryl] 2 mg PO DAILY 09/27/18 10/08/18 History Oxybutynin Chloride [Oxybutynin 10 mg PO DAILY 09/27/18 10/08/18 History Chloride ER] Atorvastatin [Lipitor] 40 mg PO DAILY #30 tab 10/01/18 10/08/18 Rx Metoprolol Tartrate [Lopressor] 50 mg PO BID #60 tab 10/01/18 10/08/18 Rx Nitroglycerin Sl Tabs [Nitrostat] 0.4 mg SUBLINGUAL Q5M PRN #25 tab 10/01/18 Rx Spironolactone [Aldactone] 12.5 mg PO DAILY #30 tab 10/01/18 10/08/18 Rx Allergies Allergy/AdvReac Type Severity Reaction Status Date / Time tetracycline Allergy Rash/Hives Verified 10/08/18 14:02 Physical Exam Vitals: Vital Signs Temp Pulse Resp BP Pulse Ox 10/13/18 09:00 81 33 H 107/59 95 10/13/18 08:00 84 24 117/61 95 10/13/18 07:54 88 10/13/18 07:43 86 10/13/18 07:00 86 13 117/63 96 10/13/18 06:00 90 15 109/61 93 L 10/13/18 05:00 88 12 125/81 93 L 10/13/18 04:00 97.8 F 89 12 102/63 94 L 10/13/18 03:00 85 13 115/61 93 L 10/13/18 02:00 88 14 116/61 94 L 10/13/18 01:00 87 18 106/69 93 L 10/13/18 00:00 98.0 F 88 15 116/62 93 L 10/12/18 23:00 89 14 119/60 93 L 10/12/18 22:00 90 19 114/54 93 L 10/12/18 21:00 104 H 32 H 117/64 96 10/12/18 20:10 80 10/12/18 20:00 97.9 F 92 17 113/60 95 10/12/18 19:58 84 10/12/18 19:00 89 27 H 122/65 97 10/12/18 18:00 94 19 115/58 95 10/12/18 17:00 93 12 116/62 93 L 10/12/18 16:09 80 10/12/18 16:00 97 F L 87 14 112/58 99 10/12/18 15:56 84 10/12/18 15:43 16 10/12/18 15:00 84 16 117/60 95 10/12/18 14:00 90 18 98/50 96 10/12/18 13:00 92 16 105/67 96 10/12/18 12:00 97.3 F L 84 19 105/62 94 L 10/12/18 11:20 80 14 10/12/18 11:10 84 10/12/18 11:00 90 14 104/59 94 L 10/12/18 10:00 88 12 112/68 95 Intake and Output 10/12/18 10/13/18 10/13/18 22:59 06:59 14:59 Intake Total 124.3 154.8 410 Output Total 450 550 Balance -325.7 -395.2 410 Intake: IV 124.3 154.8 10 0.9 NS 30 10 Dextrose/Water 1 500ml. 44.3 64.8 bag @ 1 MCG/KG/MIN 3.63 mls/hr IV .Q24H [facility] with DOPamine DRIP 800 mg Rx#: [id number] Lactated Ringers 1,000 ml 80 60 @ 20 mls/hr IV .Q24H [facility] Rx#:[id number] Oral 400 Output: Urine 450 550 Other: Voiding Method Bedside Commode Bedside Commode Bedside Commode # Voids 1 Weight 97.1 kg ABP, PAP, CO, CI - Last 8 Hours Cardiac Output 5.9 Cardiac Output 5.9 Cardiac Output 5.9 Cardiac Output 5.9 Cardiac Output 5.9 Cardiac Output 5.9 Cardiac Output 5.9 Cardiac Output 5.9 Results - Lab Results Most recent lab results ABG pH 7.32 (7.35-7.45) L 10/08/18 18:57 ABG pCO2 39 mmHg (35-45) 10/08/18 18:57 ABG pO2 71 mmHg (83-108) L 10/08/18 18:57 ABG HCO3 20 mmol/L (21-25) L 10/08/18 18:57 ABG O2 Saturation 94.4 % (94-97) 10/08/18 18:57 Calcium 8.1 mg/dL (8.4-10.2) L 10/13/18 04:49 Phosphorus 5.1 mg/dL (2.5-4.5) H 10/12/18 04:39 Magnesium 3.6 mg/dL (1.6-2.3) H 10/13/18 04:49 10/13/18 04:49 10/13/18 04:49 Assessment and Plan Plan: Assessment: 1. Acute kidney injury secondary to ATN secondary to hemodynamic instability. Creatinine peaked at 2.0 this admission and is down to 1.57 today. 2. Chronic kidney disease. UA from earlier this month did reveal 1+ proteinuria which is likely secondary to underlying diabetic kidney disease. Need to establish baseline renal function. 3. Coronary artery disease status post CABG on October 08. 4. Diabetes mellitus. 5. Hyponatremia secondary to acute kidney injury. Slightly hypervolemic. 6. Systolic CHF with ejection fraction of 20-25% on echocardiogram done 2018. Plan: Status post 20 mg IV Lasix this morning. Discontinue dopamine drip. Discontinue milk of magnesia as magnesium level 3.6. Avoid [employer]. Continue to monitor renal function and urine output closely. Monitor hemoglobin. Thank you for the consultation. I will continue to follow the patient with you during her hospital stay.
[2018-10-13 11:52] LABS: Glucose,Whole Blood 138 mg/dL (75-99)
--- NOTE | 2018-10-13 16:21 | P.CONS ---
History of Present Illness - Chief Complaint Cardiac debility - History of Present Illness I had the opportunity to see patient for inpatient rehab consultation with regard to cardiac debility. She was admitted for elective CABG 3 vessel which was performed on date of admission, gender 24, Dr. Zuñiga. Seen in consultation by Dr. Urmila Brown and Miguel Angel. Chest x-rays followed for bilateral consolidation and effusions. OT reports minimal assistance for upper dressing and maximal assistance for lower dressing. Moderate to maximal assistance for bathing and maximal assistance toileting. Minimal assistance for toilet transfer and minimum moderate assistance to person for bed transfer. PT reports minimal assistance and 2 person for functional ability and gait 10 feet , limited endurance. Previous functional history as elicited patient currently by : 68-year- old left-handed white female who is lives in one floor home with . Both retired. They share the cooking and laundry. Patient can with driving, standing shower and gait without device. History smoking but doesn't smoke currently. Rare drink. Dr. Barnard is regular doctor. Family history of cardiac disease and mother and multiple problems in father. Review of Systems Review of systems: ENT: Denies sneezes or discharge. Eyes: Denies discharge or photophobia. Cardiac: Denies chest pain or palpitation. Perhaps midline sternotomy discomfort. Pulmonary: At least mild exertional shortness of breath. Breast: Denies discharge or lumps. Gastrointestinal: Denies nausea, emesis, constipation, diarrhea. Genitourinary: Denies discharge or frequency. Musculoskeletal: Denies muscle or bone aches. Neurologic: Gen. weakness. Endocrine: Denies shakes or sweats. Oncology: Denies cancers. Dermatologic: Denies rash, itching, pruritus. ALLERGY/immunology: Denies sneezes, rashes. Past Medical History Past Medical History: Coronary Artery Disease (CAD), Chest Pain / Angina, Diabetes Mellitus, Hyperlipidemia, Myocardial Infarction ([place]) Additional Past Medical History / Comment(s): varicose veins,[place] x2 Last Myocardial Infarction Date:: 03/20/2006,2019 History of Any Multi-Drug Resistant Organisms: None Reported Past Surgical History: Section, Heart Catheterization, Heart Catheterization With Stent Additional Past Surgical History / Comment(s): vein work-last procedure Aug 2018 , stent above knee left leg,heart stents x3 Past Anesthesia/Blood Transfusion Reactions: No Reported Reaction Additional Past Anesthesia/Blood Transfusion Reaction / Comm: no hx blood transfusion Date of Last Stent Placement:: 03/20/2006 Past Psychological History: No Psychological Hx Reported Smoking Status: Former smoker Past Alcohol Use History: None Reported Additional Past Alcohol Use History / Comment(s): quit smoking 2005,smoked approx 40 yrs 1ppd Past Drug Use History: None Reported - Past Family History Mother Family Medical History: Coronary Artery Disease (CAD) Additional Family Medical History / Comment(s): mother during CABG Father Family Medical History: Cancer Additional Family Medical History / Comment(s): colon CA Brother(s) Family Medical History: Cancer Additional Family Medical History / Comment(s): colon CA Sister(s) Family Medical History: Cancer Additional Family Medical History / Comment(s): breast CA Medications and Allergies Home Medications Medication Instructions Recorded Confirmed Type Aspirin EC [Ecotrin] 325 mg PO DAILY 01/23/18 10/08/18 History Lisinopril [Zestril] 5 mg PO DAILY 01/23/18 10/08/18 History metFORMIN HCL 1,000 mg PO BID 01/23/18 10/08/18 History Glimepiride [Amaryl] 2 mg PO DAILY 09/27/18 10/08/18 History Oxybutynin Chloride [Oxybutynin 10 mg PO DAILY 09/27/18 10/08/18 History Chloride ER] Atorvastatin [Lipitor] 40 mg PO DAILY #30 tab 10/01/18 10/08/18 Rx Metoprolol Tartrate [Lopressor] 50 mg PO BID #60 tab 10/01/18 10/08/18 Rx Nitroglycerin Sl Tabs [Nitrostat] 0.4 mg SUBLINGUAL Q5M PRN #25 tab 10/01/18 Rx Spironolactone [Aldactone] 12.5 mg PO DAILY #30 tab 10/01/18 10/08/18 Rx Allergies Allergy/AdvReac Type Severity Reaction Status Date / Time tetracycline Allergy Rash/Hives Verified 10/08/18 14:02 Physical Exam Vitals: Vital Signs Temp Pulse Pulse Pulse Resp BP Pulse Ox 10/13/18 15:03 84 10/13/18 15:00 81 15 123/63 98 10/13/18 14:55 82 10/13/18 14:13 82 94 10/13/18 14:00 84 61 H 111/64 92 L 10/13/18 13:00 80 18 121/63 95 10/13/18 12:00 79 19 102/59 96 10/13/18 11:00 73 16 96/53 96 10/13/18 10:55 77 10/13/18 10:46 73 10/13/18 10:00 80 23 116/63 96 10/13/18 09:00 81 33 H 107/59 95 10/13/18 08:00 84 24 117/61 95 10/13/18 07:54 88 10/13/18 07:43 86 10/13/18 07:00 86 13 117/63 96 10/13/18 06:00 90 15 109/61 93 L 10/13/18 05:00 88 12 125/81 93 L 10/13/18 04:00 97.8 F 89 12 102/63 94 L 10/13/18 03:00 85 13 115/61 93 L 10/13/18 02:00 88 14 116/61 94 L 10/13/18 01:00 87 18 106/69 93 L 10/13/18 00:00 98.0 F 88 15 116/62 93 L 10/12/18 23:00 89 14 119/60 93 L 10/12/18 22:00 90 19 114/54 93 L 10/12/18 21:00 104 H 32 H 117/64 96 10/12/18 20:10 80 10/12/18 20:00 97.9 F 92 17 113/60 95 10/12/18 19:58 84 10/12/18 19:00 89 27 H 122/65 97 10/12/18 18:00 94 19 115/58 95 10/12/18 17:00 93 12 116/62 93 L Pulse Ox Pulse Ox 10/13/18 15:03 10/13/18 15:00 10/13/18 14:55 10/13/18 14:13 93 L 84 L 10/13/18 14:00 10/13/18 13:00 10/13/18 12:00 10/13/18 11:00 10/13/18 10:55 10/13/18 10:46 10/13/18 10:00 10/13/18 09:00 10/13/18 08:00 10/13/18 07:54 10/13/18 07:43 10/13/18 07:00 10/13/18 06:00 10/13/18 05:00 10/13/18 04:00 10/13/18 03:00 10/13/18 02:00 10/13/18 01:00 10/13/18 00:00 10/12/18 23:00 10/12/18 22:00 10/12/18 21:00 10/12/18 20:10 10/12/18 20:00 10/12/18 19:58 10/12/18 19:00 10/12/18 18:00 10/12/18 17:00 Intake and Output 10/13/18 10/13/18 10/13/18 06:59 14:59 22:59 Intake Total 154.8 460 Output Total 550 550 Balance -395.2 -90 Intake: IV 154.8 10 0.9 NS 30 10 Dextrose/Water 1 500ml. 64.8 bag @ 1 MCG/KG/MIN 3.63 mls/hr IV .Q24H FRANSISCO with DOPamine DRIP 800 mg Rx#: [id number] Lactated Ringers 1,000 ml 60 @ 20 mls/hr IV .Q24H FRANSISCO Rx#:[id number] Oral 450 Output: Urine 550 550 Other: Voiding Method Bedside Commode Bedside Commode Weight 97.1 kg ABP, PAP, CO, CI - Last 8 Hours Cardiac Output 5.9 Cardiac Output 5.9 Cardiac Output 5.9 Cardiac Output 5.9 Cardiac Output 5.9 Cardiac Output 5.9 Skin: Good color, texture, turgor. General: Overweight build and comfortable appearance. Head: Normocephalic, atraumatic. Eyes: Symmetric. Pupils equal round. Ears: Symmetric. Hearing within normal limits. Mouth: Clear. Neck: Supple. Carotid without bruit. Cardiac: Regular rate and rhythm. Sternum clean and dressed. Wearing harness. Lungs: Clear anteriorly and posteriorly. Abdomen: Soft active nontender. Overweight. Extremities: Normal tone. Neurological: Mental status: Alert, cooperative, pleasant. Cranial nerves: Symmetric facial tone and trapezius. Motor: Normal strength and isolation all 4 limbs, but legs are less than antigravity. Sensation: Intact throughout. DTRs: Symmetric and equal throughout. Mobility: Nurse reports two-person assistance for transfer into Casandra chair. Results CBC & Chem 7: 10/13/18 04:49 10/13/18 04:49 Labs: Abnormal Lab Results - Last 24 Hours (Table) 10/12/18 10/12/18 10/13/18 Range/Units 16:56 20:37 04:49 RBC 2.46 L (3.80-5.40) m/uL Hgb 7.1 L (11.4-16.0) gm/dL Hct 21.9 L (34.0-46.0) % Sodium (137-145) mmol/L BUN (7-17) mg/dL Creatinine (0.52-1.04) mg/dL Glucose (74-99) mg/dL POC Glucose (mg/dL) 173 H 211 H (75-99) mg/dL Calcium (8.4-10.2) mg/dL Magnesium (1.6-2.3) mg/dL 10/13/18 10/13/18 10/13/18 Range/Units 04:49 06:57 11:41 RBC (3.80-5.40) m/uL Hgb (11.4-16.0) gm/dL Hct (34.0-46.0) % Sodium 132 L (137-145) mmol/L BUN 55 H (7-17) mg/dL Creatinine 1.57 H (0.52-1.04) mg/dL Glucose 154 H (74-99) mg/dL POC Glucose (mg/dL) 151 H 138 H (75-99) mg/dL Calcium 8.1 L (8.4-10.2) mg/dL Magnesium 3.6 H (1.6-2.3) mg/dL Assessment and Plan (1) Status post three vessel coronary artery bypass Current Visit: Yes Status: Acute Code(s): Z95.1 - PRESENCE OF AORTOCORONARY BYPASS GRAFT SNOMED Code(s): 621695090 (2) Ischemic cardiomyopathy Current Visit: Yes Status: Chronic Code(s): I25.5 - ISCHEMIC CARDIOMYOPATHY SNOMED Code(s): 261582601 Plan: Impression: 1. Cardiac debility. 2. Ischemic cardiomyopathy with history of angina and [place]. 3. Status post three-vessel cord bypass. 4. Diabetes. 5. Dyslipidemia. Constant plan: At this time PT and OT are ongoing. Safety concerns noted. Would anticipate need and benefit inpatient rehab at this time.
[2018-10-13 17:33] LABS: Glucose,Whole Blood 199 mg/dL (75-99)
[2018-10-13 21:00] LABS: Glucose,Whole Blood 183 mg/dL (75-99)
[2018-10-13] MEDS: SENNOSIDES-DOCUSATE SODIUM 1 EACH TAB PO SCH (21:15)
[2018-10-13] MEDS: INSULIN DETEMIR 100 UNIT/ML 10 ML VIAL SQ SCH (21:15)
--- NOTE | 2018-10-13 22:01 | P.PN ---
Subjective this is a pleasant 68 yo F [facility] pmh of CHF and low EF: 20-25% and chronic diabetic kidney disease, who is status post CABG on 10/08/18, she developed acute kidney injury. she is lying in chair with no chest pain , no dyspnea, no abdominal pain , no nausea or vomiting . she is hemodynamically stable with no fever. her hemoglobin is 7.1 which is expected after surgery and is put on iron pill.her creatinine is 1.5 , baseline around 1.2-1.3, it went up to 2.0 and now is improving , pt is been followed by nephrology team , also has mild hyponatremia. sugar is controlled. pt is planed to go to [facility] upon discharge. Objective - Vital Signs Vital signs: Vital Signs Temp 97.7 F 10/13/18 20:00 Pulse 98 10/13/18 21:00 Resp 12 10/13/18 21:00 BP 108/61 10/13/18 21:00 Pulse Ox 94 L 10/13/18 21:00 Intake & Output 10/13/18 10/13/18 10/14/18 06:59 18:59 06:59 Intake Total 219.1 760 Output Total 750 800 200 Balance -530.9 -40 -200 Weight 97.1 kg Intake: IV 219.1 310 0.9 NS 30 310 Dextrose/Water 1 500ml. 89.1 bag @ 1 MCG/KG/MIN 3.63 mls/hr IV .Q24H FRANSISCO with DOPamine DRIP 800 mg Rx#: [id number] Lactated Ringers 1,000 ml 100 @ 20 mls/hr IV .Q24H FRANSISCO Rx#:[id number] Oral 450 Output: Urine 750 800 200 Other: Voiding Method Bedside Commode Bedside Commode Bedside Commode # Bowel Movements 1 ABP, PAP, CO, CI - Last Documented Arterial Blood Pressure 102/52 Pulmonary Artery Pressure 39/22 Cardiac Output 5.9 Cardiac Index 2.9 - Exam GENERAL: The patient is alert and oriented x3, not in any acute distress. Well developed, well nourished. HEENT: Pupils are round and equally reacting to light. EOMI. No scleral icterus. No conjunctival pallor. Normocephalic, atraumatic. No pharyngeal erythema. No thyromegaly. CARDIOVASCULAR: S1 and S2 present. No murmurs, rubs, or gallops. PULMONARY: Chest is clear to auscultation, no wheezing or crackles. ABDOMEN: Soft, nontender, nondistended, normoactive bowel sounds. No palpable organomegaly. MUSCULOSKELETAL: No joint swelling or deformity. EXTREMITIES: No cyanosis, clubbing, or pedal edema. NEUROLOGICAL: Gross neurological examination did not reveal any focal deficits. SKIN: No rashes. - Labs CBC & Chem 7: 10/13/18 04:49 10/13/18 04:49 Labs: Abnormal Lab Results - Last 24 Hours (Table) 10/13/18 10/13/18 10/13/18 Range/Units 04:49 04:49 06:57 RBC 2.46 L (3.80-5.40) m/uL Hgb 7.1 L (11.4-16.0) gm/dL Hct 21.9 L (34.0-46.0) % Sodium 132 L (137-145) mmol/L BUN 55 H (7-17) mg/dL Creatinine 1.57 H (0.52-1.04) mg/dL Glucose 154 H (74-99) mg/dL POC Glucose (mg/dL) 151 H (75-99) mg/dL Calcium 8.1 L (8.4-10.2) mg/dL Magnesium 3.6 H (1.6-2.3) mg/dL 10/13/18 10/13/18 10/13/18 Range/Units 11:41 17:22 20:49 RBC (3.80-5.40) m/uL Hgb (11.4-16.0) gm/dL Hct (34.0-46.0) % Sodium (137-145) mmol/L BUN (7-17) mg/dL Creatinine (0.52-1.04) mg/dL Glucose (74-99) mg/dL POC Glucose (mg/dL) 138 H 199 H 183 H (75-99) mg/dL Calcium (8.4-10.2) mg/dL Magnesium (1.6-2.3) mg/dL Assessment and Plan Assessment: coronary artery diseases status post CABG acute kidney injury chronic kidney disease secondary to diabetic nephropathy chronic congestive heart failure with EF 20-2% Plan: this is a pleasatn 68 yo F , she is status post CABG and acute kidney injury, pt is improving . continue with statin , plavix , insulin continue with the same treatment , continue with symptomatic treatment , resume home medication , monitor lytes and vitals including glucose , c/w iv fluids, cardiology consult is appreciated. infectious disease consult is appreciated . c /w same antibioitc . GI and DVT prophylaxis , further recommendation based upon pt clinical course and progress DVT prophylaxis subcutaneous heparin GI prophylaxis Protonix PT/OT: pending Prognosis is guarded
[2018-10-14 04:51] LABS: HCT 22.5 % (34.0-46.0); Hypochromasia Slight; MCH 27.7 pg (25.0-35.0); MCHC 31.1 g/dL (31.0-37.0); MCV 89.2 fL (80.0-100.0); Mean Platelet Volume 7.7; Platelet Count 295 k/uL (150-450); RBC 2.52 m/uL (3.80-5.40); RDW 15.3 % (11.5-15.5); WBC 6.3 k/uL (3.8-10.6)
[2018-10-14 05:04] LABS: Calcium 8.1 mg/dL (8.4-10.2); Magnesium 3.7 mg/dL (1.6-2.3); Potassium 5.4 mmol/L (3.5-5.1)
[2018-10-14] MEDS: ONDANSETRON 4 MG/2 ML VIAL IVP PRN (05:21)
--- NOTE | 2018-10-14 05:54 | P.PN ---
Subjective Progress Note Date: 10/14/18 Principal diagnosis: Status post open heart with CABG This is a pleasant 68-year-old female patient with past medical history the patient does have coronary artery disease with prior coronary artery stenting, diabetes type 2, hypertension, and dyslipidemia.who we consulted to see for cardiac follow-up after coronary artery bypass grafting. Earlier this month, September 2018, the patient presented to the hospital with shortness of breath. She was ruled in for acute non-ST deviation myocardial infarction with abnormal EKG as well as abnormal cardiac enzymes. At that point she underwent heart catheterization by Dr. Perez and that revealed severe triple-vessel coronary artery disease. Because of that the patient was referred to undergo coronary artery bypass grafting. The patient underwent yesterday coronary artery bypass grafting 3 where she received CONNELLY to LAD, JT to OM, and radial artery to right coronary artery. The last echocardiogram from September 2018 revealed impaired LV function with EF between 20-25% with basal inferior hypokinesia and inferoseptal hypokinesia. On follow-up with the patient today, October 142018, the patient is doing good clinically. She was seen yesterday by the nephrology service. She is off dopamine. Hemodynamically she continues to be stable as well. The creatinine has improved and currently is 1.52. The hemoglobin is 7.0. She continues to be on dual antiplatelet therapy along with a statin. The chest x-ray was reviewed with and showed small left pleural effusion. Objective - Vital Signs Vital signs: Vital Signs Temp 97.7 F 10/14/18 04:00 Pulse 88 10/14/18 05:00 Resp 13 10/14/18 05:00 BP 117/63 10/14/18 05:00 Pulse Ox 95 10/14/18 05:00 Intake & Output 10/13/18 10/13/18 10/14/18 06:59 18:59 06:59 Intake Total 219.1 760 Output Total 750 800 500 Balance -530.9 -40 -500 Weight 97.1 kg 96.8 kg Intake: IV 219.1 310 0.9 NS 30 310 Dextrose/Water 1 500ml. 89.1 bag @ 1 MCG/KG/MIN 3.63 mls/hr IV .Q24H FRANSISCO with DOPamine DRIP 800 mg Rx#: [id number] Lactated Ringers 1,000 ml 100 @ 20 mls/hr IV .Q24H FRANSISCO Rx#:[id number] Oral 450 Output: Urine 750 800 500 Other: Voiding Method Bedside Commode Bedside Commode Bedside Commode # Voids 1 # Bowel Movements 1 ABP, PAP, CO, CI - Last Documented Arterial Blood Pressure 102/52 Pulmonary Artery Pressure 39/22 Cardiac Output 5.9 Cardiac Index 2.9 - Constitutional General appearance: Present: no acute distress - Respiratory Respiratory: bilateral: CTA - Cardiovascular Rhythm: regular Heart sounds: normal: S1, S2 - Labs CBC & Chem 7: 10/14/18 04:32 10/14/18 04:32 Labs: Abnormal Lab Results - Last 24 Hours (Table) 10/13/18 10/13/18 10/13/18 Range/Units 04:49 06:57 11:41 RBC (3.80-5.40) m/uL Hgb (11.4-16.0) gm/dL Hct (34.0-46.0) % Sodium 132 L (137-145) mmol/L Potassium (3.5-5.1) mmol/L BUN 55 H (7-17) mg/dL Creatinine 1.57 H (0.52-1.04) mg/dL Glucose 154 H (74-99) mg/dL POC Glucose (mg/dL) 151 H 138 H (75-99) mg/dL Calcium 8.1 L (8.4-10.2) mg/dL Magnesium 3.6 H (1.6-2.3) mg/dL 10/13/18 10/13/18 10/14/18 Range/Units 17:22 20:49 04:32 RBC 2.52 L (3.80-5.40) m/uL Hgb 7.0 L (11.4-16.0) gm/dL Hct 22.5 L (34.0-46.0) % Sodium (137-145) mmol/L Potassium (3.5-5.1) mmol/L BUN (7-17) mg/dL Creatinine (0.52-1.04) mg/dL Glucose (74-99) mg/dL POC Glucose (mg/dL) 199 H 183 H (75-99) mg/dL Calcium (8.4-10.2) mg/dL Magnesium (1.6-2.3) mg/dL 01/30/19 Range/Units 04:32 RBC (3.80-5.40) m/uL Hgb (11.4-16.0) gm/dL Hct (34.0-46.0) % Sodium 132 L (137-145) mmol/L Potassium 5.4 H (3.5-5.1) mmol/L BUN 54 H (7-17) mg/dL Creatinine 1.52 H (0.52-1.04) mg/dL Glucose 121 H (74-99) mg/dL POC Glucose (mg/dL) (75-99) mg/dL Calcium 8.1 L (8.4-10.2) mg/dL Magnesium 3.7 H (1.6-2.3) mg/dL Assessment and Plan Assessment: Assessment #1 severe underlying coronary artery disease as described above #2 status post coronary artery bypass grafting 3 as described above #3 diabetes type 2 #4 hypertension #5 dyslipidemia Plan #1 continue the current medical regimen including dual antiplatelet therapy along with statin and metoprolol. #2 continue monitor the hemoglobin as well as BUN and electrolytes #3 continue daily chest x-ray #4 I do feel that the patient might benefit from small dose of Lasix. Thank you for allowing us participate in her care and we will continue following up with the patient
[2018-10-14] MEDS: FERROUS SULFATE 325 MG TAB PO SCH ×2 (07:21→16:29)
[2018-10-14] MEDS: INSULIN ASPART 100 UNIT/ML 1 ML 10 ML VIAL SQ SCH ×4 (07:21→21:15)
[2018-10-14] MEDS: ASCORBIC ACID 500 MG TAB PO SCH ×2 (07:21→16:29)
[2018-10-14] MEDS: PANTOPRAZOLE 40 MG TABLET PO SCH (07:21)
[2018-10-14 07:26] LABS: Glucose,Whole Blood 144 mg/dL (75-99)
--- NOTE | 2018-10-14 07:40 | XR ---
EXAMINATION TYPE: XR chest 1V portable DATE OF EXAM: 10/14/2018 COMPARISON: Prior chest x-ray 10/13/2018 HISTORY: Status post cardiac surgery, abnormal chest x-ray TECHNIQUE: Single frontal view of the chest is obtained. FINDINGS: Findings are similar to prior. The heart remains enlarged. Blunting the costophrenic angle s persists, interstitium is increased. No evident pneumothorax. Patchy bibasilar density again noted. There are cardiac leads. IMPRESSION: Correlate for volume overload, pulmonary venous hypertension and interstitial edema. Pro bable small effusions. There is likely associated atelectatic changes, pneumonia not excluded.
[2018-10-14] MEDS ORDERED: FUROSEMIDE 10 MG/ML 2 ML VIAL IV ONE (08:03)
[2018-10-14] MEDS ORDERED: SENNOSIDES-DOCUSATE SODIUM 1 EACH TAB PO PRN (08:16)
[2018-10-14] MEDS: ASPIRIN 325 MG TAB PO SCH (08:30)
[2018-10-14] MEDS: HEPARIN SODIUM,PORCINE 5,000 UNIT/ML 1 ML VIAL SQ SCH ×3 (08:30→23:39)
[2018-10-14] MEDS: CLOPIDOGREL 75 MG TAB PO SCH (08:30)
[2018-10-14] MEDS: HYDROcodone/APAP 5-325MG 1 EACH TAB PO PRN ×2 (08:30→21:16)
[2018-10-14] MEDS: DILTIAZEM ORAL 30 MG TAB PO SCH ×3 (08:30→23:39)
[2018-10-14] MEDS: ATORVASTATIN 40 MG TAB PO SCH (08:31)
[2018-10-14] MEDS: METOPROLOL TARTRATE 25 MG TAB PO SCH ×2 (08:33→16:29)
[2018-10-14] MEDS: IPRATROPIUM-ALBUTEROL 3 ML NEB INHALATION SCH ×5 (08:41→19:32)
--- NOTE | 2018-10-14 09:46 | P.PN ---
Subjective Patient is seen in follow-up for acute kidney injury. Unclear as to what her baseline renal function is. Recently her creatinine has been in the range of 1.2-1.3. She underwent CABG on October 08. Currently resting in bed. No active chest pain or shortness of breath. Good urine output. Oral intake is fair. Vital signs are stable. General: The patient appeared well nourished and normally developed. HEENT: Head exam is unremarkable. Neck is without jugular venous distension. LUNGS: Lungs are clear to auscultation and percussion. Breath sounds decreased. HEART: Rate and Rhythm are regular. First and second heart sounds normal. No murmurs, rubs or gallops. ABDOMEN: Abdominal exam reveals normal bowel sounds. Non-tender and non- distended. No evidence of peritonitis. EXTREMITITES: No clubbing, cyanosis, or edema. Objective - Vital Signs Vital signs: Vital Signs Temp 97.6 F 10/14/18 08:00 Pulse 88 10/14/18 08:51 Resp 14 10/14/18 08:42 BP 116/62 10/14/18 08:00 Pulse Ox 92 L 10/14/18 08:42 Intake & Output 10/13/18 10/14/18 10/14/18 18:59 06:59 18:59 Intake Total 760 Output Total 800 500 0 Balance -40 -500 0 Weight 97.1 kg 96.8 kg Intake: IV 310 0.9 NS 310 Oral 450 Output: Urine 800 500 0 Other: Voiding Method Bedside Commode Bedside Commode # Voids 1 # Bowel Movements 1 ABP, PAP, CO, CI - Last Documented Arterial Blood Pressure 102/52 Pulmonary Artery Pressure 39/22 Cardiac Output 5.9 Cardiac Index 2.9 - Labs CBC & Chem 7: 10/14/18 04:32 10/14/18 04:32 Labs: Abnormal Lab Results - Last 24 Hours (Table) 10/13/18 10/13/18 10/13/18 Range/Units 11:41 17:22 20:49 RBC (3.80-5.40) m/uL Hgb (11.4-16.0) gm/dL Hct (34.0-46.0) % Sodium (137-145) mmol/L Potassium (3.5-5.1) mmol/L BUN (7-17) mg/dL Creatinine (0.52-1.04) mg/dL Glucose (74-99) mg/dL POC Glucose (mg/dL) 138 H 199 H 183 H (75-99) mg/dL Calcium (8.4-10.2) mg/dL Magnesium (1.6-2.3) mg/dL 10/14/18 10/14/18 10/14/18 Range/Units 04:32 04:32 07:14 RBC 2.52 L (3.80-5.40) m/uL Hgb 7.0 L (11.4-16.0) gm/dL Hct 22.5 L (34.0-46.0) % Sodium 132 L (137-145) mmol/L Potassium 5.4 H (3.5-5.1) mmol/L BUN 54 H (7-17) mg/dL Creatinine 1.52 H (0.52-1.04) mg/dL Glucose 121 H (74-99) mg/dL POC Glucose (mg/dL) 144 H (75-99) mg/dL Calcium 8.1 L (8.4-10.2) mg/dL Magnesium 3.7 H (1.6-2.3) mg/dL Assessment and Plan Plan: Assessment: 1. Acute kidney injury secondary to ATN secondary to hemodynamic instability. Creatinine peaked at 2.0 this admission and is down to 1.52 today. 2. Chronic kidney disease. UA from earlier this month did reveal 1+ proteinuria which is likely secondary to underlying diabetic kidney disease. Need to establish baseline renal function. 3. Coronary artery disease status post CABG on October 08. 4. Diabetes mellitus. 5. Hyponatremia secondary to acute kidney injury. Slightly hypervolemic. 6. Systolic CHF with ejection fraction of 20-25% on echocardiogram done 2018. 7. Mild hyperkalemia secondary to acute kidney injury. No significant acidosis. Blood sugars not too high either. Plan: Status post 20 mg IV Lasix this morning. Discontinued milk of magnesia as magnesium level elevated. Avoid [employer]. Continue to monitor renal function and urine output closely. Monitor hemoglobin. Potential transfer to inpatient rehab today.
--- NOTE | 2018-10-14 10:07 | PN ---
PROGRESS NOTE DATE OF SERVICE: 10/14/2018 This is a 68-year-old female admitted back on October 08. She is status post 3-vessel bypass grafting. She is postop day #6. Each day, she does a bit better. She is feeling stronger today. She remains on O2 at 2 L. She is not receiving any IV fluids. The patient is not receiving any dopamine again. The patient was on dopamine, but that has been weaned down. The patient does have a history of diabetes mellitus, hyperlipidemia, iron deficiency anemia, peripheral vascular occlusive disease, myocardial infarction, and a previous history of tobacco dependence. The patient did smoke 40 years at 1 pack a day. Anyway, she is doing 750 on her incentive spirometer. We got her deep breathing coughing and clearing of secretions. Chest tubes have all been removed. Current vital signs are reviewed. Temperature is 97.6, heart rate 88, respiratory rate 14, blood pressure 116/62, mean 80, saturations are 95/96 percent on 2 L and on room air. She is anywhere from 90-94 percent. Appears in no acute distress. Sitting at the bedside. HEENT examination is grossly unremarkable. Nasal O2 in place. Neck is supple. Full range of motion. No adenopathy or thyromegaly. Neck veins are flat. Cardiovascular examination reveals regular rhythm and rate. S1, S2 normal. No S3, S4, or murmur. Heart sounds are distant. Lungs reveal mostly clear breath sounds. A few scattered rhonchi. No wheezes or crackles. Abdomen is soft. Bowel sounds are heard. Extremities are intact. No cyanosis, clubbing, or edema. LABS: Reviewed. White count 6.3, hemoglobin 7, hematocrit 22.5, platelet count 395,000, sodium 132, potassium 5.4, chloride is 105, CO2 is 23, BUN and creatinine were 54 and 1.52. Microbiologic studies are negative. X-RAY: Was reviewed. Chest x-ray shows some mild fluid overload and pulmonary venous hypertension with mild interstitial edema and small pleural effusions. ASSESSMENT: 1. Postoperative day #6, status post 3-vessel bypass grafting. 2. Routine postoperative ventilator management, resolved. 3. Coronary artery disease. 4. Ischemic cardiomyopathy with left ventricular dysfunction. 5. Chronic systolic heart failure. 6. Chronic obstructive pulmonary disease with an FEV1 at 56% of predicted/stage 2 disease. 7. Postoperative atelectasis and pleural effusions. 8. History of diabetes mellitus. 9. History of hyperlipidemia. 10.History of iron deficiency anemia. 11.PVOD. 12.History of myocardial infarction. 13.Previous history of 40 years of tobacco use. PLAN: Again we continued to have the patient do incentive spirometry q.1 hour while awake. In addition, we recommend deep breathing coughing and clearing of secretions. She remains on updrafts. Microbiologic studies are negative. Chest x-ray was reviewed. Renal functions improved. Overall, I think she is doing better. She is getting ones that she is getting 750 on the incentive spirometer. Discharge planning is underway. I am not sure where she will be discharged to and when she will be discharged. We will continue to follow. RODOLFO / ABIDA: [id number] /
--- NOTE | 2018-10-14 10:48 | P.PN ---
Subjective Progress Note Date: 10/14/18 Principal diagnosis: Coronary artery disease, chronic systolic and diastolic heart failure with preoperative ejection fraction 20-25%, ischemic cardiomyopathy and LV dysfunction. Previous medical history of non-STEMI earlier this month as well as in 2006 with stent placement at that time, hyperlipidemia, peripheral artery disease with stent placement to the left lower extremity in 2016, chronic kidney disease with baseline creatinine 1.3-1.5, recent vein surgery to bilateral lower extremity is, [id number] diabetes mellitus with preoperative hemoglobin A1c 7.1%, shingles, obesity, moderate COPD with preoperative FEV1 51% of predicted, previous tobacco dependence, and family history of early coronary artery disease with mother dying before the age of 6060 years old during coronary artery bypass graft surgery. Preoperative nasal swab positive for MSSA. Preoperative normocytic, normochromic anemia. POD #6 off-pump coronary artery bypass graft surgery 3 with the left internal mammary artery artery graft to the left anterior descending artery, right radial artery graft to the obtuse marginal and the left radial arterial graft to the posterior descending artery, bilateral endovascular radial artery harvest. Intraoperative transesophageal echocardiogram by anesthesia. Postoperative acute blood loss anemia, expected outcome. Acute kidney injury, nonoliguric, potential outcome given patient's baseline chronic kidney disease. She is currently sitting up in the recliner in no acute distress. Denies any pain at this time, states pain is well controlled on current medication regimen. Denies shortness of breath. Has ambulated in the hallway. Dopamine discontinued yesterday, remains hemodynamically stable. Clinically she looks very good and states she is feeling better every day, no new complaints. Objective - Vital Signs Vital signs: Vital Signs Temp 97.6 F 10/14/18 08:00 Pulse 88 10/14/18 08:51 Resp 14 10/14/18 08:42 BP 116/62 10/14/18 08:00 Pulse Ox 92 L 10/14/18 08:42 Intake & Output 10/13/18 10/14/18 10/14/18 18:59 06:59 18:59 Intake Total 760 Output Total 800 500 0 Balance -40 -500 0 Weight 97.1 kg 96.8 kg Intake: IV 310 0.9 NS 310 Oral 450 Output: Urine 800 500 0 Other: Voiding Method Bedside Commode Bedside Commode # Voids 1 # Bowel Movements 1 ABP, PAP, CO, CI - Last Documented Arterial Blood Pressure 102/52 Pulmonary Artery Pressure 39/22 Cardiac Output 5.9 Cardiac Index 2.9 - Constitutional General appearance: Present: cooperative, no acute distress, obese - Respiratory Details: Lungs sounds diminished bilaterally, coarse breath sounds in the bases. Respirations even, nonlabored. Currently on 2 L nasal cannula with oxygen saturation 96%. Able to achieve 750 mL on her incentive spirometry. Strong productive cough. - Cardiovascular Details: S1, S2 present. Regular rate and rhythm, sinus rhythm on telemetry. Sternum stable. Palpable peripheral pulses bilaterally. Trace generalized edema present. No calf pain or tenderness noted. Heart hugger in place with patient demonstrating appropriate use. Antiembolism stockings, SCDs present. - Gastrointestinal Gastrointestinal Comment(s): Abdomen soft, nontender, nondistended. Active bowel sounds present 4 quadrants. Tolerating diet. Positive bowel movement this morning. - Genitourinary Genitourinary Comment(s): Continues to void clear, yellow urine. Output overnight was 300 mL. - Integumentary Integumentary Comment(s): Skin is warm and dry with evidence of good perfusion. Anterior chest incision well approximated and covered with dry intact dressing. Bilateral radial artery harvest sites well approximated, positive feeling without numbness or tingling in all fingers, able to move both hands without difficulty. - Neurologic Neurologic: Present: CNII-XII intact - Musculoskeletal Musculoskeletal: Present: gait normal, strength equal bilaterally - Psychiatric Psychiatric: Present: A&O x's 3, appropriate affect, intact judgment & insight - Allied health notes Allied health notes reviewed: nursing - Labs CBC & Chem 7: 10/14/18 04:32 10/14/18 04:32 Labs: Abnormal Lab Results - Last 24 Hours (Table) 10/13/18 10/13/18 10/13/18 Range/Units 11:41 17:22 20:49 RBC (3.80-5.40) m/uL Hgb (11.4-16.0) gm/dL Hct (34.0-46.0) % Sodium (137-145) mmol/L Potassium (3.5-5.1) mmol/L BUN (7-17) mg/dL Creatinine (0.52-1.04) mg/dL Glucose (74-99) mg/dL POC Glucose (mg/dL) 138 H 199 H 183 H (75-99) mg/dL Calcium (8.4-10.2) mg/dL Magnesium (1.6-2.3) mg/dL 10/14/18 10/14/18 10/14/18 Range/Units 04:32 04:32 07:14 RBC 2.52 L (3.80-5.40) m/uL Hgb 7.0 L (11.4-16.0) gm/dL Hct 22.5 L (34.0-46.0) % Sodium 132 L (137-145) mmol/L Potassium 5.4 H (3.5-5.1) mmol/L BUN 54 H (7-17) mg/dL Creatinine 1.52 H (0.52-1.04) mg/dL Glucose 121 H (74-99) mg/dL POC Glucose (mg/dL) 144 H (75-99) mg/dL Calcium 8.1 L (8.4-10.2) mg/dL Magnesium 3.7 H (1.6-2.3) mg/dL - Imaging and Cardiology Chest x-ray: report reviewed, image reviewed Assessment and Plan (1) Coronary artery disease Current Visit: Yes Status: Chronic Code(s): I25.10 - ATHSCL HEART DISEASE OF [place] CORONARY ARTERY W/O ANG PCTRS SNOMED Code(s): 96942502 (2) Ischemic cardiomyopathy Current Visit: Yes Status: Chronic Code(s): I25.5 - ISCHEMIC CARDIOMYOPATHY SNOMED Code(s): 724104005 (3) Status post three vessel coronary artery bypass Current Visit: Yes Status: Acute Code(s): Z95.1 - PRESENCE OF AORTOCORONARY BYPASS GRAFT SNOMED Code(s): 475437206 (4) Systolic heart failure Current Visit: Yes Status: Chronic Code(s): I50.20 - UNSPECIFIED SYSTOLIC ( CONGESTIVE) HEART FAILURE SNOMED Code(s): 545845231 (5) COPD (chronic obstructive pulmonary disease) Current Visit: Yes Status: Chronic Code(s): J44.9 - CHRONIC OBSTRUCTIVE PULMONARY DISEASE, UNSPECIFIED SNOMED Code(s): 93699918 (6) Diabetes mellitus Current Visit: Yes Status: Chronic Code(s): E11.9 - TYPE 2 DIABETES MELLITUS WITHOUT COMPLICATIONS SNOMED Code(s): 76405985 (7) History of heart artery stent Current Visit: Yes Status: Chronic Code(s): Z95.5 - PRESENCE OF CORONARY ANGIOPLASTY IMPLANT AND GRAFT SNOMED Code(s): 927816120 (8) Hyperlipidemia Current Visit: Yes Status: Chronic Code(s): E78.5 - HYPERLIPIDEMIA, UNSPECIFIED SNOMED Code(s): 12721420 (9) Iron deficiency anemia Current Visit: Yes Status: Chronic Code(s): D50.9 - IRON DEFICIENCY ANEMIA, UNSPECIFIED SNOMED Code(s): 49271314 (10) Obesity (BMI 30.0-34.9) Current Visit: Yes Status: Chronic Code(s): E66.9 - OBESITY, UNSPECIFIED SNOMED Code(s): 134116080564648 (11) Peripheral artery disease Current Visit: Yes Status: Chronic Code(s): I73.9 - PERIPHERAL VASCULAR DISEASE, UNSPECIFIED SNOMED Code(s): 386648191 (12) History of myocardial infarction, greater than 8 weeks ago Current Visit: No Status: Resolved Code(s): I25.2 - OLD MYOCARDIAL INFARCTION SNOMED Code(s): 2423896 (13) Tobacco dependence in remission Current Visit: No Status: Resolved Code(s): F17.201 - NICOTINE DEPENDENCE, UNSPECIFIED, IN REMISSION SNOMED Code(s): 509895818 Plan: 1. Continue aspirin, statin, Plavix, beta salome therapy. Will increase beta salome therapy as tolerated, will increase to 25 mg 3 times daily today. 2. Nephrology consulted, appreciate recommendations. No nephrotoxic agents. Will give 20 mg IV Lasix today, okay with nephrology. 3. Continue oral Cardizem for radial artery spasm. 4. Wean O2 as tolerated. Encourage incentive spirometry is 10 times every hour while awake. 5. Increase activity, ambulate as tolerated. PT/OT/cardiac rehab following. 6. Pain control with current medication regimen. No Toradol secondary to chronic renal insufficiency. 7. Bronchodilators per pulmonology. 8. Insulin management per primary care service. 9. GI prophylaxis with Protonix, DVT prophylaxis with subcu heparin, SCDs. 10. Will monitor daily labs and x-rays. Electrolyte replacement per protocol. 11. Transfer orders placed for 3 S. cardiac stepdown unit, may transfer when bed available. 12. Dr. Huynh was consulted yesterday for inpatient rehab admission. Await insurance authorization. May transfer to inpatient rehab as soon as authorization is obtained and bed is available. 13. More recommendations to follow. Time with Patient: Greater than 30
[2018-10-14 11:57] LABS: Glucose,Whole Blood 190 mg/dL (75-99)
--- NOTE | 2018-10-14 14:54 | P.PN ---
Subjective [facility] 68 [facility] and low EF: 20-25% and chronic diabetic kidney disease, who is status post CABG on 10/08/18, she developed acute kidney injury. she is lying in chair with no chest pain , no dyspnea, no abdominal pain , no nausea or vomiting . she is hemodynamically stable with no fever. her hemoglobin is 7.1 which is expected after surgery and is put on iron pill.her creatinine is 1.5 , baseline around 1.2-1.3, it went up to 2.0 and now is improving , pt is been followed by nephrology team , also has mild hyponatremia. sugar is controlled. pt is planed to go to ECF upon discharge. 10/14/2018 Patient is clinically stable, same as yesterday with no dyspnea or chest pain. Tolerating diet well. Vitals stable .. Labs reviewed showing unremarkable CBC. Her sodium is 132, potassium 5.43 creatinine 1.5. Magnesium 3.7. Calcium 8.1. Sugar is controlled. Repeat chest x-ray showing pulmonary venous hypertension and interstitial edema with probable small effusion and there is likely associated atelectasis changes and pneumonia not excluded per radiology report. However patient has no worsening symptoms. Patient is planned to be discharged to ECF rehab. Patient insurance authorization is pending. Objective - Vital Signs Vital signs: Vital Signs Temp 97.6 F 10/14/18 08:00 Pulse 80 10/14/18 13:00 Resp 12 10/14/18 13:00 BP 113/64 10/14/18 13:00 Pulse Ox 96 10/14/18 13:00 Intake & Output 10/13/18 10/14/18 10/14/18 18:59 06:59 18:59 Intake Total 760 140 Output Total 800 500 490 Balance -40 -500 -350 Weight 97.1 kg 96.8 kg Intake: IV 310 0.9 NS 310 Oral 450 140 Output: Urine 800 500 490 Other: Voiding Method Bedside Commode Bedside Commode Bedside Commode # Voids 1 # Bowel Movements 1 ABP, PAP, CO, CI - Last Documented Arterial Blood Pressure 102/52 Pulmonary Artery Pressure 39/22 Cardiac Output 5.9 Cardiac Index 2.9 - Exam GENERAL: The patient is alert and oriented x3, not in any acute distress. Well developed, well nourished. HEENT: Pupils are round and equally reacting to light. EOMI. No scleral icterus. No conjunctival pallor. Normocephalic, atraumatic. No pharyngeal erythema. No thyromegaly. CARDIOVASCULAR: S1 and S2 present. No murmurs, rubs, or gallops. PULMONARY: Chest is clear to auscultation, no wheezing or crackles. ABDOMEN: Soft, nontender, nondistended, normoactive bowel sounds. No palpable organomegaly. MUSCULOSKELETAL: No joint swelling or deformity. EXTREMITIES: No cyanosis, clubbing, or pedal edema. NEUROLOGICAL: Gross neurological examination did not reveal any focal deficits. SKIN: No rashes. - Labs CBC & Chem 7: 10/14/18 04:32 10/14/18 04:32 Labs: Abnormal Lab Results - Last 24 Hours (Table) 10/13/18 10/13/18 10/14/18 Range/Units 17:22 20:49 04:32 RBC 2.52 L (3.80-5.40) m/uL Hgb 7.0 L (11.4-16.0) gm/dL Hct 22.5 L (34.0-46.0) % Sodium (137-145) mmol/L Potassium (3.5-5.1) mmol/L BUN (7-17) mg/dL Creatinine (0.52-1.04) mg/dL Glucose (74-99) mg/dL POC Glucose (mg/dL) 199 H 183 H (75-99) mg/dL Calcium (8.4-10.2) mg/dL Magnesium (1.6-2.3) mg/dL 10/14/18 10/14/18 10/14/18 Range/Units 04:32 07:14 11:45 RBC (3.80-5.40) m/uL Hgb (11.4-16.0) gm/dL Hct (34.0-46.0) % Sodium 132 L (137-145) mmol/L Potassium 5.4 H (3.5-5.1) mmol/L BUN 54 H (7-17) mg/dL Creatinine 1.52 H (0.52-1.04) mg/dL Glucose 121 H (74-99) mg/dL POC Glucose (mg/dL) 144 H 190 H (75-99) mg/dL Calcium 8.1 L (8.4-10.2) mg/dL Magnesium 3.7 H (1.6-2.3) mg/dL Assessment and Plan Assessment: coronary artery diseases status post CABG acute kidney injury chronic kidney disease secondary to diabetic nephropathy chronic congestive heart failure with EF 20-2% Plan: this is a pleasatn 68 yo F , she is status post CABG and acute kidney injury, pt is improving . continue with statin , plavix , insulin continue with the same treatment , continue with symptomatic treatment , resume home medication , monitor lytes and vitals including glucose , c/w iv fluids, cardiology consult is appreciated. infectious disease consult is appreciated . c /w same antibioitc . GI and DVT prophylaxis , further recommendation based upon pt clinical course and progress DVT prophylaxis subcutaneous heparin GI prophylaxis Protonix PT/OT: pending Prognosis is guarded
[2018-10-14 17:01] LABS: Glucose,Whole Blood 221 mg/dL (75-99)
[2018-10-14 20:48] LABS: Glucose,Whole Blood 212 mg/dL (75-99)
[2018-10-14] MEDS: INSULIN DETEMIR 100 UNIT/ML 10 ML VIAL SQ SCH (21:16)
[2018-10-15] MEDS: METOPROLOL TARTRATE 25 MG TAB PO SCH ×2 (02:02→08:26)
[2018-10-15 03:06] LABS: Glucose,Whole Blood 118 mg/dL (75-99)
[2018-10-15 05:08] LABS: Hypochromasia Moderate; Mean Platelet Volume 6.6
[2018-10-15 05:15] LABS: HCT 21.8 % (34.0-46.0); MCH 28.5 pg (25.0-35.0); MCHC 31.3 g/dL (31.0-37.0); Platelet Count 335 k/uL (150-450); RBC 2.39 m/uL (3.80-5.40); RDW 15.3 % (11.5-15.5); WBC 6.1 k/uL (3.8-10.6)
[2018-10-15 05:17] LABS: HGB 6.8 gm/dL (11.4-16.0)
[2018-10-15 05:23] LABS: Calcium 8.2 mg/dL (8.4-10.2); Magnesium 3.4 mg/dL (1.6-2.3); Potassium 5.3 mmol/L (3.5-5.1)
[2018-10-15] MEDS: ASCORBIC ACID 500 MG TAB PO SCH (06:40)
[2018-10-15] MEDS: FERROUS SULFATE 325 MG TAB PO SCH (06:40)
[2018-10-15] MEDS: PANTOPRAZOLE 40 MG TABLET PO SCH (06:40)
[2018-10-15] MEDS: INSULIN ASPART 100 UNIT/ML 1 ML 10 ML VIAL SQ SCH ×2 (06:46→13:14)
[2018-10-15 06:55] LABS: Glucose,Whole Blood 113 mg/dL (75-99)
--- NOTE | 2018-10-15 07:05 | P.PN ---
Subjective Progress Note Date: 10/15/18 Principal diagnosis: Status post open heart with CABG This is a pleasant 68-year-old female patient with past medical history the patient does have coronary artery disease with prior coronary artery stenting, diabetes type 2, hypertension, and dyslipidemia.who we consulted to see for cardiac follow-up after coronary artery bypass grafting. Earlier this month, September 2018, the patient presented to the hospital with shortness of breath. She was ruled in for acute non-ST deviation myocardial infarction with abnormal EKG as well as abnormal cardiac enzymes. At that point she underwent heart catheterization by Dr. Perez and that revealed severe triple-vessel coronary artery disease. Because of that the patient was referred to undergo coronary artery bypass grafting. The patient underwent yesterday coronary artery bypass grafting 3 where she received CONNELLY to LAD, JT to OM, and radial artery to right coronary artery. The last echocardiogram from September 2018 revealed impaired LV function with EF between 20-25% with basal inferior hypokinesia and inferoseptal hypokinesia. On follow-up with the patient today, 10/15/2018, the patient has been stable clinically. The hemoglobin is 6.8 and I will suggest giving the patient one unit of packed RBC. The creatinine has improved and is 1.38. The chest x-ray was reviewed and continues to show findings consistent with his CHF and bilateral pleural effusion. The patient might benefit from some Lasix IV. The initial plan for the patient to go to extended care facility later on today. She continues to be on dual antiplatelet therapy with aspirin and Plavix as well as a statin as well as metoprolol. Objective - Vital Signs Vital signs: Vital Signs Temp 97.6 F 10/15/18 04:00 Pulse 82 10/15/18 07:00 Resp 18 10/15/18 07:00 BP 116/65 10/15/18 07:00 Pulse Ox 97 10/15/18 07:00 Intake & Output 10/14/18 10/15/18 10/15/18 18:59 06:59 18:59 Intake Total 140 Output Total 830 0 Balance -690 0 Intake: Oral 140 Output: Urine 830 0 Other: Voiding Method Bedside Commode Bedside Commode # Voids 1 1 ABP, PAP, CO, CI - Last Documented Arterial Blood Pressure 102/52 Pulmonary Artery Pressure 39/22 Cardiac Output 5.9 Cardiac Index 2.9 - Constitutional General appearance: Present: no acute distress - Respiratory Respiratory: bilateral: rales - Cardiovascular Rhythm: regular Heart sounds: normal: S1, S2 - Labs CBC & Chem 7: 10/15/18 04:41 10/15/18 04:41 Labs: Abnormal Lab Results - Last 24 Hours (Table) 10/14/18 10/14/18 10/14/18 Range/Units 07:14 11:45 16:49 RBC (3.80-5.40) m/uL Hgb (11.4-16.0) gm/dL Hct (34.0-46.0) % Sodium (137-145) mmol/L Potassium (3.5-5.1) mmol/L BUN (7-17) mg/dL Creatinine (0.52-1.04) mg/dL Glucose (74-99) mg/dL POC Glucose (mg/dL) 144 H 190 H 221 H (75-99) mg/dL Calcium (8.4-10.2) mg/dL Magnesium (1.6-2.3) mg/dL 10/14/18 10/15/18 10/15/18 Range/Units 20:36 02:54 04:41 RBC 2.39 L (3.80-5.40) m/uL Hgb 6.8 L* (11.4-16.0) gm/dL Hct 21.8 L (34.0-46.0) % Sodium (137-145) mmol/L Potassium (3.5-5.1) mmol/L BUN (7-17) mg/dL Creatinine (0.52-1.04) mg/dL Glucose (74-99) mg/dL POC Glucose (mg/dL) 212 H 118 H (75-99) mg/dL Calcium (8.4-10.2) mg/dL Magnesium (1.6-2.3) mg/dL 10/15/18 10/15/18 Range/Units 04:41 06:44 RBC (3.80-5.40) m/uL Hgb (11.4-16.0) gm/dL Hct (34.0-46.0) % Sodium 134 L (137-145) mmol/L Potassium 5.3 H (3.5-5.1) mmol/L BUN 51 H (7-17) mg/dL Creatinine 1.35 H (0.52-1.04) mg/dL Glucose 101 H (74-99) mg/dL POC Glucose (mg/dL) 113 H (75-99) mg/dL Calcium 8.2 L (8.4-10.2) mg/dL Magnesium 3.4 H (1.6-2.3) mg/dL Assessment and Plan Assessment: Assessment #1 severe underlying coronary artery disease as described above #2 status post coronary artery bypass grafting 3 as described above #3 diabetes type 2 #4 hypertension #5 dyslipidemia Plan #1 continue the current medical regimen including dual antiplatelet therapy along with statin and metoprolol. #2 one unit of packed RBC #3 the patient might benefit from some Lasix IV #4 follow-up with the patient Thank you for allowing us participate in her care and we will continue following up with the patient
[2018-10-15] MEDS: IPRATROPIUM-ALBUTEROL 3 ML NEB INHALATION SCH ×2 (07:39→11:03)
[2018-10-15 08:24] VITALS: TEMP 98.8
[2018-10-15] MEDS: HEPARIN SODIUM,PORCINE 5,000 UNIT/ML 1 ML VIAL SQ SCH (08:26)
[2018-10-15] MEDS: ATORVASTATIN 40 MG TAB PO SCH (08:26)
[2018-10-15] MEDS: ASPIRIN 325 MG TAB PO SCH (08:26)
--- NOTE | 2018-10-15 08:26 | PN ---
PROGRESS NOTE DATE OF SERVICE: October 15, 2018 This is a 68-year-old female admitted back on October 08. She is status post 3- vessel bypass grafting. She is postop day #7. She is still on 2 L nasal cannula. Chest x-ray shows ongoing fluid overload. She would probably benefit from some additional Lasix. She is not receiving any IV fluids at this time. In addition to the above, she has history of diabetes mellitus, hyperlipidemia, iron deficiency anemia, peripheral vascular occlusive disease, myocardial infarction and a previous history of tobacco dependence. She likely has some underlying COPD. She is doing a bit better on incentive spirometer. Getting about 750 to 1 L on the IS. Vital signs are reviewed. Temperature is 97.6, heart rate 80, respiratory rate 13, blood pressure 116/65, mean 82, saturations are 97% on 2 L. There is no acute distress. HEENT examination is grossly unremarkable. Mucous membranes are moist. No oral lesions. Nasal O2 noted. NECK: Supple. Full range of motion. No adenopathy, thyromegaly or neck vein distention. Cardiovascular examination reveals regular rhythm and rate. S1, S2 normal. Heart sounds are distant. No murmur. Lungs reveal relatively clear breath sounds. A few scattered crackles. No wheezes or rhonchi. Breath sounds are equal. Abdomen is soft. Bowel sounds are heard. Extremities are intact. No cyanosis, clubbing, or edema. Skin without rash. Neurologic examination is brief but nonfocal. Microbiologic studies were negative. Chest x-ray continues to show fluid overload. There is cardiomegaly, pleural effusions and cephalization with some mild interstitial edema. White count 6.1, hemoglobin 6.8, hematocrit 21.8, platelet count 335,000. Sodium 134, potassium 5.3, chloride 106, CO2 of 25, anion gap 3. BUN and creatinine were 51 and 1.35. Medications are reviewed. ASSESSMENT: 1. Postoperative day #7, status post 3-vessel bypass grafting. 2. Routine postoperative ventilator management, resolved. 3. Coronary artery disease. 4. Ischemic cardiomyopathy with left ventricular dysfunction. 5. Chronic systolic heart failure. 6. Chronic obstructive pulmonary disease with an FEV1 that is 56% of predicted/stage II or moderate chronic obstructive pulmonary disease. 7. Postoperative atelectasis and pleural effusions. 8. History of diabetes mellitus. 9. History of hyperlipidemia. 10.History of iron deficiency anemia. 11.Peripheral vascular occlusive disease. 12.History of myocardial infarction. PLAN: The patient should benefit from 1 unit of blood followed by some Pavel. We will leave that up to Cardiothoracic Surgery. No additional recommendations are made. Respiratory status is stable. We encouraged deep breathing, coughing, clearing of secretions and hourly use of incentive spirometer. No additional recommendations are made. We will continue to follow with the discharge. MIGUEL ANGELL / EARNESTN: [id number] /
[2018-10-15] MEDS: CLOPIDOGREL 75 MG TAB PO SCH (08:27)
--- NOTE | 2018-10-15 08:53 | P.PN ---
Subjective Patient is seen in follow-up for acute kidney injury. Unclear as to what her baseline renal function is. Recently her creatinine has been in the range of 1.2-1.3. She underwent CABG on October 08. No active chest pain or shortness of breath. Good urine output. Oral intake is fair. Hemoglobin is 6.8 today. No active bleeding. Vital signs are stable. General: The patient appeared well nourished and normally developed. HEENT: Head exam is unremarkable. Neck is without jugular venous distension. LUNGS: Lungs are clear to auscultation and percussion. Breath sounds decreased. HEART: Rate and Rhythm are regular. First and second heart sounds normal. No murmurs, rubs or gallops. ABDOMEN: Abdominal exam reveals normal bowel sounds. Non-tender and non- distended. No evidence of peritonitis. EXTREMITITES: 1+ edema. Objective - Vital Signs Vital signs: Vital Signs Temp 98.8 F 10/15/18 08:00 Pulse 85 10/15/18 08:00 Resp 15 10/15/18 08:00 BP 127/65 10/15/18 08:00 Pulse Ox 96 10/15/18 08:00 Intake & Output 10/14/18 10/15/18 10/15/18 18:59 06:59 18:59 Intake Total 140 240 Output Total 830 0 Balance -690 0 240 Intake: Oral 140 240 Output: Urine 830 0 Other: Voiding Method Bedside Commode Bedside Commode # Voids 1 1 ABP, PAP, CO, CI - Last Documented Arterial Blood Pressure 102/52 Pulmonary Artery Pressure 39/22 Cardiac Output 5.9 Cardiac Index 2.9 - Labs CBC & Chem 7: 10/15/18 04:41 10/15/18 04:41 Labs: Abnormal Lab Results - Last 24 Hours (Table) 10/14/18 10/14/18 10/14/18 Range/Units 11:45 16:49 20:36 RBC (3.80-5.40) m/uL Hgb (11.4-16.0) gm/dL Hct (34.0-46.0) % Sodium (137-145) mmol/L Potassium (3.5-5.1) mmol/L BUN (7-17) mg/dL Creatinine (0.52-1.04) mg/dL Glucose (74-99) mg/dL POC Glucose (mg/dL) 190 H 221 H 212 H (75-99) mg/dL Calcium (8.4-10.2) mg/dL Magnesium (1.6-2.3) mg/dL 10/15/18 10/15/18 10/15/18 Range/Units 02:54 04:41 04:41 RBC 2.39 L (3.80-5.40) m/uL Hgb 6.8 L* (11.4-16.0) gm/dL Hct 21.8 L (34.0-46.0) % Sodium 134 L (137-145) mmol/L Potassium 5.3 H (3.5-5.1) mmol/L BUN 51 H (7-17) mg/dL Creatinine 1.35 H (0.52-1.04) mg/dL Glucose 101 H (74-99) mg/dL POC Glucose (mg/dL) 118 H (75-99) mg/dL Calcium 8.2 L (8.4-10.2) mg/dL Magnesium 3.4 H (1.6-2.3) mg/dL 10/15/18 Range/Units 06:44 RBC (3.80-5.40) m/uL Hgb (11.4-16.0) gm/dL Hct (34.0-46.0) % Sodium (137-145) mmol/L Potassium (3.5-5.1) mmol/L BUN (7-17) mg/dL Creatinine (0.52-1.04) mg/dL Glucose (74-99) mg/dL POC Glucose (mg/dL) 113 H (75-99) mg/dL Calcium (8.4-10.2) mg/dL Magnesium (1.6-2.3) mg/dL Assessment and Plan Plan: Assessment: 1. Acute kidney injury secondary to ATN secondary to hemodynamic instability. Creatinine peaked at 2.0 this admission and is down to 1.35 today. 2. Chronic kidney disease. UA from earlier this month did reveal 1+ proteinuria which is likely secondary to underlying diabetic kidney disease. Need to establish baseline renal function. 3. Coronary artery disease status post CABG on October 08. 4. Diabetes mellitus. 5. Hyponatremia secondary to acute kidney injury. Slightly hypervolemic. 6. Systolic CHF with ejection fraction of 20-25% on echocardiogram done 2018. 7. Mild hyperkalemia secondary to acute kidney injury. No significant acidosis. Blood sugars not too high either. Stable. 8. Anemia. No active bleeding. Hemoglobin 6.8 today. 9. Mild volume overload. Plan: Recommend 1 unit of blood transfusion today and Lasix 40 mg IV after blood transfusion completed. Potential transfer to inpatient rehab today.
--- NOTE | 2018-10-15 08:59 | XR ---
EXAMINATION TYPE: XR chest 2V DATE OF EXAM: 10/15/2018 COMPARISON: 10/14/2018 HISTORY: Post cardiac surgery FINDINGS: There are bilateral pleural effusions with cardiomegaly and bibasilar infiltrate. There is a diffuse interstitial pattern. Postoperative changes are seen. There is biapical pleural thickening. Arthropa thy shoulders. IMPRESSION: 1. Postsurgical change with bilateral infiltrate and pleural effusion correlate for CHF.
--- NOTE | 2018-10-15 10:01 | P.PN ---
Subjective [facility] 68 [facility] and [facility] EF: 20-25% and chronic diabetic kidney disease, who is status post CABG on 10/08/18, she developed acute kidney injury. she is lying in chair with no chest pain , no dyspnea, no abdominal pain , no nausea or vomiting . she is hemodynamically stable with no fever. her hemoglobin is 7.1 which is expected after surgery and is put on iron pill.her creatinine is 1.5 , baseline around 1.2-1.3, it went up to 2.0 and now is improving , pt is been followed by nephrology team , also has mild hyponatremia. sugar is controlled. pt is planed to go to ECF upon discharge. 10/14/2018 Patient is clinically stable, same as yesterday with no dyspnea or chest pain. Tolerating diet well. Vitals stable .. Labs reviewed showing unremarkable CBC. Her sodium is 132, potassium 5.43 creatinine 1.5. Magnesium 3.7. Calcium 8.1. Sugar is controlled. Repeat chest x-ray showing pulmonary venous hypertension and interstitial edema with probable small effusion and there is likely associated atelectasis changes and pneumonia not excluded per radiology report. However patient has no worsening symptoms. Patient is planned to be discharged to ECF rehab. Patient insurance authorization is pending. 10/15/2018 Patient was sitting in chair with no chest pain or dyspnea. No abdominal complaint. No nausea vomiting. Afebrile. Blood pressure 114/58. Heart rate 90. Breathing quietly , some oxygen saturation 95% on 2 L oxygen when necessary NC. Hemoglobin today is 6.8, patient might benefit from blood transfusion one unit to bring her hemoglobin up as per primary team, currently she is on iron pills. Potassium 5.3. Sodium 134. Creatinine 1.3, which is improved from 1.5 yesterday and close to her known baseline. Sugar controlled. She is on Cardizem, metoprolol, iron pills. And insulin. Patient expected to go to ECF rehab upon discharge Objective - Vital Signs Vital signs: Vital Signs Temp 98.8 F 10/15/18 08:00 Pulse 90 10/15/18 09:00 Resp 16 10/15/18 09:00 BP 114/58 10/15/18 09:00 Pulse Ox 95 10/15/18 09:00 Intake & Output 10/14/18 10/15/18 10/15/18 18:59 06:59 18:59 Intake Total 140 240 Output Total 830 0 Balance -690 0 240 Intake: Oral 140 240 Output: Urine 830 0 Other: Voiding Method Bedside Commode Bedside Commode # Voids 1 1 ABP, PAP, CO, CI - Last Documented Arterial Blood Pressure 102/52 Pulmonary Artery Pressure 39/22 Cardiac Output 5.9 Cardiac Index 2.9 - Exam GENERAL: The patient is alert and oriented x3, not in any acute distress. Well developed, well nourished. HEENT: Pupils are round and equally reacting to light. EOMI. No scleral icterus. No conjunctival pallor. Normocephalic, atraumatic. No pharyngeal erythema. No thyromegaly. CARDIOVASCULAR: S1 and S2 present. No murmurs, rubs, or gallops. PULMONARY: Chest is clear to auscultation, no wheezing or crackles. ABDOMEN: Soft, nontender, nondistended, normoactive bowel sounds. No palpable organomegaly. MUSCULOSKELETAL: No joint swelling or deformity. EXTREMITIES: No cyanosis, clubbing, or pedal edema. NEUROLOGICAL: Gross neurological examination did not reveal any focal deficits. SKIN: No rashes. - Labs CBC & Chem 7: 10/15/18 04:41 10/15/18 04:41 Labs: Abnormal Lab Results - Last 24 Hours (Table) 10/14/18 10/14/18 10/14/18 Range/Units 11:45 16:49 20:36 RBC (3.80-5.40) m/uL Hgb (11.4-16.0) gm/dL Hct (34.0-46.0) % Sodium (137-145) mmol/L Potassium (3.5-5.1) mmol/L BUN (7-17) mg/dL Creatinine (0.52-1.04) mg/dL Glucose (74-99) mg/dL POC Glucose (mg/dL) 190 H 221 H 212 H (75-99) mg/dL Calcium (8.4-10.2) mg/dL Magnesium (1.6-2.3) mg/dL 10/15/18 10/15/18 10/15/18 Range/Units 02:54 04:41 04:41 RBC 2.39 L (3.80-5.40) m/uL Hgb 6.8 L* (11.4-16.0) gm/dL Hct 21.8 L (34.0-46.0) % Sodium 134 L (137-145) mmol/L Potassium 5.3 H (3.5-5.1) mmol/L BUN 51 H (7-17) mg/dL Creatinine 1.35 H (0.52-1.04) mg/dL Glucose 101 H (74-99) mg/dL POC Glucose (mg/dL) 118 H (75-99) mg/dL Calcium 8.2 L (8.4-10.2) mg/dL Magnesium 3.4 H (1.6-2.3) mg/dL 10/15/18 Range/Units 06:44 RBC (3.80-5.40) m/uL Hgb (11.4-16.0) gm/dL Hct (34.0-46.0) % Sodium (137-145) mmol/L Potassium (3.5-5.1) mmol/L BUN (7-17) mg/dL Creatinine (0.52-1.04) mg/dL Glucose (74-99) mg/dL POC Glucose (mg/dL) 113 H (75-99) mg/dL Calcium (8.4-10.2) mg/dL Magnesium (1.6-2.3) mg/dL Assessment and Plan Assessment: coronary artery diseases status post CABG acute kidney injury chronic kidney disease secondary to diabetic nephropathy chronic congestive heart failure with EF 20-2% Anemia, expected postoperatively. Monitor hemoglobin closely. Recommend to give the level above the seventh Plan: this is a pleasatn 68 yo F , she is status post CABG and acute kidney injury, pt is improving . continue with statin , plavix , insulin continue with the same treatment , continue with symptomatic treatment , resume home medication , monitor lytes and vitals including glucose , c/w iv fluids, cardiology consult is appreciated. infectious disease consult is appreciated . c /w same antibioitc . GI and DVT prophylaxis , further recommendation based upon pt clinical course and progress DVT prophylaxis subcutaneous heparin GI prophylaxis Protonix PT/OT: Subacute rehab Prognosis is guarded Thank you for consulting us, please feel free to contact us for any further clarification or questions.
--- NOTE | 2018-10-15 11:55 | P.PN ---
Subjective Progress Note Date: 10/15/18 Principal diagnosis: Coronary artery disease, chronic systolic and diastolic heart failure with preoperative ejection fraction 20-25%, ischemic cardiomyopathy and LV dysfunction, history of non-STEMI earlier this month as well as in 2006 with stent placement at that time, hyperlipidemia, peripheral artery disease with stent placement to the left lower extremity in 2016, chronic kidney disease with baseline creatinine 1.3-1.5, recent vein surgery to bilateral lower extremity is, [id number] diabetes mellitus with preoperative hemoglobin A1c 7.1%, shingles, obesity, moderate COPD with preoperative FEV1 51 % of predicted, previous tobacco dependence, and family history of early coronary artery disease with mother dying before the age of 6060 years old during coronary artery bypass graft surgery. Preoperative nasal swab positive for MSSA. Preoperative normocytic, normochromic anemia. POD #7 off-pump coronary artery bypass graft surgery 3 with the left internal mammary artery artery graft to the left anterior descending artery, right radial artery graft to the obtuse marginal and the left radial arterial graft to the posterior descending artery, bilateral endovascular radial artery harvest. Intraoperative transesophageal echocardiogram by anesthesia. Postoperative acute blood loss anemia, an expected outcome. Acute kidney injury, nonoliguric, potential outcome given patient's baseline chronic kidney disease. Patient is currently sitting up to the bedside chair in the intensive care unit. She is in no acute distress. She denies any complaints of pain or shortness of breath this time. She reports that she ambulated in the intensive care unit all way 3 yesterday from her room to the ICU exit waiting room. She remains hemodynamically stable and is currently on no pressor support. She remains on 3 L nasal cannula with oxygen saturations 96%. The patient is afebrile and her WBC count today is 6.1, BUN is 51 and creatinine is 1.35. Objective - Vital Signs Vital signs: Vital Signs Temp 98.8 F 10/15/18 08:00 Pulse 85 10/15/18 08:00 Resp 15 10/15/18 08:00 BP 127/65 10/15/18 08:00 Pulse Ox 96 10/15/18 08:00 Intake & Output 10/14/18 10/15/18 10/15/18 18:59 06:59 18:59 Intake Total 140 240 Output Total 830 0 Balance -690 0 240 Intake: Oral 140 240 Output: Urine 830 0 Other: Voiding Method Bedside Commode Bedside Commode # Voids 1 1 ABP, PAP, CO, CI - Last Documented Arterial Blood Pressure 102/52 Pulmonary Artery Pressure 39/22 Cardiac Output 5.9 Cardiac Index 2.9 - Constitutional General appearance: Present: cooperative, no acute distress, obese - Respiratory Details: Lung sounds with scattered expiratory wheezes, diminished bilateral bases. Respirations are symmetrical and nonlabored. Oxygen saturation are 96% on 3 L nasal cannula. She is achieving 750 mL on her incentive spirometry. Productive cough with thin yellow sputum. - Cardiovascular Details: Regular rhythm and rate. S1 and S2 present, negative for S3, gallop or murmur. Sternum is stable. Bedside telemetry showing normal sinus rhythm heart rate 84. Knee-high BINDU hose and sequential compression devices in place to bilateral lower extremities. Heart hugger in place and she is demonstrating appropriate use. Trace edema to her bilateral lower extremities. - Gastrointestinal Gastrointestinal Comment(s): Abdomen is soft, nontender and nondistended. Active bowel sounds all 4 abdominal quadrants. Tolerating oral intake. Bowel movement yesterday 3. No guarding or rigidity. No organomegaly. - Genitourinary Genitourinary Comment(s): Voiding clear yellow urine. - Integumentary Integumentary Comment(s): Skin is warm and dry. No clubbing or cyanosis is present. Midline sternal incision is clean, dry and approximated. Gauze dressing clean and dry. No drainage or redness present. Bilateral radial artery harvest sites are clean, dry and approximated. No drainage or redness is present. Hands are warm to touch bilaterally. - Neurologic Neurologic: Present: CNII-XII intact - Musculoskeletal Musculoskeletal: Present: gait normal, generalized weakness, strength equal bilaterally - Psychiatric Psychiatric: Present: A&O x's 3, appropriate affect, intact judgment & insight - Allied health notes Allied health notes reviewed: nursing - Labs CBC & Chem 7: 10/15/18 04:41 10/15/18 04:41 Labs: Abnormal Lab Results - Last 24 Hours (Table) 10/14/18 10/14/18 10/14/18 Range/Units 11:45 16:49 20:36 RBC (3.80-5.40) m/uL Hgb (11.4-16.0) gm/dL Hct (34.0-46.0) % Sodium (137-145) mmol/L Potassium (3.5-5.1) mmol/L BUN (7-17) mg/dL Creatinine (0.52-1.04) mg/dL Glucose (74-99) mg/dL POC Glucose (mg/dL) 190 H 221 H 212 H (75-99) mg/dL Calcium (8.4-10.2) mg/dL Magnesium (1.6-2.3) mg/dL 10/15/18 10/15/18 10/15/18 Range/Units 02:54 04:41 04:41 RBC 2.39 L (3.80-5.40) m/uL Hgb 6.8 L* (11.4-16.0) gm/dL Hct 21.8 L (34.0-46.0) % Sodium 134 L (137-145) mmol/L Potassium 5.3 H (3.5-5.1) mmol/L BUN 51 H (7-17) mg/dL Creatinine 1.35 H (0.52-1.04) mg/dL Glucose 101 H (74-99) mg/dL POC Glucose (mg/dL) 118 H (75-99) mg/dL Calcium 8.2 L (8.4-10.2) mg/dL Magnesium 3.4 H (1.6-2.3) mg/dL 10/15/18 Range/Units 06:44 RBC (3.80-5.40) m/uL Hgb (11.4-16.0) gm/dL Hct (34.0-46.0) % Sodium (137-145) mmol/L Potassium (3.5-5.1) mmol/L BUN (7-17) mg/dL Creatinine (0.52-1.04) mg/dL Glucose (74-99) mg/dL POC Glucose (mg/dL) 113 H (75-99) mg/dL Calcium (8.4-10.2) mg/dL Magnesium (1.6-2.3) mg/dL - Imaging and Cardiology Chest x-ray: image reviewed Assessment and Plan (1) Status post three vessel coronary artery bypass Current Visit: Yes Status: Acute Code(s): Z95.1 - PRESENCE OF AORTOCORONARY BYPASS GRAFT SNOMED Code(s): 574661114 (2) COPD (chronic obstructive pulmonary disease) Current Visit: Yes Status: Chronic Code(s): J44.9 - CHRONIC OBSTRUCTIVE PULMONARY DISEASE, UNSPECIFIED SNOMED Code(s): 74350299 (3) Coronary artery disease Current Visit: Yes Status: Chronic Code(s): I25.10 - ATHSCL HEART DISEASE OF [place] CORONARY ARTERY W/O ANG PCTRS SNOMED Code(s): 88138845 (4) Diabetes mellitus Current Visit: Yes Status: Chronic Code(s): E11.9 - TYPE 2 DIABETES MELLITUS WITHOUT COMPLICATIONS SNOMED Code(s): 97809019 (5) History of heart artery stent Current Visit: Yes Status: Chronic Code(s): Z95.5 - PRESENCE OF CORONARY ANGIOPLASTY IMPLANT AND GRAFT SNOMED Code(s): 200818348 (6) Hyperlipidemia Current Visit: Yes Status: Chronic Code(s): E78.5 - HYPERLIPIDEMIA, UNSPECIFIED SNOMED Code(s): 82699612 (7) Iron deficiency anemia Current Visit: Yes Status: Chronic Code(s): D50.9 - IRON DEFICIENCY ANEMIA, UNSPECIFIED SNOMED Code(s): 99613998 (8) Ischemic cardiomyopathy Current Visit: Yes Status: Chronic Code(s): I25.5 - ISCHEMIC CARDIOMYOPATHY SNOMED Code(s): 567998943 (9) Obesity (BMI 30.0-34.9) Current Visit: Yes Status: Chronic Code(s): E66.9 - OBESITY, UNSPECIFIED SNOMED Code(s): 937375548295509 (10) Peripheral artery disease Current Visit: Yes Status: Chronic Code(s): I73.9 - PERIPHERAL VASCULAR DISEASE, UNSPECIFIED SNOMED Code(s): 182112226 (11) Systolic heart failure Current Visit: Yes Status: Chronic Code(s): I50.20 - UNSPECIFIED SYSTOLIC ( CONGESTIVE) HEART FAILURE SNOMED Code(s): 961927544 (12) Congestive heart failure Current Visit: No Status: Acute Code(s): I50.9 - HEART FAILURE, UNSPECIFIED SNOMED Code(s): 70892640 (13) History of myocardial infarction, greater than 8 weeks ago Current Visit: No Status: Resolved Code(s): I25.2 - OLD MYOCARDIAL INFARCTION SNOMED Code(s): 9425963 (14) Tobacco dependence in remission Current Visit: No Status: Resolved Code(s): F17.201 - NICOTINE DEPENDENCE, UNSPECIFIED, IN REMISSION SNOMED Code(s): 790192880 Plan: 1. Continue aspirin, statin, Plavix, beta salome therapy. Will decrease metoprolol tartrate 12.5 mg by mouth twice a day. 2. Avoid nephrotoxic agents. Nephrology services following. Lasix 20 mg IV 1 now, then Lasix 20 mg by mouth daily 5 days. 3. Continue oral Cardizem for radial artery spasm. Do not discontinue. We will change her Cardizem to Cardizem CD 120 mg by mouth daily. 4. Wean O2 as tolerated. Encourage incentive spirometry is 10 times every hour while awake. 5. Bronchodilator management per pulmonology. 6. Increase activity as tolerated. PT/OT/cardiac rehab following. 7. GI prophylaxis with Protonix, DVT prophylaxis with subcu heparin, SCDs. 8. Insulin management per primary care service. 9. Pain control with current medication regimen. No Toradol secondary to chronic renal insufficiency. 10. Will monitor daily labs and x-rays. Electrolyte replacement per protocol. Discontinued magnesium replacement protocol due to elevated magnesium. 11. Anticipate discharge to inpatient rehab at [facility] today. 12. More recommendations to follow based on patient's clinical course. Time with Patient: Greater than 30
[2018-10-15] MEDS ORDERED: DILTIAZEM CD 120 MG CAP.ER.24H PO SCH (12:00)
[2018-10-15] MEDS ORDERED: FUROSEMIDE 10 MG/ML 2 ML VIAL IV STA (12:15)
--- NOTE | 2018-10-15 12:38 | P.DS ---
Providers Date of admission: 10/08/18 05:48 Expected date of discharge: 10/15/18 Attending physician: Rogelio Zuñiga Consults: 10/08/18 14:43 Consult Physician Routine Consulting Provider: Nancy Rolle Consult Reason/Comments: Brown Sourer Consult: post cardiac surgery Do you want consulting provider notified?: Yes Placement Type Exists?: Yes Consult Physician Routine Consulting Provider: Surjit Barker Consult Reason/Comments: Akil kauffman patient Do you want consulting provider notified?: Already Contacted Placement Type Exists?: Yes Consult Physician Routine Consulting Provider: Avi Alarcon Consult Reason/Comments: 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 cardiac surgery Do you want consulting provider notified?: Yes Placement Type Exists?: Yes 10/12/18 08:41 Consult Physician Routine Consulting Provider: Monica Sifuentes Consult Reason/Comments: acute on chronic renal failure Do you want consulting provider notified?: Yes 10/13/18 11:52 Consult Physician Routine Consulting Provider: Roosevelt Huynh Consult Reason/Comments: inpatient rehab Do you want consulting provider notified?: Yes Primary care physician: Davey Barnard - Discharge Diagnosis(es) (1) Status post three vessel coronary artery bypass Current Visit: Yes Status: Acute (2) COPD (chronic obstructive pulmonary disease) Current Visit: Yes Status: Chronic (3) Coronary artery disease Current Visit: Yes Status: Chronic (4) Diabetes mellitus Current Visit: Yes Status: Chronic (5) History of heart artery stent Current Visit: Yes Status: Chronic (6) Hyperlipidemia Current Visit: Yes Status: Chronic (7) Iron deficiency anemia Current Visit: Yes Status: Chronic (8) Ischemic cardiomyopathy Current Visit: Yes Status: Chronic (9) Obesity (BMI 30.0-34.9) Current Visit: Yes Status: Chronic (10) Peripheral artery disease Current Visit: Yes Status: Chronic (11) Systolic heart failure Current Visit: Yes Status: Chronic (12) Congestive heart failure Current Visit: No Status: Acute (13) History of myocardial infarction, greater than 8 weeks ago Current Visit: No Status: Resolved (14) Tobacco dependence in remission Current Visit: No Status: Resolved Hospital Course: FINAL DIAGNOSIS: 1. Coronary artery disease 2. Chronic systolic and diastolic heart failure with preoperative ejection fraction 20-25%, ischemic cardiomyopathy and LV dysfunction 3. History of non-STEMI September 2018 as well as in 2006 with stent placement 4. Hyperlipidemia 5. Peripheral artery disease with stent placement to the left lower extremity 2015 6. Chronic kidney disease with baseline creatinine 1.3-1.5 7. Recent vein surgery to bilateral lower extremities 8. Ihp-srmvnrf-bwhdoxrvl diabetes mellitus with preoperative hemoglobin A1c 7.1 % 9. Shingles 10. Obesity 11. Moderate COPD with preoperative FEV1 51% of predicted 12. Previous tobacco dependence 13. Family history of early coronary artery disease 14. Preoperative nasal swab positive for MSSA 15. Preoperative normocytic, normochromic anemia 16. Postoperative acute blood loss anemia 17. Acute kidney injury, nonoliguric PRINCIPAL PROCEDURE: 1. Off-pump coronary artery bypass graft surgery 3 with the left internal mammary artery graft to the left anterior descending artery, right radial artery graft to the obtuse marginal and the left radial arterial graft to the posterior descending artery 2. Bilateral endovascular radial artery harvest 3. Intraoperative transesophageal echocardiogram by anesthesia HISTORY OF PRESENT ILLNESS: This is a 68-year-old female patient who follows on an outpatient basis with Dr. Sadie Barnard. She presented to [facility] emergency room with complaints of increasing shortness of breath, especially with activity. She was unable to lay flat, and was significantly short of breath just walking from her kitchen to her bathroom. Her dyspnea was partially relieved with rest. Other symptoms at that time were bilateral lower extremity edema, intermittent nausea, and occasional palpitations. She did denied any chest pain or pressure, weakness or dizziness. In the emergency room she had an 12 lead EKG completed demonstrating nonspecific ST-T wave changes, her troponins were elevated and she was ruled in for non-STEMI. Chest x-ray demonstrated bilateral pleural effusions with pulmonary vascular congestion and she was admitted for cardiology workup. She was taken to the [facility] by Dr. Alarcon which demonstrated previous stent to the RCA with RCA stenosis 80-90% and distal RCA stenosis 70%, subtotal occlusion of the mid LAD with extensive disease in the proximal LAD, and OM branch of the circumflex artery with 60-70% stenosis. The patient was referred to Dr. Paez from cardiothoracic surgery. She was recommended to undergo an off-pump coronary artery bypass surgery to be completed by Dr. Rogelio Zuñiga. The usual perioperative course was discussed in detail with the patient and her family, all risks and benefits were explained, all questions were answered, and consent was obtained to proceed with surgery. The patient was discharged home to allow for optimization of medical therapy. HOSPITAL COURSE: The patient was brought to the hospital on 10/08/2018, taken to the preoperative area, prepared in the usual fashion and subsequently taken to the operating room where Dr. Zuñiga performed off-pump coronary artery bypass graft surgery 3 with the left internal mammary artery graft to the left anterior descending artery, right radial artery graft to the obtuse marginal and the left radial arterial graft to the posterior descending artery, bilateral endovascular radial artery harvest, and intraoperative transesophageal echocardiogram by anesthesia. Upon completion of surgery the patient was transferred to the cardiovascular intensive care unit where she was recovered, monitored hemodynamically and where she progressed to cardiac rehabilitation phase 1. She was extubated, all lines, tubes and supportive drips were discontinued when appropriate and orders were placed to transfer the patient to [address] [place] [address] cardiac stepdown unit for further monitoring and rehabilitation, however there was no bed availability and the patient was kept in the intensive care unit until discharge. Her oxygen was titrated down, she continued to work with physical and occupational therapy, she was tolerating oral diet, her pain was controlled, and she was ready to be discharged to [facility] inpatient rehab on postoperative day #7. She received written and verbal instruction regarding her medications, activity restrictions , signs and symptoms requiring physician notification, and follow-up appointments. COMPLICATIONS: The patient experienced postoperative acute blood loss anemia and acute kidney injury, both an expected potential outcomes, and both were treated accordingly. Consultations at [facility] inpatient rehab: Dr. Alarcon for cardiology Dr. Rolle for pulmonology Dr. Brown for nephrology DISCHARGE INSTRUCTIONS: 1. No driving for 4 weeks, or until physician gives their ok. 2. The patient should sleep in their own bed, no medical bed needed. 3. Stairs are not an issue. If the bedroom is upstairs, it is advised that the patient go up at night and down in the morning for the first week. Go slowly, using handrail and take 1 step at a time. 4. BINDU hose are to be worn for 30 days or until physician discontinues. 5. Heart hugger is to be worn 100% of the time until physician discontinues.( except when showering) 6. No lifting, pushing, or pulling more than 10 pounds for 12 weeks. The physician will advise of any restriction changes. 7. The patient is expected to continue the prescribed walking program. 8. Continue pain control per as needed orders. 9. Continue with incentive spirometry and splinting/heart hugger until otherwise directed by the physician. 10. Must shower daily using liquid antibacterial soap and a separate white washcloth for each individual incision. 11. Routine sternal incision care. No powders, lotions, ointments on incisions. 12. Please call surgeon/FITTING ROOM OPERATOR for temp greater than 101 F or purulent drainage from incisions. 13. Narcotic medications were discussed with the patient, including the potential for misuse, addiction, and abuse. Opiod Start Talking form was reviewed with the patient. 14. All prescriptions given by surgeon for 30 days. Refills need to be filled through ophthalmology surgical technician/primary care physician. 15. A Red armband has been placed on the patient. It should be worn for 30 days post surgery and will be removed by the cardiac surgeons. If an ER visit is necessary, please make sure the number on the Red armband is called. 16. The patient will not be discharged on an CAMILA inhibitor due to her renal function and will be reassessed on an outpatient basis once her renal function has improved. [facility] IPR/HOME HEALTH SERVICES TO PROVIDE: RN SKILLED HOME CARE SERVICES FOR POST-OP SURGICAL PATIENTS WITH THE FOLLOWING: Coronary Artery Bypass Surgery (CABG), Mitral Valve Replacement/ Repair ( MVR), Aortic Valve Replacement/Repair (AVR) RN TO CONTINUE EDUCATION FROM ``ROAD TO A HEALTH HEART PATIENT EDUCATION MANUAL (GIVEN TO PATIENT IN THE HOSPITAL) MEDICATION RECONCILIATION WITH EDUCATION NEEDED ON FIRST HOME VISIT EMPHASIZE IMPORTANCE OF WEARING BREAST SUPPORT/HEART HUGGER ENCOURAGE USE OF INCENTIVE SPIROMETER 10 X EVERY HOUR WHILE AWAKE ENCOURAGE UTILIZATION OF LOWER EXTREMITY COMPRESSION STOCKINGS/BINDU HOSE and ELEVATE LEGS ABOVE LEVEL OF HEART WHILE AT REST. ENCOURAGE AMBULATION 3-5x/day INCREASING TOLERATES, WHILE AVOID EXTREMES IN TEMPERATURE FREQUENCY: RN TO OPEN THE PATIENT WITHIN 24 HOURS OF DISCHARGE FROM INPATIENT REHAB WITH TELEHEALTH INSTALLED AT [facility], RN TO VISIT 2-3 X A WEEK FOR 4 WEEKS ESTABLISHED BY PATIENT NEEDS. LABORATORY: CBC, CMP TO BE DRAWN ON THE THIRD DAY HOME, 10/18/2018. FAX RESULTS TO [phone]. TELEHEALTH PARAMETERS: WEIGHT: NOTIFY MD OF WEIGHT GAIN OF 2 LBS IN 24 HOURS OR 5 LBS IN ONE WEEK HR: NOTIFY MD OF HR <55 BPM OR HR>100 BPM BP: NOTIFY MD IF BP <90/55 OR BP>140/100 O2 SAT: NOTIFY MD IF PO2<93% ON ROOM AIR SEND TELEHEALTH REPORT TO PHYSICAL THERAPY COORDINATOR AND CARDIOVASCULAR SURGEON THE FIRST WEEK OF CARE AND THEN BI-WEEKLY. PLEASE ADDITIONALLY COMMUNICATE ANY ABNORMALS AND NEW FINDINGS TO THE SURGEONS OFFICE. Plan - Discharge Summary Discharge Rx Participant: Yes New Discharge Prescriptions: New Acetaminophen Tab [Tylenol] 325 mg PO Q4HR PRN tab PRN Reason: Fever And/ Or Pain Heparin Sodium,Porcine [Heparin Sodium] 5,000 unit SQ Q8HR vial Metoprolol Tartrate [Lopressor] 25 mg PO Q8HR tab Ascorbic Acid [Vitamin C] 500 mg PO BID-W/MEALS tab Aspirin 325 mg PO DAILY tab Atorvastatin [Lipitor] 40 mg PO DAILY tab Bisacodyl [Dulcolax] 10 mg RECTAL DAILY PRN supp PRN Reason: Constipation Clopidogrel [Plavix] 75 mg PO DAILY tab Diltiazem Cd [Cardizem CD] 120 mg PO DAILY cap.er.24h Ferrous Sulfate [Iron (65 MG Elemental)] 325 mg PO BID-W/MEALS tab Furosemide [Lasix] 20 mg PO DAILY 5 Days tab Insulin Aspart [NovoLOG (formulary)] 0 unit SQ ACHS vial Insulin Detemir [Levemir] 14 unit SQ HS syr Ipratropium-Albuterol Nebulize [Duoneb 0.5 mg-3 mg/3 ml Soln] 3 ml INHALATION RT-QID ampul.neb Ipratropium-Albuterol Nebulize [Duoneb 0.5 mg-3 mg/3 ml Soln] 3 ml INHALATION RT-Q2H PRN ampul.neb PRN Reason: Shortness Of Breath Or Wheezing Pantoprazole [Protonix] 40 mg PO AC-BRKFST tablet. Sennosidejuliette-Docusate Sodium [Senokot-S] 2 each PO HS PRN tab PRN Reason: Constipation Discontinued metFORMIN HCL 1,000 mg PO BID Lisinopril [Zestril] 5 mg PO DAILY Aspirin EC [Ecotrin] 325 mg PO DAILY Glimepiride [Amaryl] 2 mg PO DAILY Oxybutynin Chloride [Oxybutynin Chloride ER] 10 mg PO DAILY Atorvastatin [Lipitor] 40 mg PO DAILY #30 tab Metoprolol Tartrate [Lopressor] 50 mg PO BID #60 tab Nitroglycerin Sl Tabs [Nitrostat] 0.4 mg SUBLINGUAL Q5M PRN #25 tab PRN Reason: Chest Pain Spironolactone [Aldactone] 12.5 mg PO DAILY #30 tab Discharge Medication List Acetaminophen Tab [Tylenol] 325 mg PO Q4HR PRN tab 10/15/18 [Rx] Ascorbic Acid [Vitamin C] 500 mg PO BID-W/MEALS tab 10/15/18 [Rx] Aspirin 325 mg PO DAILY tab 10/15/18 [Rx] Atorvastatin [Lipitor] 40 mg PO DAILY tab 10/15/18 [Rx] Bisacodyl [Dulcolax] 10 mg RECTAL DAILY PRN supp 10/15/18 [Rx] Clopidogrel [Plavix] 75 mg PO DAILY tab 10/15/18 [Rx] Diltiazem Cd [Cardizem CD] 120 mg PO DAILY cap.er.24h 10/15/18 [Rx] Ferrous Sulfate [Iron (65 MG Elemental)] 325 mg PO BID-W/MEALS tab 10/15/18 [Rx ] Furosemide [Lasix] 20 mg PO DAILY 5 Days tab 10/15/18 [Rx] Heparin Sodium,Porcine [Heparin Sodium] 5,000 unit SQ Q8HR vial 10/15/18 [Rx] Insulin Aspart [NovoLOG (formulary)] 0 unit SQ ACHS vial 10/15/18 [Rx] Insulin Detemir [Levemir] 14 unit SQ HS syr 10/15/18 [Rx] Ipratropium-Albuterol Nebulize [Duoneb 0.5 mg-3 mg/3 ml Soln] 3 ml INHALATION RT -Q2H PRN ampul.neb 10/15/18 [Rx] Ipratropium-Albuterol Nebulize [Duoneb 0.5 mg-3 mg/3 ml Soln] 3 ml INHALATION RT -QID ampul.neb 10/15/18 [Rx] Metoprolol Tartrate [Lopressor] 25 mg PO Q8HR tab 10/15/18 [Rx] Pantoprazole [Protonix] 40 mg PO AC-BRKFST tablet. 10/15/18 [Rx] Sennosides-Docusate Sodium [Senokot-S] 2 each PO HS PRN tab 10/15/18 [Rx] Follow up Appointment(s)/Referral(s): Nancy Rolle MD [STAFF PHYSICIAN] - 2 Weeks (Follow up appointment to be made upon discharge from [facility] inpatient rehab) Rogelio Zuñiga MD [STAFF PHYSICIAN] - 11/05/18 1:00 pm Davey Barnard DO [Primary Care Provider] - 1 Week (Follow up appointment to be made upon discharge from [facility] inpatient rehab) Eduardo Brown DO [STAFF PHYSICIAN] - 2 Weeks (Follow up appointment to be made upon discharge from [facility] inpatient rehab) Avi Alarcon MD [STAFF PHYSICIAN] - 2 Weeks (Follow up appointment to be made upon discharge from [facility] inpatient rehab) Activity/Diet/Wound Care/Special Instructions: Consultations at [facility] inpatient rehab: Dr. Alarcon for cardiology Dr. Rolle for pulmonology Dr. Brown for nephrology DISCHARGE INSTRUCTIONS: 1. No driving for 4 weeks, or until physician gives their ok. 2. The patient should sleep in their own bed, no medical bed needed. 3. Stairs are not an issue. If the bedroom is upstairs, it is advised that the patient go up at night and down in the morning for the first week. Go slowly, using handrail and take 1 step at a time. 4. BINDU hose are to be worn for 30 days or until physician discontinues. 5. Heart hugger is to be worn 100% of the time until physician discontinues.( except when showering) 6. No lifting, pushing, or pulling more than 10 pounds for 12 weeks. The physician will advise of any restriction changes. 7. The patient is expected to continue the prescribed walking program. 8. Continue pain control per as needed orders. 9. Continue with incentive spirometry and splinting/heart hugger until otherwise directed by the physician. 10. Must shower daily using liquid antibacterial soap and a separate white washcloth for each individual incision. 11. Routine sternal incision care. No powders, lotions, ointments on incisions. 12. Please call surgeon/FITTING ROOM OPERATOR for temp greater than 101 F or purulent drainage from incisions. 13. Narcotic medications were discussed with the patient, including the potential for misuse, addiction, and abuse. Opiod Start Talking form was reviewed with the patient. 14. All prescriptions given by surgeon for 30 days. Refills need to be filled through ophthalmology surgical technician/primary care physician. 15. A Red armband has been placed on the patient. It should be worn for 30 days post surgery and will be removed by the cardiac surgeons. If an ER visit is necessary, please make sure the number on the Red armband is called. 16. The patient will not be discharged on an CAMILA inhibitor due to her renal function and will be reassessed on an outpatient basis once her renal function has improved. [facility] IPR/HOME HEALTH SERVICES TO PROVIDE: RN SKILLED HOME CARE SERVICES FOR POST-OP SURGICAL PATIENTS WITH THE FOLLOWING: Coronary Artery Bypass Surgery (CABG), Mitral Valve Replacement/ Repair ( MVR), Aortic Valve Replacement/Repair (AVR) RN TO CONTINUE EDUCATION FROM ``ROAD TO A HEALTH HEART PATIENT EDUCATION MANUAL (GIVEN TO PATIENT IN THE HOSPITAL) MEDICATION RECONCILIATION WITH EDUCATION NEEDED ON FIRST HOME VISIT EMPHASIZE IMPORTANCE OF WEARING BREAST SUPPORT/HEART HUGGER ENCOURAGE USE OF INCENTIVE SPIROMETER 10 X EVERY HOUR WHILE AWAKE ENCOURAGE UTILIZATION OF LOWER EXTREMITY COMPRESSION STOCKINGS/BINDU HOSE and ELEVATE LEGS ABOVE LEVEL OF HEART WHILE AT REST. ENCOURAGE AMBULATION 3-5x/day INCREASING TOLERATES, WHILE AVOID EXTREMES IN TEMPERATURE FREQUENCY: RN TO OPEN THE PATIENT WITHIN 24 HOURS OF DISCHARGE FROM INPATIENT REHAB WITH TELEHEALTH INSTALLED AT [facility], RN TO VISIT 2-3 X A WEEK FOR 4 WEEKS ESTABLISHED BY PATIENT NEEDS. LABORATORY: CBC, CMP TO BE DRAWN ON THE THIRD DAY HOME, (RAN STAT) FAX RESULTS TO [phone]. TELEHEALTH PARAMETERS: WEIGHT: NOTIFY MD OF WEIGHT GAIN OF 2 LBS IN 24 HOURS OR 5 LBS IN ONE WEEK HR: NOTIFY MD OF HR <55 BPM OR HR>100 BPM BP: NOTIFY MD IF BP <90/55 OR BP>140/100 O2 SAT: NOTIFY MD IF PO2<93% ON ROOM AIR SEND TELEHEALTH REPORT TO PHYSICAL THERAPY COORDINATOR AND CARDIOVASCULAR SURGEON THE FIRST WEEK OF CARE AND THEN BI-WEEKLY. PLEASE ADDITIONALLY COMMUNICATE ANY ABNORMALS AND NEW FINDINGS TO THE SURGEONS OFFICE.
[2018-10-15 13:20] LABS: Glucose,Whole Blood 216 mg/dL (75-99)
[2018-10-15 14:01] VITALS: BP 99/63; RESP 16
[2018-10-15 15:09] VITALS: PULSE 93
[2018-10-16] MEDS ORDERED: FUROSEMIDE 20 MG TAB PO SCH (09:00)
== END 2018-10-15 16:09 | DRG 235 ==
LOC: 2ORMAIN 05:48 → 2SICU 12:34
PROVIDERS: ADMIT Thoracic Surgery (Cardiothoracic Vascular Surgery); ATTEND Thoracic Surgery (Cardiothoracic Vascular Surgery)
PROC: 02100Z9 Bypass Coronary Artery, One Artery from Left Internal Mammary, Open Approach (ICD-10-PCS; principal; 2018-10-08 08:30)
PROC: 02110AW Bypass Coronary Artery, Two Arteries from Aorta with Autologous Arterial Tissue, Open Approach (ICD-10-PCS; 2018-10-08 08:30)
PROC: 03BB4ZZ Excision of Right Radial Artery, Percutaneous Endoscopic Approach (ICD-10-PCS; 2018-10-08 08:30)
DX: I25.10 Atherosclerotic heart disease of native coronary artery without angina pectoris (principal); N17.0 Acute kidney failure with tubular necrosis; I50.22 Chronic systolic (congestive) heart failure; D62 Acute posthemorrhagic anemia; E87.1 Hypo-osmolality and hyponatremia; E87.2 Acidosis; I13.0 Hypertensive heart and chronic kidney disease with heart failure and stage 1 through stage 4 chronic kidney disease, or unspecified chronic kidney disease; J98.11 Atelectasis; J90 Pleural effusion, not elsewhere classified; I25.2 Old myocardial infarction; I25.5 Ischemic cardiomyopathy; E11.22 Type 2 diabetes mellitus with diabetic chronic kidney disease; E11.51 Type 2 diabetes mellitus with diabetic peripheral angiopathy without gangrene; I95.9 Hypotension, unspecified; E66.01 Morbid (severe) obesity due to excess calories; E87.5 Hyperkalemia; E88.09 Other disorders of plasma-protein metabolism, not elsewhere classified; J44.9 Chronic obstructive pulmonary disease, unspecified; N18.3 Chronic kidney disease, stage 3 (moderate); E78.5 Hyperlipidemia, unspecified; F17.201 Nicotine dependence, unspecified, in remission; R32 Unspecified urinary incontinence; I83.90 Asymptomatic varicose veins of unspecified lower extremity; R00.1 Bradycardia, unspecified; R11.0 Nausea; I34.0 Nonrheumatic mitral (valve) insufficiency; Z68.30 Body mass index [BMI] 30.0-30.9, adult; Z79.82 Long term (current) use of aspirin; Z79.84 Long term (current) use of oral hypoglycemic drugs; Z79.899 Other long term (current) drug therapy; Z95.5 Presence of coronary angioplasty implant and graft; Z88.1 Allergy status to other antibiotic agents; Z82.49 Family history of ischemic heart disease and other diseases of the circulatory system; Z80.3 Family history of malignant neoplasm of breast; Z80.0 Family history of malignant neoplasm of digestive organs
CPT/HCPCS: 36430; 71045; 71046; 80048; 80053; 82330; 82805; 83735; 84100; 85025; 85027; 85520; 85610; 85730; 86850; 86891; 86900; 86901; 86920; 94002; 94640

== ENCOUNTER → 2019-05-05 | Outpatient (CLI) | payer MEDICARE ==
--- NOTE | 2019-05-10 10:15 | MM ---
Reason for exam: screening (asymptomatic). Last mammogram was performed 3 years and 6 months ago. History: Patient is postmenopausal. Family history of breast cancer in sister at age 40. Benign excisional biopsy of the left breast, 1993. Physical Findings: A clinical breast exam by your physician is recommended on an annual basis and results should be correlated with mammographic findings. MG 3D Screening Mammo W/Cad Bilateral CC and MLO view(s) were taken. Prior study comparison: November 15, 2015, mammogram, performed at [facility]. October 09, 2012, mammogram, performed at [facility]. September 17, 2012, mammogram, performed at [facility]. The breast tissue is heterogeneously dense. This may lower the sensitivity of mammography. Benign appearing bilateral calcifications. There is no discrete abnormality. No significant changes when compared with prior studies. ASSESSMENT: Benign, BI-RAD 2 RECOMMENDATION: Routine screening mammogram of both breasts in 1 year.
== END | disposition home or self-care (01) ==
LOC: RADMAMWWP 13:15
PROVIDERS: ATTEND Family Medicine
DX: Z12.31 Encounter for screening mammogram for malignant neoplasm of breast (principal)
CPT/HCPCS: 77063; 77067